=== PATIENT | female | born 1955 | race Caucasian/White ===

== ENCOUNTER → 2016-10-17 | Outpatient (CLI) | payer OTHER ==
--- NOTE | 2016-10-17 18:43 | US ---
EXAMINATION TYPE: US venous doppler duplex LE LT DATE OF EXAM: 10/17/2016 5:35 PM COMPARISON: NONE CLINICAL HISTORY: LLE Knee and Calf Pain M25.561. SIDE PERFORMED: Left TECHNIQUE: The lower extremity deep venous system is examined utilizing real time linear array sonog kaylene with graded compression, doppler sonography and color-flow sonography. VESSELS IMAGED: External Iliac Vein (EIV) Common Femoral Vein Deep Femoral Vein Greater Saphenous Vein * Femoral Vein Popliteal Vein Small Saphenous Vein * Proximal Calf Veins (* superficial vessels) Grayscale, color doppler, spectral doppler imaging performed of the deep veins of the left lower extr emity. There is normal flow, compressibility, vascular waveforms . Left Leg: Negative for DVT IMPRESSION: No Evidence for DVT.
== END | disposition home or self-care (01) ==
LOC: RADUSMAIN 16:46
PROVIDERS: ATTEND Orthopaedic Surgery
DX: M25.562 Pain in left knee (principal); M25.561 Pain in right knee; M17.11 Unilateral primary osteoarthritis, right knee; M25.461 Effusion, right knee; M65.861 Other synovitis and tenosynovitis, right lower leg
CPT/HCPCS: 87070; 87075; 87205; 89050; 89060

== ENCOUNTER → 2016-12-04 | Outpatient (CLI) | payer OTHER ==
--- NOTE | 2016-12-04 09:17 | US ---
EXAMINATION TYPE: US liver DATE OF EXAM: 12/04/2016 COMPARISON: NONE CLINICAL HISTORY: R74.8 Elevated Liver Enzymes. EXAM MEASUREMENTS: Liver Length: 15.0 cm Gallbladder Wall: 0.3 cm CBD: 0.6 cm Right Kidney: 13.0 x 3.8 x 5.1 cm Pancreas: Obscured by bowel gas Liver: There is a coarsened hepatic echotexture with mild hyperechogenicity and poor visualization of the portal triads. This finding limits evaluation for underlying hepatic masses. Gallbladder: no evidence of stones Evidence for sonographic Haro's sign: no CBD: appears wnl Right Kidney: upper limits of normal in size IMPRESSION: Coarsened and slightly hyperechoic hepatic echotexture, most commonly relating to mild he patic steatosis.
== END | disposition home or self-care (01) ==
LOC: RADUSWWP 07:36
PROVIDERS: ATTEND Family Medicine
DX: R93.2 Abnormal findings on diagnostic imaging of liver and biliary tract (principal); R74.8 Abnormal levels of other serum enzymes
CPT/HCPCS: 76705

== ENCOUNTER → 2017-03-08 | Outpatient (CLI) | payer OTHER ==
[2017-03-08 08:02] LABS: ALT 33 U/L (9-52); AST 25 U/L (14-36); Alkaline Phosphatase 150 U/L (38-126); Anion Gap 10 mmol/L; Bilirubin, Delta 0.2 mg/dL (0.0-0.2); Blood Urea Nitrogen 19 mg/dL (7-17); Calcium 9.5 mg/dL (8.4-10.2); Carbon Dioxide 27 mmol/L (22-30); Chloride 106 mmol/L (98-107); Cholesterol 229 mg/dL (<200); Glucose 105 mg/dL (74-99); HDL Cholesterol 39 mg/dL (40-60); Non-African American GFR(MDRD) >60 (>60 ml/min/1.73 sqM); Potassium 4.5 mmol/L (3.5-5.1); Sodium 143 mmol/L (137-145); Total Bilirubin 0.4 mg/dL (0.2-1.3); Total Protein 7.8 g/dL (6.3-8.2)
== END | disposition home or self-care (01) ==
LOC: LABWHC1 06:39
PROVIDERS: ATTEND Internal Medicine Gastroenterology
DX: K76.0 Fatty (change of) liver, not elsewhere classified (principal)
CPT/HCPCS: 36415; 80053; 80061; 82248; 83516; 86803; 87340

== ENCOUNTER → 2017-05-30 | Outpatient (CLI) | payer OTHER ==
--- NOTE | 2017-05-30 13:52 | US ---
EXAMINATION TYPE: US venous doppler duplex LE LT DATE OF EXAM: 05/30/2017 1:40 PM COMPARISON: US CLINICAL HISTORY: I82.402 Venous thrombosis. Extensive lower leg edema. SIDE PERFORMED: Left TECHNIQUE: The lower extremity deep venous system is examined utilizing real time linear array sonog kaylene with graded compression, doppler sonography and color-flow sonography. VESSELS IMAGED: External Iliac Vein (EIV) Common Femoral Vein Deep Femoral Vein Greater Saphenous Vein * Femoral Vein Popliteal Vein Proximal Calf Veins (* superficial vessels) Grayscale, color doppler, spectral doppler imaging performed of the deep veins of the lower extremiti es. There is normal flow, compressibility, vascular waveforms. Large complex fluid collection that starts in pop fossa and extends down to mid calf medially. This measures up to 13.2 x 1.9 x 4.7 cm and is favored to represent an enlarging Penny's cyst, retrospecti vely seen on the prior exam. Left Leg: Negative for DVT IMPRESSION: 1. No sonographic evidence of deep venous arthrosis within the left lower extremity. 2. Enlarging popliteal fluid collection within the left popliteal fossa favored to represent an enlar ging Penny's cyst.
== END | disposition home or self-care (01) ==
LOC: RADUSWWP 13:14
PROVIDERS: ATTEND Family Medicine
DX: R22.42 Localized swelling, mass and lump, left lower limb (principal); Z86.718 Personal history of other venous thrombosis and embolism

== ENCOUNTER 2021-08-25 11:53 | Day surgery (SDC) | payer MEDICARE ==
[2021-08-22 15:29] VITALS: BMI 29.9
[~2021-08-25 11:53] MED LIST: ALPRAZolam 0.25 MG TAB PO PRN; ALPRAZolam 0.5 MG TAB PO PRN; ASPIRIN 325 MG TAB PO STA; ATORVASTATIN 80 MG TAB PO STA; NITROGLYCERIN SL TABS 0.4 MG TAB SUBLINGUAL PRN
[2021-08-25] MEDS ORDERED: SODIUM CHLORIDE 0.9% 1,000 ML IV ONE (13:21)
[2021-08-25] MEDS ORDERED: VERAPAMIL 2.5 MG/ML 2 ML AMP ONE (13:39)
[2021-08-25] MEDS: MIDAZOLAM 2 MG/2 ML VIAL IV ONE ×2 (14:30→14:37)
[2021-08-25] MEDS ORDERED: LIDOCAINE 1% INJ 10MG/ML (5 ML VIAL-PF) SQ ONE ×2 (14:33)
[2021-08-25] MEDS ORDERED: IOPAMIDOL-370 125ML BTL INJ ONE (14:50)
[2021-08-25] MEDS ORDERED: IOPAMIDOL-370 100ML BTL INJ ONE ×2 (14:50)
[2021-08-25] MEDS ORDERED: RX INFO: IV CONTRAST WAS GIVEN 1 EACH MISC MISCELLANE PRN (15:09)
[2021-08-25] MEDS ORDERED: SODIUM CHLORIDE 0.9% 1,000 ML IV SCH (15:15)
[2021-08-25] MEDS: SODIUM CHLORIDE 0.9% 1,000 ML in EMPTY BAG 1 BAG IV SCH ×2 (17:07→18:47)
[2021-08-25 18:00] LABS: Appearance,Urine Clear (Clear); Bilirubin,Urine Negative (Negative); Blood,Urine Negative (Negative); Color,Urine Light Yellow; Glucose,Urine (UA) Negative (Negative); Ketones,Urine Trace (Negative); Leukocyte Esterase,Urine Negative (Negative); Mucus,Urine Rare /hpf; Nitrite,Urine Positive (Negative); PH, Urine 5.5 (5.0-8.0); Protein,Urine Negative (Negative); Specific Gravity,Urine 1.035 (1.001-1.035); Squamous Epithelial Cell,Urine 1 /hpf (0-4); Urobilinogen,Urine <2.0 mg/dL (<2.0); WBC,Urine 3 /hpf (0-5)
[2021-08-25 19:28] LABS: Basophils # (A) 0.1 k/uL (0-0.2); Basophils % (A) 1 %; Eosinophils # (A) 0.3 k/uL (0-0.7); Eosinophils % (A) 3 %; HCT 40.1 % (34.0-46.0); HGB 13.3 gm/dL (11.4-16.0); Lymphocytes # (A) 2.9 k/uL (1.0-4.8); Lymphocytes % (A) 25 %; MCH 30.3 pg (25.0-35.0); MCHC 33.2 g/dL (31.0-37.0); MCV 91.3 fL (80.0-100.0); Monocytes # (A) 0.8 k/uL (0-1.0); Monocytes % (A) 7 %; Neutrophils # (A) 7.2 k/uL (1.3-7.7); Neutrophils % (A) 62 %; Platelet Count 327 k/uL (150-450); WBC 11.7 k/uL (3.8-10.6)
[2021-08-25 19:39] LABS: ALT 43 U/L (4-34); AST 48 U/L (14-36); African American GFR (CKD) >90 (>60 ml/min/1.73 sqM); Albumin 4.1 g/dL (3.5-5.0); Alkaline Phosphatase 95 U/L (38-126); Anion Gap 10 mmol/L; Blood Urea Nitrogen 14 mg/dL (7-17); Calcium 8.8 mg/dL (8.4-10.2); Carbon Dioxide 21 mmol/L (22-30); Chloride 107 mmol/L (98-107); Glucose 112 mg/dL (74-99); Non-African American GFR(CKD) >90 (>60 ml/min/1.73 sqM); Potassium 3.5 mmol/L (3.5-5.1); Sodium 138 mmol/L (137-145); Total Bilirubin 0.5 mg/dL (0.2-1.3); Total Protein 7.6 g/dL (6.3-8.2)
[2021-08-25 19:40] LABS: INR 0.9 (<1.2); Partial Thromboplastin Time 25.4 sec (22.0-30.0); Prothrombin Time 10.1 sec (9.0-12.0)
--- NOTE | 2021-08-25 22:15 | P.PCN ---
Date of Procedure: 08/25/21 Operative Findings: CARDIAC CATHETERIZATION PERFORMING PHYSICIAN: Jalen Salcedo MD, RPVI PROCEDURE PERFORMED: 1. Right heart catheterization 2. Left heart catheterization 3. Selective right and left coronary angiogram 4. Ultrasound guided access of the right common femoral and right common femoral 5. Selective right common femoral artery angiogram INDICATION: Chest discomfo and shortness of breath with exertion in this 65-year-old female patient who underwent myocardial perfusion imaging stress test showed reversibility anteriorly COMPLICATION: None APPROACH: Right:common femoral vein and right common femoral artery LEVEL OF SEDATION: Moderate with a sedation length of 20 minutes PROCEDURE DESCRIPTION: After obtaining an informed consent, the patient was brought to cardiac confectionery laboratory manager. Local anesthesia was performed using lidocaine subcutaneously. Under ultrasound guidance the right common femoral vein and artery were cannulate and I placed an 8 Sammarinese sheath in the vein and 6 Sammarinese sheath in the artery Right heart catheterization was performed using Roosevelt catheter. Left heart catheterization was performed using 6 Sammarinese pigtail catheter Selective right and left coronary angiogram using a 6-Sammarinese JR4 and JL 3.5 catheters. The procedure was completed there was no complication. SELECTIVE CORONARY ANGIOGRAM: The right coronary artery: Is a large caliber vessel and a dominant vessel. The RCA is extremely calcified and chronically occluded in the midportion and fills by bridging collateral from the left coronary system Left main: Calcified with mild disease only. Bifurcates to LCx and LAD The left circumflex: Is a large caliber vessel and nondominant vessel. The proximal LCx appeared to have mild disease only and gives rises into a large OM which appeared to have mild disease only as well. The circumflex continue after that in the AV groove with no high-grade stenosis The left anterior descending artery: Is a large caliber vessel. It is extremely calcified. The ostial LAD is subtotally occluded. The proximal LAD appeared to have mild disease only and gives rises into a medium size diagonal branch which has a tight lesion in the midportion. The mid LAD appeared to have mild disease only and gives rises into a second diagonal branch which has mild disease only with the LAD distally appeared to have mild disease only. HEMODYNAMICS: 1. Pulmonary capillary wedge pressure was 7 mmHg 2. PA pressures were as follow systolic of 30 and diastolic of 11 and mean of 20 mmHg 3. RV pressures were as follow systolic of 28 and end diastolic of 4 mmHg 4. RA pressures was 3 mmHg 5. The LVEDP was 10 mmHg 6. The transpulmonary gradient was 13 mmHg CONCLUSION: 1. Extremely calcified right and left coronary system 2. Chronic total occlusion of the RCA which is a dominant vessel 3. Subtotally occluded ostial LAD 4. Mild disease involving the LCx system 5. Normal left and right-sided filling pressure 6. Normal pulmonary artery pressure POSTPROCEDURE MANAGEMENT: Giving the above anatomy I advised the patient to be seen by cardiothoracic surgeon for the evaluation of coronary artery bypass grafting
[2021-08-25 23:00] LABS: Hepatitis A Antibody IgM Nonreactive (Nonreactive); Hepatitis B Core IgM Nonreactive (Nonreactive); Hepatitis B Surface Antigen Nonreactive (Nonreactive); Hepatitis C IgG Antibody Nonreactive (Nonreactive)
[2021-08-26 02:26] LABS: Chol/HDL Ratio 5.85 Ratio
[2021-08-26 05:01] VITALS: TEMP 97.9
[2021-08-26] MEDS: SODIUM CHLORIDE 0.9% 1,000 ML in EMPTY BAG 1 BAG IV SCH (06:20)
[2021-08-26 07:47] LABS: Basophils # (A) 0.1 k/uL (0-0.2); Basophils % (A) 1 %; Eosinophils # (A) 0.3 k/uL (0-0.7); Eosinophils % (A) 5 %; HCT 39.9 % (34.0-46.0); HGB 12.5 gm/dL (11.4-16.0); Lymphocytes # (A) 2.2 k/uL (1.0-4.8); Lymphocytes % (A) 35 %; MCH 28.8 pg (25.0-35.0); MCHC 31.3 g/dL (31.0-37.0); MCV 92.1 fL (80.0-100.0); Mean Platelet Volume 7.2; Monocytes # (A) 0.4 k/uL (0-1.0); Monocytes % (A) 7 %; Neutrophils # (A) 3.1 k/uL (1.3-7.7); Neutrophils % (A) 50 %; Platelet Count 242 k/uL (150-450); RBC 4.33 m/uL (3.80-5.40); RDW 15.4 % (11.5-15.5); WBC 6.2 k/uL (3.8-10.6)
[2021-08-26 07:52] LABS: African American GFR (CKD) >90 (>60 ml/min/1.73 sqM); Anion Gap 6 mmol/L; Blood Urea Nitrogen 11 mg/dL (7-17); Calcium 8.9 mg/dL (8.4-10.2); Carbon Dioxide 24 mmol/L (22-30); Chloride 111 mmol/L (98-107); Glucose 161 mg/dL (74-99); Non-African American GFR(CKD) 80 (>60 ml/min/1.73 sqM); Potassium 4.5 mmol/L (3.5-5.1); Sodium 141 mmol/L (137-145)
--- NOTE | 2021-08-26 07:54 | P.GSCN ---
History of Present Illness Consult date: 08/26/21 Reason for Consult: Coronary artery disease Requesting physician: Jalen Salcedo History of present illness: This is a 65-year-old female patient who follows on an outpatient basis with Dr. Martinez for primary care, as well as recently established cardiology care with Dr. Salcedo. She has a previous medical history of hypertension, hyperlipidemia, psoriatic arthritis on DMARD outpatient, never smoker, and family history of premature coronary artery disease with brother who had myocardial infarction at 40 years old. The patient reports a 6-8 month history of shortness of breath with exertion, relieved with rest as well as some chest discomfort. She established care with Dr. Salcedo and was recommended to undergo stress testing which was abnormal. Due to her abnormal stress test she was recommended to undergo elective heart catheterization which was completed yesterday and which demonstrated chronic total occlusion of the mid right coronary artery which fills with collaterals from the left side, subtotally occluded ostial LAD, and a tight lesion in the diagonal artery. Transthoracic echocardiogram was completed in the office which demonstrated normal left ventricular systolic function with EF 55%, no regional wall motion abnormalities, mild mitral regurgitation, and mild tricuspid regurgitation. Due to her heart catheterization findings, consultation was placed to Dr. Vela from cardiothoracic surgery for revascularization recommendations. Review of Systems Review of systems was completed and was negative except as noted - Cardiovascular Reports as per HPI, Reports chest pain, Reports dyspnea on exertion Past Medical History Past Medical History: Coronary Artery Disease (CAD), Chest Pain / Angina, Hype rlipidemia, Hypertension Additional Past Medical History / Comment(s): SOB w/exertion for about 6 months or longer, psoriatic arthritis History of Any Multi-Drug Resistant Organisms: None Reported Past Surgical History: Hysterectomy, Orthopedic Surgery Additional Past Surgical History / Comment(s): arthroscopic knee surg., D & C years ago Past Anesthesia/Blood Transfusion Reactions: Previous Problems w/ Anesthesia Additional Past Anesthesia/Blood Transfusion Reaction / Comm: severe GREEN after D & C years ago, no problems since Past Psychological History: No Psychological Hx Reported Smoking Status: Never smoker Past Alcohol Use History: Rare Past Drug Use History: None Reported - Past Family History Mother Family Medical History: Myocardial Infarction ([place]) Additional Family Medical History / Comment(s): Myocardial infarction at 63 years old Father Family Medical History: CVA/TIA Additional Family Medical History / Comment(s): CVA at 72 years old Brother(s) Family Medical History: Myocardial Infarction ([place]) Additional Family Medical History / Comment(s): Myocardial infarction at 40 years old, at 72 years old Medications and Allergies Home Medications Medication Instructions Recorded Confirmed Type Aspirin 81 mg PO DAILY 08/22/21 08/25/21 History Ergocalciferol [Vitamin D2 (1250 1,250 mcg PO WEEKLY 08/22/21 08/25/21 History Mcg = 71597 Iu)] Leflunomide [Arava] 20 mg PO DAILY 08/22/21 08/25/21 History Metoprolol Succinate (ER) [Toprol 25 mg PO DAILY 08/22/21 08/25/21 History Xl] Rosuvastatin [Crestor] 10 mg PO DAILY 08/22/21 08/25/21 History Vitamin E 400 unit PO DAILY 08/22/21 08/25/21 History lisinopriL [Zestril] 40 mg PO DAILY 08/22/21 08/25/21 History Allergies Allergy/AdvReac Type Severity Reaction Status Date / Time No Known Allergies Allergy Verified 08/25/21 12:37 Surgical - Exam Vital Signs Temp Pulse Resp BP Pulse Ox 98.7 F 75 16 133/70 93 L 08/25/21 13:11 08/25/21 13:11 08/25/21 13:11 08/25/21 13:11 08/25/21 13:11 CONSTITUTIONAL: Awake and alert, appears comfortable, cooperative, well- developed, well-nourished, no pain, no acute distress EYES: Pupils equal, round, reactive to light, normal ocular movement ENT: Moist mucous membranes without oral lesions present NECK: No masses, no bruits, trachea midline RESPIRATORY: Lungs sounds clear to auscultation bilaterally. Respirations even, nonlabored. Currently on room air with oxygen saturation 94%. Strong cough. No chest wall deformities. No clubbing or cyanosis present CARDIOVASCULAR: S1, S2 present. Regular rate and rhythm, sinus rhythm on telemetry with heart rate in the 70s. Palpable peripheral pulses bilaterally. No edema present. No calf pain or tenderness noted. No significant lower extremity varicosities noted. GASTROINTESTINAL: Abdomen soft, nontender, nondistended without masses or organomegaly noted. There is no rebound or guarding present. Active bowel sounds present 4 quadrants. GENITOURINARY: Deferred INTEGUMENTARY: Skin is warm and dry with evidence of good perfusion. NEUROLOGIC: Cranial nerves II through XII intact, normal coordination, no obvious motor or sensory deficits, speech is normal MUSKULOSKELETAL: Able to move all extremities, strength equal bilaterally, normal posture PSYCHIATRIC: Alert and oriented to person place and time, appropriate affect, intact judgment and insight Results - Labs 08/25/21 19:07 08/25/21 19:07 Abnormal Lab Results - Last 24 Hours (Table) 08/25/21 08/25/21 08/25/21 Range/Units 17:05 19:07 19:07 WBC 11.7 H (3.8-10.6) k/uL RDW 16.0 H (11.5-15.5) % Carbon Dioxide 21 L (22-30) mmol/L Glucose 112 H (74-99) mg/dL AST 48 H (14-36) U/L ALT 43 H (4-34) U/L Triglycerides 785.00 H (0.00-149.00) mg/dL HDL Cholesterol 29.40 L (40.00-60.00) mg/dL Urine Ketones Trace H (Negative) Urine Nitrite Positive H (Negative) Urine Mucus Rare H (None) /hpf Microbiology - Last 24 Hours (Table) 08/25/21 17:05 Nasal Screen MRSA/MSSA - Preliminary Nasal Swab Diabetes panel 08/25/21 08/25/21 Range/Units 19:07 19:07 Sodium 138 (137-145) mmol/L Potassium 3.5 (3.5-5.1) mmol/L Chloride 107 (98-107) mmol/L Carbon Dioxide 21 L (22-30) mmol/L BUN 14 (7-17) mg/dL Creatinine 0.68 (0.52-1.04) mg/dL Glucose 112 H (74-99) mg/dL Hemoglobin A1c 6.0 (0.0-6.0) % Calcium 8.8 (8.4-10.2) mg/dL AST 48 H (14-36) U/L ALT 43 H (4-34) U/L Alkaline Phosphatase 95 (38-126) U/L Total Protein 7.6 (6.3-8.2) g/dL Albumin 4.1 (3.5-5.0) g/dL Triglycerides 785.00 H (0.00-149.00) mg/dL HDL Cholesterol 29.40 L (40.00-60.00) mg/dL Thyroid panel 08/25/21 Range/Units 19:07 TSH 2.280 (0.465-4.680) mIU/L Calcium panel 08/25/21 Range/Units 19:07 Calcium 8.8 (8.4-10.2) mg/dL Albumin 4.1 (3.5-5.0) g/dL Pituitary panel 08/25/21 Range/Units 19:07 Sodium 138 (137-145) mmol/L Potassium 3.5 (3.5-5.1) mmol/L Chloride 107 (98-107) mmol/L Carbon Dioxide 21 L (22-30) mmol/L BUN 14 (7-17) mg/dL Creatinine 0.68 (0.52-1.04) mg/dL Glucose 112 H (74-99) mg/dL Calcium 8.8 (8.4-10.2) mg/dL TSH 2.280 (0.465-4.680) mIU/L Adrenal panel 08/25/21 Range/Units 19:07 Sodium 138 (137-145) mmol/L Potassium 3.5 (3.5-5.1) mmol/L Chloride 107 (98-107) mmol/L Carbon Dioxide 21 L (22-30) mmol/L BUN 14 (7-17) mg/dL Creatinine 0.68 (0.52-1.04) mg/dL Glucose 112 H (74-99) mg/dL Calcium 8.8 (8.4-10.2) mg/dL Total Bilirubin 0.5 (0.2-1.3) mg/dL AST 48 H (14-36) U/L ALT 43 H (4-34) U/L Alkaline Phosphatase 95 (38-126) U/L Total Protein 7.6 (6.3-8.2) g/dL Albumin 4.1 (3.5-5.0) g/dL - Imaging Chest x-ray: image reviewed EKG: image reviewed Additional studies: Heart catheterization films reviewed, echocardiogram report reviewed Assessment and Plan Assessment: 1. Coronary artery disease 2. Hypertension 3. Hyperlipidemia, treated, cholesterol 172, triglycerides 785 4. Psoriatic arthritis, on DMARD outpatient 5. Never smoker 6. Family history of premature coronary artery disease Plan: The patient was seen and examined this morning sitting up in bed eating breakfast in no acute distress. Currently denies any chest pain or shortness of breath. States she has been able to walk to the bathroom without difficulty. Her case was discussed with Dr. Vela yesterday who will evaluate the patient today after all testing has been completed. Recommend continuing aspirin, statin, beta mil therapy. Will complete all testing and calculate STS risk score and discuss with the patient. Medical management of other comorbidities per primary care service. More recommendations follow. Thank you Dr. Salcedo for this consult, we look forward to working with you in the care of your patient. I have personally seen and examined the patient, performed the documentation and the assessment and plan as written. Number of minutes spent on the visit: 30. BECCA Tena
--- NOTE | 2021-08-26 08:12 | XR ---
EXAMINATION TYPE: XR chest 2V DATE OF EXAM: 08/26/2021 COMPARISON: NONE HISTORY: Preop cardiac surgery TECHNIQUE: Frontal and lateral views of the chest are obtained. FINDINGS: There is no pleural effusion or pneumothorax seen. Question some minimal patchy density at the posterior costophrenic sulcus seen on the lateral exam. The cardiac silhouette size is within no rmal limits. There are overlying leads. The osseous structures are intact. IMPRESSION: Possible basilar atelectasis, correlate.
[2021-08-26 09:00] VITALS: BP 155/82; PULSE 68; RESP 16
[2021-08-26] MEDS ORDERED: lisinopriL 20 MG TAB PO SCH (09:00)
[2021-08-26] MEDS ORDERED: ATORVASTATIN 80 MG TAB PO SCH (09:00)
[2021-08-26] MEDS ORDERED: ATORVASTATIN 20 MG TAB PO SCH (09:00)
[2021-08-26] MEDS ORDERED: VITAMIN E (DL,TOCOPHERYL ACET) 400 UNIT (180 MG) CAP PO SCH (09:00)
[2021-08-26] MEDS ORDERED: LEFLUNOMIDE 20 MG TAB PO SCH (09:00)
[2021-08-26] MEDS ORDERED: METOPROLOL SUCCINATE (ER) 25 MG TAB.ER.24H PO SCH (09:00)
[2021-08-26] MEDS ORDERED: ASPIRIN 81 MG PO SCH (09:00)
--- NOTE | 2021-08-26 09:44 | US ---
EXAMINATION TYPE: US carotid duplex BILAT DATE OF EXAM: 08/26/2021 COMPARISON: NONE CLINICAL HISTORY: Pre-Op Cardiac Surgery. Open heart EXAM MEASUREMENTS: RIGHT: Peak Systolic Velocity (PSV) cm/sec ----- Right CCA: 82.7 ----- Right ICA: 120 ----- Right ECA: 123.9 ICA/CCA ratio: 1.5 RIGHT: End Diastole cm/sec ----- Right CCA: 14.4 ----- Right ICA: 19.5 ----- Right ECA: 0 LEFT: Peak Systolic Velocity (PSV) cm/sec ----- Left CCA: 94.3 ----- Left ICA: 157.3 ----- Left ECA: 80.5 ICA/CCA ratio: 1.7 LEFT: End Diastole cm/sec ----- Left CCA: 13.6 ----- Left ICA: 31.3 ----- Left ECA: 1.7 VERTEBRALS (direction of flow): Right Vertebral: Antegrade Left Vertebral: Antegrade Rhythm: Normal Grayscale, color Doppler, spectral Doppler imaging performed of the carotid arteries. Waveform analys is shows elevated peak systolic velocity within the left internal carotid artery, there is a tortuous appearance however, findings may be technical, there is no elevation of the ICA to CCA ratio or abno rmal elevation of end-diastolic velocity. No significant stenosis seen IMPRESSION: No hemodynamic significant stenosis of the proximal internal carotid arteries by Doppler criteria, an indirect measurement of carotid stenosis as described. Elevated velocity thought to be technical within the proximal internal carotid artery on the left as described, alternate imaging cou ld be performed as indicated for confirmation. Criteria for Assigning % of Stenosis / Diameter reduction (Estimation based on the indirect measurements of the internal carotid artery velocities (ICA PSV). 1. Normal (no stenosis)=ICA PSV < 125 cm/s: ratio < 2.0: ICA EDV<40 cm/s. 2. Less than 50% stenosis=ICA PSV < 125 cm/s: ratio < 2.0: ICA EDV<40 cm/s. 3. 50 to 69% stenosis=ICA PSV of 125 to 230 cm/s: ration 2.0 ? 4.0: ICA EDV 40-100 cm/s. 4. Greater than 70% stenosis to near occlusion= ICA PSV > 230 cm/s: ratio > 4.0: ICA EDV > 100 cm/s. 5. Near occlusion= ICA PSV velocities may be low or undetectable: variable ratio and ICA EDV. 6. Total occlusion=unable to detect flow.
--- NOTE | 2021-08-26 10:55 | P.PN ---
Progress Note - Text Progress Note Date: 08/26/21 5 meter walk test completed without difficulty: #1 3.55 sec #2 4.02 sec #3 3.43 sec
--- NOTE | 2021-08-26 11:57 | P.DS ---
Providers Attending physician: Jalen Salcedo Consults: 08/25/21 15:11 Consult Physician Routine Consulting Provider: Wale Vela Consult Reason/Comments: Surgical Consult Do you want consulting provider notified?: Yes Primary care physician: Jareth Martinez [facility] Course: The patient is a pleasant 65-year-old female patient with hypertension and dyslipidemia and significant family history of CAD was admitted to the hospital yesterday and underwent a heart catheterization in the light of symptoms of chest pain and shortness of breath with exertion concerning for severe CAD. The heart catheterization revealed critical ostial LAD and occluded RCA. I advised the patient to be seen by cardiothoracic surgeon whether evaluation of CABG. The patient was seen by Dr. Vela was going to operate on the patient this coming Sunday. The patient was seen this morning and she is asymptomatic which she is on aspirin and beta mil and statin and going to increase the dose of Lipitor to 80 mg by mouth daily at bedtime. I advised the patient to sit confused and that the patient would like to go home and have the procedure done as an outpatient. She will be discharged home to the scheduled to undergo CABG this coming Sunday Plan - Discharge Summary Discharge Rx Participant: No New Discharge Prescriptions: Continue Ergocalciferol [Vitamin D2 (1250 Mcg = 64247 Iu)] 1,250 mcg PO WEEKLY Vitamin E 400 unit PO DAILY Rosuvastatin [Crestor] 10 mg PO DAILY Aspirin 81 mg PO DAILY Metoprolol Succinate (ER) [Toprol XL] 25 mg PO DAILY lisinopriL [Zestril] 40 mg PO DAILY Discharge Medication List Aspirin 81 mg PO DAILY 08/22/21 [History] Ergocalciferol [Vitamin D2 (1250 Mcg = 10856 Iu)] 1,250 mcg PO WEEKLY 08/22/21 [ History] Metoprolol Succinate (ER) [Toprol XL] 25 mg PO DAILY 08/22/21 [History] Rosuvastatin [Crestor] 10 mg PO DAILY 08/22/21 [History] Vitamin E 400 unit PO DAILY 08/22/21 [History] lisinopriL [Zestril] 40 mg PO DAILY 08/22/21 [History] Follow up Appointment(s)/Referral(s): Wale Vela MD [STAFF PHYSICIAN] - 08/30/21 8:00 am (Surgery is scheduled for 08/30/21 at 8 am. You will be called in the afternoon the day before to tell you what time to be at the hospital. Nothing to eat or drink after midnight 08/30/21. Please call LUCY Ferrara with surgery if you have any questions [phone]) Jalen Salcedo MD [STAFF PHYSICIAN] - 2 Weeks
[2021-08-26] MEDS ORDERED: MUPIROCIN 2% OINT 22 GM TUBE NASAL SCH (21:00)
--- NOTE | 2021-08-29 14:31 | US ---
EXAMINATION TYPE: US vein mapping BIL DATE OF EXAM: 08/26/2021 8:57 AM COMPARISON: NONE CLINICAL HISTORY: PreOp Cardiac Surgery. Open heart SIDE PERFORMED: Bilateral TECHNIQUE: Lower extremity saphenous vein is examined and measured utilizing real time linear array sonography. Patient History: Smoker: No Heart Disease: Yes Previous DVT: No Vascular Surgery: No Discoloration: No Hypertension: Yes Diabetes: No Paralysis: No Varicosities: No Edema: No DUPLEX FINDINGS: Greater Saphenous: Color flow seen Lesser Saphenous: Color flow seen Measurements in mm: Right Greater Saphenous: Groin: 7.2 x 4.9 mm High Thigh: 4.4 x 3.8 mm Mid Thigh: 3.9 x 2.3 mm Above Knee: 3.0 x 2.3 mm Knee: 2.2 x 1.9 mm Below Knee: 3.8 x 2.4 mm Mid Calf: 2.5 x 1.9 mm At Ankle: 2.0 x 1.7 mm Left Greater Saphenous: Groin: 7.8 x 5.7 mm High Thigh: 3.6 x 2.9 mm Mid Thigh: 3.6 x 2.4 mm Above Knee: 2.6 x 2.6 mm Knee: 3.2 x 2.0 mm Below Knee: 3.4 x 2.1 mm Mid Calf: 2.3 x 2.0 mm At Ankle: 2.0 x 1.8 mm IMPRESSION: 1. Bilateral GSV measurements listed above. 2. Performing surgeon to determine viability as conduit.
--- NOTE | 2021-08-29 14:33 | US ---
EXAMINATION TYPE: US arterial LE multi level DATE OF EXAM: 08/26/2021 10:38 AM CLINICAL HISTORY: Ankle Brachial Index (KAUSHIK) . Pre bypass surgery Doppler Waveforms: Right: Multiphasic Left: Multiphasic Ankle-Brachial Indices: Right: 1.1 Left: 1.2 Toe Brachial Indices: Right: 0.7 Left: 0.7 IMPRESSION: Within normal limits
--- NOTE | 2021-08-29 14:35 | US ---
EXAMINATION TYPE: Pre-Operative Non-Invasive Evaluation of the hand for Potential Radial Artery Sara st, Measurements only DATE OF EXAM: 08/26/2021 8:57 AM CLINICAL HISTORY: Pre-Op Cardiac Surgery. Open heart SIDE PERFORMED: Bilateral TECHNIQUE: Radial artery is measured utilizing real time linear array sonography. Duplex Findings: Radial Artery: Color flow seen Measurements in mm, transverse view: Right Radial: Proximal: 2.9 x 2.5 mm Mid: 2.2 x 1.8 mm Distal: 2.6 x 2.1 mm Left Radial: Proximal: 3.9 x 3.3 mm Mid: 1.5 x 1.8 mm Distal: 2.2 x 1.9 mm IMPRESSION: 1. Performing surgeon to determine viability as conduit.
[2021-09-01] MEDS ORDERED: ERGOCALCIFEROL 1,250 MCG (50,000 IU) CAPSULE PO SCH (09:00)
== END 2021-08-26 13:26 | disposition home or self-care (01) ==
LOC: CATHCVL 11:53 → 3SCARD 14:51 → CATHCVL 08-26 13:26
PROVIDERS: ATTEND Internal Medicine Interventional Cardiology
DX: I25.10 Atherosclerotic heart disease of native coronary artery without angina pectoris (principal); I25.82 Chronic total occlusion of coronary artery; E78.5 Hyperlipidemia, unspecified; I10 Essential (primary) hypertension; L40.50 Arthropathic psoriasis, unspecified; Z79.82 Long term (current) use of aspirin; Z79.899 Other long term (current) drug therapy; Z82.49 Family history of ischemic heart disease and other diseases of the circulatory system; Z20.822 Contact with and (suspected) exposure to COVID-19
CPT/HCPCS: 93460; 94150; 76937; 80061; 80053; 80048; 80074; 84443; 83735; 85025 ×2; 85610; 85730; 81001; 83721; 87070; 83036; 87635; 71046; 93930; 93970; 93922; 93880; C1760; C1894 ×2; C1769 ×2; J2250; J2001; Q9967; 86850; 86900; 86901; 86920

== ENCOUNTER 2021-08-30 05:41 | Inpatient (IN) | payer MEDICARE ==
[~2021-08-30 05:41] MED LIST changes: +ALBUMIN HUMAN 25% 50 ML IV ONE; +ALBUMIN HUMAN 5% 500 ML IVPB ONE; -ALPRAZolam 0.25 MG TAB PO PRN; -ALPRAZolam 0.5 MG TAB PO PRN; +ASPIRIN 325 MG TAB PO ONE; -ASPIRIN 325 MG TAB PO STA; +ATORVASTATIN 10 MG TAB PO ONE; -ATORVASTATIN 80 MG TAB PO STA; +CALCIUM CHLORIDE 100 MG/ML 10 ML SYRINGE IV ONE; +CARDIOPLEGIC SOLN (K+ 16 MEQ/L 1,000 ML with SODIUM BICARB (1 MEQ/ML) 20 ML, LIDOCAINE ... PERFUSION ONE; +CHLORHEXIDINE GLUCONATE 15 ML CUP MUCOUS MEM ONE; +CLEVIDIPINE BUTYRATE 25 MG in EMPTY BAG 1 BAG IV ONE; +HEPARIN SODIUM 1,000 UN/ML (10ML VL) IV ONE; +HEPARIN SODIUM,PORCINE 5,000 UNIT in SODIUM CHLORIDE 0.9% 500 ML 500 ML IV ONE; +INSULIN REGULAR 100 UNIT in SODIUM CHLORIDE 0.9% 100 ML IV ONE; +LACTATED RINGERS 1,000 ML IV ONE; +MAGNESIUM SULFATE 16.24 MEQ in EMPTY SYRINGE 1 SYR IV ONE; +MANNITOL 25% 12.5 GM/50 ML VIAL IV ONE; +METOPROLOL TARTRATE 12.5 MG TAB PO ONE; +NITROGLYCERIN SL TABS 0.4 MG TAB SUBLINGUAL ONE; -NITROGLYCERIN SL TABS 0.4 MG TAB SUBLINGUAL PRN; +NITROGLYCERIN-D5W PMX 25 MG/250 ML BTL IV ONE; +NITROGLYCERIN-D5W PMX 50 MG in DEXTROSE/WATER 1 250ML.BAG IV ONE; +NOREPINEPHRINE 4 MG in SODIUM CHLORIDE 0.9% 250 ML IV ONE; +PAPAVERINE 360 MG in SODIUM CHLORIDE 0.9% 90 ML IV ONE; +PHENYLEPHRINE 10 MG/ML VIAL IV ONE; +PHENYLEPHRINE 40 MG in SODIUM CHLORIDE 0.9% 250 ML IV ONE; +PROTAMINE SULFATE 10 MG/ML 25 ML VIAL IV ONE; +PROTAMINE SULFATE 250 MG in EMPTY BAG 1 BAG IV ONE; +SODIUM BICARB 8.4% 50 ML SYR (1 MEQ/ML) IV ONE; +SODIUM CHLORIDE 0.9% 1,000 ML IV ONE; +TRANEXAMIC ACID 2,000 MG in SODIUM CHLORIDE 0.9% 80 ML IV ONE; +ceFAZolin 1,000 MG in SODIUM CHLORIDE 0.9% IRRIGATIO 1,000 ML IRRIGATION ONE; +propofoL 1,000 MG/100 ML VIAL IV ONE
[2021-08-30] MEDS ORDERED: LACTATED RINGERS 1,000 ML IV SCH (05:54)
--- NOTE | 2021-08-30 07:52 | P.ANPRN ---
Procedure Note - Anesthesia - Invasive Line Right Arterial Line Time Out Performed: Yes Date of Procedure: 08/30/21 Time of Procedure: 07:10 Location of Patient: PreOp Preparation: Sterile Prep, Sterile Dressing Arterial Line Location: Radial Needle Guage: 20 Narrative: arterial line placed by EMERGENCY MEDICINE MEDICAL DIRECTOR Right Central Line Time Out Performed: Yes Date of Procedure: 08/30/21 Time of Procedure: 07:10 Location of Patient: PreOp Preparation: Sterile Prep, Sterile Dressing Ultrasound Used: Yes Purpose - Visualization and Identification of Vasculature: Yes Needle Guage: 18 Image Stored and Saved: Yes Narrative: Central line placement per sterile protocol utilized. Seldinger technique Right [place] Time Out Performed: Yes Date of Procedure: 08/30/21 Time of Procedure: 07:20 Location of Patient: PreOp Preparation: Sterile Prep, Sterile Dressing Narrative: SWAN secured @ 40 cm
[2021-08-30] MEDS ORDERED: POTASSIUM CHLORIDE OPEN HEART 20 MEQ/50 ML BAG IVPB ONE (07:55)
[2021-08-30] MEDS ORDERED: HEPARIN SODIUM,PORCINE 10,000 UNIT/ML 1 ML VIAL ONE (07:55)
[2021-08-30] MEDS ORDERED: MAGNESIUM SULFATE 4 MEQ/ML 10ML VIAL ONE (07:55)
[2021-08-30] MEDS ORDERED: SODIUM BICARB 8.4% 50 ML SYR (1 MEQ/ML) ONE (07:55)
[2021-08-30] MEDS ORDERED: fentaNYL (PF) 50 MCG/ML 50 ML VIAL ONE (07:55)
[2021-08-30] MEDS ORDERED: PROPOFOL 10 MG/ML 20 ML VIAL IV ONE (07:55)
[2021-08-30] MEDS ORDERED: ePHEDrine 50 MG/ML 1 ML VIAL ONE (07:55)
[2021-08-30] MEDS ORDERED: LIDOCAINE 2% SYG (PF) 100 MG/5 ML ONE (07:55)
[2021-08-30] MEDS ORDERED: NITROGLYCERIN-D5W PMX 50 MG/250 ML BOTTLE IV ONE (07:55)
[2021-08-30] MEDS ORDERED: VECURONIUM 10 MG VIAL IV ONE (07:55)
[2021-08-30] MEDS ORDERED: MIDAZOLAM 2 MG/2 ML VIAL ONE (07:55)
[2021-08-30] MEDS ORDERED: PROTAMINE SULFATE 10 MG/ML 5 ML VIAL IV ONE (07:55)
[2021-08-30] MEDS ORDERED: ALBUMIN HUMAN 5% (25gm) 500 ML VIAL IVPB ONE (07:55)
[2021-08-30] MEDS ORDERED: PHENYLEPHRINE-0.9% NACL SYG 1,000 MCG/10 ML SYRINGE ONE (07:55)
[2021-08-30] MEDS ORDERED: SODIUM CHLORIDE 0.9% IRRIG 1,000 ML BTL IRRIGATION ONE (07:55)
[2021-08-30 08:37] LABS: ABG Glucose Whole Blood 105 mg/dL (75-99); ABG Hematocrit 35 % (34.0-46.0); ABG Ionized Calcium 4.7 mg/dL (4.5-5.3); ABG Lactic Acid Whole Blood 1.3 mmol/L (0.5-1.6); ABG Oxygen Saturation 98.2 % (94-97); ABG PCO2 37 mmHg (35-45); ABG PO2 230 mmHg (83-108); ABG Potassium Whole Blood 3.9 mmol/L (3.4-4.5); ABG Sodium Whole Blood 141 mmol/L (135-146)
[2021-08-30 10:07] LABS: ABG Glucose Whole Blood 114 mg/dL (75-99); ABG Hematocrit 36 % (34.0-46.0); ABG Ionized Calcium 4.7 mg/dL (4.5-5.3); ABG Lactic Acid Whole Blood 1.3 mmol/L (0.5-1.6); ABG Oxygen Saturation 98.3 % (94-97); ABG PCO2 37 mmHg (35-45); ABG PH 7.39 (7.35-7.45); ABG PO2 240 mmHg (83-108); ABG Potassium Whole Blood 4.3 mmol/L (3.4-4.5); ABG Sodium Whole Blood 142 mmol/L (135-146)
[2021-08-30 10:32] LABS: ABG Glucose Whole Blood 113 mg/dL (75-99); ABG Hematocrit 32 % (34.0-46.0); ABG Ionized Calcium 4.6 mg/dL (4.5-5.3); ABG Oxygen Saturation 98.5 % (94-97); ABG PCO2 34 mmHg (35-45); ABG PO2 236 mmHg (83-108); ABG Potassium Whole Blood 3.9 mmol/L (3.4-4.5); ABG Sodium Whole Blood 142 mmol/L (135-146)
[2021-08-30 11:01] LABS: ABG Glucose Whole Blood 113 mg/dL (75-99); ABG Hematocrit 31 % (34.0-46.0); ABG Ionized Calcium 4.5 mg/dL (4.5-5.3); ABG Lactic Acid Whole Blood 0.9 mmol/L (0.5-1.6); ABG Oxygen Saturation 98.3 % (94-97); ABG PCO2 36 mmHg (35-45); ABG PH 7.38 (7.35-7.45); ABG PO2 248 mmHg (83-108); ABG Potassium Whole Blood 3.9 mmol/L (3.4-4.5); ABG Sodium Whole Blood 143 mmol/L (135-146)
[2021-08-30 11:27] LABS: ABG Glucose Whole Blood 111 mg/dL (75-99); ABG Hematocrit 29 % (34.0-46.0); ABG Ionized Calcium 4.5 mg/dL (4.5-5.3); ABG Lactic Acid Whole Blood 1.1 mmol/L (0.5-1.6); ABG Oxygen Saturation 98.4 % (94-97); ABG PCO2 37 mmHg (35-45); ABG PO2 261 mmHg (83-108); ABG Potassium Whole Blood 3.8 mmol/L (3.4-4.5); ABG Sodium Whole Blood 145 mmol/L (135-146)
[2021-08-30 12:11] LABS: ABG Glucose Whole Blood 106 mg/dL (75-99); ABG Hematocrit 28 % (34.0-46.0); ABG Ionized Calcium 4.4 mg/dL (4.5-5.3); ABG Lactic Acid Whole Blood 1.8 mmol/L (0.5-1.6); ABG Oxygen Saturation 97.9 % (94-97); ABG PCO2 35 mmHg (35-45); ABG PH 7.41 (7.35-7.45); ABG PO2 172 mmHg (83-108); ABG Potassium Whole Blood 4.5 mmol/L (3.4-4.5); ABG Sodium Whole Blood 143 mmol/L (135-146)
--- NOTE | 2021-08-30 12:35 | P.OP ---
Date of Procedure: 08/30/21 Preoperative Diagnosis: Coronary artery disease Postoperative Diagnosis: Same Procedure(s) Performed: Off-pump CABG 3 with PEACE to LAD and saphenous vein grafts to obtuse marginal and posterior descending coronary arteries, endovascular vein harvest, occlusion of left atrial appendage with 35 mm AtriCure clip. Implants: 35mm AtriCure clip Anesthesia: ONEL Surgeon: Wale Vela Mule Driver #1: Eddie Kaufman Estimated Blood Loss (ml): 100 IV fluids (ml): 1,500 Urine output (ml): 500 Pathology: none sent Condition: stable Disposition: ICU Indications for Procedure: 5-year-old female presents with progressive dyspnea. Found to have three-vessel coronary artery disease. Referred for coronary artery bypass grafting. Seen in the office last week and scheduled for surgery this week. Indications for surgery, risks versus benefits, possible complications were all outlined with the patient. Usual perioperative course and been described. Operative Findings: Good distal poor coronary targets were identified although the vessels were small throughout. Saphenous vein was adequate although also somewhat limited in caliber. PEACE was a good vessel although somewhat small distally. Left atrial appendage was relatively small and somewhat adherent to the base of the left ventricle. Excellent coronary grafts were obtained. Description of Procedure: The patient was brought to the operating room placed supine on the operating table. Gen. anesthesia was induced. The anterior torso and bilateral lower extremities were sterilely prepped and draped. Saphenous vein was harvested from the left lower extremity using endoscopic vein harvest technique. Was harvested from mid calf to groin. It was of reasonable quality although somewhat small in diameter. The best segments were used. Simultaneous sternotomy was performed. The left hemisternum retracted upwards and the internal mammary artery was harvested on a vascularized pedicle. It was left intact on its origin from the subclavian and divided distally. The left pleural space was drained with 32-Argent[place] chest tube. Standard sternal retractor was placed. The pericardium was opened in the midline. The heart was exposed with pericardial sutures. Suction stabilization was used during distal anastomosis. Patient was heparinized. A CTs were maintained greater than 250 during grafting. We began by exposing the left atrial appendage. We had to mobilize laved atrial appendage from the left ventricle somewhat due to adherent disease. 35mm AtriCure was placed in the left atrial appendage. Next we performed the PEACE to the LAD. The PEACE was cut to appropriate length and the LAD was grafted in its midportion. It was stabilized and opened and blood flow control with a 1.5 mm flow through. It was a 1.5-1.75 mm vessel. End-to-side anastomosis between the PEACE and the LAD was performed with running 8-0 Prolene suture. On completion anastomosis the flow through was removed effectively probing the proximal distal portion of the anastomosis. Suture was tied and good hemostasis was again noted. PEACE lay well with good length. The fluid-filled well with no kinking or narrowing. The ANAID pedicle was tacked surrounding epicardium with 60 silks. Next we exposed the inferior wall. The pupil posterior descending coronary artery was dissected out proximally. It was 1.5 mm vessel. It was opened and blood flow control with a 1.5 mm flow through. The upper portion of the saphenous vein was anastomosed in end-to-side fashion with running 7-0 Prolene suture. On completion anastomosis, flow through was removed effectively probing the proximal distal portion anastomosis. Suture was tied with good result and hemostasis. Good backbleeding was noted into the vein to the first valve. Heart was lowered into anatomic position and the vein cut to appropriate length. Next the lateral wall the heart was exposed. The major marginal branch was identified. It was fairly diseased proximally and then this appeared intramyocardially. It was dissected out as it entered the myocardium may here was a soft vessel. It was 1.5 mm in diameter. Was opened and blood flow control with a 1.5 mm flow through. There was some moderate wall disease still present. End-to-side anastomosis between the second piece of saphenous vein and the obtuse marginal was performed with running 7-0 Prolene suture. On completion anastomosis the flow through was removed effectively probing the proximal distal portion anastomosis. Suture was tied with good result and hemostasis. Good backbleeding was noted and the vein to the first valve. Heart was lowered in anatomic position. In order to utilize the best portion of the vein was decided to jump the vein off the PEACE rather than reach all the way to the aorta. Blood flow in the PEACE was controlled proximally and distally with bulldogs and it was opened longitudinally just as it entered the pericardial sac. Side to end anastomosis between the PEACE and the vein to the obtuse marginal was performed with running 8-0 Prolene suture. On completion anastomosis suture was tied. We initially opened backbleeding from the PEACE and demonstrated good hemostasis. We then opened the antegrade flow and de-airing the vein graft through a needle hole. Heartstring device was not applied in the ascending aorta in the midline fairly proximally above the sinotubular junction. Proximal anastomosis of the saphenous vein to the posterior descending off the aorta was performed with running 5-0 Prolene suture. On completion of the anastomosis the heartstring device was removed. Suture was tied with good result and hemostasis. The vein graft was de-aired with needle holes and the inflow open. Distal anastomoses were checked. Hemostasis was good at all anastomotic sites. There was no bleeding from the left atrial appendage. Heparin was reversed with protamine. Good hemostasis obtained throughout. Mediastinum was irrigated with warm antibiotic solution and drained with a 36- [place] chest tube. After assuring good hemostasis the sternum was closed with 8 sternal wires. Fascia was closed with 0 Ethibond. Subcutaneous and subcuticular layers were in the leg and chest were closed with layers of Vicryl suture. Initial dressings were applied the patient was transferred to ICU in stable hemodynamic condition. No blood transfusions were required.
[2021-08-30 13:07] LABS: Glucose,Whole Blood 115 mg/dL (75-99)
--- NOTE | 2021-08-30 13:15 | P.ANPRN ---
Procedure Note - Anesthesia - AMERICA Intraop Pre Bypass AMERICA Intraop - Anesthesia Indication: CAD Date of Procedure: 08/30/21 Pre-operative Diagnosis: CAD Post-operative Diagnosis: CAD Surgeon: Wale Vela Left Ventricle: EF 40% Ejection Fraction: Other Regional Wall Motion Abnormalities: None Left Ventricle Hypertrophy: No R. Ventricle Function: Normal Anatomy: Trileaflet Aortic Stenosis: None Aortic Regurgitation: None Mitral Stenosis: None Mitral Regurgitation: Trace Tricuspid Stenosis: None Tricuspid Regurgitation: None Pulmonic Stenosis: None Pulmonic Regurgitation: None R. Atrial Dilation: No R. Atrial PFO: Yes L. Atrial Dilation: No Aortic Dissection: No Aortic Calcification: Mild Plural Effusion: None
[2021-08-30] MEDS ORDERED: AMIODARONE 360 MG in DEXTROSE 5% IN WATER 200 ML IV PRN ×2 (13:19)
[2021-08-30] MEDS ORDERED: DEXMEDETOMIDINE/0.9% NACL(PMX) 400 MCG in EMPTY BAG 1 BAG IV SCH (13:19)
[2021-08-30] MEDS ORDERED: AMIODARONE 450 MG in DEXTROSE 5% IN WATER 250 ML IV PRN ×2 (13:19)
[2021-08-30] MEDS ORDERED: Potassium Replacement Protocol 1 EACH MISC MISCELLANE PRN (13:19)
[2021-08-30] MEDS ORDERED: BENZOCAINE/MENTHOL LOZENG 1 EACH LOZENGE MUCOUS MEM PRN (13:19)
[2021-08-30] MEDS ORDERED: CALCIUM GLUCONATE IN NACL 2 GM in SALINE 1 100ML.BAG IVPB PRN (13:19)
[2021-08-30] MEDS ORDERED: Magnesium Replacement Protocol 1 EACH MISC MISCELLANE PRN (13:19)
[2021-08-30] MEDS ORDERED: NITROGLYCERIN-D5W PMX 50 MG in DEXTROSE/WATER 1 250ML.BAG IV SCH (13:19)
[2021-08-30] MEDS ORDERED: ONDANSETRON 4 MG/2 ML VIAL IVP PRN (13:19)
[2021-08-30] MEDS ORDERED: METOCLOPRAMIDE 5 MG/ML 2 ML VIAL IVP PRN (13:19)
[2021-08-30] MEDS ORDERED: Phosphorus Replacement Protoco 1 EACH MISC MISCELLANE PRN (13:19)
[2021-08-30] MEDS ORDERED: hydrALAZINE HCL 20 MG/ML 1 ML VIAL IVP PRN (13:19)
[2021-08-30] MEDS ORDERED: DEXTROSE 5% IN WATER 100 ML with AMIODARONE 150 MG IV PRN (13:19)
[2021-08-30] MEDS ORDERED: IPRATROPIUM-ALBUTEROL 3 ML NEB INHALATION PRN (13:19)
[2021-08-30 13:25] LABS: Basophils # (A) 0.1 k/uL (0-0.2); Basophils % (A) 0 %; Eosinophils # (A) 0.5 k/uL (0-0.7); Eosinophils % (A) 3 %; HCT 28.2 % (34.0-46.0); Lymphocytes # (A) 3.2 k/uL (1.0-4.8); Lymphocytes % (A) 19 %; MCH 29.8 pg (25.0-35.0); MCHC 32.7 g/dL (31.0-37.0); MCV 91.1 fL (80.0-100.0); Mean Platelet Volume 8.1; Monocytes # (A) 0.6 k/uL (0-1.0); Monocytes % (A) 4 %; Neutrophils # (A) 11.9 k/uL (1.3-7.7); Neutrophils % (A) 72 %; Platelet Count 226 k/uL (150-450); RBC 3.09 m/uL (3.80-5.40); RDW 15.6 % (11.5-15.5); WBC 16.5 k/uL (3.8-10.6)
[2021-08-30 13:29] LABS: HGB 9.2 gm/dL (11.4-16.0)
[2021-08-30 13:30] LABS: Prothrombin Time 11.2 sec (9.0-12.0)
[2021-08-30 13:34] LABS: ABG Base Excess -1.7 mmol/L; ABG HCO3 25 mmol/L (21-25); ABG PCO2 48 mmHg (35-45); ABG PH 7.31 (7.35-7.45); ABG PO2 331 mmHg (83-108); ABG TCO2 26 mmol/L (19-24)
[2021-08-30 13:34] LABS: ALT 26 U/L (4-34); AST 41 U/L (14-36); African American GFR (CKD) >90 (>60 ml/min/1.73 sqM); Albumin 2.9 g/dL (3.5-5.0); Alkaline Phosphatase 50 U/L (38-126); Anion Gap 7 mmol/L; Blood Urea Nitrogen 10 mg/dL (7-17); Calcium 7.5 mg/dL (8.4-10.2); Carbon Dioxide 22 mmol/L (22-30); Chloride 111 mmol/L (98-107); Glucose 108 mg/dL (74-99); Magnesium 2.1 mg/dL (1.6-2.3); Non-African American GFR(CKD) >90 (>60 ml/min/1.73 sqM); Potassium 4.3 mmol/L (3.5-5.1); Sodium 140 mmol/L (137-145); Total Bilirubin 0.4 mg/dL (0.2-1.3); Total Protein 5.1 g/dL (6.3-8.2)
[2021-08-30 13:37] LABS: Allen Test Performed? no
[2021-08-30] MEDS: LACTATED RINGERS 1,000 ML IV SCH (13:44)
[2021-08-30] MEDS: ALBUMIN HUMAN 5% 250 ML in EMPTY BAG 1 BAG IVPB PRN ×2 (14:06→14:25)
--- NOTE | 2021-08-30 14:07 | P.CRDCN ---
History of Present Illness Consult date: 08/30/21 History of present illness: History of Present Illness: The patient is a 65-year-old female who underwent coronary bypass grafting today by Dr. Vela. She is intubated and sedated in the ICU. She has been followed in the past by Dr. Salcedo and underwent cardiac catheterization on August 25 and was found to have severe obstructive disease with calcified coronary arteries, critical stenosis involving the ostial LAD and chronically occluded mid RCA. The patient has a history of hypertension, hyperlipidemia and family history of premature CAD. Her left ventricle systolic function was normal by echocardiography preoperatively. Today she received off pump PEACE to the LAD and saphenous to the OM and to the PDA was closure of the left atrial appendage. She is in sinus mechanism on no vasopressors. Urine output has been stable. Her medication as an outpatient included lisinopril 40 mg daily rosuvastatin 10 mg daily metoprolol succinate 25 mg daily and aspirin once a day Review of Systems: Could not be obtained, the patient is intubated and sedated Physical Examination: 65-year-old female intubated in sinus mechanism. Blood pressure 133/70 the heart rate in the 70s Head: Normocephalic. Eyes: Sclerae nonicteric. Neck: Good carotid upstroke, no bruit, no jugular venous distention. [place]-Alonzo catheter is noted Lungs: Clear to auscultation. Heart: Regular rate and rhythm, S1-S2, no S3, no rub. No murmur. Abdomen: Soft positive bowel sounds no organomegaly. Extremities: No edema, intact distal pulses. Saeid wrap in place Labs: BUN 10, creatinine 0.62, potassium 4.3. PH 7.31 pO2 331 with pCO2 of 48. Hemoglobin of 9.2 Impression: 1. Status post CABG with PEACE to the LAD and saphenous vein grafts to the OM and to the PDA 2. History of hypertension 3. History of hyperlipidemia Plan: 1. Routine postoperative care, hopefully wean and extubate soon 2. Resume statin and beta mil 3. Depending on her progress further recommendations will be made 4. Thank you for this consult we will follow with you Past Medical History Past Medical History: Coronary Artery Disease (CAD), Chest Pain / Angina, H yperlipidemia, Hypertension Additional Past Medical History / Comment(s): SOB w/exertion for about 6 months or longer, psoriatic arthritis. History of Any Multi-Drug Resistant Organisms: None Reported Past Surgical History: Hysterectomy, Orthopedic Surgery Additional Past Surgical History / Comment(s): Arthroscopic knee surgery(unknown laterality), D&C. Past Anesthesia/Blood Transfusion Reactions: Previous Problems w/ Anesthesia Additional Past Anesthesia/Blood Transfusion Reaction / Comment(s): Severe headache after D&C years ago, no problems since. Past Psychological History: No Psychological Hx Reported Smoking Status: Never smoker Past Alcohol Use History: Rare Past Drug Use History: None Reported - Past Family History Mother Family Medical History: Myocardial Infarction (AR) Additional Family Medical History / Comment(s): Myocardial infarction at 63 ye ars old. Father Family Medical History: CVA/TIA Additional Family Medical History / Comment(s): CVA at 72 years old. Brother(s) Family Medical History: Myocardial Infarction (AR) Additional Family Medical History / Comment(s): Myocardial infarction at 40 years old, at 72 years old. Medications and Allergies Home Medications Medication Instructions Recorded Confirmed Type Aspirin 81 mg PO DAILY 08/22/21 08/30/21 History Ergocalciferol [Vitamin D2 (1250 1,250 mcg PO FR 08/22/21 08/30/21 History Mcg = 12942 Iu)] Metoprolol Succinate (ER) [Toprol 25 mg PO DAILY 08/22/21 08/30/21 History XL] Rosuvastatin [Crestor] 10 mg PO HS 08/22/21 08/30/21 History Vitamin E 400 unit PO DAILY 08/22/21 08/30/21 History lisinopriL [Zestril] 40 mg PO DAILY 08/22/21 08/30/21 History Allergies Allergy/AdvReac Type Severity Reaction Status Date / Time No Known Allergies Allergy Verified 08/30/21 06:06 Physical Exam Vitals: Vital Signs Temp Pulse Resp BP BP Pulse Ox 08/30/21 06:15 133/72 117/70 08/30/21 06:09 98.8 F 70 16 136/81 95 Intake and Output 08/29/21 08/30/21 08/30/21 22:59 06:59 14:59 Intake Total 100 53 Output Total 1250 Balance 100 -1197 Intake: IV 100 53 Output: Urine 850 Estimated Blood Loss 400 Other: Weight 80.467 kg Results 08/30/21 13:05 05/10/22 13:05 Cardiac Enzymes 08/30/21 Range/Units 13:05 AST 41 H (14-36) U/L Coagulation 08/30/21 Range/Units 13:05 PT 11.2 (9.0-12.0) sec APTT 25.0 (22.0-30.0) sec CBC 08/30/21 Range/Units 13:05 WBC 16.5 H (3.8-10.6) k/uL RBC 3.09 L (3.80-5.40) m/uL Hgb 9.2 L D (11.4-16.0) gm/dL Hct 28.2 L (34.0-46.0) % Plt Count 226 (150-450) k/uL Comprehensive Metabolic Panel 08/30/21 Range/Units 13:05 Sodium 140 (137-145) mmol/L Potassium 4.3 (3.5-5.1) mmol/L Chloride 111 H (98-107) mmol/L Carbon Dioxide 22 (22-30) mmol/L BUN 10 (7-17) mg/dL Creatinine 0.62 (0.52-1.04) mg/dL Glucose 108 H (74-99) mg/dL Calcium 7.5 L (8.4-10.2) mg/dL AST 41 H (14-36) U/L ALT 26 (4-34) U/L Alkaline Phosphatase 50 (38-126) U/L Total Protein 5.1 L (6.3-8.2) g/dL Albumin 2.9 L (3.5-5.0) g/dL Current Medications Generic Name Dose Route Start Last Admin Trade Name Freq PRN Reason Stop Dose Admin Hydrocodone Bitart/Acetaminophen 2 each 08/30/21 23:43 Hydrocodone/Apap 5-325mg 1 Each Tab PO Q4HR PRN Severe Pain Hydrocodone Bitart/Acetaminophen 1 each 08/30/21 23:43 Hydrocodone/Apap 5-325mg 1 Each Tab PO Q4HR PRN Moderate Pain Albuterol/Ipratropium 3 ml 08/30/21 13:19 Ipratropium-Albuterol 3 Ml Neb INHALATION RT-Q2H PRN Shortness Of Breath Or Wheezing Albuterol/Ipratropium 3 ml 08/30/21 13:19 Ipratropium-Albuterol 3 Ml Neb INHALATION 08/30/21 17:45 RT-Q4H NEHAL Albuterol/Ipratropium 3 ml 08/30/21 20:00 Ipratropium-Albuterol 3 Ml Neb INHALATION RT-QID NEHAL Aspirin 325 mg 08/31/21 09:00 Aspirin 325 Mg Tab PO DAILY [facility] Atorvastatin Calcium 40 mg 08/31/21 09:00 Atorvastatin 40 Mg Tab PO DAILY [facility] Benzocaine/Menthol 1 each 08/30/21 13:19 Benzocaine/Menthol Lozeng 1 Each Lozenge MUCOUS MEM Q2H PRN Sore Throat Bisacodyl 10 mg 08/31/21 09:00 Bisacodyl 10 Mg Supp RECTAL DAILY PRN Constipation Clopidogrel Bisulfate 75 mg 08/31/21 09:00 Clopidogrel 75 Mg Tab PO DAILY [facility] Ergocalciferol 1,250 mcg 09/02/21 09:00 Ergocalciferol 1,250 Mcg (50,000 Iu) Capsule PO FR [facility] Heparin Sodium (Porcine) 5,000 unit 08/30/21 16:00 Heparin Sodium,Porcine/Pf 5,000 Unit/0.5 Ml Syringe SQ Q8HR [facility] Hydralazine HCl 10 mg 08/30/21 13:19 Hydralazine Hcl 20 Mg/Ml 1 Ml Vial IVP Q1H PRN Blood Pressure - High Clevidipine 25 mg/ IV Solution 50 mls @ 2 mls/hr 08/30/21 13:19 IV .Q24H NEHAL Protocol 1 MG/HR Nitroglycerin/Dextrose 50 mg/ 250 mls @ 1.5 mls/hr 08/30/21 13:19 08/30/21 13:44 IV Solution IV 5 mcg/min .Q24H NEHAL 1.5 mls/hr Administration 5 MCG/MIN Amiodarone HCl 150 mg/ 103 mls @ 618 mls/hr 08/30/21 13:19 Dextrose/Water IV .Q10M PRN A.FIB/FLUTTER Protocol Amiodarone HCl 360 mg/ 207.2 mls @ 34.533 mls/hr 08/30/21 13:19 Dextrose/Water IV .Q6H PRN A.FIB/FLUTTER Protocol 1 MG/MIN Amiodarone HCl 450 mg/ 250 mls @ 16.667 mls/hr 08/30/21 13:19 Dextrose/Water IV .Q15H PRN A.FIB/FLUTTER Protocol 0.5 MG/MIN Albumin Human 250 ml/ IV 250 mls @ 250 mls/hr 08/30/21 13:19 Solution IVPB 09/01/21 13:20 Q1HR PRN For Volume Protocol Lactated Ringer's 1,000 mls @ 50 mls/hr 08/30/21 13:19 08/30/21 13:44 Lactated Ringers IV 50 mls/hr .Q20H NEHAL Administration Propofol 1,000 mg/ IV Solution 100 mls @ 0 mls/hr 08/30/21 13:19 08/30/21 13:45 IV 20 mcg/kg/min .Q0M NEHAL 9.656 mls/hr Administration Protocol Titrate Dexmedetomidine HCl 400 mcg/ 100 mls @ 0 mls/hr 08/30/21 13:19 IV Solution IV 08/31/21 13:20 .Q0M NEHAL Protocol Titrate Acetaminophen 1,000 mg/ IV 100 mls @ 400 mls/hr 08/30/21 14:00 Solution IVPB 08/30/21 20:14 Q6H NEHAL Cefazolin Sodium 2 gm/ Sodium 50 mls @ 100 mls/hr 08/30/21 16:00 Chloride IVPB 08/31/21 08:29 Q8HR [facility] Protocol Calcium Gluconate/Sodium 100 mls @ 100 mls/hr 08/30/21 13:19 Chloride 2 gm/ IV Solution IVPB 09/06/21 13:20 ONCE PRN Ionized Calcium less than 4.4 Insulin Human Regular 100 unit 101 mls @ 0 mls/hr 08/30/21 13:19 / Sodium Chloride IV .Q0M NEHAL Protocol Per Protocol Magnesium Hydroxide 2,400 mg 08/31/21 09:00 Magnesium Hydroxide 2,400 Mg/10 Ml Cup PO BID PRN Constipation Metoclopramide HCl 10 mg 08/30/21 13:19 Metoclopramide 5 Mg/Ml 2 Ml Vial IVP Q4H PRN Nausea And Vomiting Metoprolol Tartrate 12.5 mg 08/31/21 09:00 Metoprolol Tartrate 12.5 Mg Tab PO BID [facility] Miscellaneous Information 1 each 08/30/21 13:19 Potassium Replacement Protocol 1 Each Misc MISCELLANE DAILY PRN Per Protocol Protocol Miscellaneous Information 1 each 08/30/21 13:19 Magnesium Replacement Protocol 1 Each [facility] MISCELLANE DAILY PRN Per Protocol Protocol Miscellaneous Information 1 each 08/30/21 13:19 Phosphorus Replacement Protoco 1 Each [facility] MISCELLANE DAILY PRN Per Protocol Protocol Ondansetron HCl 4 mg 08/30/21 13:19 Ondansetron 4 Mg/2 Ml Vial IVP Q6HR PRN Nausea And Vomiting Oxycodone HCl 10 mg 08/30/21 13:19 Oxycodone Hcl 5 Mg Tab PO 08/30/21 23:43 Q4H PRN Severe Pain Oxycodone HCl 5 mg 08/30/21 13:19 Oxycodone Hcl 5 Mg Tab PO 08/30/21 23:43 Q4H PRN Moderate Pain Pantoprazole Sodium 40 mg 08/31/21 09:00 Pantoprazole 40 Mg/10 Ml Vial IVP DAILY NEHAL Senna/Docusate Sodium 2 each 08/31/21 21:00 Sennosides-Docusate Sodium 1 Each Tab PO HS NEHAL Sodium Chloride 10 ml 08/30/21 21:00 Sodium Chloride 0.9% Flush 10 Ml Syringe IV BID NEHAL Vitamin E 400 unit 08/31/21 09:00 Vitamin E (Dl,Tocopheryl Acet) 400 Unit (180 Mg) Cap PO DAILY NEA[facility] Intake and Output 08/29/21 08/30/21 08/30/21 22:59 06:59 14:59 Intake Total 100 53 Output Total 1250 Balance 100 -1197 Intake: IV 100 53 Output: Urine 850 Estimated Blood Loss 400 Other: Weight 80.467 kg 08/30/21 13:05 08/30/21 13:05
--- NOTE | 2021-08-30 14:14 | XR ---
EXAMINATION TYPE: XR chest 1V portable DATE OF EXAM: 08/30/2021 COMPARISON: 08/26/2021 HISTORY: Postop cardiac surgery TECHNIQUE: Single frontal view of the chest is obtained. FINDINGS: ET tube approximately 2.6 cm above sherif. Mediastinal drain and chest tube noted. There i s a [place]-Alonzo catheter with the tip overlying the proximal pulmonary outflow tract. NG tube coursing in the left upper quadrant likely within the gastric fundus. Subsegmental changes involving the left lung base most typical of postoperative atelectasis. No sizable pneumothorax. Heart size stable. Athe rosclerotic change aorta. IMPRESSION: 1. Postsurgical change with suspected postoperative basilar atelectasis.
[2021-08-30] MEDS: CLEVIDIPINE BUTYRATE 25 MG in EMPTY BAG 1 BAG IV SCH ×2 (14:29→15:23)
[2021-08-30] MEDS: ACETAMINOPHEN IV (For NPO) 1,000 MG in EMPTY BAG 1 BAG IVPB SCH ×2 (14:31→19:59)
--- NOTE | 2021-08-30 14:56 | P.CNPUL ---
History of Present Illness Consult date: 08/30/21 Requesting physician: Wale Vela Reason for consult: dyspnea Chief complaint: Progressive dyspnea, coronary artery disease History of present illness: This is a 65-year-old female patient of Dr. Jareth Martinez, and Dr. Salcedo from cardiology has a history of hypertension, hyperlipidemia, psoriatic arthritis on a DMARD outpatient, lifetime nonsmoker, with family history of premature coronary artery disease and her brother had a OR at 40 years of age. Patient had been having shortness of breath with exertion for the past 6-8 months that was relieved with rest. Patient also reported some chest discomfort. Patient had an abnormal outpatient stress test. Elective heart catheterization was completed on 08/24/2021 that showed chronic total occlusion of the mid RCA with collaterals from the left side, subtotally occluded ostial LAD, and a tight lesion in the diagonal artery. Transthoracic echocardiogram showed preserved left ventricular systolic function with EF of 55%, mild mitral regurgitation, mild tricuspid regurgitation. Patient was referred to CT surgery for surgical intervention. Preop FEV1 was 1.98 L or 79% of predicted, with forced vital capacity of 2.48, with FEV1 to FVC ratio of 80%, and it was consistent with mild restriction. Carotid Doppler showed no hemodynamically significant stenosis of the proximal internal carotid arteries. Patient was discharged home on 08/26/2021. Patient was brought in today on 08/30/2021 for elective off-pump coronary artery bypass grafting 3 with PEACE to the LAD, SVG to the OM and PDA, endovascular vein harvest, left atrial appendage exclusion with 35 mm AtriCure clip. Following surgery patient is seen in the intensive care unit, sedated and intubated, on assist-control mode of ventilation with a rate of 12, tidal on his 400, FiO2 of 50% and PEEP of 5, postop blood gases showed a pO2 of 331, pCO2 of 40, and pH of 7.31 and FiO2 had since been called back to 50%. Postop chest x- ray showing postsurgical changes with suspected postoperative basilar atelectasis. Patient is hemodynamically stable, she is on lactated Ringer's at 50 ML per hour, nitroglycerin at 5 mics per minute, propofol is on hold. No vasopressor drips, she is in sinus mechanism, hemodynamically she is stable, PA pressure is 26/20, CVP is 10, cardiac output is 4.0, and CVP is 2.1. Patient has [address], one mediastinal with 50 mL of sanguinous output, no evidence of air leak, left and right pleural chest tubes with 70 mL of sangui nous output in the Pleur-evac, no evidence of air leak. Postoperative blood work showed white blood cell count of 16.5, hemoglobin of 9.2, sodium of 140, potassium is 4.3, chloride is 111, BUN is 10, creatinine 0.62. Urinary catheter is in place, patient is producing adequate amount of urine. Incisions are clean dry and intact. Patient is doing well in the postoperative period, she started to wake up and we anticipate expedited wean and extubation Review of Systems All systems: negative Constitutional: Denies chills, Denies fever Eyes: denies blurred vision, denies pain Ears, nose, mouth and throat: Denies headache, Denies sore throat Cardiovascular: Denies chest pain, Denies shortness of breath Respiratory: Reports dyspnea, Denies cough Gastrointestinal: Denies abdominal pain, Denies diarrhea, Denies nausea, Denies vomiting Genitourinary: Denies dysuria, Denies hematuria Musculoskeletal: Denies myalgias Integumentary: Denies pruritus, Denies rash Neurological: Denies numbness, Denies weakness Psychiatric: Denies anxiety, Denies depression Endocrine: Denies fatigue, Denies weight change Past Medical History Past Medical History: Coronary Artery Disease (CAD), Chest Pain / Angina, Hyperlipidemia, Hypertension Additional Past Medical History / Comment(s): SOB w/exertion for about 6 months or longer, psoriatic arthritis. History of Any Multi-Drug Resistant Organisms: None Reported Past Surgical History: Hysterectomy, Orthopedic Surgery Additional Past Surgical History / Comment(s): Arthroscopic knee surgery(unknown laterality), D&C. Past Anesthesia/Blood Transfusion Reactions: Previous Problems w/ Anesthesia Additional Past Anesthesia/Blood Transfusion Reaction / Comment(s): Severe headache after D&C years ago, no problems since. Past Psychological History: No Psychological Hx Reported Smoking Status: Never smoker Past Alcohol Use History: Rare Past Drug Use History: None Reported - Past Family History Mother Family Medical History: Myocardial Infarction ([place]) Additional Family Medical History / Comment(s): Myocardial infarction at 63 years old. Father Family Medical History: CVA/TIA Additional Family Medical History / Comment(s): CVA at 72 years old. Brother(s) Family Medical History: Myocardial Infarction ([place]) Additional Family Medical History / Comment(s): Myocardial infarction at 40 years old, at 72 years old. Medications and Allergies Home Medications Medication Instructions Recorded Confirmed Type Aspirin 81 mg PO DAILY 08/22/21 08/30/21 History Ergocalciferol [Vitamin D2 (1250 1,250 mcg PO FR 08/22/21 08/30/21 History Mcg = 90407 Iu)] Metoprolol Succinate (ER) [Toprol 25 mg PO DAILY 08/22/21 08/30/21 History XL] Rosuvastatin [Crestor] 10 mg PO HS 08/22/21 08/30/21 History Vitamin E 400 unit PO DAILY 08/22/21 08/30/21 History lisinopriL [Zestril] 40 mg PO DAILY 08/22/21 08/30/21 History Allergies Allergy/AdvReac Type Severity Reaction Status Date / Time No Known Allergies Allergy Verified 08/30/21 06:06 Physical Exam Vitals: Vital Signs Temp Pulse Resp BP BP Pulse Ox 08/30/21 06:15 133/72 117/70 08/30/21 06:09 98.8 F 70 16 136/81 95 Intake and Output 08/29/21 08/30/21 08/30/21 22:59 06:59 14:59 Intake Total 100 59.759 Output Total 1250 Balance 100 -1190.241 Intake: IV 100 53 Intake, IV Titration 6.759 Amount propofoL 1,000 mg In 6.759 Empty Bag 1 bag @ Titrate IV .Q0M [facility] Rx#: [id number] Output: Urine 850 Estimated Blood Loss 400 Other: Weight 80.467 kg GENERAL EXAM: Sedated, intubated, 65-year-old white female, comfortable in no apparent distress. HEAD: Normocephalic/atraumatic. EYES: Normal reaction of pupils, equal size. Conjunctiva pink, sclera white. NOSE: Clear with pink turbinates. THROAT: No erythema or exudates. NECK: No masses, no JVD, no thyroid enlargement, no adenopathy. CHEST: No chest wall deformity. Symmetrical expansion. Midsternal incision is clean dry and intact, right and left pleural, and mediastinal chest tubes in place, small amount of sanguinous output in the Pleur-evac LUNGS: Equal air entry with no crackles, wheeze, rhonchi or dullness. CVS: Regular rate and rhythm, normal S1 and S2, no gallops, no murmurs, no rubs ABDOMEN: Soft, nontender. No hepatosplenomegaly, normal bowel sounds, no guarding or rigidity. EXTREMITIES: No clubbing, no edema, no cyanosis, 2+ pulses and upper and lower extremities. MUSCULOSKELETAL: Muscle strength and tone normal. SPINE: No scoliosis or deformity SKIN: No rashes CENTRAL NERVOUS SYSTEM: Sedated and intubated No focal deficits, tone is normal in all 4 extremities. Results - Laboratory Findings CBC and BMP: 08/30/21 13:05 08/30/21 13:05 ABG ABG pH 7.31 (7.35-7.45) L 08/30/21 13:32 ABG pCO2 48 mmHg (35-45) H 08/30/21 13:32 ABG pO2 331 mmHg (83-108) H 08/30/21 13:32 ABG O2 Saturation 98.0 % (94-97) H 08/30/21 13:32 PT/INR, D-dimer PT 11.2 sec (9.0-12.0) 08/30/21 13:05 INR 1.0 (<1.2) 08/30/21 13:05 Abnormal lab findings: Abnormal Labs 08/26/21 08/30/21 08/30/21 11:00 08:38 10:08 WBC RBC Hgb Hct RDW Neutrophils # ABG pH ABG pCO2 ABG pO2 230 H 240 H ABG Total CO2 ABG O2 Saturation 98.2 H 98.3 H ABG Hematocrit ABG Ionized Calcium ABG Glucose 105 H 114 H ABG Lactic Acid Hemoglobin Chloride Glucose POC Glucose (mg/dL) Calcium AST Total Protein Albumin Arterial Blood Glucose 105 H 114 H Crossmatch See Detail 08/30/21 08/30/21 08/30/21 10:33 11:01 11:27 WBC RBC Hgb Hct RDW Neutrophils # ABG pH ABG pCO2 34 L ABG pO2 236 H 248 H 261 H ABG Total CO2 ABG O2 Saturation 98.5 H 98.3 H 98.4 H ABG Hematocrit 32 L 31 L 29 L ABG Ionized Calcium ABG Glucose 113 H 113 H 111 H ABG Lactic Acid Hemoglobin 10.5 L 10.0 L 9.5 L Chloride Glucose POC Glucose (mg/dL) Calcium AST Total Protein Albumin Arterial Blood Glucose 113 H 113 H 111 H Crossmatch 08/30/21 08/30/21 08/30/21 12:12 13:05 13:05 WBC 16.5 H RBC 3.09 L Hgb 9.2 L D Hct 28.2 L RDW 15.6 H Neutrophils # 11.9 H ABG pH ABG pCO2 ABG pO2 172 H ABG Total CO2 ABG O2 Saturation 97.9 H ABG Hematocrit 28 L ABG Ionized Calcium 4.4 L ABG Glucose 106 H ABG Lactic Acid 1.8 H Hemoglobin 9.3 L Chloride Glucose POC Glucose (mg/dL) 115 H Calcium AST Total Protein Albumin Arterial Blood Glucose 106 H Crossmatch 08/30/21 08/30/21 13:05 13:32 WBC RBC Hgb Hct RDW Neutrophils # ABG pH 7.31 L ABG pCO2 48 H ABG pO2 331 H ABG Total CO2 26 H ABG O2 Saturation 98.0 H ABG Hematocrit ABG Ionized Calcium ABG Glucose ABG Lactic Acid Hemoglobin Chloride 111 H Glucose 108 H POC Glucose (mg/dL) Calcium 7.5 L AST 41 H Total Protein 5.1 L Albumin 2.9 L Arterial Blood Glucose Crossmatch - Diagnostic Findings Chest x-ray: report reviewed, image reviewed Assessment and Plan Plan: Assessment: #1. Coronary artery disease, status post off-pump CABG 3 with PEACE to LAD, and saphenous vein grafts to obtuse marginal and PDA, endovascular vein harvest, left atrial appendage exclusion with 35 mm patchy cure clip, on 08/30/2021 #2. Exertional dyspnea and chest discomfort related to the above #3. Routine postoperative ventilator management #4. Nonsmoker #5. Acute blood loss anemia, and expected outcome of sternotomy and coronary artery bypass grafting surgery #6. Hypertension #7. Hyperlipidemia #8. Psoriatic arthritis Plan: Continue proceeding to spontaneous awakenings breathing trials Continue weaning FiO2 Placed the patient on pressure-support 5 and CPAP of 5 when she wakens Continue with nebulized bronchodilators every 4 hours while on the vent, and 4 times a day after extubation Chest x-ray and labs reviewed Hemodynamic patient is stable No significant bleeding out of the chest tubes We anticipate quick wean and extubation today Incentive spirometry to the bedside Follow-up chest x-ray and labs tomorrow GI and DVT prophylaxis per CT surgery We'll continue to follow closely in the intensive care unit I have personally seen and examined the patient, performed the documentation and the assessment and plan as written. Number of minutes spent on the visit: [15] Time with Patient: Greater than 30
[2021-08-30] MEDS ORDERED: MUPIROCIN 2% OINT 22 GM TUBE NASAL ONE (15:00)
[2021-08-30 15:08] LABS: Glucose,Whole Blood 171 mg/dL (75-99)
[2021-08-30 15:21] LABS: Basophils # (A) 0.1 k/uL (0-0.2); Basophils % (A) 0 %; Eosinophils # (A) 0.2 k/uL (0-0.7); Eosinophils % (A) 1 %; HGB 9.3 gm/dL (11.4-16.0); Lymphocytes # (A) 1.6 k/uL (1.0-4.8); Lymphocytes % (A) 11 %; MCH 29.2 pg (25.0-35.0); MCV 91.1 fL (80.0-100.0); Mean Platelet Volume 7.6; Monocytes # (A) 0.7 k/uL (0-1.0); Monocytes % (A) 5 %; Neutrophils # (A) 11.4 k/uL (1.3-7.7); Neutrophils % (A) 81 %; Platelet Count 219 k/uL (150-450); RBC 3.19 m/uL (3.80-5.40); RDW 15.2 % (11.5-15.5)
[2021-08-30 16:04] LABS: Glucose,Whole Blood 162 mg/dL (75-99)
[2021-08-30] MEDS: INSULIN REGULAR 100 UNIT in SODIUM CHLORIDE 0.9% 100 ML IV SCH (16:06)
[2021-08-30] MEDS: HEPARIN SODIUM,PORCINE/PF 5,000 UNIT/0.5 ML SYRINGE SQ SCH ×2 (16:11→23:07)
[2021-08-30] MEDS: IPRATROPIUM-ALBUTEROL 3 ML NEB INHALATION SCH ×3 (16:29→20:55)
--- NOTE | 2021-08-30 16:46 | P.CONS ---
History of Present Illness - Reason for Consult Consult date: 08/30/21 Medical management Requesting physician: Wale Vela - Chief Complaint CABG - History of Present Illness Patient is a 65 year old female with PMH of CAD, hypertension, dyslipidemia, psoriatic arthritis presents to [facility] for elective surgery. Cardiac catheterization done on 08/24/2021 showed total occlusion of the mid RCA with collaterals from the left side, subtotally occluded ostial LAD, and a tight lesion in the diagonal artery. She underwent off pump CABG 3 with PEACE to LAD and saphenous vein grafts to obtuse marginal and posterior desc ending coronary arteries with Dr. Henry. Patient was seen and examined while intubated in the ICU. Patient is currently on ventilator settings tidal volume 400, rate of 12, FiO2 of 50% with PEEP of 5. She is producing bloody output from mediastinal and pleural tubes. Most recent CBC shows WBC count of 14, hemoglobin 9.3. ABG shows pH 7.31, pCO2 of 48 with bicarb of 22. CMP shows chloride of 111, glucose 108, calcium is 7.5, AST of 41, albumin of 2.9. Unable to obtain review of systems due to intubated nature. General: [non toxic], [no distress], [intubated and sedated] Derm: [warm], [dry] Head: [atraumatic], [normocephalic], [symmetric] Eyes: [EOMI], [no lid lag], [anicteric sclera] Mouth: [no lip lesion], [mucus membranes moist] Cardiovascular: [S1S2 reg], [no murmur], [positive DP pulse bilateral], [midsternal incision dressing clean dry and intact, bilateral pleural and med iastinal chest tubes in place producing bloody output] Lungs: [Decreased breath sounds bilateral], [no rhonchi, no rales] , [no accessory muscle use] Abdominal: [soft], [no guarding], [no appreciable organomegaly] Ext: [no gross muscle atrophy], [no edema], [no contractures] Neuro: [Unable to perform] Psych: [Unable to perform] #Acute blood loss anemia #Leukocytosis #Hypocalcemia #CAD status post CABG POD 0 #Acute hypoxic respiratory failure Chronic conditions: Hypertension, dyslipidemia, psotiaric arthritis Acute blood loss is expected result of surgery. Repeat CBC tomorrow morning. Leukocytosis is likely reactive. No signs of active infection. Continue Cefezolin IV for 3 doses. Calcium 8.4 when corrected for hypoalbuminemia. Albumin and calcium gluconate ordered by cardiothoracic surgery. Continue Aspiring 325 mg PO QD, Lipitor 40 mg PO QD and Metoprolol 12.5 mg PO BID with regard to CAD. Cardiology on board. Continue full ventilator support. Patient responding well to commands while on the ventilator. Plans for extubation hopefully today. Pulmonology on board. DVT prophylaxis: [Heparin] Discussed with: [Nursing] Anticipated discharge: [2-3 days] Anticipated discharge place: [Home] A total of [45] minutes was spent on the care of this complex patient more than 50% of the time was spent in counseling and care coordination. Patient will be full code. Thank you for this consult. Please call [facility] with any questions and concerns. Past Medical History Past Medical History: Coronary Artery Disease (CAD), Chest Pain / Angina, Hyperlipidemia, Hypertension Additional Past Medical History / Comment(s): SOB w/exertion for about 6 months or longer, psoriatic arthritis. History of Any Multi-Drug Resistant Organisms: None Reported Past Surgical History: Hysterectomy, Orthopedic Surgery Additional Past Surgical History / Comment(s): Arthroscopic knee surgery(unknown laterality), D&C. Past Anesthesia/Blood Transfusion Reactions: Previous Problems w/ Anesthesia Additional Past Anesthesia/Blood Transfusion Reaction / Comm: Severe headache after D&C years ago, no problems since. Past Psychological History: No Psychological Hx Reported Smoking Status: Never smoker Past Alcohol Use History: Rare Past Drug Use History: None Reported - Past Family History Mother Family Medical History: Myocardial Infarction ([place]) Additional Family Medical History / Comment(s): Myocardial infarction at 63 years old. Father Family Medical History: CVA/TIA Additional Family Medical History / Comment(s): CVA at 72 years old. Brother(s) Family Medical History: Myocardial Infarction ([place]) Additional Family Medical History / Comment(s): Myocardial infarction at 40 years old, at 72 years old. Medications and Allergies Home Medications Medication Instructions Recorded Confirmed Type Aspirin 81 mg PO DAILY 08/22/21 08/30/21 History Ergocalciferol [Vitamin D2 (1250 1,250 mcg PO FR 08/22/21 08/30/21 History Mcg = 06076 Iu)] Metoprolol Succinate (ER) [Toprol 25 mg PO DAILY 08/22/21 08/30/21 History XL] Rosuvastatin [Crestor] 10 mg PO HS 08/22/21 08/30/21 History Vitamin E 400 unit PO DAILY 08/22/21 08/30/21 History lisinopriL [Zestril] 40 mg PO DAILY 08/22/21 08/30/21 History Allergies Allergy/AdvReac Type Severity Reaction Status Date / Time No Known Allergies Allergy Verified 08/30/21 06:06 Physical Exam Vitals: Vital Signs Temp Pulse Pulse Resp BP BP BP 08/30/21 16:00 96.6 F L 65 16 08/30/21 15:30 68 24 08/30/21 15:10 65 17 08/30/21 15:00 64 19 08/30/21 14:50 66 18 86/52 08/30/21 14:40 64 0 L 86/52 08/30/21 14:30 68 0 L 86/52 08/30/21 14:20 68 0 L 86/52 08/30/21 14:10 66 0 L 08/30/21 14:00 72 4 L 08/30/21 13:50 96.1 F L 68 12 08/30/21 13:40 69 12 08/30/21 13:30 71 12 08/30/21 13:20 71 12 08/30/21 13:10 68 12 08/30/21 13:00 68 10 L 08/30/21 06:15 133/72 117/70 08/30/21 06:09 98.8 F 70 16 136/81 Pulse Ox 08/30/21 16:00 97 08/30/21 15:30 98 08/30/21 15:10 98 08/30/21 15:00 99 08/30/21 14:50 98 08/30/21 14:40 98 08/30/21 14:30 97 08/30/21 14:20 98 08/30/21 14:10 96 08/30/21 14:00 97 08/30/21 13:50 97 08/30/21 13:40 98 08/30/21 13:30 98 08/30/21 13:20 98 08/30/21 13:10 100 08/30/21 13:00 08/30/21 06:15 08/30/21 06:09 95 Intake and Output 08/30/21 08/30/21 08/30/21 06:59 14:59 22:59 Intake Total 100 59.759 13.1 Output Total 1250 Balance 100 -1190.241 13.1 Intake: IV 100 53 Intake, IV Titration 6.759 13.1 Amount Clevidipine Butyrate 25 13.1 mg In Empty Bag 1 bag @ 1 MG/HR 2 mls/hr IV .Q24H [facility] Rx#:[id number] propofoL 1,000 mg In 6.759 Empty Bag 1 bag @ Titrate IV .Q0M [facility] Rx#: [id number] Output: Urine 850 Estimated Blood Loss 400 Other: Voiding Method Indwelling Catheter Weight 80.467 kg ABP, PAP, CO, CI - Last 8 Hours Arterial Blood Pressure 126/53 Arterial Blood Pressure 147/58 Arterial Blood Pressure 147/60 Arterial Blood Pressure 139/61 Arterial Blood Pressure 135/58 Arterial Blood Pressure 116/52 Arterial Blood Pressure 109/51 Arterial Blood Pressure 96/47 Arterial Blood Pressure 79/40 Arterial Blood Pressure 82/52 Arterial Blood Pressure 90/43 Arterial Blood Pressure 97/44 Arterial Blood Pressure 111/49 Arterial Blood Pressure 127/55 Arterial Blood Pressure 115/46 Pulmonary Artery Pressure 27/19 Pulmonary Artery Pressure 40/20 Pulmonary Artery Pressure 28/20 Pulmonary Artery Pressure 29/21 Pulmonary Artery Pressure 30/21 Pulmonary Artery Pressure 28/20 Pulmonary Artery Pressure 27/20 Pulmonary Artery Pressure 25/19 Pulmonary Artery Pressure 26/19 Pulmonary Artery Pressure 25/19 Pulmonary Artery Pressure 20/13 Pulmonary Artery Pressure 24/16 Pulmonary Artery Pressure 20/12 Pulmonary Artery Pressure 21/13 Cardiac Output 3.9 Cardiac Output 3.9 Cardiac Output 3.6 Cardiac Output 3.6 Cardiac Output 3.6 Cardiac Output 3.6 Cardiac Output 3.6 Cardiac Output 4 Cardiac Output 4 Cardiac Output 4 Cardiac Output 4 Cardiac Output 4 Cardiac Output 4 Cardiac Output 4 Cardiac Index 2.1 Cardiac Index 2.1 Cardiac Index 1.9 Cardiac Index 1.9 Cardiac Index 1.9 Cardiac Index 1.9 Cardiac Index 1.9 Cardiac Index 2.1 Cardiac Index 2.1 Cardiac Index 2.1 Cardiac Index 2.1 Cardiac Index 2.1 Cardiac Index 2.1 Cardiac Index 2.1 Results CBC & Chem 7: 08/30/21 15:05 08/30/21 13:05 Labs: Abnormal Lab Results - Last 24 Hours (Table) 08/26/21 08/30/21 08/30/21 Range/Units 11:00 08:38 10:08 WBC (3.8-10.6) k/uL RBC (3.80-5.40) m/uL Hgb (11.4-16.0) gm/dL Hct (34.0-46.0) % RDW (11.5-15.5) % Neutrophils # (1.3-7.7) k/uL ABG pH (7.35-7.45) ABG pCO2 (35-45) mmHg ABG pO2 230 H 240 H (83-108) mmHg ABG Total CO2 (19-24) mmol/L ABG O2 Saturation 98.2 H 98.3 H (94-97) % ABG Hematocrit (34.0-46.0) % ABG Ionized Calcium (4.5-5.3) mg/dL ABG Glucose 105 H 114 H (75-99) mg/dL ABG Lactic Acid (0.5-1.6) mmol/L Hemoglobin (11.4-16.0) gm/dL Chloride (98-107) mmol/L Glucose (74-99) mg/dL POC Glucose (mg/dL) (75-99) mg/dL Calcium (8.4-10.2) mg/dL AST (14-36) U/L Total Protein (6.3-8.2) g/dL Albumin (3.5-5.0) g/dL Arterial Blood Glucose 105 H 114 H (75-99) mg/dL Crossmatch See Detail 08/30/21 08/30/21 08/30/21 Range/Units 10:33 11:01 11:27 WBC (3.8-10.6) k/uL RBC (3.80-5.40) m/uL Hgb (11.4-16.0) gm/dL Hct (34.0-46.0) % RDW (11.5-15.5) % Neutrophils # (1.3-7.7) k/uL ABG pH (7.35-7.45) ABG pCO2 34 L (35-45) mmHg ABG pO2 236 H 248 H 261 H (83-108) mmHg ABG Total CO2 (19-24) mmol/L ABG O2 Saturation 98.5 H 98.3 H 98.4 H (94-97) % ABG Hematocrit 32 L 31 L 29 L (34.0-46.0) % ABG Ionized Calcium (4.5-5.3) mg/dL ABG Glucose 113 H 113 H 111 H (75-99) mg/dL ABG Lactic Acid (0.5-1.6) mmol/L Hemoglobin 10.5 L 10.0 L 9.5 L (11.4-16.0) gm/dL Chloride (98-107) mmol/L Glucose (74-99) mg/dL POC Glucose (mg/dL) (75-99) mg/dL Calcium (8.4-10.2) mg/dL AST (14-36) U/L Total Protein (6.3-8.2) g/dL Albumin (3.5-5.0) g/dL Arterial Blood Glucose 113 H 113 H 111 H (75-99) mg/dL Crossmatch 08/30/21 08/30/21 08/30/21 Range/Units 12:12 13:05 13:05 WBC 16.5 H (3.8-10.6) k/uL RBC 3.09 L (3.80-5.40) m/uL Hgb 9.2 L D (11.4-16.0) gm/dL Hct 28.2 L (34.0-46.0) % RDW 15.6 H (11.5-15.5) % Neutrophils # 11.9 H (1.3-7.7) k/uL ABG pH (7.35-7.45) ABG pCO2 (35-45) mmHg ABG pO2 172 H (83-108) mmHg ABG Total CO2 (19-24) mmol/L ABG O2 Saturation 97.9 H (94-97) % ABG Hematocrit 28 L (34.0-46.0) % ABG Ionized Calcium 4.4 L (4.5-5.3) mg/dL ABG Glucose 106 H (75-99) mg/dL ABG Lactic Acid 1.8 H (0.5-1.6) mmol/L Hemoglobin 9.3 L (11.4-16.0) gm/dL Chloride (98-107) mmol/L Glucose (74-99) mg/dL POC Glucose (mg/dL) 115 H (75-99) mg/dL Calcium (8.4-10.2) mg/dL AST (14-36) U/L Total Protein (6.3-8.2) g/dL Albumin (3.5-5.0) g/dL Arterial Blood Glucose 106 H (75-99) mg/dL Crossmatch 08/30/21 08/30/21 08/30/21 Range/Units 13:05 13:32 15:05 WBC 14.0 H (3.8-10.6) k/uL RBC 3.19 L (3.80-5.40) m/uL Hgb 9.3 L (11.4-16.0) gm/dL Hct 29.0 L (34.0-46.0) % RDW (11.5-15.5) % Neutrophils # 11.4 H (1.3-7.7) k/uL ABG pH 7.31 L (7.35-7.45) ABG pCO2 48 H (35-45) mmHg ABG pO2 331 H (83-108) mmHg ABG Total CO2 26 H (19-24) mmol/L ABG O2 Saturation 98.0 H (94-97) % ABG Hematocrit (34.0-46.0) % ABG Ionized Calcium (4.5-5.3) mg/dL ABG Glucose (75-99) mg/dL ABG Lactic Acid (0.5-1.6) mmol/L Hemoglobin (11.4-16.0) gm/dL Chloride 111 H (98-107) mmol/L Glucose 108 H (74-99) mg/dL POC Glucose (mg/dL) (75-99) mg/dL Calcium 7.5 L (8.4-10.2) mg/dL AST 41 H (14-36) U/L Total Protein 5.1 L (6.3-8.2) g/dL Albumin 2.9 L (3.5-5.0) g/dL Arterial Blood Glucose (75-99) mg/dL Crossmatch 08/30/21 08/30/21 Range/Units 15:07 16:03 WBC (3.8-10.6) k/uL RBC (3.80-5.40) m/uL Hgb (11.4-16.0) gm/dL Hct (34.0-46.0) % RDW (11.5-15.5) % Neutrophils # (1.3-7.7) k/uL ABG pH (7.35-7.45) ABG pCO2 (35-45) mmHg ABG pO2 (83-108) mmHg ABG Total CO2 (19-24) mmol/L ABG O2 Saturation (94-97) % ABG Hematocrit (34.0-46.0) % ABG Ionized Calcium (4.5-5.3) mg/dL ABG Glucose (75-99) mg/dL ABG Lactic Acid (0.5-1.6) mmol/L Hemoglobin (11.4-16.0) gm/dL Chloride (98-107) mmol/L Glucose (74-99) mg/dL POC Glucose (mg/dL) 171 H 162 H (75-99) mg/dL Calcium (8.4-10.2) mg/dL AST (14-36) U/L Total Protein (6.3-8.2) g/dL Albumin (3.5-5.0) g/dL Arterial Blood Glucose (75-99) mg/dL Crossmatch
[2021-08-30 16:57] LABS: ABG Base Excess -2.3 mmol/L; ABG HCO3 23 mmol/L (21-25); ABG Oxygen Saturation 97.2 % (94-97); ABG PCO2 41 mmHg (35-45); ABG PH 7.36 (7.35-7.45); ABG PO2 123 mmHg (83-108); ABG TCO2 25 mmol/L (19-24)
[2021-08-30 16:59] LABS: Glucose,Whole Blood 158 mg/dL (75-99)
[2021-08-30 17:00] LABS: Allen Test Performed? no
[2021-08-30 18:09] LABS: Glucose,Whole Blood 157 mg/dL (75-99)
[2021-08-30] MEDS: KETOROLAC 15 MG/ML 1 ML VIAL IVP SCH ×2 (18:13→23:40)
[2021-08-30 18:17] LABS: Basophils % (A) 0 %; Eosinophils % (A) 0 %; Lymphocytes % (A) 7 %; MCH 29.6 pg (25.0-35.0); MCHC 32.3 g/dL (31.0-37.0); MCV 91.7 fL (80.0-100.0); Mean Platelet Volume 7.8; Monocytes # (A) 0.6 k/uL (0-1.0); Monocytes % (A) 4 %; Neutrophils % (A) 88 %; Platelet Count 232 k/uL (150-450); RBC 3.38 m/uL (3.80-5.40); RDW 15.7 % (11.5-15.5); WBC 14.8 k/uL (3.8-10.6)
[2021-08-30 19:09] LABS: Glucose,Whole Blood 144 mg/dL (75-99)
[2021-08-30 20:08] LABS: Glucose,Whole Blood 133 mg/dL (75-99)
[2021-08-30 21:12] LABS: Glucose,Whole Blood 134 mg/dL (75-99)
[2021-08-30 22:09] LABS: Glucose,Whole Blood 144 mg/dL (75-99)
[2021-08-30 23:03] LABS: Glucose,Whole Blood 139 mg/dL (75-99)
[2021-08-30] MEDS ORDERED: HYDROcodone/APAP 5-325MG 1 EACH TAB PO PRN ×2 (23:43)
[2021-08-31] LABS: Glucose,Whole Blood 135 mg/dL (75-99)
[2021-08-31 01:02] LABS: Glucose,Whole Blood 135 mg/dL (75-99)
[2021-08-31 02:19] LABS: Glucose,Whole Blood 133 mg/dL (75-99)
[2021-08-31 03:15] LABS: Glucose,Whole Blood 128 mg/dL (75-99)
[2021-08-31 04:06] LABS: Glucose,Whole Blood 122 mg/dL (75-99)
[2021-08-31] MEDS: ALBUMIN HUMAN 5% 250 ML in EMPTY BAG 1 BAG IVPB PRN (04:14)
[2021-08-31 04:25] LABS: Basophils # (A) 0.1 k/uL (0-0.2); Basophils % (A) 0 %; Eosinophils % (A) 0 %; HCT 30.5 % (34.0-46.0); HGB 9.6 gm/dL (11.4-16.0); Lymphocytes # (A) 2.3 k/uL (1.0-4.8); Lymphocytes % (A) 15 %; MCH 28.8 pg (25.0-35.0); MCHC 31.5 g/dL (31.0-37.0); MCV 91.4 fL (80.0-100.0); Mean Platelet Volume 7.6; Monocytes # (A) 0.8 k/uL (0-1.0); Monocytes % (A) 5 %; Neutrophils # (A) 12.2 k/uL (1.3-7.7); Neutrophils % (A) 78 %; Platelet Count 257 k/uL (150-450); RBC 3.34 m/uL (3.80-5.40); RDW 15.3 % (11.5-15.5); WBC 15.6 k/uL (3.8-10.6)
[2021-08-31 04:46] LABS: ALT 28 U/L (4-34); AST 44 U/L (14-36); African American GFR (CKD) >90 (>60 ml/min/1.73 sqM); Albumin 3.6 g/dL (3.5-5.0); Alkaline Phosphatase 51 U/L (38-126); Anion Gap 8 mmol/L; Blood Urea Nitrogen 13 mg/dL (7-17); Carbon Dioxide 21 mmol/L (22-30); Chloride 106 mmol/L (98-107); Glucose 117 mg/dL (74-99); Magnesium 2.2 mg/dL (1.6-2.3); Non-African American GFR(CKD) >90 (>60 ml/min/1.73 sqM); Potassium 4.3 mmol/L (3.5-5.1); Sodium 135 mmol/L (137-145); Total Bilirubin 0.4 mg/dL (0.2-1.3)
[2021-08-31 06:04] LABS: Glucose,Whole Blood 132 mg/dL (75-99)
[2021-08-31] MEDS: KETOROLAC 15 MG/ML 1 ML VIAL IVP SCH ×4 (06:36→23:16)
[2021-08-31 06:53] LABS: Glucose,Whole Blood 128 mg/dL (75-99)
[2021-08-31] MEDS: HEPARIN SODIUM,PORCINE/PF 5,000 UNIT/0.5 ML SYRINGE SQ SCH ×3 (08:34→23:16)
[2021-08-31] MEDS: METOPROLOL TARTRATE 12.5 MG TAB PO SCH ×2 (08:35→20:17)
[2021-08-31] MEDS: ASPIRIN 325 MG TAB PO SCH (08:35)
[2021-08-31] MEDS: ATORVASTATIN 40 MG TAB PO SCH (08:35)
[2021-08-31] MEDS: VITAMIN E (DL,TOCOPHERYL ACET) 400 UNIT (180 MG) CAP PO SCH (08:35)
[2021-08-31] MEDS: CLOPIDOGREL 75 MG TAB PO SCH (08:35)
[2021-08-31 08:39] LABS: Glucose,Whole Blood 185 mg/dL (75-99)
[2021-08-31] MEDS: IPRATROPIUM-ALBUTEROL 3 ML NEB INHALATION SCH ×4 (08:51→20:36)
[2021-08-31] MEDS ORDERED: PANTOPRAZOLE 40 MG/10 ML VIAL IVP SCH (09:00)
[2021-08-31] MEDS ORDERED: MAGNESIUM HYDROXIDE 2,400 MG/10 ML CUP PO PRN (09:00)
[2021-08-31] MEDS ORDERED: bisacodyL 10 MG SUPP RECTAL PRN (09:00)
--- NOTE | 2021-08-31 09:05 | XR ---
EXAMINATION TYPE: XR chest 1V portable DATE OF EXAM: 08/31/2021 COMPARISON: 08/30/2021 HISTORY: Postop TECHNIQUE: Single frontal view of the chest is obtained. FINDINGS: ET and NG tube have been removed. Extensive postsurgical change with bilateral consolidati on and small effusion. Mediastinal drain and chest tubes are seen. There is a less than 5% left apica l pneumothorax. Pulmonary [place] catheter seen with the tip overlying the pulmonary outflow tract. Hypertrophic and degenerative change of the spine. IMPRESSION: 1. Less than 5% left apical pneumothorax. 2. Postsurgical change with bilateral atelectasis or infiltrate and small effusion.
--- NOTE | 2021-08-31 09:26 | P.PN ---
Subjective Progress Note Date: 08/31/21 Principal diagnosis: Coronary artery disease, shortness of breath This is a 65-year-old female patient of Dr. Jareth Martinez, and Dr. Salcedo from cardiology has a history of hypertension, hyperlipidemia, psoriatic arthritis on a DMARD outpatient, lifetime nonsmoker, with family history of premature coronary artery disease and her brother had a NV at 40 years of age. Patient had been having shortness of breath with exertion for the past 6-8 months that was relieved with rest. Patient also reported some chest discomfort. Patient had an abnormal outpatient stress test. Elective heart catheterization was completed on 08/24/2021 that showed chronic total occlusion of the mid RCA with collaterals from the left side, subtotally occluded ostial LAD, and a tight lesion in the diagonal artery. Transthoracic echocardiogram showed preserved left ventricular systolic function with EF of 55%, mild mitral regurgitation, mild tricuspid regurgitation. Patient was referred to CT surgery for surgical intervention. Preop FEV1 was 1.98 L or 79% of predicted, with forced vital capacity of 2.48, with FEV1 to FVC ratio of 80%, and it was consistent with mild restriction. Carotid Doppler showed no hemodynamically significant stenosis of the proximal internal carotid arteries. Patient was discharged home on 08/26/2021. Patient was brought in today on 08/30/2021 for elective off-pump coronary artery bypass grafting 3 with PEACE to the LAD, SVG to the OM and PDA, endovascular vein harvest, left atrial appendage exclusion with 35 mm AtriCure clip. Following surgery patient is seen in the intensive care unit, sedated and intubated, on assist-control mode of ventilation with a rate of 12, tidal on his 400, FiO2 of 50% and PEEP of 5, postop blood gases showed a pO2 of 331, pCO2 of 40, and pH of 7.31 and FiO2 had since been called back to 50%. Postop chest x- ray showing postsurgical changes with suspected postoperative basilar atelectasis. Patient is hemodynamically stable, she is on lactated Ringer's at 50 ML per hour, nitroglycerin at 5 mics per minute, propofol is on hold. No vasopressor drips, she is in sinus mechanism, hemodynamically she is stable, PA pressure is 26/20, CVP is 10, cardiac output is 4.0, and CVP is 2.1. Patient has [address], one mediastinal with 50 mL of sanguinous output, no evidence of air leak, left and right pleural chest tubes with 70 mL of sanguinous output in the Pleur-evac, no evidence of air leak. Postoperative b lood work showed white blood cell count of 16.5, hemoglobin of 9.2, sodium of 140, potassium is 4.3, chloride is 111, BUN is 10, creatinine 0.62. Urinary catheter is in place, patient is producing adequate amount of urine. Incisions are clean dry and intact. Patient is doing well in the postoperative period, she started to wake up and we anticipate expedited wean and extubation. On 08/31/2021 patient seen in follow-up in the intensive care unit. She is awake, in no acute distress, she was extubated 1705 on postoperative day #0 on 08/30/2021. She is doing well, she is sitting up in the recliner today, awake and alert, oriented 3, breathing comfortably, she is currently on 3 L of oxygen pulse ox is 99%. Hemodynamically she is stable, tolerating vasoactive drips, she is on lactated Ringer's at 50 ML per hour, insulin infusion at 3.5 units per hour. She is in sinus mechanism with a rate of 67, blood pressure is 120/43, PA pressures 20/15, with a CVP of 9, cardiac output is 3.8, and cardiac index is 2.0. Today's chest x-ray has been reviewed showing less than 5% left apical pne umothorax, and postsurgical changes with bilateral atelectasis and small pleural effusion. Today's labs have been reviewed, white blood cell count is 15.6, hemoglobin is 9.6, platelet count 257, sodium is 135, potassium is 4.3, chloride is 106, CO2 is 21, BUN is 13, creatinine 0.63. Menstrual surgical incision is clean dry and intact, mediastinal and right and left pleural chest tubes are in place, with moderate amount of thin serosanguineous output. Patient has put out 350 mL of the mediastinal chest tube at 550 mL of thin serosanguineous output from the right and left pleural chest tubes in the last 24 hours. Urinary catheter is in place and patient is making 20-25 ML per hour of urine output. Patient has received 250 mL of 5% albumin for low urine output this morning. Patient is working on incentive spirometer, achieving about 1000 ML on it today. Lung sounds are positive for bibasilar crackles. She states her postoperative pain is fairly well controlled. Does not appear to be in any acute distress. Objective - Vital Signs Vital signs: Vital Signs Temp 99.5 F 08/31/21 08:00 Pulse 67 08/31/21 09:03 Resp 19 08/31/21 09:00 BP 118/57 08/31/21 09:00 Pulse Ox 99 08/31/21 09:00 Intake & Output 08/30/21 08/31/21 08/31/21 18:59 06:59 18:59 Intake Total 5829.238 4704.428 224.745 Output Total 1980 897 100 Balance -927.480 798.428 124.745 Weight 84.4 kg Intake: IV 169 1068 217 Albumin 250 LR @50mls/hr 550 150 cardiac output 80 160 40 pressure bag 36 108 27 Intake, IV Titration 883.520 157.428 7.745 Amount ACETAMINOPHEN IV (For NPO 100 100 ) 1,000 mg In Empty Bag 1 bag @ 400 mls/hr IVPB Q6H NEHAL Rx#:[id number] Albumin Human 5% 250 ml 500 In Empty Bag 1 bag @ 250 mls/hr IVPB Q1HR PRN Rx#: [id number] Clevidipine Butyrate 25 21.5 mg In Empty Bag 1 bag @ 1 MG/HR 2 mls/hr IV .Q24H NEHAL Rx#:[id number] Insulin Regular 100 unit 5.261 42.428 6.245 In Sodium Chloride 0.9% 100 ml @ Per Protocol IV .Q0M NEHAL Rx#:[id number] Lactated Ringers 1,000 ml 200 @ 20 mls/hr IV .Q24H NEHAL Rx#:[id number] Nitroglycerin-D5w Pmx 50 15.0 1.5 mg In Dextrose/Water 1 250ml.bag @ 5 MCG/MIN 1.5 mls/hr IV .Q24H NEHAL Rx#: [id number] ceFAZolin 2 gm In Sodium 50 Chloride 0.9% 50 ml @ 100 mls/hr IVPB Q8HR NEHAL Rx# :[id number] propofoL 1,000 mg In 6.759 Empty Bag 1 bag @ Titrate IV .Q0M NEHAL Rx#: [id number] Oral 470 Output: Chest Tube Drainage 280 512 40 mediastinal 110 199 20 right and left pleural 170 313 20 Urine 1300 385 60 Estimated Blood Loss 400 Other: Voiding Method Indwelling Catheter Indwelling Catheter Indwelling Catheter ABP, PAP, CO, CI - Last Documented Arterial Blood Pressure 91/80 Pulmonary Artery Pressure 20/13 Cardiac Output 3.8 Cardiac Index 2 - Exam GENERAL EXAM: Alert, very pleasant, 65-year-old white female on 3 L of oxygen with a pulse ox of 99% comfortable in no apparent distress. HEAD: Normocephalic/atraumatic. EYES: Normal reaction of pupils, equal size. Conjunctiva pink, sclera white. NOSE: Clear with pink turbinates. THROAT: No erythema or exudates. NECK: No masses, no JVD, no thyroid enlargement, no adenopathy. CHEST: No chest wall deformity. Symmetrical expansion. Midsternal incision is clean dry and intact, mediastinal and the right left pleural chest tubes are in place, insertion sites are clean dry and intact LUNGS: Equal air entry with basilar crackles CVS: Regular rate and rhythm, normal S1 and S2, no gallops, no murmurs, no rubs ABDOMEN: Soft, nontender. No hepatosplenomegaly, normal bowel sounds, no guarding or rigidity. EXTREMITIES: No clubbing, no edema, no cyanosis, 2+ pulses and upper and lower extremities. MUSCULOSKELETAL: Muscle strength and tone normal. SPINE: No scoliosis or deformity SKIN: No rashes CENTRAL NERVOUS SYSTEM: Alert and oriented -3. No focal deficits, tone is normal in all 4 extremities. PSYCHIATRIC: Alert and oriented -3. Appropriate affect. Intact judgment and insight. - Labs CBC & Chem 7: 08/31/21 04:05 08/31/21 04:05 Labs: Abnormal Lab Results - Last 24 Hours (Table) 08/26/21 08/30/21 08/30/21 Range/Units 11:00 08:38 10:08 WBC (3.8-10.6) k/uL RBC (3.80-5.40) m/uL Hgb (11.4-16.0) gm/dL Hct (34.0-46.0) % RDW (11.5-15.5) % Neutrophils # (1.3-7.7) k/uL ABG pH (7.35-7.45) ABG pCO2 (35-45) mmHg ABG pO2 230 H 240 H (83-108) mmHg ABG Total CO2 (19-24) mmol/L ABG O2 Saturation 98.2 H 98.3 H (94-97) % ABG Hematocrit (34.0-46.0) % ABG Ionized Calcium (4.5-5.3) mg/dL ABG Glucose 105 H 114 H (75-99) mg/dL ABG Lactic Acid (0.5-1.6) mmol/L Hemoglobin (11.4-16.0) gm/dL Sodium (137-145) mmol/L Chloride (98-107) mmol/L Carbon Dioxide (22-30) mmol/L Glucose (74-99) mg/dL POC Glucose (mg/dL) (75-99) mg/dL Calcium (8.4-10.2) mg/dL AST (14-36) U/L Total Protein (6.3-8.2) g/dL Albumin (3.5-5.0) g/dL Arterial Blood Glucose 105 H 114 H (75-99) mg/dL Crossmatch See Detail 08/30/21 08/30/21 08/30/21 Range/Units 10:33 11:01 11:27 WBC (3.8-10.6) k/uL RBC (3.80-5.40) m/uL Hgb (11.4-16.0) gm/dL Hct (34.0-46.0) % RDW (11.5-15.5) % Neutrophils # (1.3-7.7) k/uL ABG pH (7.35-7.45) ABG pCO2 34 L (35-45) mmHg ABG pO2 236 H 248 H 261 H (83-108) mmHg ABG Total CO2 (19-24) mmol/L ABG O2 Saturation 98.5 H 98.3 H 98.4 H (94-97) % ABG Hematocrit 32 L 31 L 29 L (34.0-46.0) % ABG Ionized Calcium (4.5-5.3) mg/dL ABG Glucose 113 H 113 H 111 H (75-99) mg/dL ABG Lactic Acid (0.5-1.6) mmol/L Hemoglobin 10.5 L 10.0 L 9.5 L (11.4-16.0) gm/dL Sodium (137-145) mmol/L Chloride (98-107) mmol/L Carbon Dioxide (22-30) mmol/L Glucose (74-99) mg/dL POC Glucose (mg/dL) (75-99) mg/dL Calcium (8.4-10.2) mg/dL AST (14-36) U/L Total Protein (6.3-8.2) g/dL Albumin (3.5-5.0) g/dL Arterial Blood Glucose 113 H 113 H 111 H (75-99) mg/dL Crossmatch 08/30/21 08/30/21 08/30/21 Range/Units 12:12 13:05 13:05 WBC 16.5 H (3.8-10.6) k/uL RBC 3.09 L (3.80-5.40) m/uL Hgb 9.2 L D (11.4-16.0) gm/dL Hct 28.2 L (34.0-46.0) % RDW 15.6 H (11.5-15.5) % Neutrophils # 11.9 H (1.3-7.7) k/uL ABG pH (7.35-7.45) ABG pCO2 (35-45) mmHg ABG pO2 172 H (83-108) mmHg ABG Total CO2 (19-24) mmol/L ABG O2 Saturation 97.9 H (94-97) % ABG Hematocrit 28 L (34.0-46.0) % ABG Ionized Calcium 4.4 L (4.5-5.3) mg/dL ABG Glucose 106 H (75-99) mg/dL ABG Lactic Acid 1.8 H (0.5-1.6) mmol/L Hemoglobin 9.3 L (11.4-16.0) gm/dL Sodium (137-145) mmol/L Chloride (98-107) mmol/L Carbon Dioxide (22-30) mmol/L Glucose (74-99) mg/dL POC Glucose (mg/dL) 115 H (75-99) mg/dL Calcium (8.4-10.2) mg/dL AST (14-36) U/L Total Protein (6.3-8.2) g/dL Albumin (3.5-5.0) g/dL Arterial Blood Glucose 106 H (75-99) mg/dL Crossmatch 08/30/21 08/30/21 08/30/21 Range/Units 13:05 13:32 15:05 WBC 14.0 H (3.8-10.6) k/uL RBC 3.19 L (3.80-5.40) m/uL Hgb 9.3 L (11.4-16.0) gm/dL Hct 29.0 L (34.0-46.0) % RDW (11.5-15.5) % Neutrophils # 11.4 H (1.3-7.7) k/uL ABG pH 7.31 L (7.35-7.45) ABG pCO2 48 H (35-45) mmHg ABG pO2 331 H (83-108) mmHg ABG Total CO2 26 H (19-24) mmol/L ABG O2 Saturation 98.0 H (94-97) % ABG Hematocrit (34.0-46.0) % ABG Ionized Calcium (4.5-5.3) mg/dL ABG Glucose (75-99) mg/dL ABG Lactic Acid (0.5-1.6) mmol/L Hemoglobin (11.4-16.0) gm/dL Sodium (137-145) mmol/L Chloride 111 H (98-107) mmol/L Carbon Dioxide (22-30) mmol/L Glucose 108 H (74-99) mg/dL POC Glucose (mg/dL) (75-99) mg/dL Calcium 7.5 L (8.4-10.2) mg/dL AST 41 H (14-36) U/L Total Protein 5.1 L (6.3-8.2) g/dL Albumin 2.9 L (3.5-5.0) g/dL Arterial Blood Glucose (75-99) mg/dL Crossmatch 08/30/21 08/30/21 08/30/21 Range/Units 15:07 16:03 16:53 WBC (3.8-10.6) k/uL RBC (3.80-5.40) m/uL Hgb (11.4-16.0) gm/dL Hct (34.0-46.0) % RDW (11.5-15.5) % Neutrophils # (1.3-7.7) k/uL ABG pH (7.35-7.45) ABG pCO2 (35-45) mmHg ABG pO2 123 H (83-108) mmHg ABG Total CO2 25 H (19-24) mmol/L ABG O2 Saturation 97.2 H (94-97) % ABG Hematocrit (34.0-46.0) % ABG Ionized Calcium (4.5-5.3) mg/dL ABG Glucose (75-99) mg/dL ABG Lactic Acid (0.5-1.6) mmol/L Hemoglobin (11.4-16.0) gm/dL Sodium (137-145) mmol/L Chloride (98-107) mmol/L Carbon Dioxide (22-30) mmol/L Glucose (74-99) mg/dL POC Glucose (mg/dL) 171 H 162 H (75-99) mg/dL Calcium (8.4-10.2) mg/dL AST (14-36) U/L Total Protein (6.3-8.2) g/dL Albumin (3.5-5.0) g/dL Arterial Blood Glucose (75-99) mg/dL Crossmatch 08/30/21 08/30/21 08/30/21 Range/Units 16:57 18:06 18:08 WBC 14.8 H (3.8-10.6) k/uL RBC 3.38 L (3.80-5.40) m/uL Hgb 10.0 L (11.4-16.0) gm/dL Hct 31.0 L (34.0-46.0) % RDW 15.7 H (11.5-15.5) % Neutrophils # 13.0 H (1.3-7.7) k/uL ABG pH (7.35-7.45) ABG pCO2 (35-45) mmHg ABG pO2 (83-108) mmHg ABG Total CO2 (19-24) mmol/L ABG O2 Saturation (94-97) % ABG Hematocrit (34.0-46.0) % ABG Ionized Calcium (4.5-5.3) mg/dL ABG Glucose (75-99) mg/dL ABG Lactic Acid (0.5-1.6) mmol/L Hemoglobin (11.4-16.0) gm/dL Sodium (137-145) mmol/L Chloride (98-107) mmol/L Carbon Dioxide (22-30) mmol/L Glucose (74-99) mg/dL POC Glucose (mg/dL) 158 H 157 H (75-99) mg/dL Calcium (8.4-10.2) mg/dL AST (14-36) U/L Total Protein (6.3-8.2) g/dL Albumin (3.5-5.0) g/dL Arterial Blood Glucose (75-99) mg/dL Crossmatch 08/30/21 08/30/21 08/30/21 Range/Units 19:08 20:07 21:10 WBC (3.8-10.6) k/uL RBC (3.80-5.40) m/uL Hgb (11.4-16.0) gm/dL Hct (34.0-46.0) % RDW (11.5-15.5) % Neutrophils # (1.3-7.7) k/uL ABG pH (7.35-7.45) ABG pCO2 (35-45) mmHg ABG pO2 (83-108) mmHg ABG Total CO2 (19-24) mmol/L ABG O2 Saturation (94-97) % ABG Hematocrit (34.0-46.0) % ABG Ionized Calcium (4.5-5.3) mg/dL ABG Glucose (75-99) mg/dL ABG Lactic Acid (0.5-1.6) mmol/L Hemoglobin (11.4-16.0) gm/dL Sodium (137-145) mmol/L Chloride (98-107) mmol/L Carbon Dioxide (22-30) mmol/L Glucose (74-99) mg/dL POC Glucose (mg/dL) 144 H 133 H 134 H (75-99) mg/dL Calcium (8.4-10.2) mg/dL AST (14-36) U/L Total Protein (6.3-8.2) g/dL Albumin (3.5-5.0) g/dL Arterial Blood Glucose (75-99) mg/dL Crossmatch 08/30/21 08/30/2122 Range/Units 22:07 23:02 23:58 WBC (3.8-10.6) k/uL RBC (3.80-5.40) m/uL Hgb (11.4-16.0) gm/dL Hct (34.0-46.0) % RDW (11.5-15.5) % Neutrophils # (1.3-7.7) k/uL ABG pH (7.35-7.45) ABG pCO2 (35-45) mmHg ABG pO2 (83-108) mmHg ABG Total CO2 (19-24) mmol/L ABG O2 Saturation (94-97) % ABG Hematocrit (34.0-46.0) % ABG Ionized Calcium (4.5-5.3) mg/dL ABG Glucose (75-99) mg/dL ABG Lactic Acid (0.5-1.6) mmol/L Hemoglobin (11.4-16.0) gm/dL Sodium (137-145) mmol/L Chloride (98-107) mmol/L Carbon Dioxide (22-30) mmol/L Glucose (74-99) mg/dL POC Glucose (mg/dL) 144 H 139 H 135 H (75-99) mg/dL Calcium (8.4-10.2) mg/dL AST (14-36) U/L Total Protein (6.3-8.2) g/dL Albumin (3.5-5.0) g/dL Arterial Blood Glucose (75-99) mg/dL Crossmatch 08/31/21 08/31/21 08/31/21 Range/Units 01:00 02:07 03:09 WBC (3.8-10.6) k/uL RBC (3.80-5.40) m/uL Hgb (11.4-16.0) gm/dL Hct (34.0-46.0) % RDW (11.5-15.5) % Neutrophils # (1.3-7.7) k/uL ABG pH (7.35-7.45) ABG pCO2 (35-45) mmHg ABG pO2 (83-108) mmHg ABG Total CO2 (19-24) mmol/L ABG O2 Saturation (94-97) % ABG Hematocrit (34.0-46.0) % ABG Ionized Calcium (4.5-5.3) mg/dL ABG Glucose (75-99) mg/dL ABG Lactic Acid (0.5-1.6) mmol/L Hemoglobin (11.4-16.0) gm/dL Sodium (137-145) mmol/L Chloride (98-107) mmol/L Carbon Dioxide (22-30) mmol/L Glucose (74-99) mg/dL POC Glucose (mg/dL) 135 H 133 H 128 H (75-99) mg/dL Calcium (8.4-10.2) mg/dL AST (14-36) U/L Total Protein (6.3-8.2) g/dL Albumin (3.5-5.0) g/dL Arterial Blood Glucose (75-99) mg/dL Crossmatch 08/31/21 08/31/21 08/31/21 Range/Units 04:05 04:05 04:05 WBC 15.6 H (3.8-10.6) k/uL RBC 3.34 L (3.80-5.40) m/uL Hgb 9.6 L (11.4-16.0) gm/dL Hct 30.5 L (34.0-46.0) % RDW (11.5-15.5) % Neutrophils # 12.2 H (1.3-7.7) k/uL ABG pH (7.35-7.45) ABG pCO2 (35-45) mmHg ABG pO2 (83-108) mmHg ABG Total CO2 (19-24) mmol/L ABG O2 Saturation (94-97) % ABG Hematocrit (34.0-46.0) % ABG Ionized Calcium (4.5-5.3) mg/dL ABG Glucose (75-99) mg/dL ABG Lactic Acid (0.5-1.6) mmol/L Hemoglobin (11.4-16.0) gm/dL Sodium 135 L (137-145) mmol/L Chloride (98-107) mmol/L Carbon Dioxide 21 L (22-30) mmol/L Glucose 117 H (74-99) mg/dL POC Glucose (mg/dL) 122 H (75-99) mg/dL Calcium 8.0 L (8.4-10.2) mg/dL AST 44 H (14-36) U/L Total Protein 6.0 L (6.3-8.2) g/dL Albumin (3.5-5.0) g/dL Arterial Blood Glucose (75-99) mg/dL Crossmatch 08/31/21 08/31/21 08/31/21 Range/Units 06:01 06:51 08:37 WBC (3.8-10.6) k/uL RBC (3.80-5.40) m/uL Hgb (11.4-16.0) gm/dL Hct (34.0-46.0) % RDW (11.5-15.5) % Neutrophils # (1.3-7.7) k/uL ABG pH (7.35-7.45) ABG pCO2 (35-45) mmHg ABG pO2 (83-108) mmHg ABG Total CO2 (19-24) mmol/L ABG O2 Saturation (94-97) % ABG Hematocrit (34.0-46.0) % ABG Ionized Calcium (4.5-5.3) mg/dL ABG Glucose (75-99) mg/dL ABG Lactic Acid (0.5-1.6) mmol/L Hemoglobin (11.4-16.0) gm/dL Sodium (137-145) mmol/L Chloride (98-107) mmol/L Carbon Dioxide (22-30) mmol/L Glucose (74-99) mg/dL POC Glucose (mg/dL) 132 H 128 H 185 H (75-99) mg/dL Calcium (8.4-10.2) mg/dL AST (14-36) U/L Total Protein (6.3-8.2) g/dL Albumin (3.5-5.0) g/dL Arterial Blood Glucose (75-99) mg/dL Crossmatch Assessment and Plan Plan: Assessment: #1. Coronary artery disease, status post off-pump CABG 3 with PEACE to LAD, and saphenous vein grafts to obtuse marginal and PDA, endovascular vein harvest, left atrial appendage exclusion with 35 mm patchy cure clip, on 08/30/2021 #2. Exertional dyspnea and chest discomfort related to the above #3. Routine postoperative ventilator management, patient was extubated on postoperative day #0, on 08/30/2021 in less than 6 hours after OR exit time #4. Nonsmoker #5. Acute blood loss anemia, and expected outcome of sternotomy and coronary artery bypass grafting surgery #6. Hypertension #7. Hyperlipidemia #8. Psoriatic arthritis Plan: Continue encouraging deep breathing and coughing Patient tolerated extubation quite well Continue weaning FiO2, incentive spirometry use Breathing treatments as needed Hemodynamically patient is stable Today's chest x-ray and labs have been reviewed Continue monitoring hemodynamics and chest tube output, We'll continue to follow along with cardiac surgery Increase activity as tolerated, encourage ambulation I have personally seen and examined the patient, performed the documentation and the assessment and plan as written. Number of minutes spent on the visit: [15] Time with Patient: Less than 30
[2021-08-31 09:41] LABS: Glucose,Whole Blood 148 mg/dL (75-99)
--- NOTE | 2021-08-31 10:10 | P.PN ---
Subjective Progress Note Date: 08/31/21 Principal diagnosis: Coronary artery disease. Previous medical history of hypertension, hyperlipidemia, psoriatic arthritis on DMARD as outpatient, never smoker, family history of premature coronary artery disease POD #1 off pump coronary artery bypass graft x 3 with left internal mammary artery to the left anterior descending artery, reverse saphenous vein grafts to the obtuse marginal and posterior descending coronary arteries, endovascular vein harvest of the left greater saphenous vein from the mid calf to groin occlusion of the left atrial appendage with 35 mm AtriCure clip, intraoperative transesophageal echocardiogram performed by anesthesia Postoperative acute blood loss anemia, expected given hemodilution The patient was seen and examined this morning at the bedside with Dr. Vela and Dr. Kaufman. She was sitting up in a recliner in no acute distress, birch ccessfully extubated last night at 17:05. Remains in sinus rhythm, hemodynamically stable on no inotropes or pressors. States pain is controlled on current medication regimen, denies shortness of breath. Right internal jugular Bishop/Cordis, right radial arterial line, mediastinal/right/left pleural chest tubes all remain. No other new concerns. Objective - Vital Signs Vital signs: Vital Signs Temp 98.4 F 08/31/21 00:00 Pulse 66 08/31/21 07:00 Resp 25 H 08/31/21 07:00 BP 121/64 08/31/21 07:00 Pulse Ox 95 08/31/21 07:00 Intake & Output 08/30/21 08/31/21 08/31/21 18:59 06:59 18:59 Intake Total 4895.951 7980.428 60.5 Output Total 1980 897 50 Balance -927.480 798.428 10.5 Weight 84.4 kg Intake: IV 169 1068 59 Albumin 250 LR @50mls/hr 550 50 cardiac output 80 160 pressure bag 36 108 9 Intake, IV Titration 883.520 157.428 1.5 Amount ACETAMINOPHEN IV (For NPO 100 100 ) 1,000 mg In Empty Bag 1 bag @ 400 mls/hr IVPB Q6H NEHAL Rx#:[id number] Albumin Human 5% 250 ml 500 In Empty Bag 1 bag @ 250 mls/hr IVPB Q1HR PRN Rx#: [id number] Clevidipine Butyrate 25 21.5 mg In Empty Bag 1 bag @ 1 MG/HR 2 mls/hr IV .Q24H NEHAL Rx#:[id number] Insulin Regular 100 unit 5.261 42.428 In Sodium Chloride 0.9% 100 ml @ Per Protocol IV .Q0M NEHAL Rx#:[id number] Lactated Ringers 1,000 ml 200 @ 20 mls/hr IV .Q24H NEHAL Rx#:[id number] Nitroglycerin-D5w Pmx 50 15.0 1.5 mg In Dextrose/Water 1 250ml.bag @ 5 MCG/MIN 1.5 mls/hr IV .Q24H NEHAL Rx#: [id number] ceFAZolin 2 gm In Sodium 50 Chloride 0.9% 50 ml @ 100 mls/hr IVPB Q8HR NEHAL Rx# :[id number] propofoL 1,000 mg In 6.759 Empty Bag 1 bag @ Titrate IV .Q0M NEHAL Rx#: [id number] Oral 470 Output: Chest Tube Drainage 280 512 40 mediastinal 110 199 20 right and left pleural 170 313 20 Urine 1300 385 10 Estimated Blood Loss 400 Other: Voiding Method Indwelling Catheter Indwelling Catheter ABP, PAP, CO, CI - Last Documented Arterial Blood Pressure 100/43 Pulmonary Artery Pressure 24/15 Cardiac Output 3.8 Cardiac Index 2 - Exam CONSTITUTIONAL: Appears comfortable, cooperative, no acute distress RESPIRATORY: Lungs sounds diminished bilaterally. Respirations even, nonlabored. Currently on 3 L nasal cannula with oxygen saturation 94%. Able to achieve 750 mL on incentive spirometry. Strong cough. CARDIOVASCULAR: S1, S2 present. Regular rate and rhythm, sinus rhythm on telemetry. Sternum stable. Palpable peripheral pulses bilaterally. Trace generalized edema present. No calf pain or tenderness noted. Heart hugger in place with patient demonstrating appropriate use. Antiembolism stockings, SCDs present. GASTROINTESTINAL: Abdomen soft, nontender, nondistended. Hypoactive bowel sounds present 4 quadrants. Tolerating clear liquid. Negative flatus. GENITOURINARY: Swan present draining clear, yellow urine. Output overnight 2 0-35 mL per hour INTEGUMENTARY: Skin is warm and dry with evidence of good perfusion. Anterior chest incision well approximated and covered with dry intact dressing. Left lower extremity EVH site well approximated without redness or drainage. NEUROLOGIC: Cranial nerves II through XII intact MUSKULOSKELETAL: Able to move all extremities, strength equal bilaterally, gait normal PSYCHIATRIC: Alert and oriented to person place and time, appropriate affect, intact judgment and insight INVASIVE LINES AND TUBES: Mediastinal/left/right pleural chest tubes present and connected to wall suction, no air leaks present. Mediastinal tube with 150 mL serosanguineous drainage overnight, 350 mL since surgery. Left/right pleural chest tubes with 220 mL serosanguineous drainage overnight, 520 mL since surgery. Right internal jugular Bishop/Cordis, right radial arterial line present. Last CO/CI 3.8/2.0, PA 20/13, CVP 10. - Allied health notes Allied health notes reviewed: nursing - Labs CBC & Chem 7: 08/31/21 04:05 08/31/21 04:05 Labs: Abnormal Lab Results - Last 24 Hours (Table) 08/26/21 08/30/21 08/30/21 Range/Units 11:00 08:38 10:08 WBC (3.8-10.6) k/uL RBC (3.80-5.40) m/uL Hgb (11.4-16.0) gm/dL Hct (34.0-46.0) % RDW (11.5-15.5) % Neutrophils # (1.3-7.7) k/uL ABG pH (7.35-7.45) ABG pCO2 (35-45) mmHg ABG pO2 230 H 240 H (83-108) mmHg ABG Total CO2 (19-24) mmol/L ABG O2 Saturation 98.2 H 98.3 H (94-97) % ABG Hematocrit (34.0-46.0) % ABG Ionized Calcium (4.5-5.3) mg/dL ABG Glucose 105 H 114 H (75-99) mg/dL ABG Lactic Acid (0.5-1.6) mmol/L Hemoglobin (11.4-16.0) gm/dL Sodium (137-145) mmol/L Chloride (98-107) mmol/L Carbon Dioxide (22-30) mmol/L Glucose (74-99) mg/dL POC Glucose (mg/dL) (75-99) mg/dL Calcium (8.4-10.2) mg/dL AST (14-36) U/L Total Protein (6.3-8.2) g/dL Albumin (3.5-5.0) g/dL Arterial Blood Glucose 105 H 114 H (75-99) mg/dL Crossmatch See Detail 08/30/21 08/30/21 08/30/21 Range/Units 10:33 11:01 11:27 WBC (3.8-10.6) k/uL RBC (3.80-5.40) m/uL Hgb (11.4-16.0) gm/dL Hct (34.0-46.0) % RDW (11.5-15.5) % Neutrophils # (1.3-7.7) k/uL ABG pH (7.35-7.45) ABG pCO2 34 L (35-45) mmHg ABG pO2 236 H 248 H 261 H (83-108) mmHg ABG Total CO2 (19-24) mmol/L ABG O2 Saturation 98.5 H 98.3 H 98.4 H (94-97) % ABG Hematocrit 32 L 31 L 29 L (34.0-46.0) % ABG Ionized Calcium (4.5-5.3) mg/dL ABG Glucose 113 H 113 H 111 H (75-99) mg/dL ABG Lactic Acid (0.5-1.6) mmol/L Hemoglobin 10.5 L 10.0 L 9.5 L (11.4-16.0) gm/dL Sodium (137-145) mmol/L Chloride (98-107) mmol/L Carbon Dioxide (22-30) mmol/L Glucose (74-99) mg/dL POC Glucose (mg/dL) (75-99) mg/dL Calcium (8.4-10.2) mg/dL AST (14-36) U/L Total Protein (6.3-8.2) g/dL Albumin (3.5-5.0) g/dL Arterial Blood Glucose 113 H 113 H 111 H (75-99) mg/dL Crossmatch 08/30/21 08/30/21 08/30/21 Range/Units 12:12 13:05 13:05 WBC 16.5 H (3.8-10.6) k/uL RBC 3.09 L (3.80-5.40) m/uL Hgb 9.2 L D (11.4-16.0) gm/dL Hct 28.2 L (34.0-46.0) % RDW 15.6 H (11.5-15.5) % Neutrophils # 11.9 H (1.3-7.7) k/uL ABG pH (7.35-7.45) ABG pCO2 (35-45) mmHg ABG pO2 172 H (83-108) mmHg ABG Total CO2 (19-24) mmol/L ABG O2 Saturation 97.9 H (94-97) % ABG Hematocrit 28 L (34.0-46.0) % ABG Ionized Calcium 4.4 L (4.5-5.3) mg/dL ABG Glucose 106 H (75-99) mg/dL ABG Lactic Acid 1.8 H (0.5-1.6) mmol/L Hemoglobin 9.3 L (11.4-16.0) gm/dL Sodium (137-145) mmol/L Chloride (98-107) mmol/L Carbon Dioxide (22-30) mmol/L Glucose (74-99) mg/dL POC Glucose (mg/dL) 115 H (75-99) mg/dL Calcium (8.4-10.2) mg/dL AST (14-36) U/L Total Protein (6.3-8.2) g/dL Albumin (3.5-5.0) g/dL Arterial Blood Glucose 106 H (75-99) mg/dL Crossmatch 08/30/21 08/30/21 08/30/21 Range/Units 13:05 13:32 15:05 WBC 14.0 H (3.8-10.6) k/uL RBC 3.19 L (3.80-5.40) m/uL Hgb 9.3 L (11.4-16.0) gm/dL Hct 29.0 L (34.0-46.0) % RDW (11.5-15.5) % Neutrophils # 11.4 H (1.3-7.7) k/uL ABG pH 7.31 L (7.35-7.45) ABG pCO2 48 H (35-45) mmHg ABG pO2 331 H (83-108) mmHg ABG Total CO2 26 H (19-24) mmol/L ABG O2 Saturation 98.0 H (94-97) % ABG Hematocrit (34.0-46.0) % ABG Ionized Calcium (4.5-5.3) mg/dL ABG Glucose (75-99) mg/dL ABG Lactic Acid (0.5-1.6) mmol/L Hemoglobin (11.4-16.0) gm/dL Sodium (137-145) mmol/L Chloride 111 H (98-107) mmol/L Carbon Dioxide (22-30) mmol/L Glucose 108 H (74-99) mg/dL POC Glucose (mg/dL) (75-99) mg/dL Calcium 7.5 L (8.4-10.2) mg/dL AST 41 H (14-36) U/L Total Protein 5.1 L (6.3-8.2) g/dL Albumin 2.9 L (3.5-5.0) g/dL Arterial Blood Glucose (75-99) mg/dL Crossmatch 08/30/21 08/30/21 08/30/21 Range/Units 15:07 16:03 16:53 WBC (3.8-10.6) k/uL RBC (3.80-5.40) m/uL Hgb (11.4-16.0) gm/dL Hct (34.0-46.0) % RDW (11.5-15.5) % Neutrophils # (1.3-7.7) k/uL ABG pH (7.35-7.45) ABG pCO2 (35-45) mmHg ABG pO2 123 H (83-108) mmHg ABG Total CO2 25 H (19-24) mmol/L ABG O2 Saturation 97.2 H (94-97) % ABG Hematocrit (34.0-46.0) % ABG Ionized Calcium (4.5-5.3) mg/dL ABG Glucose (75-99) mg/dL ABG Lactic Acid (0.5-1.6) mmol/L Hemoglobin (11.4-16.0) gm/dL Sodium (137-145) mmol/L Chloride (98-107) mmol/L Carbon Dioxide (22-30) mmol/L Glucose (74-99) mg/dL POC Glucose (mg/dL) 171 H 162 H (75-99) mg/dL Calcium (8.4-10.2) mg/dL AST (14-36) U/L Total Protein (6.3-8.2) g/dL Albumin (3.5-5.0) g/dL Arterial Blood Glucose (75-99) mg/dL Crossmatch 08/30/21 08/30/21 08/30/21 Range/Units 16:57 18:06 18:08 WBC 14.8 H (3.8-10.6) k/uL RBC 3.38 L (3.80-5.40) m/uL Hgb 10.0 L (11.4-16.0) gm/dL Hct 31.0 L (34.0-46.0) % RDW 15.7 H (11.5-15.5) % Neutrophils # 13.0 H (1.3-7.7) k/uL ABG pH (7.35-7.45) ABG pCO2 (35-45) mmHg ABG pO2 (83-108) mmHg ABG Total CO2 (19-24) mmol/L ABG O2 Saturation (94-97) % ABG Hematocrit (34.0-46.0) % ABG Ionized Calcium (4.5-5.3) mg/dL ABG Glucose (75-99) mg/dL ABG Lactic Acid (0.5-1.6) mmol/L Hemoglobin (11.4-16.0) gm/dL Sodium (137-145) mmol/L Chloride (98-107) mmol/L Carbon Dioxide (22-30) mmol/L Glucose (74-99) mg/dL POC Glucose (mg/dL) 158 H 157 H (75-99) mg/dL Calcium (8.4-10.2) mg/dL AST (14-36) U/L Total Protein (6.3-8.2) g/dL Albumin (3.5-5.0) g/dL Arterial Blood Glucose (75-99) mg/dL Crossmatch 08/30/21 08/30/21 08/30/21 Range/Units 19:08 20:07 21:10 WBC (3.8-10.6) k/uL RBC (3.80-5.40) m/uL Hgb (11.4-16.0) gm/dL Hct (34.0-46.0) % RDW (11.5-15.5) % Neutrophils # (1.3-7.7) k/uL ABG pH (7.35-7.45) ABG pCO2 (35-45) mmHg ABG pO2 (83-108) mmHg ABG Total CO2 (19-24) mmol/L ABG O2 Saturation (94-97) % ABG Hematocrit (34.0-46.0) % ABG Ionized Calcium (4.5-5.3) mg/dL ABG Glucose (75-99) mg/dL ABG Lactic Acid (0.5-1.6) mmol/L Hemoglobin (11.4-16.0) gm/dL Sodium (137-145) mmol/L Chloride (98-107) mmol/L Carbon Dioxide (22-30) mmol/L Glucose (74-99) mg/dL POC Glucose (mg/dL) 144 H 133 H 134 H (75-99) mg/dL Calcium (8.4-10.2) mg/dL AST (14-36) U/L Total Protein (6.3-8.2) g/dL Albumin (3.5-5.0) g/dL Arterial Blood Glucose (75-99) mg/dL Crossmatch 08/30/21 08/30/21 08/30/21 Range/Units 22:07 23:02 23:58 WBC (3.8-10.6) k/uL RBC (3.80-5.40) m/uL Hgb (11.4-16.0) gm/dL Hct (34.0-46.0) % RDW (11.5-15.5) % Neutrophils # (1.3-7.7) k/uL ABG pH (7.35-7.45) ABG pCO2 (35-45) mmHg ABG pO2 (83-108) mmHg ABG Total CO2 (19-24) mmol/L ABG O2 Saturation (94-97) % ABG Hematocrit (34.0-46.0) % ABG Ionized Calcium (4.5-5.3) mg/dL ABG Glucose (75-99) mg/dL ABG Lactic Acid (0.5-1.6) mmol/L Hemoglobin (11.4-16.0) gm/dL Sodium (137-145) mmol/L Chloride (98-107) mmol/L Carbon Dioxide (22-30) mmol/L Glucose (74-99) mg/dL POC Glucose (mg/dL) 144 H 139 H 135 H (75-99) mg/dL Calcium (8.4-10.2) mg/dL AST (14-36) U/L Total Protein (6.3-8.2) g/dL Albumin (3.5-5.0) g/dL Arterial Blood Glucose (75-99) mg/dL Crossmatch 08/31/21 08/31/21 08/31/21 Range/Units 01:00 02:07 03:09 WBC (3.8-10.6) k/uL RBC (3.80-5.40) m/uL Hgb (11.4-16.0) gm/dL Hct (34.0-46.0) % RDW (11.5-15.5) % Neutrophils # (1.3-7.7) k/uL ABG pH (7.35-7.45) ABG pCO2 (35-45) mmHg ABG pO2 (83-108) mmHg ABG Total CO2 (19-24) mmol/L ABG O2 Saturation (94-97) % ABG Hematocrit (34.0-46.0) % ABG Ionized Calcium (4.5-5.3) mg/dL ABG Glucose (75-99) mg/dL ABG Lactic Acid (0.5-1.6) mmol/L Hemoglobin (11.4-16.0) gm/dL Sodium (137-145) mmol/L Chloride (98-107) mmol/L Carbon Dioxide (22-30) mmol/L Glucose (74-99) mg/dL POC Glucose (mg/dL) 135 H 133 H 128 H (75-99) mg/dL Calcium (8.4-10.2) mg/dL AST (14-36) U/L Total Protein (6.3-8.2) g/dL Albumin (3.5-5.0) g/dL Arterial Blood Glucose (75-99) mg/dL Crossmatch 08/31/21 08/31/21 08/31/21 Range/Units 04:05 04:05 04:05 WBC 15.6 H (3.8-10.6) k/uL RBC 3.34 L (3.80-5.40) m/uL Hgb 9.6 L (11.4-16.0) gm/dL Hct 30.5 L (34.0-46.0) % RDW (11.5-15.5) % Neutrophils # 12.2 H (1.3-7.7) k/uL ABG pH (7.35-7.45) ABG pCO2 (35-45) mmHg ABG pO2 (83-108) mmHg ABG Total CO2 (19-24) mmol/L ABG O2 Saturation (94-97) % ABG Hematocrit (34.0-46.0) % ABG Ionized Calcium (4.5-5.3) mg/dL ABG Glucose (75-99) mg/dL ABG Lactic Acid (0.5-1.6) mmol/L Hemoglobin (11.4-16.0) gm/dL Sodium 135 L (137-145) mmol/L Chloride (98-107) mmol/L Carbon Dioxide 21 L (22-30) mmol/L Glucose 117 H (74-99) mg/dL POC Glucose (mg/dL) 122 H (75-99) mg/dL Calcium 8.0 L (8.4-10.2) mg/dL AST 44 H (14-36) U/L Total Protein 6.0 L (6.3-8.2) g/dL Albumin (3.5-5.0) g/dL Arterial Blood Glucose (75-99) mg/dL Crossmatch 08/31/21 08/31/21 Range/Units 06:01 06:51 WBC (3.8-10.6) k/uL RBC (3.80-5.40) m/uL Hgb (11.4-16.0) gm/dL Hct (34.0-46.0) % RDW (11.5-15.5) % Neutrophils # (1.3-7.7) k/uL ABG pH (7.35-7.45) ABG pCO2 (35-45) mmHg ABG pO2 (83-108) mmHg ABG Total CO2 (19-24) mmol/L ABG O2 Saturation (94-97) % ABG Hematocrit (34.0-46.0) % ABG Ionized Calcium (4.5-5.3) mg/dL ABG Glucose (75-99) mg/dL ABG Lactic Acid (0.5-1.6) mmol/L Hemoglobin (11.4-16.0) gm/dL Sodium (137-145) mmol/L Chloride (98-107) mmol/L Carbon Dioxide (22-30) mmol/L Glucose (74-99) mg/dL POC Glucose (mg/dL) 132 H 128 H (75-99) mg/dL Calcium (8.4-10.2) mg/dL AST (14-36) U/L Total Protein (6.3-8.2) g/dL Albumin (3.5-5.0) g/dL Arterial Blood Glucose (75-99) mg/dL Crossmatch - Imaging and Cardiology Chest x-ray: report reviewed, image reviewed Assessment and Plan Assessment: 1. Coronary artery disease, status post three-vessel off-pump CABG 2. History of hypertension 3. Hyperlipidemia, treated, cholesterol 172, triglycerides 785 4. Psoriatic arthritis on DMARD as outpatient 5. Never smoker, preoperative FEV1 79% of protected 6. Family history of premature coronary artery disease 7. Postoperative acute blood loss anemia Plan: 1. Continue aspirin, statin, Plavix, beta mil therapy. Will increase beta mil therapy as tolerated. Discontinue IV nitro 2. Wean O2 as tolerated. Encourage incentive spirometry 10 times every hour while awake. Bronchodilators per pulmonology 3. Increase activity, ambulate as tolerated. PT/OT/cardiac rehab consulted 4. Will monitor daily labs and x-rays. Electrolyte replacement per protocol 5. GI/DVT prophylaxis 6. Pain control with current medication regimen 7. Insulin management per primary care service. Patient is not diabetic, preoperative hemoglobin A1c 6.0% 8. Discontinue Bishop, Cordis, arterial line 9. Will discontinue mediastinal chest tube. Continue right/left pleural chest tubes for another 24 hours 10. Continue Swan catheter for another 24 hours for strict accurate intake and output. Daily weights 11. More recommendations to follow
[2021-08-31 10:34] LABS: Glucose,Whole Blood 113 mg/dL (75-99)
[2021-08-31] MEDS ORDERED: ACETAMINOPHEN TAB 325 MG TAB PO PRN (10:45)
--- NOTE | 2021-08-31 11:15 | P.PN ---
Subjective Patient is resting comfortably in bed She has mild incisional chest discomfort chest No shortness of breath Lungs reduced) entry bilaterally Heart sounds soft and distant She maintains normal rhythm Blood pressure 118/57 mmHg respirations normal pulse rate in the 60s and 70s sinus mechanism Impression Coronary artery disease Hypertension Dyslipidemia Psoriatic arthritis Family history of premature CAD Status post off-pump coronary artery bypass grafting, left atrial appendage clip Plan Continue current medications She is on low-dose beta blockers Today the mediastinal tube will be removed Continue aspirin statins Plavix and beta blockers Maximize beta blockers Objective - Vital Signs Vital signs: Vital Signs Temp 99.5 F 08/31/21 08:00 Pulse 66 08/31/21 10:00 Resp 22 08/31/21 10:00 BP 120/55 08/31/21 10:00 Pulse Ox 95 08/31/21 10:00 Intake & Output 08/30/21 08/31/21 08/31/21 18:59 06:59 18:59 Intake Total 5305.472 2679.428 310.095 Output Total 1980 897 120 Balance -927.480 798.428 190.095 Weight 84.4 kg Intake: IV 169 1068 293 Albumin 250 LR @50mls/hr 550 200 cardiac output 80 160 60 pressure bag 36 108 33 Intake, IV Titration 883.520 157.428 17.095 Amount ACETAMINOPHEN IV (For NPO 100 100 ) 1,000 mg In Empty Bag 1 bag @ 400 mls/hr IVPB Q6H [facility] Rx#:[id number] Albumin Human 5% 250 ml 500 In Empty Bag 1 bag @ 250 mls/hr IVPB Q1HR PRN Rx#: [id number] Clevidipine Butyrate 25 21.5 mg In Empty Bag 1 bag @ 1 MG/HR 2 mls/hr IV .Q24H [facility] Rx#:[id number] Insulin Regular 100 unit 5.261 42.428 15.595 In Sodium Chloride 0.9% 100 ml @ Per Protocol IV .Q0M [facility] Rx#:[id number] Lactated Ringers 1,000 ml 200 @ 20 mls/hr IV .Q24H [facility] Rx#:[id number] Nitroglycerin-D5w Pmx 50 15.0 1.5 mg In Dextrose/Water 1 250ml.bag @ 5 MCG/MIN 1.5 mls/hr IV .Q24H [facility] Rx#: [id number] ceFAZolin 2 gm In Sodium 50 Chloride 0.9% 50 ml @ 100 mls/hr IVPB Q8HR [facility] Rx# :[id number] propofoL 1,000 mg In 6.759 Empty Bag 1 bag @ Titrate IV .Q0M [facility] Rx#: [id number] Oral 470 Output: Chest Tube Drainage 280 512 40 mediastinal 110 199 20 right and left pleural 170 313 20 Urine 1300 385 80 Estimated Blood Loss 400 Other: Voiding Method Indwelling Catheter Indwelling Catheter Indwelling Catheter ABP, PAP, CO, CI - Last Documented Arterial Blood Pressure 125/44 Pulmonary Artery Pressure 20/13 Cardiac Output 3.8 Cardiac Index 2 - Labs CBC & Chem 7: 08/31/21 04:05 08/31/21 04:05 Labs: Abnormal Lab Results - Last 24 Hours (Table) 08/26/21 08/30/21 08/30/21 Range/Units 11:00 08:38 10:08 WBC (3.8-10.6) k/uL RBC (3.80-5.40) m/uL Hgb (11.4-16.0) gm/dL Hct (34.0-46.0) % RDW (11.5-15.5) % Neutrophils # (1.3-7.7) k/uL ABG pH (7.35-7.45) ABG pCO2 (35-45) mmHg ABG pO2 230 H 240 H (83-108) mmHg ABG Total CO2 (19-24) mmol/L ABG O2 Saturation 98.2 H 98.3 H (94-97) % ABG Hematocrit (34.0-46.0) % ABG Ionized Calcium (4.5-5.3) mg/dL ABG Glucose 105 H 114 H (75-99) mg/dL ABG Lactic Acid (0.5-1.6) mmol/L Hemoglobin (11.4-16.0) gm/dL Sodium (137-145) mmol/L Chloride (98-107) mmol/L Carbon Dioxide (22-30) mmol/L Glucose (74-99) mg/dL POC Glucose (mg/dL) (75-99) mg/dL Calcium (8.4-10.2) mg/dL AST (14-36) U/L Total Protein (6.3-8.2) g/dL Albumin (3.5-5.0) g/dL Arterial Blood Glucose 105 H 114 H (75-99) mg/dL Crossmatch See Detail 08/30/21 08/30/21 08/30/21 Range/Units 10:33 11:01 11:27 WBC (3.8-10.6) k/uL RBC (3.80-5.40) m/uL Hgb (11.4-16.0) gm/dL Hct (34.0-46.0) % RDW (11.5-15.5) % Neutrophils # (1.3-7.7) k/uL ABG pH (7.35-7.45) ABG pCO2 34 L (35-45) mmHg ABG pO2 236 H 248 H 261 H (83-108) mmHg ABG Total CO2 (19-24) mmol/L ABG O2 Saturation 98.5 H 98.3 H 98.4 H (94-97) % ABG Hematocrit 32 L 31 L 29 L (34.0-46.0) % ABG Ionized Calcium (4.5-5.3) mg/dL ABG Glucose 113 H 113 H 111 H (75-99) mg/dL ABG Lactic Acid (0.5-1.6) mmol/L Hemoglobin 10.5 L 10.0 L 9.5 L (11.4-16.0) gm/dL Sodium (137-145) mmol/L Chloride (98-107) mmol/L Carbon Dioxide (22-30) mmol/L Glucose (74-99) mg/dL POC Glucose (mg/dL) (75-99) mg/dL Calcium (8.4-10.2) mg/dL AST (14-36) U/L Total Protein (6.3-8.2) g/dL Albumin (3.5-5.0) g/dL Arterial Blood Glucose 113 H 113 H 111 H (75-99) mg/dL Crossmatch 08/30/21 08/30/21 08/30/21 Range/Units 12:12 13:05 13:05 WBC 16.5 H (3.8-10.6) k/uL RBC 3.09 L (3.80-5.40) m/uL Hgb 9.2 L D (11.4-16.0) gm/dL Hct 28.2 L (34.0-46.0) % RDW 15.6 H (11.5-15.5) % Neutrophils # 11.9 H (1.3-7.7) k/uL ABG pH (7.35-7.45) ABG pCO2 (35-45) mmHg ABG pO2 172 H (83-108) mmHg ABG Total CO2 (19-24) mmol/L ABG O2 Saturation 97.9 H (94-97) % ABG Hematocrit 28 L (34.0-46.0) % ABG Ionized Calcium 4.4 L (4.5-5.3) mg/dL ABG Glucose 106 H (75-99) mg/dL ABG Lactic Acid 1.8 H (0.5-1.6) mmol/L Hemoglobin 9.3 L (11.4-16.0) gm/dL Sodium (137-145) mmol/L Chloride (98-107) mmol/L Carbon Dioxide (22-30) mmol/L Glucose (74-99) mg/dL POC Glucose (mg/dL) 115 H (75-99) mg/dL Calcium (8.4-10.2) mg/dL AST (14-36) U/L Total Protein (6.3-8.2) g/dL Albumin (3.5-5.0) g/dL Arterial Blood Glucose 106 H (75-99) mg/dL Crossmatch 08/30/21 08/30/21 08/30/21 Range/Units 13:05 13:32 15:05 WBC 14.0 H (3.8-10.6) k/uL RBC 3.19 L (3.80-5.40) m/uL Hgb 9.3 L (11.4-16.0) gm/dL Hct 29.0 L (34.0-46.0) % RDW (11.5-15.5) % Neutrophils # 11.4 H (1.3-7.7) k/uL ABG pH 7.31 L (7.35-7.45) ABG pCO2 48 H (35-45) mmHg ABG pO2 331 H (83-108) mmHg ABG Total CO2 26 H (19-24) mmol/L ABG O2 Saturation 98.0 H (94-97) % ABG Hematocrit (34.0-46.0) % ABG Ionized Calcium (4.5-5.3) mg/dL ABG Glucose (75-99) mg/dL ABG Lactic Acid (0.5-1.6) mmol/L Hemoglobin (11.4-16.0) gm/dL Sodium (137-145) mmol/L Chloride 111 H (98-107) mmol/L Carbon Dioxide (22-30) mmol/L Glucose 108 H (74-99) mg/dL POC Glucose (mg/dL) (75-99) mg/dL Calcium 7.5 L (8.4-10.2) mg/dL AST 41 H (14-36) U/L Total Protein 5.1 L (6.3-8.2) g/dL Albumin 2.9 L (3.5-5.0) g/dL Arterial Blood Glucose (75-99) mg/dL Crossmatch 08/30/21 08/30/21 08/30/21 Range/Units 15:07 16:03 16:53 WBC (3.8-10.6) k/uL RBC (3.80-5.40) m/uL Hgb (11.4-16.0) gm/dL Hct (34.0-46.0) % RDW (11.5-15.5) % Neutrophils # (1.3-7.7) k/uL ABG pH (7.35-7.45) ABG pCO2 (35-45) mmHg ABG pO2 123 H (83-108) mmHg ABG Total CO2 25 H (19-24) mmol/L ABG O2 Saturation 97.2 H (94-97) % ABG Hematocrit (34.0-46.0) % ABG Ionized Calcium (4.5-5.3) mg/dL ABG Glucose (75-99) mg/dL ABG Lactic Acid (0.5-1.6) mmol/L Hemoglobin (11.4-16.0) gm/dL Sodium (137-145) mmol/L Chloride (98-107) mmol/L Carbon Dioxide (22-30) mmol/L Glucose (74-99) mg/dL POC Glucose (mg/dL) 171 H 162 H (75-99) mg/dL Calcium (8.4-10.2) mg/dL AST (14-36) U/L Total Protein (6.3-8.2) g/dL Albumin (3.5-5.0) g/dL Arterial Blood Glucose (75-99) mg/dL Crossmatch 08/30/21 08/30/21 08/30/21 Range/Units 16:57 18:06 18:08 WBC 14.8 H (3.8-10.6) k/uL RBC 3.38 L (3.80-5.40) m/uL Hgb 10.0 L (11.4-16.0) gm/dL Hct 31.0 L (34.0-46.0) % RDW 15.7 H (11.5-15.5) % Neutrophils # 13.0 H (1.3-7.7) k/uL ABG pH (7.35-7.45) ABG pCO2 (35-45) mmHg ABG pO2 (83-108) mmHg ABG Total CO2 (19-24) mmol/L ABG O2 Saturation (94-97) % ABG Hematocrit (34.0-46.0) % ABG Ionized Calcium (4.5-5.3) mg/dL ABG Glucose (75-99) mg/dL ABG Lactic Acid (0.5-1.6) mmol/L Hemoglobin (11.4-16.0) gm/dL Sodium (137-145) mmol/L Chloride (98-107) mmol/L Carbon Dioxide (22-30) mmol/L Glucose (74-99) mg/dL POC Glucose (mg/dL) 158 H 157 H (75-99) mg/dL Calcium (8.4-10.2) mg/dL AST (14-36) U/L Total Protein (6.3-8.2) g/dL Albumin (3.5-5.0) g/dL Arterial Blood Glucose (75-99) mg/dL Crossmatch 08/30/21 08/30/21 08/30/21 Range/Units 19:08 20:07 21:10 WBC (3.8-10.6) k/uL RBC (3.80-5.40) m/uL Hgb (11.4-16.0) gm/dL Hct (34.0-46.0) % RDW (11.5-15.5) % Neutrophils # (1.3-7.7) k/uL ABG pH (7.35-7.45) ABG pCO2 (35-45) mmHg ABG pO2 (83-108) mmHg ABG Total CO2 (19-24) mmol/L ABG O2 Saturation (94-97) % ABG Hematocrit (34.0-46.0) % ABG Ionized Calcium (4.5-5.3) mg/dL ABG Glucose (75-99) mg/dL ABG Lactic Acid (0.5-1.6) mmol/L Hemoglobin (11.4-16.0) gm/dL Sodium (137-145) mmol/L Chloride (98-107) mmol/L Carbon Dioxide (22-30) mmol/L Glucose (74-99) mg/dL POC Glucose (mg/dL) 144 H 133 H 134 H (75-99) mg/dL Calcium (8.4-10.2) mg/dL AST (14-36) U/L Total Protein (6.3-8.2) g/dL Albumin (3.5-5.0) g/dL Arterial Blood Glucose (75-99) mg/dL Crossmatch 08/30/21 08/30/21 08/30/21 Range/Units 22:07 23:02 23:58 WBC (3.8-10.6) k/uL RBC (3.80-5.40) m/uL Hgb (11.4-16.0) gm/dL Hct (34.0-46.0) % RDW (11.5-15.5) % Neutrophils # (1.3-7.7) k/uL ABG pH (7.35-7.45) ABG pCO2 (35-45) mmHg ABG pO2 (83-108) mmHg ABG Total CO2 (19-24) mmol/L ABG O2 Saturation (94-97) % ABG Hematocrit (34.0-46.0) % ABG Ionized Calcium (4.5-5.3) mg/dL ABG Glucose (75-99) mg/dL ABG Lactic Acid (0.5-1.6) mmol/L Hemoglobin (11.4-16.0) gm/dL Sodium (137-145) mmol/L Chloride (98-107) mmol/L Carbon Dioxide (22-30) mmol/L Glucose (74-99) mg/dL POC Glucose (mg/dL) 144 H 139 H 135 H (75-99) mg/dL Calcium (8.4-10.2) mg/dL AST (14-36) U/L Total Protein (6.3-8.2) g/dL Albumin (3.5-5.0) g/dL Arterial Blood Glucose (75-99) mg/dL Crossmatch 08/31/21 08/31/21 08/31/21 Range/Units 01:00 02:07 03:09 WBC (3.8-10.6) k/uL RBC (3.80-5.40) m/uL Hgb (11.4-16.0) gm/dL Hct (34.0-46.0) % RDW (11.5-15.5) % Neutrophils # (1.3-7.7) k/uL ABG pH (7.35-7.45) ABG pCO2 (35-45) mmHg ABG pO2 (83-108) mmHg ABG Total CO2 (19-24) mmol/L ABG O2 Saturation (94-97) % ABG Hematocrit (34.0-46.0) % ABG Ionized Calcium (4.5-5.3) mg/dL ABG Glucose (75-99) mg/dL ABG Lactic Acid (0.5-1.6) mmol/L Hemoglobin (11.4-16.0) gm/dL Sodium (137-145) mmol/L Chloride (98-107) mmol/L Carbon Dioxide (22-30) mmol/L Glucose (74-99) mg/dL POC Glucose (mg/dL) 135 H 133 H 128 H (75-99) mg/dL Calcium (8.4-10.2) mg/dL AST (14-36) U/L Total Protein (6.3-8.2) g/dL Albumin (3.5-5.0) g/dL Arterial Blood Glucose (75-99) mg/dL Crossmatch 08/31/21 08/31/21 08/31/21 Range/Units 04:05 04:05 04:05 WBC 15.6 H (3.8-10.6) k/uL RBC 3.34 L (3.80-5.40) m/uL Hgb 9.6 L (11.4-16.0) gm/dL Hct 30.5 L (34.0-46.0) % RDW (11.5-15.5) % Neutrophils # 12.2 H (1.3-7.7) k/uL ABG pH (7.35-7.45) ABG pCO2 (35-45) mmHg ABG pO2 (83-108) mmHg ABG Total CO2 (19-24) mmol/L ABG O2 Saturation (94-97) % ABG Hematocrit (34.0-46.0) % ABG Ionized Calcium (4.5-5.3) mg/dL ABG Glucose (75-99) mg/dL ABG Lactic Acid (0.5-1.6) mmol/L Hemoglobin (11.4-16.0) gm/dL Sodium 135 L (137-145) mmol/L Chloride (98-107) mmol/L Carbon Dioxide 21 L (22-30) mmol/L Glucose 117 H (74-99) mg/dL POC Glucose (mg/dL) 122 H (75-99) mg/dL Calcium 8.0 L (8.4-10.2) mg/dL AST 44 H (14-36) U/L Total Protein 6.0 L (6.3-8.2) g/dL Albumin (3.5-5.0) g/dL Arterial Blood Glucose (75-99) mg/dL Crossmatch 08/31/21 08/31/21 08/31/21 Range/Units 06:01 06:51 08:37 WBC (3.8-10.6) k/uL RBC (3.80-5.40) m/uL Hgb (11.4-16.0) gm/dL Hct (34.0-46.0) % RDW (11.5-15.5) % Neutrophils # (1.3-7.7) k/uL ABG pH (7.35-7.45) ABG pCO2 (35-45) mmHg ABG pO2 (83-108) mmHg ABG Total CO2 (19-24) mmol/L ABG O2 Saturation (94-97) % ABG Hematocrit (34.0-46.0) % ABG Ionized Calcium (4.5-5.3) mg/dL ABG Glucose (75-99) mg/dL ABG Lactic Acid (0.5-1.6) mmol/L Hemoglobin (11.4-16.0) gm/dL Sodium (137-145) mmol/L Chloride (98-107) mmol/L Carbon Dioxide (22-30) mmol/L Glucose (74-99) mg/dL POC Glucose (mg/dL) 132 H 128 H 185 H (75-99) mg/dL Calcium (8.4-10.2) mg/dL AST (14-36) U/L Total Protein (6.3-8.2) g/dL Albumin (3.5-5.0) g/dL Arterial Blood Glucose (75-99) mg/dL Crossmatch 08/31/21 08/31/21 Range/Units 09:39 10:32 WBC (3.8-10.6) k/uL RBC (3.80-5.40) m/uL Hgb (11.4-16.0) gm/dL Hct (34.0-46.0) % RDW (11.5-15.5) % Neutrophils # (1.3-7.7) k/uL ABG pH (7.35-7.45) ABG pCO2 (35-45) mmHg ABG pO2 (83-108) mmHg ABG Total CO2 (19-24) mmol/L ABG O2 Saturation (94-97) % ABG Hematocrit (34.0-46.0) % ABG Ionized Calcium (4.5-5.3) mg/dL ABG Glucose (75-99) mg/dL ABG Lactic Acid (0.5-1.6) mmol/L Hemoglobin (11.4-16.0) gm/dL Sodium (137-145) mmol/L Chloride (98-107) mmol/L Carbon Dioxide (22-30) mmol/L Glucose (74-99) mg/dL POC Glucose (mg/dL) 148 H 113 H (75-99) mg/dL Calcium (8.4-10.2) mg/dL AST (14-36) U/L Total Protein (6.3-8.2) g/dL Albumin (3.5-5.0) g/dL Arterial Blood Glucose (75-99) mg/dL Crossmatch
[2021-08-31 11:29] VITALS: BMI 30.9
[2021-08-31 11:36] LABS: Glucose,Whole Blood 145 mg/dL (75-99)
[2021-08-31 12:28] LABS: Glucose,Whole Blood 175 mg/dL (75-99)
--- NOTE | 2021-08-31 13:23 | P.PN ---
Subjective Progress Note Date: 08/31/21 Principal diagnosis: Medical management Patient was seen and examined. Extubated yesterday. POD 1 off pump CABG 3 with PEACE to LAD and saphenous vein grafts to obtuse marginal and posterior descending coronary arteries. She reports well controlled pain at the site on incision. She denies any shortness of breath or palpitations. No nausea or vomiting. No fever or chills. Objective - Vital Signs Vital signs: Vital Signs Temp 99.5 F 08/31/21 08:00 Pulse 73 08/31/21 11:24 Resp 25 H 08/31/21 11:00 BP 125/64 08/31/21 11:00 Pulse Ox 95 08/31/21 11:00 Intake & Output 08/30/21 08/31/21 08/31/21 18:59 06:59 18:59 Intake Total 3943.344 7025.428 389.012 Output Total 1980 897 145 Balance -927.480 798.428 244.012 Weight 84.4 kg 84.4 kg Intake: IV 169 1068 369 Albumin 250 LR @50mls/hr 550 250 cardiac output 80 160 80 pressure bag 36 108 39 Intake, IV Titration 883.520 157.428 20.012 Amount ACETAMINOPHEN IV (For NPO 100 100 ) 1,000 mg In Empty Bag 1 bag @ 400 mls/hr IVPB Q6H [facility] Rx#:[id number] Albumin Human 5% 250 ml 500 In Empty Bag 1 bag @ 250 mls/hr IVPB Q1HR PRN Rx#: [id number] Clevidipine Butyrate 25 21.5 mg In Empty Bag 1 bag @ 1 MG/HR 2 mls/hr IV .Q24H [facility] Rx#:[id number] Insulin Regular 100 unit 5.261 42.428 18.512 In Sodium Chloride 0.9% 100 ml @ Per Protocol IV .Q0M [facility] Rx#:[id number] Lactated Ringers 1,000 ml 200 @ 20 mls/hr IV .Q24H [facility] Rx#:[id number] Nitroglycerin-D5w Pmx 50 15.0 1.5 mg In Dextrose/Water 1 250ml.bag @ 5 MCG/MIN 1.5 mls/hr IV .Q24H [facility] Rx#: [id number] ceFAZolin 2 gm In Sodium 50 Chloride 0.9% 50 ml @ 100 mls/hr IVPB Q8HR [facility] Rx# :[id number] propofoL 1,000 mg In 6.759 Empty Bag 1 bag @ Titrate IV .Q0M [facility] Rx#: [id number] Oral 470 Output: Chest Tube Drainage 280 512 40 mediastinal 110 199 20 right and left pleural 170 313 20 Urine 1300 385 105 Estimated Blood Loss 400 Other: Voiding Method Indwelling Catheter Indwelling Catheter Indwelling Catheter ABP, PAP, CO, CI - Last Documented Arterial Blood Pressure 135/44 Pulmonary Artery Pressure 20/13 Cardiac Output 3.8 Cardiac Index 2 - Exam General: [non toxic], [no distress] Derm: [warm], [dry] Head: [atraumatic], [normocephalic], [symmetric] Eyes: [EOMI], [no lid lag], [anicteric sclera] Mouth: [no lip lesion], [mucus membranes moist] Cardiovascular: [S1S2 reg], [no murmur], [positive DP pulse bilateral], [midsternal incision dressing clean dry and intact, bilateral pleural chest tubes in place producing sanguineous output] Lungs: [Decreased breath sounds bilateral], [no rhonchi, no rales] , [no accessory muscle use] Abdominal: [soft], [no guarding], [no appreciable organomegaly] Ext: [no gross muscle atrophy], [no edema], [no contractures] Neuro: [No FND] Psych: [Alert and Oriented x 3] - Labs CBC & Chem 7: 08/31/21 04:05 08/31/21 04:05 Labs: Abnormal Lab Results - Last 24 Hours (Table) 08/26/21 08/30/21 08/30/21 Range/Units 11:00 13:05 13:05 WBC 16.5 H (3.8-10.6) k/uL RBC 3.09 L (3.80-5.40) m/uL Hgb 9.2 L D (11.4-16.0) gm/dL Hct 28.2 L (34.0-46.0) % RDW 15.6 H (11.5-15.5) % Neutrophils # 11.9 H (1.3-7.7) k/uL ABG pH (7.35-7.45) ABG pCO2 (35-45) mmHg ABG pO2 (83-108) mmHg ABG Total CO2 (19-24) mmol/L ABG O2 Saturation (94-97) % Sodium (137-145) mmol/L Chloride 111 H (98-107) mmol/L Carbon Dioxide (22-30) mmol/L Glucose 108 H (74-99) mg/dL POC Glucose (mg/dL) (75-99) mg/dL Calcium 7.5 L (8.4-10.2) mg/dL AST 41 H (14-36) U/L Total Protein 5.1 L (6.3-8.2) g/dL Albumin 2.9 L (3.5-5.0) g/dL Crossmatch See Detail 08/30/21 08/30/21 08/30/21 Range/Units 13:32 15:05 15:07 WBC 14.0 H (3.8-10.6) k/uL RBC 3.19 L (3.80-5.40) m/uL Hgb 9.3 L (11.4-16.0) gm/dL Hct 29.0 L (34.0-46.0) % RDW (11.5-15.5) % Neutrophils # 11.4 H (1.3-7.7) k/uL ABG pH 7.31 L (7.35-7.45) ABG pCO2 48 H (35-45) mmHg ABG pO2 331 H (83-108) mmHg ABG Total CO2 26 H (19-24) mmol/L ABG O2 Saturation 98.0 H (94-97) % Sodium (137-145) mmol/L Chloride (98-107) mmol/L Carbon Dioxide (22-30) mmol/L Glucose (74-99) mg/dL POC Glucose (mg/dL) 171 H (75-99) mg/dL Calcium (8.4-10.2) mg/dL AST (14-36) U/L Total Protein (6.3-8.2) g/dL Albumin (3.5-5.0) g/dL Crossmatch 08/30/21 08/30/21 08/30/21 Range/Units 16:03 16:53 16:57 WBC (3.8-10.6) k/uL RBC (3.80-5.40) m/uL Hgb (11.4-16.0) gm/dL Hct (34.0-46.0) % RDW (11.5-15.5) % Neutrophils # (1.3-7.7) k/uL ABG pH (7.35-7.45) ABG pCO2 (35-45) mmHg ABG pO2 123 H (83-108) mmHg ABG Total CO2 25 H (19-24) mmol/L ABG O2 Saturation 97.2 H (94-97) % Sodium (137-145) mmol/L Chloride (98-107) mmol/L Carbon Dioxide (22-30) mmol/L Glucose (74-99) mg/dL POC Glucose (mg/dL) 162 H 158 H (75-99) mg/dL Calcium (8.4-10.2) mg/dL AST (14-36) U/L Total Protein (6.3-8.2) g/dL Albumin (3.5-5.0) g/dL Crossmatch 08/30/21 08/30/21 08/30/21 Range/Units 18:06 18:08 19:08 WBC 14.8 H (3.8-10.6) k/uL RBC 3.38 L (3.80-5.40) m/uL Hgb 10.0 L (11.4-16.0) gm/dL Hct 31.0 L (34.0-46.0) % RDW 15.7 H (11.5-15.5) % Neutrophils # 13.0 H (1.3-7.7) k/uL ABG pH (7.35-7.45) ABG pCO2 (35-45) mmHg ABG pO2 (83-108) mmHg ABG Total CO2 (19-24) mmol/L ABG O2 Saturation (94-97) % Sodium (137-145) mmol/L Chloride (98-107) mmol/L Carbon Dioxide (22-30) mmol/L Glucose (74-99) mg/dL POC Glucose (mg/dL) 157 H 144 H (75-99) mg/dL Calcium (8.4-10.2) mg/dL AST (14-36) U/L Total Protein (6.3-8.2) g/dL Albumin (3.5-5.0) g/dL Crossmatch 08/30/21 08/30/21 08/30/21 Range/Units 20:07 21:10 22:07 WBC (3.8-10.6) k/uL RBC (3.80-5.40) m/uL Hgb (11.4-16.0) gm/dL Hct (34.0-46.0) % RDW (11.5-15.5) % Neutrophils # (1.3-7.7) k/uL ABG pH (7.35-7.45) ABG pCO2 (35-45) mmHg ABG pO2 (83-108) mmHg ABG Total CO2 (19-24) mmol/L ABG O2 Saturation (94-97) % Sodium (137-145) mmol/L Chloride (98-107) mmol/L Carbon Dioxide (22-30) mmol/L Glucose (74-99) mg/dL POC Glucose (mg/dL) 133 H 134 H 144 H (75-99) mg/dL Calcium (8.4-10.2) mg/dL AST (14-36) U/L Total Protein (6.3-8.2) g/dL Albumin (3.5-5.0) g/dL Crossmatch 08/30/21 08/30/21 08/31/21 Range/Units 23:02 23:58 01:00 WBC (3.8-10.6) k/uL RBC (3.80-5.40) m/uL Hgb (11.4-16.0) gm/dL Hct (34.0-46.0) % RDW (11.5-15.5) % Neutrophils # (1.3-7.7) k/uL ABG pH (7.35-7.45) ABG pCO2 (35-45) mmHg ABG pO2 (83-108) mmHg ABG Total CO2 (19-24) mmol/L ABG O2 Saturation (94-97) % Sodium (137-145) mmol/L Chloride (98-107) mmol/L Carbon Dioxide (22-30) mmol/L Glucose (74-99) mg/dL POC Glucose (mg/dL) 139 H 135 H 135 H (75-99) mg/dL Calcium (8.4-10.2) mg/dL AST (14-36) U/L Total Protein (6.3-8.2) g/dL Albumin (3.5-5.0) g/dL Crossmatch 08/31/21 08/31/21 08/31/21 Range/Units 02:07 03:09 04:05 WBC 15.6 H (3.8-10.6) k/uL RBC 3.34 L (3.80-5.40) m/uL Hgb 9.6 L (11.4-16.0) gm/dL Hct 30.5 L (34.0-46.0) % RDW (11.5-15.5) % Neutrophils # 12.2 H (1.3-7.7) k/uL ABG pH (7.35-7.45) ABG pCO2 (35-45) mmHg ABG pO2 (83-108) mmHg ABG Total CO2 (19-24) mmol/L ABG O2 Saturation (94-97) % Sodium (137-145) mmol/L Chloride (98-107) mmol/L Carbon Dioxide (22-30) mmol/L Glucose (74-99) mg/dL POC Glucose (mg/dL) 133 H 128 H (75-99) mg/dL Calcium (8.4-10.2) mg/dL AST (14-36) U/L Total Protein (6.3-8.2) g/dL Albumin (3.5-5.0) g/dL Crossmatch 08/31/21 08/31/21 08/31/21 Range/Units 04:05 04:05 06:01 WBC (3.8-10.6) k/uL RBC (3.80-5.40) m/uL Hgb (11.4-16.0) gm/dL Hct (34.0-46.0) % RDW (11.5-15.5) % Neutrophils # (1.3-7.7) k/uL ABG pH (7.35-7.45) ABG pCO2 (35-45) mmHg ABG pO2 (83-108) mmHg ABG Total CO2 (19-24) mmol/L ABG O2 Saturation (94-97) % Sodium 135 L (137-145) mmol/L Chloride (98-107) mmol/L Carbon Dioxide 21 L (22-30) mmol/L Glucose 117 H (74-99) mg/dL POC Glucose (mg/dL) 122 H 132 H (75-99) mg/dL Calcium 8.0 L (8.4-10.2) mg/dL AST 44 H (14-36) U/L Total Protein 6.0 L (6.3-8.2) g/dL Albumin (3.5-5.0) g/dL Crossmatch 08/31/21 08/31/21 08/31/21 Range/Units 06:51 08:37 09:39 WBC (3.8-10.6) k/uL RBC (3.80-5.40) m/uL Hgb (11.4-16.0) gm/dL Hct (34.0-46.0) % RDW (11.5-15.5) % Neutrophils # (1.3-7.7) k/uL ABG pH (7.35-7.45) ABG pCO2 (35-45) mmHg ABG pO2 (83-108) mmHg ABG Total CO2 (19-24) mmol/L ABG O2 Saturation (94-97) % Sodium (137-145) mmol/L Chloride (98-107) mmol/L Carbon Dioxide (22-30) mmol/L Glucose (74-99) mg/dL POC Glucose (mg/dL) 128 H 185 H 148 H (75-99) mg/dL Calcium (8.4-10.2) mg/dL AST (14-36) U/L Total Protein (6.3-8.2) g/dL Albumin (3.5-5.0) g/dL Crossmatch 08/31/21 08/31/21 08/31/21 Range/Units 10:32 11:33 12:25 WBC (3.8-10.6) k/uL RBC (3.80-5.40) m/uL Hgb (11.4-16.0) gm/dL Hct (34.0-46.0) % RDW (11.5-15.5) % Neutrophils # (1.3-7.7) k/uL ABG pH (7.35-7.45) ABG pCO2 (35-45) mmHg ABG pO2 (83-108) mmHg ABG Total CO2 (19-24) mmol/L ABG O2 Saturation (94-97) % Sodium (137-145) mmol/L Chloride (98-107) mmol/L Carbon Dioxide (22-30) mmol/L Glucose (74-99) mg/dL POC Glucose (mg/dL) 113 H 145 H 175 H (75-99) mg/dL Calcium (8.4-10.2) mg/dL AST (14-36) U/L Total Protein (6.3-8.2) g/dL Albumin (3.5-5.0) g/dL Crossmatch Assessment and Plan Assessment: #Acute blood loss anemia #Leukocytosis #Hypocalcemia #CAD status post CABG POD 1 #Acute hypoxic respiratory failure Chronic conditions: Hypertension, dyslipidemia, psotiaric arthritis Acute blood loss is expected result of surgery. Repeat CBC tomorrow morning. Leukocytosis is likely reactive. No signs of active infection. s/p Cefezolin IV for 3 doses. Continue Aspiring 325 mg PO QD, Lipitor 40 mg PO QD and Metoprolol 12.5 mg PO BID with regard to CAD. Plavix started today by cardiothoraric surgery. Cardiology on board. Attempt to wean oxygen. Pulmonology on board. DVT prophylaxis: [Heparin] Discussed with: [Nursing] Anticipated discharge: [2-3 days] Anticipated discharge place: [Home] A total of [15] minutes was spent on the care of this complex patient more than 50% of the time was spent in counseling and care coordination. Thank you for this consult. Please call [facility] with any questions and concerns.
[2021-08-31 13:36] LABS: Glucose,Whole Blood 210 mg/dL (75-99)
[2021-08-31 14:53] LABS: Glucose,Whole Blood 192 mg/dL (75-99)
[2021-08-31] MEDS: INSULIN REGULAR 100 UNIT in SODIUM CHLORIDE 0.9% 100 ML IV SCH (14:56)
[2021-08-31 15:57] LABS: Glucose,Whole Blood 186 mg/dL (75-99)
[2021-08-31 16:38] LABS: Glucose,Whole Blood 186 mg/dL (75-99)
[2021-08-31 17:17] LABS: Glucose,Whole Blood 161 mg/dL (75-99)
[2021-08-31 18:14] LABS: Glucose,Whole Blood 138 mg/dL (75-99)
[2021-08-31] MEDS: LACTATED RINGERS 1,000 ML IV SCH (18:36)
[2021-08-31 19:17] LABS: Glucose,Whole Blood 136 mg/dL (75-99)
[2021-08-31 20:03] LABS: Glucose,Whole Blood 110 mg/dL (75-99)
[2021-08-31] MEDS: SENNOSIDES-DOCUSATE SODIUM 1 EACH TAB PO SCH (20:17)
[2021-08-31 21:53] LABS: Glucose,Whole Blood 179 mg/dL (75-99)
[2021-08-31 23:23] LABS: Glucose,Whole Blood 121 mg/dL (75-99)
[2021-09-01 01:09] LABS: Glucose,Whole Blood 106 mg/dL (75-99)
[2021-09-01 03:00] LABS: Glucose,Whole Blood 118 mg/dL (75-99)
[2021-09-01 04:20] LABS: Glucose,Whole Blood 108 mg/dL (75-99)
[2021-09-01 04:55] LABS: Basophils % (A) 0 %; Eosinophils # (A) 0.3 k/uL (0-0.7); Eosinophils % (A) 2 %; HCT 25.5 % (34.0-46.0); Lymphocytes # (A) 2.8 k/uL (1.0-4.8); Lymphocytes % (A) 23 %; MCH 29.2 pg (25.0-35.0); MCHC 31.8 g/dL (31.0-37.0); MCV 91.7 fL (80.0-100.0); Monocytes # (A) 0.7 k/uL (0-1.0); Monocytes % (A) 6 %; Neutrophils # (A) 8.2 k/uL (1.3-7.7); Neutrophils % (A) 68 %; Platelet Count 188 k/uL (150-450); RBC 2.78 m/uL (3.80-5.40); RDW 15.2 % (11.5-15.5); WBC 12.1 k/uL (3.8-10.6)
[2021-09-01 05:03] LABS: HGB 8.1 gm/dL (11.4-16.0)
[2021-09-01 05:29] LABS: ALT 18 U/L (4-34); AST 32 U/L (14-36); African American GFR (CKD) >90 (>60 ml/min/1.73 sqM); Albumin 3.4 g/dL (3.5-5.0); Alkaline Phosphatase 53 U/L (38-126); Anion Gap 4 mmol/L; Blood Urea Nitrogen 12 mg/dL (7-17); Calcium 8.2 mg/dL (8.4-10.2); Carbon Dioxide 24 mmol/L (22-30); Chloride 106 mmol/L (98-107); Glucose 99 mg/dL (74-99); Non-African American GFR(CKD) >90 (>60 ml/min/1.73 sqM); Potassium 4.1 mmol/L (3.5-5.1); Sodium 134 mmol/L (137-145); Total Bilirubin 0.6 mg/dL (0.2-1.3); Total Protein 5.5 g/dL (6.3-8.2)
[2021-09-01 06:01] LABS: Glucose,Whole Blood 112 mg/dL (75-99)
[2021-09-01] MEDS: KETOROLAC 15 MG/ML 1 ML VIAL IVP SCH ×4 (06:11→21:02)
[2021-09-01] MEDS: PANTOPRAZOLE 40 MG TABLET PO SCH (06:12)
[2021-09-01 07:11] LABS: Glucose,Whole Blood 119 mg/dL (75-99)
--- NOTE | 2021-09-01 07:52 | P.PN ---
Subjective Progress Note Date: 09/01/21 Principal diagnosis: Coronary artery disease. Previous medical history of hypertension, hyperlipidemia, psoriatic arthritis on DMARD as outpatient, never smoker, family history of premature coronary artery disease POD #2 off pump coronary artery bypass graft x 3 with left internal mammary artery to the left anterior descending artery, reverse saphenous vein grafts to the obtuse marginal and posterior descending coronary arteries, endovascular vein harvest of the left greater saphenous vein from the mid calf to groin occlusion of the left atrial appendage with 35 mm AtriCure clip, intraoperative transesophageal echocardiogram performed by anesthesia Postoperative acute blood loss anemia, expected given hemodilution The patient was seen and examined this morning sitting up in a recliner in no acute distress eating breakfast. Remains in sinus rhythm, hemodynamically stable on no inotropes or pressors. States pain is controlled on current medication regimen, denies shortness of breath. Right internal jugular Cordis, right radial arterial line, right/left pleural chest tubes all remain. Patient ambulated in the hallway 3 times yesterday and once this morning already. No other new concerns. Objective - Vital Signs Vital signs: Vital Signs Temp 98.2 F 09/01/21 04:00 Pulse 89 09/01/21 07:00 Resp 25 H 09/01/21 07:00 BP 128/59 09/01/21 07:00 Pulse Ox 92 L 09/01/21 07:00 Intake & Output 08/31/21 09/01/21 09/01/21 18:59 06:59 18:59 Intake Total 657.020 359.221 26 Output Total 915 1145 30 Balance -257.980 -785.779 -4 Weight 84.4 kg 84.9 kg Intake: IV 601 332 26 LR @50mls/hr 520 260 20 pressure bag 81 72 6 Intake, IV Titration 56.020 27.221 0 Amount Insulin Regular 100 unit 54.520 27.221 0 In Sodium Chloride 0.9% 100 ml @ Per Protocol IV .Q0M NEHAL Rx#:[id number] Nitroglycerin-D5w Pmx 50 1.5 mg In Dextrose/Water 1 250ml.bag @ 5 MCG/MIN 1.5 mls/hr IV .Q24H NEHAL Rx#: [id number] Output: Chest Tube Drainage 210 230 mediastinal 20 right and left pleural 190 230 Urine 705 915 30 Other: Voiding Method Indwelling Catheter Indwelling Catheter ABP, PAP, CO, CI - Last Documented Arterial Blood Pressure 101/35 Pulmonary Artery Pressure 20/13 Cardiac Output 3.8 Cardiac Index 2 - Exam CONSTITUTIONAL: Appears comfortable, cooperative, no acute distress RESPIRATORY: Lungs sounds diminished in the bases bilaterally. Respirations even, nonlabored. Currently on 2 L nasal cannula with oxygen saturation 94%. Able to achieve 750-1000 mL on incentive spirometry. Strong cough. CARDIOVASCULAR: S1, S2 present. Regular rate and rhythm, sinus rhythm on telemetry. Sternum stable. Palpable peripheral pulses bilaterally. Trace upper extremity edema present. No calf pain or tenderness noted. Heart hugger in place with patient demonstrating appropriate use. Antiembolism stockings, SCDs present. GASTROINTESTINAL: Abdomen soft, nontender, nondistended. Hypoactive bowel sounds present 4 quadrants. Tolerating diet. Negative flatus. GENITOURINARY: Swan present draining clear, yellow urine. Output overnight 30-190 mL per hour, 1620 mL in the last 24 hours INTEGUMENTARY: Skin is warm and dry with evidence of good perfusion. Anterior chest incision well approximated and covered with dry intact dressing. Left lower extremity EVH site well approximated without redness or drainage. NEUROLOGIC: Cranial nerves II through XII intact MUSKULOSKELETAL: Able to move all extremities, strength equal bilaterally, gait normal PSYCHIATRIC: Alert and oriented to person place and time, appropriate affect, intact judgment and insight INVASIVE LINES AND TUBES: Left/right pleural chest tubes present and connected to wall suction, no air leaks present. Left/right pleural chest tubes with 150 mL serosanguineous drainage overnight, 400 mL in the last 24 hours. Right internal jugular Cordis, right radial arterial line present. - Allied health notes Allied health notes reviewed: nursing - Labs CBC & Chem 7: 09/01/21 04:20 09/01/21 04:20 Labs: Abnormal Lab Results - Last 24 Hours (Table) 08/31/21 08/31/21 08/31/21 Range/Units 08:37 09:39 10:32 WBC (3.8-10.6) k/uL RBC (3.80-5.40) m/uL Hgb (11.4-16.0) gm/dL Hct (34.0-46.0) % Neutrophils # (1.3-7.7) k/uL Sodium (137-145) mmol/L POC Glucose (mg/dL) 185 H 148 H 113 H (75-99) mg/dL Calcium (8.4-10.2) mg/dL Total Protein (6.3-8.2) g/dL Albumin (3.5-5.0) g/dL 08/31/21 08/31/21 08/31/21 Range/Units 11:33 12:25 13:35 WBC (3.8-10.6) k/uL RBC (3.80-5.40) m/uL Hgb (11.4-16.0) gm/dL Hct (34.0-46.0) % Neutrophils # (1.3-7.7) k/uL Sodium (137-145) mmol/L POC Glucose (mg/dL) 145 H 175 H 210 H (75-99) mg/dL Calcium (8.4-10.2) mg/dL Total Protein (6.3-8.2) g/dL Albumin (3.5-5.0) g/dL 08/31/21 08/31/21 08/31/21 Range/Units 14:51 15:54 16:37 WBC (3.8-10.6) k/uL RBC (3.80-5.40) m/uL Hgb (11.4-16.0) gm/dL Hct (34.0-46.0) % Neutrophils # (1.3-7.7) k/uL Sodium (137-145) mmol/L POC Glucose (mg/dL) 192 H 186 H 186 H (75-99) mg/dL Calcium (8.4-10.2) mg/dL Total Protein (6.3-8.2) g/dL Albumin (3.5-5.0) g/dL 08/31/21 08/31/21 08/31/21 Range/Units 17:15 18:13 19:16 WBC (3.8-10.6) k/uL RBC (3.80-5.40) m/uL Hgb (11.4-16.0) gm/dL Hct (34.0-46.0) % Neutrophils # (1.3-7.7) k/uL Sodium (137-145) mmol/L POC Glucose (mg/dL) 161 H 138 H 136 H (75-99) mg/dL Calcium (8.4-10.2) mg/dL Total Protein (6.3-8.2) g/dL Albumin (3.5-5.0) g/dL 08/31/21 08/31/21 08/31/21 Range/Units 20:01 21:52 23:21 WBC (3.8-10.6) k/uL RBC (3.80-5.40) m/uL Hgb (11.4-16.0) gm/dL Hct (34.0-46.0) % Neutrophils # (1.3-7.7) k/uL Sodium (137-145) mmol/L POC Glucose (mg/dL) 110 H 179 H 121 H (75-99) mg/dL Calcium (8.4-10.2) mg/dL Total Protein (6.3-8.2) g/dL Albumin (3.5-5.0) g/dL 09/01/21 09/01/21 09/01/21 Range/Units 01:07 02:58 04:18 WBC (3.8-10.6) k/uL RBC (3.80-5.40) m/uL Hgb (11.4-16.0) gm/dL Hct (34.0-46.0) % Neutrophils # (1.3-7.7) k/uL Sodium (137-145) mmol/L POC Glucose (mg/dL) 106 H 118 H 108 H (75-99) mg/dL Calcium (8.4-10.2) mg/dL Total Protein (6.3-8.2) g/dL Albumin (3.5-5.0) g/dL 09/01/21 09/01/21 09/01/21 Range/Units 04:20 04:20 05:59 WBC 12.1 H (3.8-10.6) k/uL RBC 2.78 L (3.80-5.40) m/uL Hgb 8.1 L D (11.4-16.0) gm/dL Hct 25.5 L (34.0-46.0) % Neutrophils # 8.2 H (1.3-7.7) k/uL Sodium 134 L (137-145) mmol/L POC Glucose (mg/dL) 112 H (75-99) mg/dL Calcium 8.2 L (8.4-10.2) mg/dL Total Protein 5.5 L (6.3-8.2) g/dL Albumin 3.4 L (3.5-5.0) g/dL 09/01/21 Range/Units 07:10 WBC (3.8-10.6) k/uL RBC (3.80-5.40) m/uL Hgb (11.4-16.0) gm/dL Hct (34.0-46.0) % Neutrophils # (1.3-7.7) k/uL Sodium (137-145) mmol/L POC Glucose (mg/dL) 119 H (75-99) mg/dL Calcium (8.4-10.2) mg/dL Total Protein (6.3-8.2) g/dL Albumin (3.5-5.0) g/dL - Imaging and Cardiology Chest x-ray: image reviewed Assessment and Plan Assessment: 1. Coronary artery disease, status post three-vessel off-pump CABG 2. History of hypertension 3. Hyperlipidemia, treated, cholesterol 172, triglycerides 785 4. Psoriatic arthritis on DMARD as outpatient 5. Never smoker, preoperative FEV1 79% of protected 6. Family history of premature coronary artery disease 7. Postoperative acute blood loss anemia Plan: 1. Continue aspirin, statin, Plavix, beta mil therapy. Will increase beta mil therapy as tolerated. 2. Wean O2 as tolerated. Encourage incentive spirometry 10 times every hour while awake. Bronchodilators per pulmonology 3. Increase activity, ambulate as tolerated. PT/OT/cardiac rehab consulted 4. Will monitor daily labs and x-rays. Electrolyte replacement per protocol 5. GI/DVT prophylaxis 6. Pain control with current medication regimen 7. Insulin management per primary care service. Patient is not diabetic, preoperative hemoglobin A1c 6.0% 8. Discontinue Cordis, arterial line 9. Will discontinue right/left pleural chest tubes 10. Discontinue Swan catheter, may bladder scan and straight cath for greater than 300 mL residual 11. Strict accurate intake and output. Daily weights 12. Will place transfer orders for 3 S. cardiac stepdown unit. May transfer when bed available 13. More recommendations to follow
[2021-09-01 08:06] LABS: Glucose,Whole Blood 219 mg/dL (75-99)
[2021-09-01 08:07] LABS: Glucose,Whole Blood 224 mg/dL (75-99)
--- NOTE | 2021-09-01 08:21 | XR ---
EXAMINATION TYPE: XR chest 1V portable DATE OF EXAM: 09/01/2021 Comparison: 08/31/2021 Clinical History: 65-year-old female Post Operative Cardiac Surgery Findings: Median sternotomy wires are present post CABG clips in the mediastinum. Bilateral chest tubes are pre sent. A trace left apical pneumothorax measuring a couple millimeters may remain. Heart mildly enlarg ed. Interstitial prominence persists. Some patchy retrocardiac atelectasis. Impression: 1. Bilateral chest tubes. A trace left apical pneumothorax measuring 1 or 2 mm remains unchanged. 2. Mild cardiomegaly and similar interstitial density, possible pulmonary vascular congestion.
[2021-09-01] MEDS: IPRATROPIUM-ALBUTEROL 3 ML NEB INHALATION SCH ×4 (08:22→22:00)
[2021-09-01] MEDS: ATORVASTATIN 40 MG TAB PO SCH (08:48)
[2021-09-01] MEDS: METOPROLOL TARTRATE 12.5 MG TAB PO SCH (08:48)
[2021-09-01] MEDS: HEPARIN SODIUM,PORCINE/PF 5,000 UNIT/0.5 ML SYRINGE SQ SCH ×3 (08:48→21:01)
[2021-09-01] MEDS: CLOPIDOGREL 75 MG TAB PO SCH (08:48)
[2021-09-01] MEDS: VITAMIN E (DL,TOCOPHERYL ACET) 400 UNIT (180 MG) CAP PO SCH (08:48)
[2021-09-01] MEDS: ASPIRIN 325 MG TAB PO SCH (08:48)
[2021-09-01 09:04] LABS: Glucose,Whole Blood 160 mg/dL (75-99)
--- NOTE | 2021-09-01 09:57 | P.PN ---
Subjective Progress Note Date: 09/01/21 Principal diagnosis: Coronary artery disease, shortness of breath This is a 65-year-old female patient of Dr. Jareth Martinez, and Dr. Salcedo from cardiology has a history of hypertension, hyperlipidemia, psoriatic arthritis on a DMARD outpatient, lifetime nonsmoker, with family history of premature coronary artery disease and her brother had a KS at 40 years of age. Patient had been having shortness of breath with exertion for the past 6-8 months that was relieved with rest. Patient also reported some chest discomfort. Patient had an abnormal outpatient stress test. Elective heart catheterization was completed on 08/24/2021 that showed chronic total occlusion of the mid RCA with collaterals from the left side, subtotally occluded ostial LAD, and a tight lesion in the diagonal artery. Transthoracic echocardiogram showed preserved left ventricular systolic function with EF of 55%, mild mitral regurgitation, mild tricuspid regurgitation. Patient was referred to CT surgery for surgical intervention. Preop FEV1 was 1.98 L or 79% of predicted, with forced vital capacity of 2.48, with FEV1 to FVC ratio of 80%, and it was consistent with mild restriction. Carotid Doppler showed no hemodynamically significant stenosis of the proximal internal carotid arteries. Patient was discharged home on 08/26/2021. Patient was brought in today on 08/30/2021 for elective off-pump coronary artery bypass grafting 3 with PEACE to the LAD, SVG to the OM and PDA, endovascular vein harvest, left atrial appendage exclusion with 35 mm AtriCure clip. Following surgery patient is seen in the intensive care unit, sedated and intubated, on assist-control mode of ventilation with a rate of 12, tidal on his 400, FiO2 of 50% and PEEP of 5, postop blood gases showed a pO2 of 331, pCO2 of 40, and pH of 7.31 and FiO2 had since been called back to 50%. Postop chest x- ray showing postsurgical changes with suspected postoperative basilar atelectasis. Patient is hemodynamically stable, she is on lactated Ringer's at 50 ML per hour, nitroglycerin at 5 mics per minute, propofol is on hold. No vasopressor drips, she is in sinus mechanism, hemodynamically she is stable, PA pressure is 26/20, CVP is 10, cardiac output is 4.0, and CVP is 2.1. Patient has [address], one mediastinal with 50 mL of sanguinous output, no evidence of air leak, left and right pleural chest tubes with 70 mL of sanguinous output in the Pleur-evac, no evidence of air leak. Postoperative b lood work showed white blood cell count of 16.5, hemoglobin of 9.2, sodium of 140, potassium is 4.3, chloride is 111, BUN is 10, creatinine 0.62. Urinary catheter is in place, patient is producing adequate amount of urine. Incisions are clean dry and intact. Patient is doing well in the postoperative period, she started to wake up and we anticipate expedited wean and extubation. On 08/31/2021 patient seen in follow-up in the intensive care unit. She is awake, in no acute distress, she was extubated 1705 on postoperative day #0 on 08/30/2021. She is doing well, she is sitting up in the recliner today, awake and alert, oriented 3, breathing comfortably, she is currently on 3 L of oxygen pulse ox is 99%. Hemodynamically she is stable, tolerating vasoactive drips, she is on lactated Ringer's at 50 ML per hour, insulin infusion at 3.5 units per hour. She is in sinus mechanism with a rate of 67, blood pressure is 120/43, PA pressures 20/15, with a CVP of 9, cardiac output is 3.8, and cardiac index is 2.0. Today's chest x-ray has been reviewed showing less than 5% left apical pne umothorax, and postsurgical changes with bilateral atelectasis and small pleural effusion. Today's labs have been reviewed, white blood cell count is 15.6, hemoglobin is 9.6, platelet count 257, sodium is 135, potassium is 4.3, chloride is 106, CO2 is 21, BUN is 13, creatinine 0.63. Menstrual surgical incision is clean dry and intact, mediastinal and right and left pleural chest tubes are in place, with moderate amount of thin serosanguineous output. Patient has put out 350 mL of the mediastinal chest tube at 550 mL of thin serosanguineous output from the right and left pleural chest tubes in the last 24 hours. Urinary catheter is in place and patient is making 20-25 ML per hour of urine output. Patient has received 250 mL of 5% albumin for low urine output this morning. Patient is working on incentive spirometer, achieving about 1000 ML on it today. Lung sounds are positive for bibasilar crackles. She states her postoperative pain is fairly well controlled. Does not appear to be in any acute distress. On 09/01/2021 patient seen in follow-up in the intensive care unit, today is postoperative day #2 status post off-pump CABG 3 with PEACE to the LAD, SVG to the OM and PDA, left atrial appendage exclusion. Patient is awake and alert, in no acute distress, she was extubated on postoperative day #0 within a few hours of or exit time, she is tolerating extubation quite well, she is breathing comfortably, she is on 2 L of oxygen pulse ox is 91-93%. Chest x-ray today show ing trace left apical pneumothorax measuring 1 or 2 mm which is unchanged, mild cardiomegaly and similar interstitial density, with possible pulmonary vascular congestion. Patient does have exertional dyspnea but she was able to ambulate in the hallway, tolerated activity fairly well. Her incisional pain is fairly well controlled. No cough, no worsening dyspnea. Her mediastinal chest tube has been removed by CT surgery, left and right pleural chest tubes remain in place and there has been additional 4 50 mL of thin serosanguineous output in the last 24 hours. Patient is working on incentive spirometer, she is achieving about 750 on it today. Lung sounds are diminished at the bases with some crackles. She is in sinus mechanism with a controlled rate. She remains on lactated Ringer's at 20 ML per hour, and insulin drip at 5 units per hour, she is tolerating oral intake. Nausea vomiting or diarrhea, no abdominal pain. Today's labs have been reviewed, white blood cell count is 12.1, hemoglobin is 8.1, sodium is 134, the rest of the electrolytes and renal profile are unremarkable. Objective - Vital Signs Vital signs: Vital Signs Temp 98.8 F 09/01/21 08:00 Pulse 96 09/01/21 09:00 Resp 14 09/01/21 09:00 BP 122/59 09/01/21 09:00 Pulse Ox 93 L 09/01/21 09:00 Intake & Output 08/31/21 09/01/21 09/01/21 18:59 06:59 18:59 Intake Total 657.020 359.221 334.102 Output Total 915 1145 130 Balance -257.980 -785.779 204.102 Weight 84.4 kg 84.9 kg Intake: IV 601 332 78 LR @50mls/hr 520 260 60 pressure bag 81 72 18 Intake, IV Titration 56.020 27.221 6.102 Amount Insulin Regular 100 unit 54.520 27.221 6.102 In Sodium Chloride 0.9% 100 ml @ Per Protocol IV .Q0M NEHLA Rx#:[id number] Nitroglycerin-D5w Pmx 50 1.5 mg In Dextrose/Water 1 250ml.bag @ 5 MCG/MIN 1.5 mls/hr IV .Q24H NEHAL Rx#: [id number] Oral 250 Output: Chest Tube Drainage 210 230 mediastinal 20 right and left pleural 190 230 Urine 705 915 130 Other: Voiding Method Indwelling Catheter Indwelling Catheter Indwelling Catheter ABP, PAP, CO, CI - Last Documented Arterial Blood Pressure 101/35 Pulmonary Artery Pressure 20/13 Cardiac Output 3.8 Cardiac Index 2 - Exam GENERAL EXAM: Alert, very pleasant, 65-year-old white female on 2 L of oxygen with a pulse ox of 93% comfortable in no apparent distress. HEAD: Normocephalic/atraumatic. EYES: Normal reaction of pupils, equal size. Conjunctiva pink, sclera white. NOSE: Clear with pink turbinates. THROAT: No erythema or exudates. NECK: No masses, no JVD, no thyroid enlargement, no adenopathy. CHEST: No chest wall deformity. Symmetrical expansion. Midsternal incision is clean dry and intact, the right left pleural chest tubes are in place, insertion sites are clean dry and intact LUNGS: Equal air entry with basilar crackles CVS: Regular rate and rhythm, normal S1 and S2, no gallops, no murmurs, no rubs ABDOMEN: Soft, nontender. No hepatosplenomegaly, normal bowel sounds, no guarding or rigidity. EXTREMITIES: No clubbing, no edema, no cyanosis, 2+ pulses and upper and lower extremities. MUSCULOSKELETAL: Muscle strength and tone normal. SPINE: No scoliosis or deformity SKIN: No rashes CENTRAL NERVOUS SYSTEM: Alert and oriented -3. No focal deficits, tone is normal in all 4 extremities. PSYCHIATRIC: Alert and oriented -3. Appropriate affect. Intact judgment and insight. - Labs CBC & Chem 7: 09/01/21 04:20 09/01/21 04:20 Labs: Abnormal Lab Results - Last 24 Hours (Table) 08/31/21 08/31/21 08/31/21 Range/Units 10:32 11:33 12:25 WBC (3.8-10.6) k/uL RBC (3.80-5.40) m/uL Hgb (11.4-16.0) gm/dL Hct (34.0-46.0) % Neutrophils # (1.3-7.7) k/uL Sodium (137-145) mmol/L POC Glucose (mg/dL) 113 H 145 H 175 H (75-99) mg/dL Calcium (8.4-10.2) mg/dL Total Protein (6.3-8.2) g/dL Albumin (3.5-5.0) g/dL 08/31/21 08/31/21 08/31/21 Range/Units 13:35 14:51 15:54 WBC (3.8-10.6) k/uL RBC (3.80-5.40) m/uL Hgb (11.4-16.0) gm/dL Hct (34.0-46.0) % Neutrophils # (1.3-7.7) k/uL Sodium (137-145) mmol/L POC Glucose (mg/dL) 210 H 192 H 186 H (75-99) mg/dL Calcium (8.4-10.2) mg/dL Total Protein (6.3-8.2) g/dL Albumin (3.5-5.0) g/dL 08/31/21 08/31/21 08/31/21 Range/Units 16:37 17:15 18:13 WBC (3.8-10.6) k/uL RBC (3.80-5.40) m/uL Hgb (11.4-16.0) gm/dL Hct (34.0-46.0) % Neutrophils # (1.3-7.7) k/uL Sodium (137-145) mmol/L POC Glucose (mg/dL) 186 H 161 H 138 H (75-99) mg/dL Calcium (8.4-10.2) mg/dL Total Protein (6.3-8.2) g/dL Albumin (3.5-5.0) g/dL 08/31/21 08/31/21 08/31/21 Range/Units 19:16 20:01 21:52 WBC (3.8-10.6) k/uL RBC (3.80-5.40) m/uL Hgb (11.4-16.0) gm/dL Hct (34.0-46.0) % Neutrophils # (1.3-7.7) k/uL Sodium (137-145) mmol/L POC Glucose (mg/dL) 136 H 110 H 179 H (75-99) mg/dL Calcium (8.4-10.2) mg/dL Total Protein (6.3-8.2) g/dL Albumin (3.5-5.0) g/dL 08/31/21 09/01/21 09/01/21 Range/Units 23:21 01:07 02:58 WBC (3.8-10.6) k/uL RBC (3.80-5.40) m/uL Hgb (11.4-16.0) gm/dL Hct (34.0-46.0) % Neutrophils # (1.3-7.7) k/uL Sodium (137-145) mmol/L POC Glucose (mg/dL) 121 H 106 H 118 H (75-99) mg/dL Calcium (8.4-10.2) mg/dL Total Protein (6.3-8.2) g/dL Albumin (3.5-5.0) g/dL 09/01/21 09/01/21 09/01/21 Range/Units 04:18 04:20 04:20 WBC 12.1 H (3.8-10.6) k/uL RBC 2.78 L (3.80-5.40) m/uL Hgb 8.1 L D (11.4-16.0) gm/dL Hct 25.5 L (34.0-46.0) % Neutrophils # 8.2 H (1.3-7.7) k/uL Sodium 134 L (137-145) mmol/L POC Glucose (mg/dL) 108 H (75-99) mg/dL Calcium 8.2 L (8.4-10.2) mg/dL Total Protein 5.5 L (6.3-8.2) g/dL Albumin 3.4 L (3.5-5.0) g/dL 09/01/21 09/01/21 09/01/21 Range/Units 05:59 07:10 08:05 WBC (3.8-10.6) k/uL RBC (3.80-5.40) m/uL Hgb (11.4-16.0) gm/dL Hct (34.0-46.0) % Neutrophils # (1.3-7.7) k/uL Sodium (137-145) mmol/L POC Glucose (mg/dL) 112 H 119 H 219 H (75-99) mg/dL Calcium (8.4-10.2) mg/dL Total Protein (6.3-8.2) g/dL Albumin (3.5-5.0) g/dL 09/01/21 09/01/21 Range/Units 08:06 09:03 WBC (3.8-10.6) k/uL RBC (3.80-5.40) m/uL Hgb (11.4-16.0) gm/dL Hct (34.0-46.0) % Neutrophils # (1.3-7.7) k/uL Sodium (137-145) mmol/L POC Glucose (mg/dL) 224 H 160 H (75-99) mg/dL Calcium (8.4-10.2) mg/dL Total Protein (6.3-8.2) g/dL Albumin (3.5-5.0) g/dL Assessment and Plan Plan: Assessment: #1. Coronary artery disease, status post off-pump CABG 3 with PEACE to LAD, and saphenous vein grafts to obtuse marginal and PDA, endovascular vein harvest, left atrial appendage exclusion with 35 mm patchy cure clip, on 08/30/2021 #2. Exertional dyspnea and chest discomfort related to the above #3. Routine postoperative ventilator management, patient was extubated on postoperative day #0, on 08/30/2021 in less than 6 hours after OR exit time #4. Nonsmoker #5. Acute blood loss anemia, and expected outcome of sternotomy and coronary artery bypass grafting surgery #6. Hypertension #7. Hyperlipidemia #8. Psoriatic arthritis Plan: Continue encouraging deep breathing and coughing Today's chest x-ray has been reviewed still showing tiny left apical pneumothorax Patient is breathing comfortably, her pain is fairly well-controlled Tolerating ambulation No arrhythmias, hemodynamically she is stable, in sinus mechanism Continue encouraging incentive spirometry use GI and DVT prophylaxis per CT surgery Encourage ambulation We'll continue to follow along with CT surgery Follow-up chest x-ray and labs tomorrow I have personally seen and examined the patient, performed the documentation and the assessment and plan as written. Number of minutes spent on the visit: [10] Time with Patient: Less than 30
[2021-09-01 11:47] LABS: Glucose,Whole Blood 131 mg/dL (75-99)
[2021-09-01] MEDS: INSULIN ASPART (NovoLOG) 100 UNIT/ML VIAL SQ SCH ×3 (11:51→21:01)
[2021-09-01] MEDS ORDERED: FUROSEMIDE 10 MG/ML 2 ML VIAL IV ONE (12:37)
--- NOTE | 2021-09-01 14:06 | P.PN ---
Subjective Progress Note Date: 09/01/21 Principal diagnosis: Medical management Patient was seen and examined. Extubated yesterday. POD 2 off pump CABG 3 with PEACE to LAD and saphenous vein grafts to obtuse marginal and posterior descending coronary arteries. She reports well controlled pain at the site on incision. She denies any shortness of breath or palpitations. No nausea or vomiting. No fever or chills. CBC shows WBC count of 12.1 and Hg of 8.1. CMP shows Na 134, calcium 8.2, albumin of 3.4, total protein of 5.5. Objective - Vital Signs Vital signs: Vital Signs Temp 98.3 F 09/01/21 12:00 Pulse 80 09/01/21 13:00 Resp 25 H 09/01/21 13:00 BP 129/60 09/01/21 13:00 Pulse Ox 95 09/01/21 12:00 Intake & Output 08/31/21 09/01/21 09/01/21 18:59 06:59 18:59 Intake Total 657.020 359.221 584.102 Output Total 915 1145 610 Balance -257.980 -785.779 -25.898 Weight 84.4 kg 84.9 kg Intake: IV 601 332 78 LR @50mls/hr 520 260 60 pressure bag 81 72 18 Intake, IV Titration 56.020 27.221 6.102 Amount Insulin Regular 100 unit 54.520 27.221 6.102 In Sodium Chloride 0.9% 100 ml @ Per Protocol IV .Q0M [facility] Rx#:[id number] Nitroglycerin-D5w Pmx 50 1.5 mg In Dextrose/Water 1 250ml.bag @ 5 MCG/MIN 1.5 mls/hr IV .Q24H [facility] Rx#: [id number] Oral 500 Output: Chest Tube Drainage 210 230 80 mediastinal 20 right and left pleural 190 230 80 Urine 705 915 530 Other: Voiding Method Indwelling Catheter Indwelling Catheter Indwelling Catheter ABP, PAP, CO, CI - Last Documented Arterial Blood Pressure 101/35 Pulmonary Artery Pressure 20/13 Cardiac Output 3.8 Cardiac Index 2 - Exam General: [non toxic], [no distress] Derm: [warm], [dry] Head: [atraumatic], [normocephalic], [symmetric] Eyes: [EOMI], [no lid lag], [anicteric sclera] Mouth: [no lip lesion], [mucus membranes moist] Cardiovascular: [S1S2 reg], [no murmur], [positive DP pulse bilateral], [midsternal incision dressing clean dry and intact] Lungs: [Decreased breath sounds bilateral], [no rhonchi, no rales] , [no accessory muscle use] Abdominal: [soft], [no guarding], [no appreciable organomegaly] Ext: [no gross muscle atrophy], [no edema], [no contractures] Neuro: [No FND] Psych: [Alert and Oriented x 3] - Labs CBC & Chem 7: 09/01/21 04:20 09/01/21 04:20 Labs: Abnormal Lab Results - Last 24 Hours (Table) 08/31/21 08/31/21 08/31/21 Range/Units 14:51 15:54 16:37 WBC (3.8-10.6) k/uL RBC (3.80-5.40) m/uL Hgb (11.4-16.0) gm/dL Hct (34.0-46.0) % Neutrophils # (1.3-7.7) k/uL Sodium (137-145) mmol/L POC Glucose (mg/dL) 192 H 186 H 186 H (75-99) mg/dL Calcium (8.4-10.2) mg/dL Total Protein (6.3-8.2) g/dL Albumin (3.5-5.0) g/dL 08/31/21 08/31/21 08/31/21 Range/Units 17:15 18:13 19:16 WBC (3.8-10.6) k/uL RBC (3.80-5.40) m/uL Hgb (11.4-16.0) gm/dL Hct (34.0-46.0) % Neutrophils # (1.3-7.7) k/uL Sodium (137-145) mmol/L POC Glucose (mg/dL) 161 H 138 H 136 H (75-99) mg/dL Calcium (8.4-10.2) mg/dL Total Protein (6.3-8.2) g/dL Albumin (3.5-5.0) g/dL 08/31/21 08/31/21 08/31/21 Range/Units 20:01 21:52 23:21 WBC (3.8-10.6) k/uL RBC (3.80-5.40) m/uL Hgb (11.4-16.0) gm/dL Hct (34.0-46.0) % Neutrophils # (1.3-7.7) k/uL Sodium (137-145) mmol/L POC Glucose (mg/dL) 110 H 179 H 121 H (75-99) mg/dL Calcium (8.4-10.2) mg/dL Total Protein (6.3-8.2) g/dL Albumin (3.5-5.0) g/dL 09/01/21 09/01/21 09/01/21 Range/Units 01:07 02:58 04:18 WBC (3.8-10.6) k/uL RBC (3.80-5.40) m/uL Hgb (11.4-16.0) gm/dL Hct (34.0-46.0) % Neutrophils # (1.3-7.7) k/uL Sodium (137-145) mmol/L POC Glucose (mg/dL) 106 H 118 H 108 H (75-99) mg/dL Calcium (8.4-10.2) mg/dL Total Protein (6.3-8.2) g/dL Albumin (3.5-5.0) g/dL 09/01/21 09/01/21 09/01/21 Range/Units 04:20 04:20 05:59 WBC 12.1 H (3.8-10.6) k/uL RBC 2.78 L (3.80-5.40) m/uL Hgb 8.1 L D (11.4-16.0) gm/dL Hct 25.5 L (34.0-46.0) % Neutrophils # 8.2 H (1.3-7.7) k/uL Sodium 134 L (137-145) mmol/L POC Glucose (mg/dL) 112 H (75-99) mg/dL Calcium 8.2 L (8.4-10.2) mg/dL Total Protein 5.5 L (6.3-8.2) g/dL Albumin 3.4 L (3.5-5.0) g/dL 09/01/21 09/01/21 09/01/21 Range/Units 07:10 08:05 08:06 WBC (3.8-10.6) k/uL RBC (3.80-5.40) m/uL Hgb (11.4-16.0) gm/dL Hct (34.0-46.0) % Neutrophils # (1.3-7.7) k/uL Sodium (137-145) mmol/L POC Glucose (mg/dL) 119 H 219 H 224 H (75-99) mg/dL Calcium (8.4-10.2) mg/dL Total Protein (6.3-8.2) g/dL Albumin (3.5-5.0) g/dL 09/01/21 09/01/21 Range/Units 09:03 11:45 WBC (3.8-10.6) k/uL RBC (3.80-5.40) m/uL Hgb (11.4-16.0) gm/dL Hct (34.0-46.0) % Neutrophils # (1.3-7.7) k/uL Sodium (137-145) mmol/L POC Glucose (mg/dL) 160 H 131 H (75-99) mg/dL Calcium (8.4-10.2) mg/dL Total Protein (6.3-8.2) g/dL Albumin (3.5-5.0) g/dL Assessment and Plan Assessment: #Acute blood loss anemia #Leukocytosis #Hypocalcemia #CAD status post CABG POD 2 #Acute hypoxic respiratory failure Chronic conditions: Hypertension, dyslipidemia, psotiaric arthritis Acute blood loss is expected result of surgery. Repeat CBC tomorrow morning. Leukocytosis is likely reactive. No signs of active infection. s/p Cefezolin IV for 3 doses. Continue to monitor. Ionized calcium within normal limits. Continue Aspirin 325 mg PO QD, Lipitor 40 mg PO QD and Metoprolol 12.5 mg PO BID, Plavix 75 mg PO QD with regard to CAD. Cardiology on board. Attempt to wean oxygen. Pulmonology on board. DVT prophylaxis: [Heparin] Discussed with: [Nursing] Anticipated discharge: [2-3 days] Anticipated discharge place: [Home] A total of [15] minutes was spent on the care of this complex patient more than 50% of the time was spent in counseling and care coordination. Thank you for this consult. Please call [facility] with any questions and concerns.
[2021-09-01] MEDS ORDERED: METOPROLOL TARTRATE 12.5 MG TAB PO STA (16:03)
[2021-09-01 16:07] LABS: Glucose,Whole Blood 116 mg/dL (75-99)
[2021-09-01 20:12] LABS: Glucose,Whole Blood 139 mg/dL (75-99)
[2021-09-01] MEDS: SENNOSIDES-DOCUSATE SODIUM 1 EACH TAB PO SCH (21:00)
[2021-09-01] MEDS: METOPROLOL TARTRATE 25 MG TAB PO SCH (21:00)
[2021-09-02] MEDS: INSULIN ASPART (NovoLOG) 100 UNIT/ML VIAL SQ SCH ×4 (06:10→20:37)
[2021-09-02 06:16] LABS: Glucose,Whole Blood 122 mg/dL (75-99)
[2021-09-02] MEDS: KETOROLAC 15 MG/ML 1 ML VIAL IVP SCH ×2 (06:18→12:36)
[2021-09-02] MEDS: PANTOPRAZOLE 40 MG TABLET PO SCH (06:19)
[2021-09-02] MEDS: IPRATROPIUM-ALBUTEROL 3 ML NEB INHALATION SCH ×4 (07:16→19:54)
[2021-09-02] MEDS ORDERED: SENNOSIDES-DOCUSATE SODIUM 1 EACH TAB PO PRN (07:25)
--- NOTE | 2021-09-02 07:31 | P.PN ---
Subjective Progress Note Date: 09/02/21 Principal diagnosis: Coronary artery disease. Previous medical history of hypertension, hyperlipidemia, psoriatic arthritis on DMARD as outpatient, never smoker, family history of premature coronary artery disease POD #3 off pump coronary artery bypass graft x 3 with left internal mammary artery to the left anterior descending artery, reverse saphenous vein grafts to the obtuse marginal and posterior descending coronary arteries, endovascular vein harvest of the left greater saphenous vein from the mid calf to groin occlusion of the left atrial appendage with 35 mm AtriCure clip, intraoperative transesophageal echocardiogram performed by anesthesia Postoperative acute blood loss anemia, expected given hemodilution The patient was seen and examined this morning sitting up in a recliner in no acute distress on the cardiac stepdown unit. Remains in sinus rhythm, he modynamically stable. States pain is controlled on current medication regimen, denies shortness of breath. Patient ambulated in the hallway yesterday without difficulty. No new concerns. Objective - Vital Signs Vital signs: Vital Signs Temp 98.1 F 09/01/21 20:00 Pulse 78 09/02/21 07:17 Resp 16 09/02/21 04:00 BP 108/72 09/02/21 04:00 Pulse Ox 94 L 09/02/21 07:17 Intake & Output 09/01/21 09/02/21 09/02/21 18:59 06:59 18:59 Intake Total 824.102 970 Output Total 610 Balance 214.102 970 Intake: IV 78 LR @50mls/hr 60 pressure bag 18 Intake, IV Titration 6.102 Amount Insulin Regular 100 unit 6.102 In Sodium Chloride 0.9% 100 ml @ Per Protocol IV .Q0M [facility] Rx#:[id number] Oral 740 970 Output: Chest Tube Drainage 80 right and left pleural 80 Urine 530 Other: Voiding Method Toilet Toilet # Voids 1 1 # Bowel Movements 1 ABP, PAP, CO, CI - Last Documented Arterial Blood Pressure 101/35 Pulmonary Artery Pressure 20/13 Cardiac Output 3.8 Cardiac Index 2 - Exam CONSTITUTIONAL: Appears comfortable, cooperative, no acute distress RESPIRATORY: Lungs sounds diminished in the bases bilaterally. Respirations even, nonlabored. Currently on 2 L nasal cannula with oxygen saturation 90-95%. Able to achieve 800 mL on incentive spirometry. Strong cough. CARDIOVASCULAR: S1, S2 present. Regular rate and rhythm, sinus rhythm on telemetry. Sternum stable. Palpable peripheral pulses bilaterally. Trace upper extremity edema present. No calf pain or tenderness noted. Heart hugger in place with patient demonstrating appropriate use. Antiembolism stockings, SCDs present. GASTROINTESTINAL: Abdomen soft, nontender, nondistended. Active bowel sounds present 4 quadrants. Tolerating diet. Positive bowel movement GENITOURINARY: Swan discontinued yesterday. Patient continues to void although not always in measuring device INTEGUMENTARY: Skin is warm and dry with evidence of good perfusion. Anterior chest incision well approximated and covered with dry intact dressing. Left lower extremity EVH site well approximated without redness or drainage. NEUROLOGIC: Cranial nerves II through XII intact MUSKULOSKELETAL: Able to move all extremities, strength equal bilaterally, gait normal PSYCHIATRIC: Alert and oriented to person place and time, appropriate affect, intact judgment and insight - Allied health notes Allied health notes reviewed: nursing - Labs CBC & Chem 7: 09/01/21 04:20 09/01/21 04:20 Labs: Abnormal Lab Results - Last 24 Hours (Table) 09/01/21 09/01/21 09/01/21 Range/Units 08:05 08:06 09:03 POC Glucose (mg/dL) 219 H 224 H 160 H (75-99) mg/dL 09/01/21 09/01/21 09/01/21 Range/Units 11:45 16:05 20:11 POC Glucose (mg/dL) 131 H 116 H 139 H (75-99) mg/dL 09/02/21 Range/Units 06:08 POC Glucose (mg/dL) 122 H (75-99) mg/dL - Imaging and Cardiology Chest x-ray: image reviewed Assessment and Plan Assessment: 1. Coronary artery disease, status post three-vessel off-pump CABG 2. History of hypertension 3. Hyperlipidemia, treated, cholesterol 172, triglycerides 785 4. Psoriatic arthritis on DMARD as outpatient 5. Never smoker, preoperative FEV1 79% of protected 6. Family history of premature coronary artery disease 7. Postoperative acute blood loss anemia Plan: 1. Continue aspirin, statin, Plavix, beta mil therapy. Will increase beta mil therapy as tolerated, increased to 25 mg BID yesterday. Will add in low-dose ACEI for afterload reduction 2. Wean O2 as tolerated. Encourage incentive spirometry 10 times every hour while awake. Bronchodilators per pulmonology 3. Increase activity, ambulate as tolerated. PT/OT/cardiac rehab following 4. Will monitor daily labs and x-rays. Electrolyte replacement per protocol 5. GI/DVT prophylaxis 6. Pain control with current medication regimen 7. Insulin management per primary care service. Patient is not diabetic, preoperative hemoglobin A1c 6.0% 8. Shower daily 9. Strict accurate intake and output. Daily weights 10. Discharge planning in place. Anticipate discharge to home with home care in the next 24 hours 11. More recommendations to follow
--- NOTE | 2021-09-02 07:51 | XR ---
EXAMINATION TYPE: XR chest 2V DATE OF EXAM: 09/02/2021 COMPARISON: 09/01/2021 TECHNIQUE: PA and lateral views submitted. HISTORY: Postop FINDINGS: Chest tube has been removed. No sizable pneumothorax. Bilateral consolidation and pleural effusion. P ostsurgical changes with cardiomegaly and interstitial pattern. IMPRESSION: 1. Bilateral infiltrate and pleural effusion. Suspect mild central venous congestion.
[2021-09-02] MEDS: ATORVASTATIN 40 MG TAB PO SCH (08:26)
[2021-09-02] MEDS: HEPARIN SODIUM,PORCINE/PF 5,000 UNIT/0.5 ML SYRINGE SQ SCH ×2 (08:26→16:56)
[2021-09-02] MEDS: METOPROLOL TARTRATE 25 MG TAB PO SCH ×2 (08:26→19:54)
[2021-09-02] MEDS: ASPIRIN 325 MG TAB PO SCH (08:27)
[2021-09-02] MEDS: CLOPIDOGREL 75 MG TAB PO SCH (08:27)
[2021-09-02 08:34] LABS: HCT 25.2 % (34.0-46.0); HGB 7.9 gm/dL (11.4-16.0); MCH 29.1 pg (25.0-35.0); MCHC 31.4 g/dL (31.0-37.0); MCV 92.6 fL (80.0-100.0); Mean Platelet Volume 7.9; Platelet Count 236 k/uL (150-450); RBC 2.72 m/uL (3.80-5.40); RDW 15.2 % (11.5-15.5); WBC 12.2 k/uL (3.8-10.6)
[2021-09-02 08:57] LABS: Potassium 3.7 mmol/L (3.5-5.1)
[2021-09-02] MEDS ORDERED: ERGOCALCIFEROL 1,250 MCG (50,000 IU) CAPSULE PO SCH (09:00)
[2021-09-02] MEDS ORDERED: POTASSIUM CHLORIDE ER 20 MEQ TAB.ER PO STA (09:34)
[2021-09-02] MEDS ORDERED: FUROSEMIDE 10 MG/ML 2 ML VIAL IV ONE (09:34)
[2021-09-02] MEDS: VITAMIN E (DL,TOCOPHERYL ACET) 400 UNIT (180 MG) CAP PO SCH (09:58)
[2021-09-02] MEDS: ASCORBIC ACID 500 MG TAB PO SCH ×2 (10:00→19:13)
[2021-09-02] MEDS: FERROUS SULFATE 325 MG TAB PO SCH ×2 (10:00→19:12)
[2021-09-02 11:54] LABS: Glucose,Whole Blood 113 mg/dL (75-99)
--- NOTE | 2021-09-02 12:13 | P.PN ---
Subjective Progress Note Date: 09/02/21 Principal diagnosis: Status post bypass grafting. This is a 65-year-old female patient of Dr. Jareth Martinez, and Dr. Salcedo from cardiology has a history of hypertension, hyperlipidemia, psoriatic arthritis on a DMARD outpatient, lifetime nonsmoker, with family history of premature c oronary artery disease and her brother had a MD at 40 years of age. Patient had been having shortness of breath with exertion for the past 6-8 months that was relieved with rest. Patient also reported some chest discomfort. Patient had an abnormal outpatient stress test. Elective heart catheterization was completed on 08/24/2021 that showed chronic total occlusion of the mid RCA with collaterals from the left side, subtotally occluded ostial LAD, and a tight lesion in the diagonal artery. Transthoracic echocardiogram showed preserved left ventricular systolic function with EF of 55%, mild mitral regurgitation, mild tricuspid regurgitation. Patient was referred to CT surgery for surgical intervention. Preop FEV1 was 1.98 L or 79% of predicted, with forced vital capacity of 2.48, with FEV1 to FVC ratio of 80%, and it was consistent with mild restriction. Carotid Doppler showed no hemodynamically significant stenosis of the proximal internal carotid arteries. Patient was discharged home on 08/26/2021. Patient was brought in today on 08/30/2021 for elective off-pump coronary artery bypass grafting 3 with PEACE to the LAD, SVG to the OM and PDA, endovascular vein harvest, left atrial appendage exclusion with 35 mm AtriCure clip. Following surgery patient is seen in the intensive care unit, sedated and intubated, on assist-control mode of ventilation with a rate of 12, tidal on his 400, FiO2 of 50% and PEEP of 5, postop blood gases showed a pO2 of 331, pCO2 of 40, and pH of 7.31 and FiO2 had since been called back to 50%. Postop chest x- ray showing postsurgical changes with suspected postoperative basilar atelectasis. Patient is hemodynamically stable, she is on lactated Ringer's at 50 ML per hour, nitroglycerin at 5 mics per minute, propofol is on hold. No vasopressor drips, she is in sinus mechanism, hemodynamically she is stable, PA pressure is 26/20, CVP is 10, cardiac output is 4.0, and CVP is 2.1. Patient has [address], one mediastinal with 50 mL of sanguinous output, no evidence of air leak, left and right pleural chest tubes with 70 mL of sanguinous output in the Pleur-evac, no evidence of air leak. Postoperative blood work showed white blood cell count of 16.5, hemoglobin of 9.2, sodium of 140, potassium is 4.3, chloride is 111, BUN is 10, creatinine 0.62. Urinary catheter is in place, patient is producing adequate amount of urine. Incisions are clean dry and intact. Patient is doing well in the postoperative period, she started to wake up and we anticipate expedited wean and extubation. On 08/31/2021 patient seen in follow-up in the intensive care unit. She is awake, in no acute distress, she was extubated 1705 on postoperative day #0 on 08/30/2021. She is doing well, she is sitting up in the recliner today, awake and alert, oriented 3, breathing comfortably, she is currently on 3 L of oxygen pulse ox is 99%. Hemodynamically she is stable, tolerating vasoactive drips, she is on lactated Ringer's at 50 ML per hour, insulin infusion at 3.5 units per hour. She is in sinus mechanism with a rate of 67, blood pressure is 120/43, PA pressures 20/15, with a CVP of 9, cardiac output is 3.8, and cardiac index is 2.0. Today's chest x-ray has been reviewed showing less than 5% left apical pneumothorax, and postsurgical changes with bilateral atelectasis and small pleural effusion. Today's labs have been reviewed, white blood cell count is 15.6, hemoglobin is 9.6, platelet count 257, sodium is 135, potassium is 4.3, chloride is 106, CO2 is 21, BUN is 13, creatinine 0.63. Menstrual surgical incision is clean dry and intact, mediastinal and right and left pleural chest tubes are in place, with moderate amount of thin serosanguineous output. Patient has put out 350 mL of the mediastinal chest tube at 550 mL of thin serosanguineous output from the right and left pleural chest tubes in the last 24 hours. Urinary catheter is in place and patient is making 20-25 ML per hour of urine output. Patient has received 250 mL of 5% albumin for low urine output this morning. Patient is working on incentive spirometer, achieving about 1000 ML on it today. Lung sounds are positive for bibasilar crackles. She states her postoperative pain is fairly well controlled. Does not appear to be in any acute distress. On 09/01/2021 patient seen in follow-up in the intensive care unit, today is postoperative day #2 status post off-pump CABG 3 with PEACE to the LAD, SVG to the OM and PDA, left atrial appendage exclusion. Patient is awake and alert, in no acute distress, she was extubated on postoperative day #0 within a few hours of or exit time, she is tolerating extubation quite well, she is breathing comfortably, she is on 2 L of oxygen pulse ox is 91-93%. Chest x-ray today showing trace left apical pneumothorax measuring 1 or 2 mm which is unchanged, mild cardiomegaly and similar interstitial density, with possible pulmonary vascular congestion. Patient does have exertional dyspnea but she was able to ambulate in the hallway, tolerated activity fairly well. Her incisional pain is fairly well controlled. No cough, no worsening dyspnea. Her mediastinal chest tube has been removed by CT surgery, left and right pleural chest tubes remain in place and there has been additional 4 50 mL of thin serosanguineous output in the last 24 hours. Patient is working on incentive spirometer, she is achieving about 750 on it today. Lung sounds are diminished at the bases with some crackles. She is in sinus mechanism with a controlled rate. She remains on lactated Ringer's at 20 ML per hour, and insulin drip at 5 units per hour, she is tolerating oral intake. Nausea vomiting or diarrhea, no abdominal pain. Today's labs have been reviewed, white blood cell count is 12.1, hemoglobin is 8.1, sodium is 134, the rest of the electrolytes and renal profile are unremarkable. Progress note dated 09/02/2021. This is a 65-year-old female postop day #3, status post off pump 3 vessel bypass . The patient's doing well. She's currently on 2 L. She tells me that she is going to be discharged home tomorrow. White count is 12.2, with hemoglobin 7.9, hematocrit 25.2, and a platelet count of 236,000. Sodium 138, potassium 3.7, chlorides 104, CO2 24, BUN 17, and creatinine 0.82. Chest x-ray is stable. Clinically, she looks well. She continues to do well on her incentive spirometer. Objective - Vital Signs Vital signs: Vital Signs Temp 98.2 F 09/02/21 08:26 Pulse 74 09/02/21 11:51 Resp 16 09/02/21 08:26 BP 115/57 09/02/21 08:26 Pulse Ox 88 L 09/02/21 08:33 Intake & Output 09/01/21 09/02/21 09/02/21 18:59 06:59 18:59 Intake Total 824.102 970 Output Total 610 Balance 214.102 970 Intake: IV 78 LR @50mls/hr 60 pressure bag 18 Intake, IV Titration 6.102 Amount Insulin Regular 100 unit 6.102 In Sodium Chloride 0.9% 100 ml @ Per Protocol IV .Q0M [facility] Rx#:[id number] Oral 740 970 Output: Chest Tube Drainage 80 right and left pleural 80 Urine 530 Other: Voiding Method Toilet Toilet # Voids 1 1 # Bowel Movements 1 ABP, PAP, CO, CI - Last Documented Arterial Blood Pressure 101/35 Pulmonary Artery Pressure 20/13 Cardiac Output 3.8 Cardiac Index 2 - Exam No acute distress, oriented 3. Currently on 2 L nasal cannula. HEENT examination is grossly unremarkable. Neck supple. Full range of motion. No adenopathy thyromegaly or neck vein distention. Cardiovascular examination reveals regular rhythm rate. S1-S2 normal. No S3 or S4. No discernible murmur noted. Heart rate 74 bpm. Lungs reveal mild scattered rhonchi. No wheezes. No crackles. Breath sounds equal bilaterally. 2 L saturation 94% and room air saturation 88%. Abdomen soft bowel sounds are heard. No masses or tenderness. Extremities are intact. No cyanosis clubbing or edema. Skin is without rash or lesion. Neurologic examination is brief but nonfocal. - Labs CBC & Chem 7: 09/02/21 06:51 09/02/21 06:51 Labs: Abnormal Lab Results - Last 24 Hours (Table) 09/01/21 09/01/21 09/02/21 Range/Units 16:05 20:11 06:08 WBC (3.8-10.6) k/uL RBC (3.80-5.40) m/uL Hgb (11.4-16.0) gm/dL Hct (34.0-46.0) % Glucose (74-99) mg/dL POC Glucose (mg/dL) 116 H 139 H 122 H (75-99) mg/dL Calcium (8.4-10.2) mg/dL 09/02/21 09/02/21 09/02/21 Range/Units 06:51 06:51 11:52 WBC 12.2 H (3.8-10.6) k/uL RBC 2.72 L (3.80-5.40) m/uL Hgb 7.9 L (11.4-16.0) gm/dL Hct 25.2 L (34.0-46.0) % Glucose 100 H (74-99) mg/dL POC Glucose (mg/dL) 113 H (75-99) mg/dL Calcium 8.0 L (8.4-10.2) mg/dL Assessment and Plan Assessment: Postop day #3, status post off pump coronary artery bypass grafting. Routine postoperative ventilator management, status post extubation on August 30. Lifelong nonsmoker. Acute blood loss anemia. Hypertension. Hyperlipidemia. Psoriatic arthritis. Plan: Plan dated 09/02/2021. Currently, the patient's doing well. The patient is likely to be discharged in the next day to 2 days. Labs are reviewed. Medications are reviewed. X-rays are reviewed. She is on 2 L nasal cannula. Prognosis is thought to be very good. We will continue to follow the patient and make recommendations where appropriate. Time with Patient: Less than 30
--- NOTE | 2021-09-02 12:52 | P.PN ---
Subjective Progress Note Date: 09/02/21 Principal diagnosis: Medical management Patient was seen and examined. Extubated yesterday. POD 3 off pump CABG 3 with PEACE to LAD and saphenous vein grafts to obtuse marginal and posterior descending coronary arteries. She reports well controlled pain at the site on incision. She denies any shortness of breath or palpitations. No nausea or vomiting. No fever or chills. CBC shows WBC count of 12.2 and Hg of 7.9. CMP shows calcium 8, glucose of 100. Chest Xray shows mild venous congestion. Objective - Vital Signs Vital signs: Vital Signs Temp 98.2 F 09/02/21 08:26 Pulse 82 09/02/21 12:00 Resp 16 09/02/21 08:26 BP 107/66 09/02/21 12:00 Pulse Ox 96 09/02/21 12:00 Intake & Output 09/01/21 09/02/21 09/02/21 18:59 06:59 18:59 Intake Total 824.102 970 Output Total 610 Balance 214.102 970 Intake: IV 78 LR @50mls/hr 60 pressure bag 18 Intake, IV Titration 6.102 Amount Insulin Regular 100 unit 6.102 In Sodium Chloride 0.9% 100 ml @ Per Protocol IV .Q0M [facility] Rx#:[id number] Oral 740 970 Output: Chest Tube Drainage 80 right and left pleural 80 Urine 530 Other: Voiding Method Toilet Toilet # Voids 1 1 # Bowel Movements 1 ABP, PAP, CO, CI - Last Documented Arterial Blood Pressure 101/35 Pulmonary Artery Pressure 20/13 Cardiac Output 3.8 Cardiac Index 2 - Exam General: [non toxic], [no distress] Derm: [warm], [dry] Head: [atraumatic], [normocephalic], [symmetric] Eyes: [EOMI], [no lid lag], [anicteric sclera] Mouth: [no lip lesion], [mucus membranes moist] Cardiovascular: [S1S2 reg], [no murmur], [positive DP pulse bilateral], [midsternal incision dressing clean dry and intact] Lungs: [Decreased breath sounds bilateral], [no rhonchi, no rales] , [no accessory muscle use] Abdominal: [soft], [no guarding], [no appreciable organomegaly] Ext: [no gross muscle atrophy], [no edema], [no contractures] Neuro: [No FND] Psych: [Alert and Oriented x 3] - Labs CBC & Chem 7: 09/02/21 06:51 09/02/21 06:51 Labs: Abnormal Lab Results - Last 24 Hours (Table) 09/01/21 09/01/21 09/02/21 Range/Units 16:05 20:11 06:08 WBC (3.8-10.6) k/uL RBC (3.80-5.40) m/uL Hgb (11.4-16.0) gm/dL Hct (34.0-46.0) % Glucose (74-99) mg/dL POC Glucose (mg/dL) 116 H 139 H 122 H (75-99) mg/dL Calcium (8.4-10.2) mg/dL 09/02/21 09/02/21 09/02/21 Range/Units 06:51 06:51 11:52 WBC 12.2 H (3.8-10.6) k/uL RBC 2.72 L (3.80-5.40) m/uL Hgb 7.9 L (11.4-16.0) gm/dL Hct 25.2 L (34.0-46.0) % Glucose 100 H (74-99) mg/dL POC Glucose (mg/dL) 113 H (75-99) mg/dL Calcium 8.0 L (8.4-10.2) mg/dL Assessment and Plan Assessment: #Acute blood loss anemia #Leukocytosis #Hypocalcemia #CAD status post CABG POD 3 #Acute hypoxic respiratory failure Chronic conditions: Hypertension, dyslipidemia, psotiaric arthritis Acute blood loss is expected result of surgery. Repeat CBC tomorrow morning. Leukocytosis is likely reactive. No signs of active infection. s/p Cefezolin IV for 3 doses. Continue to monitor. Ionized calcium within normal limits. Continue Aspirin 325 mg PO QD, Lipitor 40 mg PO QD and Metoprolol 12.5 mg PO BID, Plavix 75 mg PO QD with regard to CAD. Cardiology on board. Attempt to wean oxygen. CXR shows mild vascular congestion. Given one dose of Lasix 20 mg IV yesterday and today. Pulmonology on board. DVT prophylaxis: [Heparin] Discussed with: [Nursing] Anticipated discharge: [1-2 days] Anticipated discharge place: [Home] A total of [15] minutes was spent on the care of this complex patient more than 50% of the time was spent in counseling and care coordination. Thank you for this consult. Please call [facility] with any questions and concerns. Anticipate DC home tomorrow.
--- NOTE | 2021-09-02 14:25 | P.PN ---
Subjective This is a 65-year-old female with a past medical history of hypertension, dyslipidemia, psoriatic arthritis on DMARD. She follows with Dr. Matias carlisle. She underwent 3 vessel CABG with PEACE to LAD, reverse saphenous vein grafts to the obtuse marginal and posterior descending coronary arteries on 08/30/21. The patient was seen and examined this morning on 3S. She is sitting up in a recliner in no acute distress. Her incision pain is controlled. She denies any shortness of breath. Remains in sinus rhythm. She is hemodynamically stable. She states she ambulated in the hallway yesterday without difficulty. She is currently maintained on aspirin 325 mg daily, atorvastatin 40 mg daily, Plavix and 5 mg daily, IV Lasix 20 mg given once, lisinopril 2.5 mg daily, metoprolol titrate 25 mg twice a day VITALS: Blood pressure 115/57, heart rate 85, afebrile, oxygen saturation is 94% on 2 L nasal cannula GENERAL: Well-appearing, well-nourished and in no acute distress. NECK: Supple without JVD or thyromegaly. LUNGS: Breath sounds clear to auscultation bilaterally. Respiration equal and unlabored. No wheezes, rales or rhonchi. HEART: Regular rate and rhythm without murmurs, rubs or gallops. S1 and S2 heard. Heart Hugger in place. Chest incision well approximated, dressing intact EXTREMITIES: Normal range of motion, no edema. No clubbing or cyanosis. Peripheral pulses intact. ASSESSMENT Coronary artery disease status post three-vessel CABG on 08/30/2021 History of hypertension Hyperlipidemia History of Psoriatic arthritis PLAN Continue aspirin, statin, Plavix, beta mil, lisinopril Increase activity as tolerated Encourage incentive spirometry Post operative management per CT surgery Plan for possible discharge with home care in the next 24 hours. Follow up outpatient with Dr. Salcedo when discharged. Nurse Practitioner note has been reviewed, I agree with a documented findings and plan of care. Patient was seen and examined. Objective - Vital Signs Vital signs: Vital Signs Temp 98.2 F 09/02/21 08:26 Pulse 82 09/02/21 12:00 Resp 16 09/02/21 08:26 BP 107/66 09/02/21 12:00 Pulse Ox 96 09/02/21 12:00 Intake & Output 09/01/21 09/02/21 09/02/21 18:59 06:59 18:59 Intake Total 824.102 970 Output Total 610 Balance 214.102 970 Intake: IV 78 LR @50mls/hr 60 pressure bag 18 Intake, IV Titration 6.102 Amount Insulin Regular 100 unit 6.102 In Sodium Chloride 0.9% 100 ml @ Per Protocol IV .Q0M [facility] Rx#:[id number] Oral 740 970 Output: Chest Tube Drainage 80 right and left pleural 80 Urine 530 Other: Voiding Method Toilet Toilet # Voids 1 1 # Bowel Movements 1 ABP, PAP, CO, CI - Last Documented Arterial Blood Pressure 101/35 Pulmonary Artery Pressure / Cardiac Output 3.8 Cardiac Index 2 - Labs CBC & Chem 7: 09/02/21 06:51 09/02/21 06:51 Labs: Abnormal Lab Results - Last 24 Hours (Table) 09/01/21 09/01/21 09/02/21 Range/Units 16:05 20:11 06:08 WBC (3.8-10.6) k/uL RBC (3.80-5.40) m/uL Hgb (11.4-16.0) gm/dL Hct (34.0-46.0) % Glucose (74-99) mg/dL POC Glucose (mg/dL) 116 H 139 H 122 H (75-99) mg/dL Calcium (8.4-10.2) mg/dL 09/02/21 09/02/21 09/02/21 Range/Units 06:51 06:51 11:52 WBC 12.2 H (3.8-10.6) k/uL RBC 2.72 L (3.80-5.40) m/uL Hgb 7.9 L (11.4-16.0) gm/dL Hct 25.2 L (34.0-46.0) % Glucose 100 H (74-99) mg/dL POC Glucose (mg/dL) 113 H (75-99) mg/dL Calcium 8.0 L (8.4-10.2) mg/dL
[2021-09-02 17:00] LABS: Glucose,Whole Blood 111 mg/dL (75-99)
[2021-09-02 21:08] LABS: Glucose,Whole Blood 118 mg/dL (75-99)
[2021-09-03] MEDS: HEPARIN SODIUM,PORCINE/PF 5,000 UNIT/0.5 ML SYRINGE SQ SCH ×2 (01:31→09:06)
[2021-09-03] MEDS: INSULIN ASPART (NovoLOG) 100 UNIT/ML VIAL SQ SCH (06:47)
[2021-09-03] MEDS: ASCORBIC ACID 500 MG TAB PO SCH (06:49)
[2021-09-03] MEDS: FERROUS SULFATE 325 MG TAB PO SCH (06:49)
[2021-09-03] MEDS: PANTOPRAZOLE 40 MG TABLET PO SCH (06:49)
[2021-09-03 06:55] LABS: Glucose,Whole Blood 122 mg/dL (75-99)
[2021-09-03] MEDS: IPRATROPIUM-ALBUTEROL 3 ML NEB INHALATION SCH ×2 (07:41→11:31)
--- NOTE | 2021-09-03 08:12 | XR ---
EXAMINATION TYPE: XR chest 2V DATE OF EXAM: 09/03/2021 COMPARISON: 09/02/2021 HISTORY: 65 year-old female post cardiac surgery TECHNIQUE: PA and lateral views FINDINGS: Median sternotomy wires are present. Post-CABG clips in the mediastinum. Heart mildly enlarged. Inter stitial/vascular prominence is unchanged. Small bilateral pleural effusions with patchy bibasilar opa cities are similar. No prevertebral pneumothorax. IMPRESSION: Post-CABG changes with similar mild cardiomegaly and mild pulmonary vascular congestion. Continued sm all bilateral pleural effusions with adjacent atelectasis and/or consolidation.
[2021-09-03 08:29] LABS: HCT 26.5 % (34.0-46.0); HGB 8.3 gm/dL (11.4-16.0); Hypochromasia Slight; MCH 29.2 pg (25.0-35.0); MCHC 31.2 g/dL (31.0-37.0); MCV 93.7 fL (80.0-100.0); Mean Platelet Volume 8.1; Platelet Count 292 k/uL (150-450); RBC 2.83 m/uL (3.80-5.40); RDW 15.3 % (11.5-15.5); WBC 9.3 k/uL (3.8-10.6)
[2021-09-03 08:38] LABS: African American GFR (CKD) >90 (>60 ml/min/1.73 sqM); Anion Gap 8 mmol/L; Blood Urea Nitrogen 14 mg/dL (7-17); Calcium 8.1 mg/dL (8.4-10.2); Carbon Dioxide 24 mmol/L (22-30); Chloride 107 mmol/L (98-107); Glucose 134 mg/dL (74-99); Non-African American GFR(CKD) >90 (>60 ml/min/1.73 sqM); Potassium 4.1 mmol/L (3.5-5.1); Sodium 139 mmol/L (137-145)
[2021-09-03] MEDS: ATORVASTATIN 40 MG TAB PO SCH (09:06)
[2021-09-03] MEDS: VITAMIN E (DL,TOCOPHERYL ACET) 400 UNIT (180 MG) CAP PO SCH (09:06)
[2021-09-03] MEDS: ASPIRIN 325 MG TAB PO SCH (09:07)
[2021-09-03] MEDS: METOPROLOL TARTRATE 25 MG TAB PO SCH (09:07)
[2021-09-03] MEDS: CLOPIDOGREL 75 MG TAB PO SCH (09:07)
[2021-09-03] MEDS ORDERED: FUROSEMIDE 10 MG/ML 2 ML VIAL IV ONE (09:26)
[2021-09-03 11:03] VITALS: BP 143/64; RESP 18; TEMP 97.8
--- NOTE | 2021-09-03 11:04 | P.PN ---
Subjective Progress Note Date: 09/03/21 Principal diagnosis: Status post bypass grafting. This is a 65-year-old female patient of Dr. Jareth Martinez, and Dr. Salcedo from cardiology has a history of hypertension, hyperlipidemia, psoriatic arthritis on a DMARD outpatient, lifetime nonsmoker, with family history of premature c oronary artery disease and her brother had a MT at 40 years of age. Patient had been having shortness of breath with exertion for the past 6-8 months that was relieved with rest. Patient also reported some chest discomfort. Patient had an abnormal outpatient stress test. Elective heart catheterization was completed on 08/24/2021 that showed chronic total occlusion of the mid RCA with collaterals from the left side, subtotally occluded ostial LAD, and a tight lesion in the diagonal artery. Transthoracic echocardiogram showed preserved left ventricular systolic function with EF of 55%, mild mitral regurgitation, mild tricuspid regurgitation. Patient was referred to CT surgery for surgical intervention. Preop FEV1 was 1.98 L or 79% of predicted, with forced vital capacity of 2.48, with FEV1 to FVC ratio of 80%, and it was consistent with mild restriction. Carotid Doppler showed no hemodynamically significant stenosis of the proximal internal carotid arteries. Patient was discharged home on 08/26/2021. Patient was brought in today on 08/30/2021 for elective off-pump coronary artery bypass grafting 3 with PEACE to the LAD, SVG to the OM and PDA, endovascular vein harvest, left atrial appendage exclusion with 35 mm AtriCure clip. Following surgery patient is seen in the intensive care unit, sedated and intubated, on assist-control mode of ventilation with a rate of 12, tidal on his 400, FiO2 of 50% and PEEP of 5, postop blood gases showed a pO2 of 331, pCO2 of 40, and pH of 7.31 and FiO2 had since been called back to 50%. Postop chest x- ray showing postsurgical changes with suspected postoperative basilar atelectasis. Patient is hemodynamically stable, she is on lactated Ringer's at 50 ML per hour, nitroglycerin at 5 mics per minute, propofol is on hold. No vasopressor drips, she is in sinus mechanism, hemodynamically she is stable, PA pressure is 26/20, CVP is 10, cardiac output is 4.0, and CVP is 2.1. Patient has [address], one mediastinal with 50 mL of sanguinous output, no evidence of air leak, left and right pleural chest tubes with 70 mL of sanguinous output in the Pleur-evac, no evidence of air leak. Postoperative blood work showed white blood cell count of 16.5, hemoglobin of 9.2, sodium of 140, potassium is 4.3, chloride is 111, BUN is 10, creatinine 0.62. Urinary catheter is in place, patient is producing adequate amount of urine. Incisions are clean dry and intact. Patient is doing well in the postoperative period, she started to wake up and we anticipate expedited wean and extubation. On 08/31/2021 patient seen in follow-up in the intensive care unit. She is awake, in no acute distress, she was extubated 1705 on postoperative day #0 on 08/30/2021. She is doing well, she is sitting up in the recliner today, awake and alert, oriented 3, breathing comfortably, she is currently on 3 L of oxygen pulse ox is 99%. Hemodynamically she is stable, tolerating vasoactive drips, she is on lactated Ringer's at 50 ML per hour, insulin infusion at 3.5 units per hour. She is in sinus mechanism with a rate of 67, blood pressure is 120/43, PA pressures 20/15, with a CVP of 9, cardiac output is 3.8, and cardiac index is 2.0. Today's chest x-ray has been reviewed showing less than 5% left apical pneumothorax, and postsurgical changes with bilateral atelectasis and small pleural effusion. Today's labs have been reviewed, white blood cell count is 15.6, hemoglobin is 9.6, platelet count 257, sodium is 135, potassium is 4.3, chloride is 106, CO2 is 21, BUN is 13, creatinine 0.63. Menstrual surgical incision is clean dry and intact, mediastinal and right and left pleural chest tubes are in place, with moderate amount of thin serosanguineous output. Patient has put out 350 mL of the mediastinal chest tube at 550 mL of thin serosanguineous output from the right and left pleural chest tubes in the last 24 hours. Urinary catheter is in place and patient is making 20-25 ML per hour of urine output. Patient has received 250 mL of 5% albumin for low urine output this morning. Patient is working on incentive spirometer, achieving about 1000 ML on it today. Lung sounds are positive for bibasilar crackles. She states her postoperative pain is fairly well controlled. Does not appear to be in any acute distress. On 09/01/2021 patient seen in follow-up in the intensive care unit, today is postoperative day #2 status post off-pump CABG 3 with PEACE to the LAD, SVG to the OM and PDA, left atrial appendage exclusion. Patient is awake and alert, in no acute distress, she was extubated on postoperative day #0 within a few hours of or exit time, she is tolerating extubation quite well, she is breathing comfortably, she is on 2 L of oxygen pulse ox is 91-93%. Chest x-ray today showing trace left apical pneumothorax measuring 1 or 2 mm which is unchanged, mild cardiomegaly and similar interstitial density, with possible pulmonary vascular congestion. Patient does have exertional dyspnea but she was able to ambulate in the hallway, tolerated activity fairly well. Her incisional pain is fairly well controlled. No cough, no worsening dyspnea. Her mediastinal chest tube has been removed by CT surgery, left and right pleural chest tubes remain in place and there has been additional 4 50 mL of thin serosanguineous output in the last 24 hours. Patient is working on incentive spirometer, she is achieving about 750 on it today. Lung sounds are diminished at the bases with some crackles. She is in sinus mechanism with a controlled rate. She remains on lactated Ringer's at 20 ML per hour, and insulin drip at 5 units per hour, she is tolerating oral intake. Nausea vomiting or diarrhea, no abdominal pain. Today's labs have been reviewed, white blood cell count is 12.1, hemoglobin is 8.1, sodium is 134, the rest of the electrolytes and renal profile are unremarkable. Progress note dated 09/02/2021. This is a 65-year-old female postop day #3, status post off pump 3 vessel bypass . The patient's doing well. She's currently on 2 L. She tells me that she is going to be discharged home tomorrow. White count is 12.2, with hemoglobin 7.9, hematocrit 25.2, and a platelet count of 236,000. Sodium 138, potassium 3.7, chlorides 104, CO2 24, BUN 17, and creatinine 0.82. Chest x-ray is stable. Clinically, she looks well. She continues to do well on her incentive spirometer. Progress note dated 09/03/2021. 65-year-old female seen in room 367. She is postop day #4, status post off pump 3 vessel bypass grafting, done by Dr. Vela. Currently, she is on 2 L nasal cannula. The plan is for possible discharge today. We will need to determine whether or not she needs home oxygen. She does have an appointment to see me in the future. White count 9.3, hemoglobin 8.3, hematocrit 26.5, with normal platelet count. Basic metabolic profile is completely normal. Glucose 134. Calcium is 8.1. Chest x-ray continues to show postoperative changes, and some basilar atelectasis. Objective - Vital Signs Vital signs: Vital Signs Temp 97.9 F 09/02/21 20:00 Pulse 76 09/03/21 07:52 Resp 16 09/03/21 04:00 BP 145/67 09/03/21 04:00 Pulse Ox 91 L 09/03/21 04:00 Intake & Output 09/02/21 09/03/21 09/03/21 18:59 06:59 18:59 Intake Total 837 970 Balance 837 970 Weight 81.9 kg Intake: Oral 837 970 Other: Voiding Method Toilet # Voids 3 1 # Bowel Movements 1 ABP, PAP, CO, CI - Last Documented Arterial Blood Pressure 101/35 Pulmonary Artery Pressure 20/13 Cardiac Output 3.8 Cardiac Index 2 - Exam No acute distress, oriented 3. Currently on 2 L nasal cannula. HEENT examination is grossly unremarkable. Neck supple. Full range of motion. No adenopathy thyromegaly or neck vein distention. Cardiovascular examination reveals regular rhythm rate. S1-S2 normal. No S3 or S4. No discernible murmur noted. Heart rate 76 bpm. Lungs reveal mild scattered rhonchi. No wheezes. No crackles. Breath sounds equal bilaterally. Abdomen soft bowel sounds are heard. No masses or tenderness. Extremities are intact. No cyanosis clubbing or edema. Skin is without rash or lesion. Neurologic examination is brief but nonfocal. - Labs CBC & Chem 7: 09/03/21 08:06 09/03/21 08:06 Labs: Abnormal Lab Results - Last 24 Hours (Table) 09/02/21 09/02/21 09/02/21 Range/Units 11:52 16:56 20:34 RBC (3.80-5.40) m/uL Hgb (11.4-16.0) gm/dL Hct (34.0-46.0) % Glucose (74-99) mg/dL POC Glucose (mg/dL) 113 H 111 H 118 H (75-99) mg/dL Calcium (8.4-10.2) mg/dL 09/03/21 09/03/21 09/03/21 Range/Units 06:46 08:06 08:06 RBC 2.83 L (3.80-5.40) m/uL Hgb 8.3 L (11.4-16.0) gm/dL Hct 26.5 L (34.0-46.0) % Glucose 134 H (74-99) mg/dL POC Glucose (mg/dL) 122 H (75-99) mg/dL Calcium 8.1 L (8.4-10.2) mg/dL Assessment and Plan Assessment: Postop day #4, status post off pump 3 vessel coronary artery bypass grafting. Routine postoperative ventilator management, status post extubation on August 30. Lifelong nonsmoker. Acute blood loss anemia. Hypertension. Hyperlipidemia. Psoriatic arthritis. Plan: Plan dated 09/02/2021. Currently, the patient's doing well. The patient is likely to be discharged in the next day to 2 days. Labs are reviewed. Medications are reviewed. X-rays are reviewed. She is on 2 L nasal cannula. Prognosis is thought to be very good. We will continue to follow the patient and make recommendations where appropriate. Plan dated 09/03/2021. The patient may be discharged home today. Currently, she is on 2 L. We'll need to determine whether or not she needs home oxygen. She does have an appointment to see me in the office. Labs, x-rays, and medications are all reviewed. No a dditional recommendations are made. I asked the patient to take home her incentive spirometer, and continue to use it on a regular basis. Time with Patient: Less than 30
[2021-09-03 11:23] LABS: Glucose,Whole Blood 143 mg/dL (75-99)
[2021-09-03 11:33] VITALS: PULSE 76
--- NOTE | 2021-09-03 12:00 | P.DS ---
Providers Date of admission: 08/30/21 05:41 Expected date of discharge: 09/03/21 Attending physician: Wale Vela Consults: 08/30/21 13:19 Consult Physician Routine Consulting Provider: Romeo Hutson Consult Reason/Comments: Thermodynamics Engineer Consult: post cardiac surgery Do you want consulting provider notified?: Yes Consult Physician Routine Consulting Provider: Patsy Mendez Consult Reason/Comments: [facility]; [facility] patient Do you want consulting provider notified?: Yes Consult Physician Routine Consulting Provider: Kenneth Gil Consult Reason/Comments: Direct Mail Coordinator Consult: post cardiac surgery Do you want consulting provider notified?: Yes Primary care physician: Jareth Martinez Hospital Course: FINAL DIAGNOSIS: 1. Coronary artery disease 2. History of hypertension 3. Hyperlipidemia, treated, cholesterol 172, triglycerides 785 4. Psoriatic arthritis on DMARD as outpatient 5. Never smoker, preoperative FEV1 79% of predicted 6. Family history of premature coronary artery disease 7. Postoperative acute blood loss anemia PRINCIPAL PROCEDURE: 1. Off-pump coronary artery bypass graft 3 with left internal mammary artery to the left anterior descending artery, reverse saphenous vein grafts to the obtuse marginal and posterior descending coronary arteries 2. Endovascular vein harvest of the left greater saphenous vein from the mid calf to the groin 3. Occlusion of the left atrial appendage with 35 mm AtriCure clip 4. Intraoperative transesophageal echocardiogram performed by anesthesia HISTORY OF PRESENT ILLNESS: This is a 65-year-old female patient who follows on an outpatient basis with Dr. Martinez for primary care, as well as recently established cardiology care with Dr. Salcedo. She reported a 6-8 month history of shortness of breath with exertion, relieved with rest as well as some chest discomfort. She established care with Dr. Salcedo and was recommended to undergo stress testing which was abnormal. Due to her abnormal stress test she was recommended to undergo elective heart catheterization which demonstrated chronic total occlusion of the mid right coronary artery which filled with collaterals from the left side, subtotally occluded ostial LAD, and a tight lesion in the diagonal artery. She also had a transthoracic echocardiogram which demonstrated normal left ventricular systolic function with EF 55%, no regional wall motion abnormalities, mild mitral regurgitation, and mild tricuspid regurgitation. Due to the heart catheterization findings consultation was placed to Dr. Vela from cardiothoracic surgery for revascularization recommendations. She was recommended to undergo coronary artery bypass surgery. The usual perioperative course was discussed in detail with the patient and her family, all risks and benefits were explained, all questions were answered, and consent was obtained to proceed with surgery. The patient was discharged to home on maximal medical therapy to return as an outpatient for elective surgery. HOSPITAL COURSE: The patient was brought to the hospital on 08/30/2021, taken to the preoperative area, prepared in the usual fashion, and subsequently taken to the operating room where Dr. Vela performed off-pump three-vessel CABG. Upon completion of surgery the patient was transferred to the cardiovascular intensive care unit where she was recovered and monitored hemodynamically. She was extubated, all lines, tubes, and drips were discontinued when appropriate, and she was transferred to 3 S cardiac stepdown unit for further monitoring and rehabilitation. Her oxygen was titrated down, she continued to work with physical and occupational therapy, she was tolerating oral diet, her pain was controlled, and she was ready to be discharged to home with [facility] care on postoperative day #4. She received written and verbal instruction regarding her medications, activity restrictions, signs and symptoms requiring physician notification, and follow-up appointments. Patient Condition at Discharge: Stable Plan - Discharge Summary Discharge Rx Participant: Yes New Discharge Prescriptions: New Metoprolol Tartrate [Lopressor] 25 mg PO BID #60 tab Pantoprazole [Protonix] 40 mg PO AC-BRKFST #30 tab Sennosides-Docusate Sodium [Senokot-S] 2 each PO HS PRN tab PRN Reason: Constipation Acetaminophen Tab [Tylenol] 650 mg PO Q4HR PRN tab PRN Reason: Fever And/ Or Pain Furosemide [Lasix] 20 mg PO DAILY #5 tab Clopidogrel [Plavix] 75 mg PO DAILY #30 tab lisinopriL [Zestril] 2.5 mg PO DAILY@1200 #30 tab Continue Ergocalciferol [Vitamin D2 (1250 Mcg = 65838 Iu)] 1,250 mcg PO FR Vitamin E 400 unit PO DAILY Rosuvastatin [Crestor] 10 mg PO HS Aspirin 81 mg PO DAILY Discontinued Metoprolol Succinate (ER) [Toprol XL] 25 mg PO DAILY lisinopriL [Zestril] 40 mg PO DAILY Discharge Medication List Aspirin 81 mg PO DAILY 08/22/21 [History] Ergocalciferol [Vitamin D2 (1250 Mcg = 85992 Iu)] 1,250 mcg PO FR 08/22/21 [History] Rosuvastatin [Crestor] 10 mg PO HS 08/22/21 [History] Vitamin E 400 unit PO DAILY 08/22/21 [History] Acetaminophen Tab [Tylenol] 650 mg PO Q4HR PRN tab 09/03/21 [Rx] Clopidogrel [Plavix] 75 mg PO DAILY #30 tab 09/03/21 [Rx] Furosemide [Lasix] 20 mg PO DAILY #5 tab 09/03/21 [Rx] Metoprolol Tartrate [Lopressor] 25 mg PO BID #60 tab 09/03/21 [Rx] Pantoprazole [Protonix] 40 mg PO AC-BRKFST #30 tab 09/03/21 [Rx] Sennosides-Docusate Sodium [Senokot-S] 2 each PO HS PRN tab 09/03/21 [Rx] lisinopriL [Zestril] 2.5 mg PO DAILY@1200 #30 tab 09/03/21 [Rx] Follow up Appointment(s)/Referral(s): Alem Keene NPC [Nurse Practitioner] - 09/07/21 1:00 pm (You will be seen in the surgeon's office behind the hospital in [facility], [address] Office phone number is ) Rehab Tomas DIAZ,Cardiac [NON-STAFF] - 4 Weeks (You will receive a phone call in approximately 4-6 weeks for evaluation for cardiac rehab) [facility] [[facility] - [facility]. Call them if you need something prior to their contact.) Jalen Salcedo MD [STAFF PHYSICIAN] - 09/10/21 10:30 am Jareth Martinez MD [Primary Care Provider] - 09/16/21 10:00 am Wale Vela MD [STAFF PHYSICIAN] - 09/29/21 1:00 pm Romeo Hutson DO [Doctor of Osteopathic Medicine] - 09/28/21 8:45 am Ambulatory/Diagnostic Orders: Complete Blood Count w/diff [LAB.AMB] Time Frame: 3 Days, Location: None Selected Comprehensive Metabolic Panel [LAB.AMB] Time Frame: 3 Days, Location: None Selected Activity/Diet/Wound Care/Special Instructions: DISCHARGE INSTRUCTIONS: 1. No driving for 4 weeks, or until physician gives their ok. 2. The patient should sleep in their own bed, no medical bed needed. 3. Stairs are not an issue. If the bedroom is upstairs, it is advised that the patient go up at night and down in the morning for the first week. Go slowly, using handrail and take 1 step at a time. 4. GHULAM hose are to be worn for 30 days or until physician discontinues. 5. Heart hugger is to be worn 100% of the time until physician discontinues.(except when showering) 6. No lifting, pushing, or pulling more than 10 pounds for 12 weeks. The physician will advise of any restriction changes. 7. The patient is expected to continue the prescribed walking program. 8. Continue pain control per as needed orders. 9. Continue with incentive spirometry and splinting/heart hugger until otherwise directed by the physician. 10. Must shower daily using liquid antibacterial soap and a separate white washcloth for each individual incision. 11. Routine sternal incision care. No powders, lotions, ointments on incisions. No dressings are necessary on incisions unless they are draining. Dermabond tape is to remain on sternal incision until surgeon follow-up. 12. Please call surgeon/MOLD PULLER for temp greater than 101 F or purulent drainage from incisions. 13. You should weigh yourself daily, record and bring log with you to follow up appointments. 14. All prescriptions given by surgeon for 30 days. Refills need to be filled through basket maker/primary care physician. 15. A Red armband has been placed on the patient. It should be worn for 30 days post surgery and will be removed by the cardiac surgeons. If an ER visit is necessary, please make sure the number on the Red armband is called. 16. You have been referred to and are expected to begin Cardiac Rehab in approximately 4-6 weeks. HOME HEALTH SERVICES TO PROVIDE: RN SKILLED HOME CARE SERVICES FOR POST-OP SURGICAL PATIENTS WITH THE FOLLOWING: Coronary Artery Bypass Surgery (CABG), Mitral Valve Replacement/Repair ( MVR), Aortic Valve Replacement/Repair (AVR) RN TO CONTINUE EDUCATION FROM ``ROAD TO A HEALTH HEART PATIENT EDUCATION MANUAL (GIVEN TO PATIENT IN THE HOSPITAL) MEDICATION RECONCILIATION WITH EDUCATION NEEDED ON FIRST HOME VISIT EMPHASIZE IMPORTANCE OF WEARING BREAST SUPPORT/HEART HUGGER ENCOURAGE USE OF INCENTIVE SPIROMETER 10 X EVERY HOUR WHILE AWAKE ENCOURAGE UTILIZATION OF LOWER EXTREMITY COMPRESSION STOCKINGS/GHULAM HOSE and ELEVATE LEGS ABOVE LEVEL OF HEART WHILE AT REST. ENCOURAGE AMBULATION 3-5x/day INCREASING TOLERATES, WHILE AVOIDING EXTREMES IN TEMPERATURE FREQUENCY: RN TO OPEN THE PATIENT WITHIN 24 HOURS OF DISCHARGE FROM THE HOSPITAL WITH TELEHEALTH INSTALLED AT [facility], RN TO VISIT 2-3 X A WEEK FOR 4 WEEKS ESTABLISHED BY PATIENT NEEDS. LABORATORY: CBC, CMP TO BE DRAWN ON THE THIRD DAY HOME, (RAN STAT) FAX RESULTS TO [phone]. TELEHEALTH PARAMETERS: WEIGHT: NOTIFY MD OF WEIGHT GAIN OF 2 LBS IN 24 HOURS OR 5 LBS IN ONE WEEK HR: NOTIFY MD OF HR <55 BPM OR HR>100 BPM BP: NOTIFY MD IF BP <90/55 OR BP>140/100 O2 SAT: NOTIFY MD IF PO2<93% ON ROOM AIR SEND TELEHEALTH REPORT TO RUBBER TIRE AND TUBES SUPERVISOR AND CARDIOVASCULAR SURGEON THE FIRST WEEK OF CARE AND THEN BI-WEEKLY. PLEASE ADDITIONALLY COMMUNICATE ANY ABNORMALS AND NEW FINDINGS TO THE SURGEONS OFFICE. Discharge Disposition: HOME WITH HOME HEALTH SERVICES
== END 2021-09-03 12:40 | disposition home health service (06) | DRG 235 ==
LOC: 2ORMAIN 05:41 → 2SICU 13:16 → 3SCARD 09-01 16:17
PROVIDERS: ADMIT Thoracic Surgery (Cardiothoracic Vascular Surgery); ATTEND Thoracic Surgery (Cardiothoracic Vascular Surgery)
PROC: 02100Z9 Bypass Coronary Artery, One Artery from Left Internal Mammary, Open Approach (ICD-10-PCS; principal; 2021-08-30 08:00)
PROC: 06BQ4ZZ Excision of Left Saphenous Vein, Percutaneous Endoscopic Approach (ICD-10-PCS; principal; 2021-08-30 08:00)
PROC: 02L70CK Occlusion of Left Atrial Appendage with Extraluminal Device, Open Approach (ICD-10-PCS; principal; 2021-08-30 08:00)
PROC: 021109W Bypass Coronary Artery, Two Arteries from Aorta with Autologous Venous Tissue, Open Approach (ICD-10-PCS; principal; 2021-08-30 08:00)
PROC: B24BZZZ Ultrasonography of Heart with Aorta (ICD-10-PCS; 2021-08-30 08:00)
DX: I25.10 Atherosclerotic heart disease of native coronary artery without angina pectoris (principal); J96.01 Acute respiratory failure with hypoxia; D62 Acute posthemorrhagic anemia; J93.83 Other pneumothorax; J98.11 Atelectasis; E83.51 Hypocalcemia; L40.50 Arthropathic psoriasis, unspecified; I25.82 Chronic total occlusion of coronary artery; I08.1 Rheumatic disorders of both mitral and tricuspid valves; I10 Essential (primary) hypertension; E78.5 Hyperlipidemia, unspecified; D72.829 Elevated white blood cell count, unspecified; Z79.82 Long term (current) use of aspirin; Z79.899 Other long term (current) drug therapy; Z90.710 Acquired absence of both cervix and uterus; Z87.42 Personal history of other diseases of the female genital tract; Z87.39 Personal history of other diseases of the musculoskeletal system and connective tissue; Z98.890 Other specified postprocedural states; Z82.49 Family history of ischemic heart disease and other diseases of the circulatory system; Z82.3 Family history of stroke; I25.84 Coronary atherosclerosis due to calcified coronary lesion
CPT/HCPCS: 71045; 71046; 80048; 80053; 82330; 82805; 83735; 85025; 85027; 85520; 85610; 85730; 86850; 86891; 86900; 86901; 86920; 94002; 94640

== ENCOUNTER 2021-09-20 13:13 | Inpatient (IN) | payer MEDICARE ==
[2021-09-20] MEDS ORDERED: HEPARIN SODIUM 1,000 UN/ML (10ML VL) IV PRN (14:05)
[2021-09-20] MEDS ORDERED: HEPARIN SODIUM 1,000 UN/ML (10ML VL) IV ONE (14:05)
--- NOTE | 2021-09-20 14:37 | ED ---
General Adult HPI - General Chief complaint: Shortness of Breath Stated complaint: Bilat PE Time Seen by Provider: 09/20/21 14:04 Source: patient Mode of arrival: ambulatory Limitations: no limitations - History of Present Illness Initial comments: Dictation was produced using [employer] dictation software. please excuse any grammatical, word or spelling errors. Chief Complaint: 65-year-old female sent in from [facility] office for bilateral PEs History of Present Illness: 65-year-old female she saw Alem the mid-level provider for the cardiothoracic surgery for abnormal computed tomography scan. The computed tomography scan performed today showed bilateral PEs. Patient is 3 weeks postop from coronary artery bypass grafting. Patient states she has some bruising from her left leg and some pain. Over the last 3-4 days she's been having worsening shortness of breath. Patient denies any chest pain. She went to see Alem from the cardiothoracic office and was evaluated with a computed tomography scan was ordered. Patient denies any constitutional symptoms. Patient states that her shortness of breath is much more noticeable whenever she exerts herself. The ROS documented in this emergency department record has been reviewed and confirmed by me. Those systems with pertinent positive or negative responses have been documented in the HPI. All other systems are other negative and/or noncontributory. PHYSICAL EXAM: General Impression: Alert and oriented x3, not in acute distress HEENT: Normocephalic atraumatic, extra-ocular movements intact, pupils equal and reactive to light bilaterally, mucous membranes moist. Cardiovascular: Heart regular rate and rhythm Chest: Able to complete full sentences, no retractions, no tachypnea, surgical site clean dry and intact Abdomen: abdomen soft, non-tender, non-distended, no organomegaly Musculoskeletal: Pulses present and equal in all extremities, no peripheral ed kyle Motor: no focal deficits noted Neurological: CN II-XII grossly intact, no focal motor or sensory deficits noted Skin: Intact with no visualized rashes Psych: Normal affect and mood ED course: 65-year-old female status post coronary artery bypass grafting 3 weeks ago presents to the ER for abnormal CT angios the chest showing bilateral pulmonary emboli. The CT was reviewed and her electronic medical record showing acute bilateral pulmonary emboli without any evidence for RV strain. Vital signs upon arrival shows 80% on room air, rest of vital signs within acceptable limits. Patient's well-appearing at the bedside. Denies any signs of acute distress. Patient started on high-dose heparin. Laboratory evaluation obtained. Hemoglobin 8.0 slightly above lab from 6 days ago. Coag panel is unremarkable. Metabolic panel is within acceptable limits. Troponin is 1.20 with a hematocrit that is 6680. CT angioma from today was reviewed. Repeat vitals shows stable findings. Her blood pressure is normal and she is 98% on room air. Case discussed in detail with intensivits Dr. Hutson feels that patient is stable for the floor. EKG interpretation: Ventricular rate 80, sinus rhythm, DE interval 176, QS Lasix, QTc 448. No DE prolongation, no QTC prolongation, no ST or T-wave changes noted. EKG compared to 08/30/2021 showing no changes. Overall, this EKG is unremarkable - Related Data Home Medications Medication Instructions Recorded Confirmed Aspirin 81 mg PO DAILY 08/22/21 08/30/21 Ergocalciferol [Vitamin D2 (1250 1,250 mcg PO FR 08/22/21 08/30/21 Mcg = 50039 Iu)] Rosuvastatin [Crestor] 10 mg PO HS 08/22/21 08/30/21 Vitamin E 400 unit PO DAILY 08/22/21 08/30/21 Previous Rx's Medication Instructions Recorded Acetaminophen Tab [Tylenol] 650 mg PO Q4HR PRN tab 09/03/21 Clopidogrel [Plavix] 75 mg PO DAILY #30 tab 09/03/21 Furosemide [Lasix] 20 mg PO DAILY #5 tab 09/03/21 Metoprolol Tartrate [Lopressor] 25 mg PO BID #60 tab 09/03/21 Pantoprazole [Protonix] 40 mg PO AC-BRKFST #30 tab 09/03/21 Sennosides-Docusate Sodium 2 each PO HS PRN tab 09/03/21 [Senokot-S] lisinopriL [Zestril] 2.5 mg PO DAILY@1200 #30 tab 09/03/21 Furosemide [Lasix] 40 mg PO DAILY #7 tablet 09/18/21 Allergies Allergy/AdvReac Type Severity Reaction Status Date / Time No Known Allergies Allergy Verified 09/20/21 14:00 Review of Systems ROS Statement: Those systems with pertinent positive or pertinent negative responses have been documented in the HPI. ROS Other: All systems not noted in ROS Statement are negative. Past Medical History Past Medical History: Coronary Artery Disease (CAD), Chest Pain / Angina, Hyperlipidemia, Hypertension Additional Past Medical History / Comment(s): SOB w/exertion for about 6 months or longer, psoriatic arthritis. History of Any Multi-Drug Resistant Organisms: None Reported Past Surgical History: Hysterectomy, Orthopedic Surgery Additional Past Surgical History / Comment(s): Arthroscopic knee surgery(unknown laterality), D&C.Bypass Past Anesthesia/Blood Transfusion Reactions: Previous Problems w/ Anesthesia Additional Past Anesthesia/Blood Transfusion Reaction / Comment(s): Severe headache after D&C years ago, no problems since. Past Psychological History: No Psychological Hx Reported Smoking Status: Never smoker Past Alcohol Use History: Rare Past Drug Use History: None Reported - Past Family History Mother Family Medical History: Myocardial Infarction (PA) Additional Family Medical History / Comment(s): Myocardial infarction at 63 years old. Father Family Medical History: CVA/TIA Additional Family Medical History / Comment(s): CVA at 72 years old. Brother(s) Family Medical History: Myocardial Infarction (PA) Additional Family Medical History / Comment(s): Myocardial infarction at 40 years old, at 72 years old. General Exam Limitations: no limitations Course Vital Signs 09/20/21 09/20/21 09/20/21 13:58 15:10 15:38 Temperature 97.7 F Pulse Rate 81 77 79 Respiratory 20 16 18 Rate Blood Pressure 104/65 107/70 107/70 O2 Sat by Pulse 88 L 98 98 Oximetry Medical Decision Making - Lab Data Result diagrams: 09/20/21 14:42 09/20/21 14:42 Lab Results 09/20/21 09/20/21 09/20/21 Range/Units 14:42 14:42 14:42 WBC 12.9 H (3.8-10.6) k/uL RBC 3.05 L (3.80-5.40) m/uL Hgb 8.0 L D (11.4-16.0) gm/dL Hct 26.5 L (34.0-46.0) % MCV 87.0 (80.0-100.0) fL MCH 26.3 (25.0-35.0) pg MCHC 30.3 L (31.0-37.0) g/dL RDW 16.1 H (11.5-15.5) % Plt Count 122 L D (150-450) k/uL MPV 8.7 Neutrophils % 79 % Lymphocytes % 10 % Monocytes % 6 % Eosinophils % 2 % Basophils % 1 % Neutrophils # 10.3 H (1.3-7.7) k/uL Lymphocytes # 1.3 (1.0-4.8) k/uL Monocytes # 0.8 (0-1.0) k/uL Eosinophils # 0.2 (0-0.7) k/uL Basophils # 0.1 (0-0.2) k/uL Hypochromasia Marked Poikilocytosis Slight Anisocytosis Slight PT 11.5 (9.0-12.0) sec INR 1.1 (<1.2) APTT 22.9 (22.0-30.0) sec Sodium 136 L (137-145) mmol/L Potassium 4.0 (3.5-5.1) mmol/L Chloride 106 (98-107) mmol/L Carbon Dioxide 19 L (22-30) mmol/L Anion Gap 11 mmol/L BUN 20 H (7-17) mg/dL Creatinine 0.73 (0.52-1.04) mg/dL Est GFR (CKD-EPI)AfAm >90 (>60 ml/min/1.73 sqM) Est GFR (CKD-EPI)NonAf 87 (>60 ml/min/1.73 sqM) Glucose 100 H (74-99) mg/dL Plasma Lactic Acid Natalio (0.7-2.0) mmol/L Calcium 8.0 L (8.4-10.2) mg/dL Magnesium 2.2 (1.6-2.3) mg/dL Total Bilirubin 0.6 (0.2-1.3) mg/dL AST 48 H (14-36) U/L ALT 33 (4-34) U/L Alkaline Phosphatase 124 (38-126) U/L Troponin I (0.000-0.034) ng/mL NT-Pro-B Natriuret Pep pg/mL Total Protein 7.0 (6.3-8.2) g/dL Albumin 3.4 L (3.5-5.0) g/dL 09/20/21 09/20/21 09/20/21 Range/Units 14:42 14:42 14:42 WBC (3.8-10.6) k/uL RBC (3.80-5.40) m/uL Hgb (11.4-16.0) gm/dL Hct (34.0-46.0) % MCV (80.0-100.0) fL MCH (25.0-35.0) pg MCHC (31.0-37.0) g/dL RDW (11.5-15.5) % Plt Count (150-450) k/uL MPV Neutrophils % % Lymphocytes % % Monocytes % % Eosinophils % % Basophils % % Neutrophils # (1.3-7.7) k/uL Lymphocytes # (1.0-4.8) k/uL Monocytes # (0-1.0) k/uL Eosinophils # (0-0.7) k/uL Basophils # (0-0.2) k/uL Hypochromasia Poikilocytosis Anisocytosis PT (9.0-12.0) sec INR (<1.2) APTT (22.0-30.0) sec Sodium (137-145) mmol/L Potassium (3.5-5.1) mmol/L Chloride (98-107) mmol/L Carbon Dioxide (22-30) mmol/L Anion Gap mmol/L BUN (7-17) mg/dL Creatinine (0.52-1.04) mg/dL Est GFR (CKD-EPI)AfAm (>60 ml/min/1.73 sqM) Est GFR (CKD-EPI)NonAf (>60 ml/min/1.73 sqM) Glucose (74-99) mg/dL Plasma Lactic Acid Natalio 1.4 (0.7-2.0) mmol/L Calcium (8.4-10.2) mg/dL Magnesium (1.6-2.3) mg/dL Total Bilirubin (0.2-1.3) mg/dL AST (14-36) U/L ALT (4-34) U/L Alkaline Phosphatase (38-126) U/L Troponin I 1.210 H* (0.000-0.034) ng/mL NT-Pro-B Natriuret Pep 6680 pg/mL Total Protein (6.3-8.2) g/dL Albumin (3.5-5.0) g/dL Critical Care Time Critical Care Time: Yes Total Critical Care Time: 33 Disposition Clinical Impression: Pulmonary emboli Disposition: ADMITTED IP TO THIS HOSP Condition: Critical Referrals: Seven Macias DO [Primary Care Provider] - 1-2 days Decision Time: 15:57
[2021-09-20 14:56] LABS: Anisocytosis Slight; Basophils # (A) 0.1 k/uL (0-0.2); Basophils % (A) 1 %; Eosinophils # (A) 0.2 k/uL (0-0.7); Eosinophils % (A) 2 %; HCT 26.5 % (34.0-46.0); Hypochromasia Marked; Lymphocytes # (A) 1.3 k/uL (1.0-4.8); Lymphocytes % (A) 10 %; MCH 26.3 pg (25.0-35.0); MCHC 30.3 g/dL (31.0-37.0); Mean Platelet Volume 8.7; Monocytes # (A) 0.8 k/uL (0-1.0); Monocytes % (A) 6 %; Neutrophils # (A) 10.3 k/uL (1.3-7.7); Neutrophils % (A) 79 %; Poikilocytosis Slight; RBC 3.05 m/uL (3.80-5.40); RDW 16.1 % (11.5-15.5); WBC 12.9 k/uL (3.8-10.6)
[2021-09-20 15:08] LABS: ALT 33 U/L (4-34); AST 48 U/L (14-36); African American GFR (CKD) >90 (>60 ml/min/1.73 sqM); Albumin 3.4 g/dL (3.5-5.0); Alkaline Phosphatase 124 U/L (38-126); Anion Gap 11 mmol/L; Blood Urea Nitrogen 20 mg/dL (7-17); Carbon Dioxide 19 mmol/L (22-30); Chloride 106 mmol/L (98-107); Glucose 100 mg/dL (74-99); Magnesium 2.2 mg/dL (1.6-2.3); Non-African American GFR(CKD) 87 (>60 ml/min/1.73 sqM); Sodium 136 mmol/L (137-145); Total Bilirubin 0.6 mg/dL (0.2-1.3)
[2021-09-20 15:09] LABS: INR 1.1 (<1.2); Partial Thromboplastin Time 22.9 sec (22.0-30.0); Platelet Count 122 k/uL (150-450); Prothrombin Time 11.5 sec (9.0-12.0)
[2021-09-20] MEDS: HEPARIN SOD,PORK IN 0.45% NACL 25,000 UNIT in 0.45% NACL 1 250ML.BAG IV SCH (15:34)
[2021-09-20] MEDS ORDERED: ACETAMINOPHEN TAB 325 MG TAB PO PRN (15:54)
[2021-09-20] MEDS ORDERED: NALOXONE 0.4 MG/ML 1 ML VIAL IV PRN (15:54)
--- NOTE | 2021-09-20 18:24 | P.HPIM ---
History of Present Illness H&P Date: 09/20/21 Chief Complaint: shortness of breath Patient is a 65-year-old female with coronary artery disease who underwent off- pump three-vessel coronary artery bypass grafting on 08/30/21, hypertension, dyslipidemia, psoriatic arthritis who was sent for a urgent CT PE protocol by the cardiothoracic nurse practitioner after being evaluated in office today. This outpatient CT demonstrated bilateral pulmonary embolism without signs of right heart strain. She therefore was directed to the ER. On arrival to the ER her vital signs were within normal limits. Laboratory analysis was consistent with her known acute blood loss anemia, thrombocytopenia, and troponin of 1.21. BNP was elevated at 6680. Patient seen and examined at bedside ER. She reports that she had been recovering well from her surgery. Then over the weekend she noticed some swelling in her left lower extremity. At that time she called CT surgery who placed her on Lasix and asked her to reapply her GHULAM hose. The lower sternum the edema resolved. However for the last 2 days she has had shortness of breath worse with exertion and better with rest. She denies any associated chest pain, nausea, lightheadedness, dizziness, or diaphoresis. She does note some double vision or blurry vision. She has been having diarrhea since surgery which is unchanged. She denies any history of blood clot in the past. Pertinent positives and negatives as discussed in HPI, a complete review of systems was performed and all other systems are negative. General: non toxic, no distress, appears at stated age Derm: warm, dry Head: atraumatic, normocephalic, symmetric Eyes: EOMI, no lid lag, anicteric sclera, pupils equal round reactive to light ENT: Nose and ears atraumatic, no thrush, no pharyngeal erythema Neck: No thyromegaly, no cervical lymphadenopathy, trachea midline, supple Mouth: no lip lesion, mucus membranes moist Cardiovascular: S1S2 reg, with grade 2 systolic murmur, positive posterior tibial pulse bilateral, 1+ edema left lower extremity, capillary refill less than 2 seconds Lungs: Decreased breath sounds bilateral bilateral, no ronchi, no rales, no wheeze, no accessory muscle use Abdominal: soft, nontender to palpation, no guarding, no appreciable organomegaly, normal bowel sounds Ext: no gross muscle atrophy, muscle strength muscle strength 5 out of 5 in all 4 extremities, no contractures Neuro: CN II-XI grossly intact, light touch intact all 4 extremities, finger to nose within normal limits, Psych: Alert, oriented, appropriate affect Assessment/plan: Bilateral pulmonary embolism, provoked Elevated troponin Acute hypoxic respiratory failure -Heparin drip -Vascular surgery consultation -Check echo -Telemetry Acute blood loss anemia and thrombocytopenia -No indication for transfusion -Iron supplementation -Follow CBC Coronary artery disease with recent three-vessel bypass Hypertension Dyslipidemia -Consult CT surgery -Statin, Lasix, Plavix - hold Lopressor, lisinopril as BP low normal 105/63 The patient is admitted with an anticipated greater than 2 midnight stay for evaluation of Pulmonary embolsim. Surrogate decision-maker: CODE STATUS:full DVT prophylaxis: on heparin gtt Discussed with: patient, ed provider, nursing Anticipated discharge date: in 3-[address]: home A total of 65 minutes was spent on the care of this complex patient more than 50% of the time was spent in counseling and care coordination. Past Medical History Past Medical History: Coronary Artery Disease (CAD), Chest Pain / Angina, Hyperlipidemia, Hypertension Additional Past Medical History / Comment(s): SOB w/exertion for about 6 months or longer, psoriatic arthritis. History of Any Multi-Drug Resistant Organisms: None Reported Past Surgical History: Hysterectomy, Orthopedic Surgery Additional Past Surgical History / Comment(s): Arthroscopic knee surgery(unknown laterality), D&C.Bypass, CABG X 3 Past Anesthesia/Blood Transfusion Reactions: Previous Problems w/ Anesthesia Additional Past Anesthesia/Blood Transfusion Reaction / Comment(s): Severe headache after D&C years ago, no problems since. Past Psychological History: No Psychological Hx Reported Smoking Status: Never smoker Past Alcohol Use History: Rare Past Drug Use History: None Reported - Past Family History Mother Family Medical History: Myocardial Infarction ([place]) Additional Family Medical History / Comment(s): Myocardial infarction at 63 years old. Father Family Medical History: CVA/TIA Additional Family Medical History / Comment(s): CVA at 72 years old. Brother(s) Family Medical History: Myocardial Infarction ([place]) Additional Family Medical History / Comment(s): Myocardial infarction at 40 years old, at 72 years old. Medications and Allergies Home Medications Medication Instructions Recorded Confirmed Type Aspirin 81 mg PO DAILY 08/22/21 09/20/21 History Ergocalciferol [Vitamin D2 (1250 1,250 mcg PO FR 05/02/22 05/31/22 History Mcg = 17434 Iu)] Rosuvastatin [Crestor] 10 mg PO HS 08/22/21 09/20/21 History Vitamin E 400 unit PO DAILY 08/22/21 09/20/21 History Acetaminophen Tab [Tylenol] 650 mg PO Q4HR PRN tab 09/03/21 09/20/21 Rx Clopidogrel [Plavix] 75 mg PO DAILY #30 tab 09/03/21 09/20/21 Rx Metoprolol Tartrate [Lopressor] 25 mg PO BID #60 tab 09/03/21 09/20/21 Rx Pantoprazole [Protonix] 40 mg PO AC-BRKFST #30 tab 09/03/21 09/20/21 Rx Furosemide [Lasix] 40 mg PO DAILY #7 tablet 09/18/21 09/20/21 Rx Nitroglycerin Sl Tabs [Nitrostat] 0.4 mg SUBLINGUAL Q5M PRN 09/20/21 09/20/21 History lisinopriL [Zestril] 2.5 mg PO DAILY 09/20/21 09/20/21 History Allergies Allergy/AdvReac Type Severity Reaction Status Date / Time No Known Allergies Allergy Verified 09/20/21 14:00 Physical Exam Osteopathic Statement: *. No significant issues noted on an osteopathic structural exam other than those noted in the History and Physical/Consult. Vitals: Vital Signs Temp Pulse Resp BP Pulse Ox 09/20/21 16:21 80 16 105/70 99 09/20/21 15:38 79 18 107/70 98 09/20/21 15:10 77 16 107/70 98 09/20/21 13:58 97.7 F 81 20 104/65 88 L Intake and Output 09/20/21 09/20/21 09/20/21 06:59 14:59 22:59 Other: Weight 79.832 kg Results CBC & Chem 7: 09/20/21 14:42 09/20/21 14:42 Labs: Abnormal Lab Results - Last 24 Hours (Table) 09/20/21 09/20/21 09/20/21 Range/Units 14:42 14:42 14:42 WBC 12.9 H (3.8-10.6) k/uL RBC 3.05 L (3.80-5.40) m/uL Hgb 8.0 L D (11.4-16.0) gm/dL Hct 26.5 L (34.0-46.0) % MCHC 30.3 L (31.0-37.0) g/dL RDW 16.1 H (11.5-15.5) % Plt Count 122 L D (150-450) k/uL Neutrophils # 10.3 H (1.3-7.7) k/uL Sodium 136 L (137-145) mmol/L Carbon Dioxide 19 L (22-30) mmol/L BUN 20 H (7-17) mg/dL Glucose 100 H (74-99) mg/dL Calcium 8.0 L (8.4-10.2) mg/dL AST 48 H (14-36) U/L Troponin I 1.210 H* (0.000-0.034) ng/mL Albumin 3.4 L (3.5-5.0) g/dL
[2021-09-20] MEDS: SODIUM CHLORIDE 0.9% 1,000 ML IV SCH (19:16)
[2021-09-20] MEDS: ATORVASTATIN 20 MG TAB PO SCH (21:19)
[2021-09-21 04:22] LABS: Anisocytosis Slight; HCT 24.1 % (34.0-46.0); HGB 7.4 gm/dL (11.4-16.0); Hypochromasia Marked; MCHC 30.6 g/dL (31.0-37.0); MCV 88.3 fL (80.0-100.0); Mean Platelet Volume 9.1; Poikilocytosis Slight; RBC 2.72 m/uL (3.80-5.40); RDW 16.1 % (11.5-15.5); WBC 11.3 k/uL (3.8-10.6)
[2021-09-21 04:37] LABS: African American GFR (CKD) >90 (>60 ml/min/1.73 sqM); Anion Gap 8 mmol/L; Blood Urea Nitrogen 16 mg/dL (7-17); Calcium 7.7 mg/dL (8.4-10.2); Carbon Dioxide 19 mmol/L (22-30); Chloride 107 mmol/L (98-107); Glucose 114 mg/dL (74-99); Magnesium 2.2 mg/dL (1.6-2.3); Non-African American GFR(CKD) >90 (>60 ml/min/1.73 sqM); Sodium 134 mmol/L (137-145)
[2021-09-21 04:42] LABS: INR 1.1 (<1.2); Partial Thromboplastin Time 45.7 sec (22.0-30.0); Prothrombin Time 12.1 sec (9.0-12.0)
[2021-09-21 05:23] LABS: Platelet Count 52 k/uL (150-450)
[2021-09-21] MEDS: PANTOPRAZOLE 40 MG TABLET PO SCH (06:01)
[2021-09-21] MEDS: ASPIRIN 81 MG PO SCH (08:08)
[2021-09-21] MEDS: HEPARIN SOD,PORK IN 0.45% NACL 25,000 UNIT in 0.45% NACL 1 250ML.BAG IV SCH (08:40)
--- NOTE | 2021-09-21 08:40 | P.CONS ---
History of Present Illness - Reason for Consult Consult date: 09/21/21 PE, Rapid THrombocytopenia Heparin Requesting physician: Patsy Mendez - Chief Complaint LE Swelling and SOB Post operat - History of Present Illness mary kay is a pleasant female who recently underwent CABG on 08/30/21. She noted unilateral LEswelling with increased SOB over weekend and presented at direction of her physician for evaluation of thrombus. CTA revealed bilateral PE. Heparin drip initiated and within 48 hours platelet count has dropped to 56K. Heparin discontinued and argantroban started for the suspicion of Heparin induced antibodies. She has a known history of psioriac arthritis. BLE dopplet pending. She is up in bathroom, no new complaints. Review of Systems All systems: negative Constitutional: Reports as per HPI Past Medical History Past Medical History: Coronary Artery Disease (CAD), Chest Pain / Angina, Hyperlipidemia, Hypertension Additional Past Medical History / Comment(s): SOB w/exertion for about 6 months or longer, psoriatic arthritis. History of Any Multi-Drug Resistant Organisms: None Reported Past Surgical History: Hysterectomy, Orthopedic Surgery Additional Past Surgical History / Comment(s): Arthroscopic knee surgery(unknown laterality), D&C.Bypass, CABG X 3 Past Anesthesia/Blood Transfusion Reactions: Previous Problems w/ Anesthesia Additional Past Anesthesia/Blood Transfusion Reaction / Comm: Severe headache after D&C years ago, no problems since. Past Psychological History: No Psychological Hx Reported Smoking Status: Never smoker Past Alcohol Use History: Rare Past Drug Use History: None Reported - Past Family History Mother Family Medical History: Myocardial Infarction ([place]) Additional Family Medical History / Comment(s): Myocardial infarction at 63 years old. Father Family Medical History: CVA/TIA Additional Family Medical History / Comment(s): CVA at 72 years old. Brother(s) Family Medical History: Myocardial Infarction ([place]) Additional Family Medical History / Comment(s): Myocardial infarction at 40 years old, at 72 years old. Medications and Allergies Home Medications Medication Instructions Recorded Confirmed Type Aspirin 81 mg PO DAILY 08/22/21 09/20/21 History Ergocalciferol [Vitamin D2 (1250 1,250 mcg PO FR 08/22/21 09/20/21 History Mcg = 54614 Iu)] Rosuvastatin [Crestor] 10 mg PO HS 08/22/21 09/20/21 History Vitamin E 400 unit PO DAILY 08/22/21 09/20/21 History Acetaminophen Tab [Tylenol] 650 mg PO Q4HR PRN tab 09/03/21 09/20/21 Rx Clopidogrel [Plavix] 75 mg PO DAILY #30 tab 09/03/21 09/20/21 Rx Metoprolol Tartrate [Lopressor] 25 mg PO BID #60 tab 09/03/21 09/20/21 Rx Pantoprazole [Protonix] 40 mg PO AC-BRKFST #30 tab 09/03/21 09/20/21 Rx Furosemide [Lasix] 40 mg PO DAILY #7 tablet 09/18/21 09/20/21 Rx Nitroglycerin Sl Tabs [Nitrostat] 0.4 mg SUBLINGUAL Q5M PRN 09/20/21 09/20/21 History lisinopriL [Zestril] 2.5 mg PO DAILY 09/20/21 09/20/21 History Allergies Allergy/AdvReac Type Severity Reaction Status Date / Time No Known Allergies Allergy Verified 09/20/21 14:00 Physical Exam Vitals: Vital Signs Temp Pulse Pulse Resp BP BP Pulse Ox 09/21/21 06:02 98.3 F 09/21/21 04:40 100.4 F H 92 19 121/74 92 L 09/20/21 23:10 99.6 F 94 18 113/70 94 L 09/20/21 21:10 96 20 117/66 94 L 09/20/21 21:03 99.0 F 93 20 126/76 93 L 09/20/21 19:18 84 16 110/66 98 09/20/21 16:21 80 16 105/70 99 09/20/21 15:38 79 18 107/70 98 09/20/21 15:10 77 16 107/70 98 09/20/21 13:58 97.7 F 81 20 104/65 88 L Intake and Output 09/20/21 09/21/21 09/21/21 22:59 06:59 14:59 Intake Total 88.854 111.762 118 Balance 88.854 111.762 118 Intake: Intake, IV Titration 88.854 111.762 Amount Heparin Sod,Pork in 0.45% 88.854 111.762 NaCl 25,000 unit In 0.45 % NaCl 1 250ml.bag @ 18 UNITS/KG/HR 14.37 mls/hr IV .[id number] NEHAL Rx#: [id number] Oral 118 Other: # Voids 1 Weight 79.832 kg - Constitutional General appearance: cooperative, no acute distress - EENT Eyes: EOMI ENT: NA/AT - Neck Neck: normal ROM - Respiratory Respiratory: bilateral: CTA - Cardiovascular Rhythm: regularly irregular - Gastrointestinal General gastrointestinal: soft - Integumentary Integumentary: pale - Neurologic Neurologic: CNII-XII intact - Musculoskeletal Musculoskeletal: strength equal bilaterally - Psychiatric Psychiatric: A&O x's 3 Results CBC & Chem 7: 09/21/21 03:41 09/21/21 03:41 Labs: Abnormal Lab Results - Last 24 Hours (Table) 09/20/21 09/20/21 09/20/21 Range/Units 14:42 14:42 14:42 WBC 12.9 H (3.8-10.6) k/uL RBC 3.05 L (3.80-5.40) m/uL Hgb 8.0 L D (11.4-16.0) gm/dL Hct 26.5 L (34.0-46.0) % MCHC 30.3 L (31.0-37.0) g/dL RDW 16.1 H (11.5-15.5) % Plt Count 122 L D (150-450) k/uL Neutrophils # 10.3 H (1.3-7.7) k/uL PT (9.0-12.0) sec APTT (22.0-30.0) sec Sodium 136 L (137-145) mmol/L Carbon Dioxide 19 L (22-30) mmol/L BUN 20 H (7-17) mg/dL Glucose 100 H (74-99) mg/dL Calcium 8.0 L (8.4-10.2) mg/dL AST 48 H (14-36) U/L Troponin I 1.210 H* (0.000-0.034) ng/mL Albumin 3.4 L (3.5-5.0) g/dL 09/20/21 09/21/21 09/21/21 Range/Units 21:05 03:41 03:41 WBC 11.3 H (3.8-10.6) k/uL RBC 2.72 L (3.80-5.40) m/uL Hgb 7.4 L (11.4-16.0) gm/dL Hct 24.1 L (34.0-46.0) % MCHC 30.6 L (31.0-37.0) g/dL RDW 16.1 H (11.5-15.5) % Plt Count 52 L D (150-450) k/uL Neutrophils # (1.3-7.7) k/uL PT 12.1 H (9.0-12.0) sec APTT 39.7 H 45.7 H (22.0-30.0) sec Sodium (137-145) mmol/L Carbon Dioxide (22-30) mmol/L BUN (7-17) mg/dL Glucose (74-99) mg/dL Calcium (8.4-10.2) mg/dL AST (14-36) U/L Troponin I (0.000-0.034) ng/mL Albumin (3.5-5.0) g/dL 09/21/21 Range/Units 03:41 WBC (3.8-10.6) k/uL RBC (3.80-5.40) m/uL Hgb (11.4-16.0) gm/dL Hct (34.0-46.0) % MCHC (31.0-37.0) g/dL RDW (11.5-15.5) % Plt Count (150-450) k/uL Neutrophils # (1.3-7.7) k/uL PT (9.0-12.0) sec APTT (22.0-30.0) sec Sodium 134 L (137-145) mmol/L Carbon Dioxide 19 L (22-30) mmol/L BUN (7-17) mg/dL Glucose 114 H (74-99) mg/dL Calcium 7.7 L (8.4-10.2) mg/dL AST (14-36) U/L Troponin I (0.000-0.034) ng/mL Albumin (3.5-5.0) g/dL Assessment and Plan (1) Status post coronary artery bypass graft Narrative/Plan: 08/30/2021 Current Visit: Yes Status: Acute Code(s): Z95.1 - PRESENCE OF AORTOCORONARY BYPASS GRAFT SNOMED Code(s): 764389514 (2) Psoriatic arthritis Narrative/Plan: Current Visit: Yes Status: Acute Code(s): L40.50 - ARTHROPATHIC PSORIASIS, UNSPECIFIED SNOMED Code(s): 784741702 (3) Pulmonary emboli Narrative/Plan: Concern for HIT Possibility of Antiphospholipid syndrome with know inflammation and autoimmune history Continue argantroban Current Visit: Yes Status: Acute Code(s): I26.99 - OTHER PULMONARY EMBOLISM WITHOUT ACUTE COR PULMONALE SNOMED Code(s): 97186942 (4) Normocytic anemia Narrative/Plan: Further anemia work-up given full pic Current Visit: Yes Status: Acute Code(s): D64.9 - ANEMIA, UNSPECIFIED SNOMED Code(s): 422921917 (5) Thrombocytopenia Current Visit: Yes Status: Acute Code(s): D69.6 - THROMBOCYTOPENIA, UNSPECIFIED SNOMED Code(s): 591406571 Plan: Dr. Zuniga: I have completed the full history and physical and developed the above impression and plan, agree with dictation, dictated as a scribe.
[2021-09-21] MEDS: ARGATROBAN 50 MG in SODIUM CHLORIDE 0.9% 50 ML IV SCH ×4 (09:01→23:19)
[2021-09-21] MEDS: CLOPIDOGREL 75 MG TAB PO SCH (09:10)
[2021-09-21] MEDS: METOPROLOL TARTRATE 25 MG TAB PO SCH ×2 (09:10→20:18)
[2021-09-21] MEDS: FUROSEMIDE 40 MG TAB PO SCH (09:10)
[2021-09-21] MEDS: VITAMIN E (DL,TOCOPHERYL ACET) 400 UNIT (180 MG) CAP PO SCH (09:11)
--- NOTE | 2021-09-21 09:31 | P.GSCN ---
History of Present Illness Consult date: 09/21/21 Reason for Consult: Bilateral pulmonary embolism Requesting physician: Bernard Mart History of present illness: This very pleasant 65-year-old female who was directed by cardiothoracic surgery to come to the emergency department for treatment of bilateral pulmonary embolism. The patient underwent a three-vessel coronary artery bypass graft on 08/30/2021. She has a past medical history of coronary artery disease, hypertension, dyslipidemia, and psoriatic arthritis. Patient states for the last 2-3 days duration she was feeling shortness of breath especially with exertion. She denied any fevers, chills, or body aches. She was seen for her follow-up with [facility] with cardiothoracic surgery for complaints of shortness of breath, she underwent a CT angiogram of the chest that showed bilateral pulmonary emboli present. Denied any bilateral lower extremities pain or swelling other than where the bypass was. She denies any family history of clotting disorders or known history of clotting disorders for herself. She is a lifetime nonsmoker. Patient had elevated troponin on admission. She was started on a heparin drip and within 24 hours Her platelet count dropped from 122,000 52,000. Heparin has been discontinued Argatroban was started. Vascular surgery was consulted for bilateral pulmonary embolism, evaluate for EKOS. Currently patient states she is feeling somewhat better, shortness of breath seems somewhat improved. She denies any chest pain, abdominal pain, nausea or vomiting. She did have a low-grade temp this morning of 100.4. Oxygen is 95% on [address] angiogram chest: Bilateral acute pulmonary emboli are present. No CT evidence for RV strain. Small to tiny right greater than left pleural effusions with associated compressive atelectasis. Developing infiltrates cannot be excluded. Correlate clinically. Review of Systems A 14 point review systems was completed all pertinent positives and negatives as stated in the HPI. Past Medical History Past Medical History: Coronary Artery Disease (CAD), Chest Pain / Angina, Hyperlipidemia, Hypertension Additional Past Medical History / Comment(s): SOB w/exertion for about 6 months or longer, psoriatic arthritis. History of Any Multi-Drug Resistant Organisms: None Reported Past Surgical History: Hysterectomy, Orthopedic Surgery Additional Past Surgical History / Comment(s): Arthroscopic knee surgery(unknown laterality), D&C.Bypass, CABG X 3 Past Anesthesia/Blood Transfusion Reactions: Previous Problems w/ Anesthesia Additional Past Anesthesia/Blood Transfusion Reaction / Comm: Severe headache after D&C years ago, no problems since. Past Psychological History: No Psychological Hx Reported Smoking Status: Never smoker Past Alcohol Use History: Rare Past Drug Use History: None Reported - Past Family History Mother Family Medical History: Myocardial Infarction ([place]) Additional Family Medical History / Comment(s): Myocardial infarction at 63 years old. Father Family Medical History: CVA/TIA Additional Family Medical History / Comment(s): CVA at 72 years old. Brother(s) Family Medical History: Myocardial Infarction ([place]) Additional Family Medical History / Comment(s): Myocardial infarction at 40 years old, at 72 years old. Medications and Allergies Home Medications Medication Instructions Recorded Confirmed Type Aspirin 81 mg PO DAILY 08/22/21 09/20/21 History Ergocalciferol [Vitamin D2 (1250 1,250 mcg PO FR 08/22/21 09/20/21 History Mcg = 01843 Iu)] Rosuvastatin [Crestor] 10 mg PO HS 08/22/21 09/20/21 History Vitamin E 400 unit PO DAILY 08/22/21 09/20/21 History Acetaminophen Tab [Tylenol] 650 mg PO Q4HR PRN tab 09/03/21 09/20/21 Rx Clopidogrel [Plavix] 75 mg PO DAILY #30 tab 09/03/21 09/20/21 Rx Metoprolol Tartrate [Lopressor] 25 mg PO BID #60 tab 09/03/21 09/20/21 Rx Pantoprazole [Protonix] 40 mg PO AC-BRKFST #30 tab 09/03/21 09/20/21 Rx Furosemide [Lasix] 40 mg PO DAILY #7 tablet 09/18/21 09/20/21 Rx Nitroglycerin Sl Tabs [Nitrostat] 0.4 mg SUBLINGUAL Q5M PRN 09/20/21 09/20/21 History lisinopriL [Zestril] 2.5 mg PO DAILY 09/20/21 09/20/21 History Allergies Allergy/AdvReac Type Severity Reaction Status Date / Time No Known Allergies Allergy Verified 09/20/21 14:00 Surgical - Exam Vital Signs Temp Pulse Resp BP Pulse Ox 97.7 F 81 20 104/65 88 L 09/20/21 13:58 09/20/21 13:58 09/20/21 13:58 09/20/21 13:58 09/20/21 13:58 General appearance: The patient is alert, oriented, appears in no acute distress. HET: Head is normocephalic and atraumatic. Pupils are equal and reactive. Neck: Supple without lymphadenopathy. Trachea midline. Heart: S1 S2. Regular rate and rhythm. Grade 2 systolic murmur. Lungs: Diminished breath sounds bilaterally. Abdomen: Soft, nontender, nondistended. Extremities: Normal skin color and turgor. Bilateral lower extremities with compression stockings, palpable pedal pulses bilaterally. Neurological: No focal deficits. Alert and oriented 3. Results - Labs 09/21/21 03:41 09/21/21 03:41 Abnormal Lab Results - Last 24 Hours (Table) 09/20/21 09/20/21 09/20/21 Range/Units 14:42 14:42 14:42 WBC 12.9 H (3.8-10.6) k/uL RBC 3.05 L (3.80-5.40) m/uL Hgb 8.0 L D (11.4-16.0) gm/dL Hct 26.5 L (34.0-46.0) % MCHC 30.3 L (31.0-37.0) g/dL RDW 16.1 H (11.5-15.5) % Plt Count 122 L D (150-450) k/uL Neutrophils # 10.3 H (1.3-7.7) k/uL PT (9.0-12.0) sec APTT (22.0-30.0) sec Sodium 136 L (137-145) mmol/L Carbon Dioxide 19 L (22-30) mmol/L BUN 20 H (7-17) mg/dL Glucose 100 H (74-99) mg/dL Calcium 8.0 L (8.4-10.2) mg/dL AST 48 H (14-36) U/L Troponin I 1.210 H* (0.000-0.034) ng/mL Albumin 3.4 L (3.5-5.0) g/dL 09/20/21 09/21/21 09/21/21 Range/Units 21:05 03:41 03:41 WBC 11.3 H (3.8-10.6) k/uL RBC 2.72 L (3.80-5.40) m/uL Hgb 7.4 L (11.4-16.0) gm/dL Hct 24.1 L (34.0-46.0) % MCHC 30.6 L (31.0-37.0) g/dL RDW 16.1 H (11.5-15.5) % Plt Count 52 L D (150-450) k/uL Neutrophils # (1.3-7.7) k/uL PT 12.1 H (9.0-12.0) sec APTT 39.7 H 45.7 H (22.0-30.0) sec Sodium (137-145) mmol/L Carbon Dioxide (22-30) mmol/L BUN (7-17) mg/dL Glucose (74-99) mg/dL Calcium (8.4-10.2) mg/dL AST (14-36) U/L Troponin I (0.000-0.034) ng/mL Albumin (3.5-5.0) g/dL 09/21/21 Range/Units 03:41 WBC (3.8-10.6) k/uL RBC (3.80-5.40) m/uL Hgb (11.4-16.0) gm/dL Hct (34.0-46.0) % MCHC (31.0-37.0) g/dL RDW (11.5-15.5) % Plt Count (150-450) k/uL Neutrophils # (1.3-7.7) k/uL PT (9.0-12.0) sec APTT (22.0-30.0) sec Sodium 134 L (137-145) mmol/L Carbon Dioxide 19 L (22-30) mmol/L BUN (7-17) mg/dL Glucose 114 H (74-99) mg/dL Calcium 7.7 L (8.4-10.2) mg/dL AST (14-36) U/L Troponin I (0.000-0.034) ng/mL Albumin (3.5-5.0) g/dL Diabetes panel 09/20/21 09/21/21 Range/Units 14:42 03:41 Sodium 136 L 134 L (137-145) mmol/L Potassium 4.0 4.0 (3.5-5.1) mmol/L Chloride 106 107 (98-107) mmol/L Carbon Dioxide 19 L 19 L (22-30) mmol/L BUN 20 H 16 (7-17) mg/dL Creatinine 0.73 0.66 (0.52-1.04) mg/dL Glucose 100 H 114 H (74-99) mg/dL Calcium 8.0 L 7.7 L (8.4-10.2) mg/dL AST 48 H (14-36) U/L ALT 33 (4-34) U/L Alkaline Phosphatase 124 (38-126) U/L Total Protein 7.0 (6.3-8.2) g/dL Albumin 3.4 L (3.5-5.0) g/dL Calcium panel 09/20/21 09/21/21 Range/Units 14:42 03:41 Calcium 8.0 L 7.7 L (8.4-10.2) mg/dL Albumin 3.4 L (3.5-5.0) g/dL Pituitary panel 09/20/21 09/21/21 Range/Units 14:42 03:41 Sodium 136 L 134 L (137-145) mmol/L Potassium 4.0 4.0 (3.5-5.1) mmol/L Chloride 106 107 (98-107) mmol/L Carbon Dioxide 19 L 19 L (22-30) mmol/L BUN 20 H 16 (7-17) mg/dL Creatinine 0.73 0.66 (0.52-1.04) mg/dL Glucose 100 H 114 H (74-99) mg/dL Calcium 8.0 L 7.7 L (8.4-10.2) mg/dL Adrenal panel 09/20/21 09/21/21 Range/Units 14:42 03:41 Sodium 136 L 134 L (137-145) mmol/L Potassium 4.0 4.0 (3.5-5.1) mmol/L Chloride 106 107 (98-107) mmol/L Carbon Dioxide 19 L 19 L (22-30) mmol/L BUN 20 H 16 (7-17) mg/dL Creatinine 0.73 0.66 (0.52-1.04) mg/dL Glucose 100 H 114 H (74-99) mg/dL Calcium 8.0 L 7.7 L (8.4-10.2) mg/dL Total Bilirubin 0.6 (0.2-1.3) mg/dL AST 48 H (14-36) U/L ALT 33 (4-34) U/L Alkaline Phosphatase 124 (38-126) U/L Total Protein 7.0 (6.3-8.2) g/dL Albumin 3.4 L (3.5-5.0) g/dL - Imaging Comments: CT angiogram chest: Bilateral acute pulmonary emboli are present. No CT evidence for RV strain. Small to tiny right greater than left pleural effusions with associated compressive atelectasis. Developing infiltrates cannot be excluded. Correlate clinically. Assessment and Plan Assessment: 1. Bilateral pulmonary emboli 2. Elevated troponin 3. Thrombocytopenia, possible heparin-induced thrombocytopenia 4. Recent three-vessel coronary artery bypass graft, 08/30/2021 5. History hypertension 6. History hyperlipidemia 7. Psoriatic arthritis Plan: 1. Echocardiogram ordered, report pending 2. Venous duplex bilateral lower extremities ordered 3. Continue Argatroban per recommendations from primary medicine team and hematology 4. Further recommendations forthcoming per vascular surgeon. At this time patient is not a good candidate for thrombolytics. Thank you for this consultation, we will continue to follow. The impression and plan of care has been dictated as directed. Dr. Swan I performed a history and examination of this patient, discussed the same with the dictator. I agree with the dictator's note ,documented as a scribe. Any additional findings or plans will be noted.
[2021-09-21 09:34] LABS: % Iron Saturation 4.51 (12.00-45.00); Iron 10 ug/dL (50-170); Total Iron Binding Capacity 216 ug/dL (228-460)
--- NOTE | 2021-09-21 09:36 | P.GSCN ---
History of Present Illness Consult date: 09/21/21 Reason for Consult: Known to our service from recent open heart surgery Requesting physician: Patsy Mendez History of present illness: This is a 65-year-old female patient who follows on an outpatient basis with [facility] for primary care, as well as Dr. Salcedo for cardiology. She has a previous medical history of coronary artery disease status post three-vessel off-pump CABG on 08/30/2021, hypertension, hyperlipidemia, psoriatic arthritis, never smoker, and family history of premature coronary artery disease. She was discharged on September 03 after elective open heart surgery with uneventful recovery period. She was seen in the office September 06 and was recovering well at home. She was also seen recently by her health director who confirmed she was doing well. Unfortunately Sunday she called our service with complaints of shortness of breath and left lower extremity swelling. She denied any fever, chills, purulent drainage from any of her incisions, or any pain. She was started on Lasix. We called to check on her on Sunday and she stated the swelling in her leg had gone down and she felt a bit better but was still short of breath with activity, she requested to be seen in the cardiothoracic surgery office. Yesterday she was seen in the cardiothoracic surgery office and her exam was essentially normal except diminished breath sounds in the right base, trace left lower extremity edema, and oxygen saturation 86-88% on room air. Previously she had been in the high 90s on room air. She was sent to the hospital for a CTA of the chest to rule out pulmonary embolism, unfortunately her CTA demonstrated bilateral pulmonary emboli and she was taken to the emergency room for admission. She was started on IV heparin and placed on supplemental oxygen. She was admitted to [address] [place] [address] cardiac stepdown unit and consultation was placed to cardiothoracic surgery as the patient is well-known to our service. Review of Systems Review of systems was completed and was negative except as noted - Respiratory Reports as per HPI, Reports dyspnea - Musculoskeletal Musculoskeleta Comment(s): Left leg swelling Past Medical History Past Medical History: Coronary Artery Disease (CAD), Chest Pain / Angina, Hyperlipidemia, Hypertension Additional Past Medical History / Comment(s): SOB w/exertion for about 6 months or longer, psoriatic arthritis. History of Any Multi-Drug Resistant Organisms: None Reported Past Surgical History: Hysterectomy, Orthopedic Surgery Additional Past Surgical History / Comment(s): Arthroscopic knee surgery(unknown laterality), D&C.Bypass, off-pump CABG X 3 08/30/21 Past Anesthesia/Blood Transfusion Reactions: Previous Problems w/ Anesthesia Additional Past Anesthesia/Blood Transfusion Reaction / Comm: Severe headache after D&C years ago, no problems since. Past Psychological History: No Psychological Hx Reported Smoking Status: Never smoker Past Alcohol Use History: Rare Past Drug Use History: None Reported - Past Family History Mother Family Medical History: Myocardial Infarction ([place]) Additional Family Medical History / Comment(s): Myocardial infarction at 63 years old. Father Family Medical History: CVA/TIA Additional Family Medical History / Comment(s): CVA at 72 years old. Brother(s) Family Medical History: Myocardial Infarction ([place]) Additional Family Medical History / Comment(s): Myocardial infarction at 40 years old, at 72 years old. Medications and Allergies Home Medications Medication Instructions Recorded Confirmed Type Aspirin 81 mg PO DAILY 08/22/21 09/20/21 History Ergocalciferol [Vitamin D2 (1250 1,250 mcg PO FR 08/22/21 09/20/21 History Mcg = 75223 Iu)] Rosuvastatin [Crestor] 10 mg PO HS 08/22/21 09/20/21 History Vitamin E 400 unit PO DAILY 08/22/21 09/20/21 History Acetaminophen Tab [Tylenol] 650 mg PO Q4HR PRN tab 09/03/21 09/20/21 Rx Clopidogrel [Plavix] 75 mg PO DAILY #30 tab 09/03/21 09/20/21 Rx Metoprolol Tartrate [Lopressor] 25 mg PO BID #60 tab 09/03/21 09/20/21 Rx Pantoprazole [Protonix] 40 mg PO AC-BRKFST #30 tab 09/03/21 09/20/21 Rx Furosemide [Lasix] 40 mg PO DAILY #7 tablet 09/18/21 09/20/21 Rx Nitroglycerin Sl Tabs [Nitrostat] 0.4 mg SUBLINGUAL Q5M PRN 09/20/21 09/20/21 History lisinopriL [Zestril] 2.5 mg PO DAILY 09/20/21 09/20/21 History Allergies Allergy/AdvReac Type Severity Reaction Status Date / Time No Known Allergies Allergy Verified 09/20/21 14:00 Surgical - Exam Vital Signs Temp Pulse Resp BP Pulse Ox 97.7 F 81 20 104/65 88 L 09/20/21 13:58 09/20/21 13:58 09/20/21 13:58 09/20/21 13:58 09/20/21 13:58 CONSTITUTIONAL: Awake and alert, appears comfortable, cooperative, well- developed, well-nourished, no pain, no acute distress EYES: Pupils equal, round, reactive to light, normal ocular movement ENT: Moist mucous membranes without oral lesions present NECK: No masses, no bruits, trachea midline RESPIRATORY: Lungs sounds diminished in the right base. Respirations even, nonlabored. Currently on 2 L nasal cannula with oxygen saturation 92%. Strong cough. CARDIOVASCULAR: S1, S2 present. Regular rate and rhythm, sinus rhythm on telemetry. Palpable peripheral pulses bilaterally. Trace left lower extremity edema present. No calf pain or tenderness noted. GASTROINTESTINAL: Abdomen soft, nontender, nondistended without masses or organomegaly noted. There is no rebound or guarding present. Active bowel sounds present 4 quadrants. GENITOURINARY: Deferred INTEGUMENTARY: Skin is warm and dry with evidence of good perfusion. NEUROLOGIC: Cranial nerves II through XII intact, normal coordination, no obvious motor or sensory deficits, speech is normal MUSKULOSKELETAL: Able to move all extremities, strength equal bilaterally, normal posture PSYCHIATRIC: Alert and oriented to person place and time, appropriate affect, intact judgment and insight Results - Labs 09/22/21 07:28 09/22/21 07:28 Abnormal Lab Results - Last 24 Hours (Table) 09/20/21 09/20/21 09/20/21 Range/Units 14:42 14:42 14:42 WBC 12.9 H (3.8-10.6) k/uL RBC 3.05 L (3.80-5.40) m/uL Hgb 8.0 L D (11.4-16.0) gm/dL Hct 26.5 L (34.0-46.0) % MCHC 30.3 L (31.0-37.0) g/dL RDW 16.1 H (11.5-15.5) % Plt Count 122 L D (150-450) k/uL Neutrophils # 10.3 H (1.3-7.7) k/uL PT (9.0-12.0) sec APTT (22.0-30.0) sec Sodium 136 L (137-145) mmol/L Carbon Dioxide 19 L (22-30) mmol/L BUN 20 H (7-17) mg/dL Glucose 100 H (74-99) mg/dL Calcium 8.0 L (8.4-10.2) mg/dL AST 48 H (14-36) U/L Troponin I 1.210 H* (0.000-0.034) ng/mL Albumin 3.4 L (3.5-5.0) g/dL 09/20/21 09/21/21 09/21/21 Range/Units 21:05 03:41 03:41 WBC 11.3 H (3.8-10.6) k/uL RBC 2.72 L (3.80-5.40) m/uL Hgb 7.4 L (11.4-16.0) gm/dL Hct 24.1 L (34.0-46.0) % MCHC 30.6 L (31.0-37.0) g/dL RDW 16.1 H (11.5-15.5) % Plt Count 52 L D (150-450) k/uL Neutrophils # (1.3-7.7) k/uL PT 12.1 H (9.0-12.0) sec APTT 39.7 H 45.7 H (22.0-30.0) sec Sodium (137-145) mmol/L Carbon Dioxide (22-30) mmol/L BUN (7-17) mg/dL Glucose (74-99) mg/dL Calcium (8.4-10.2) mg/dL AST (14-36) U/L Troponin I (0.000-0.034) ng/mL Albumin (3.5-5.0) g/dL 09/21/21 Range/Units 03:41 WBC (3.8-10.6) k/uL RBC (3.80-5.40) m/uL Hgb (11.4-16.0) gm/dL Hct (34.0-46.0) % MCHC (31.0-37.0) g/dL RDW (11.5-15.5) % Plt Count (150-450) k/uL Neutrophils # (1.3-7.7) k/uL PT (9.0-12.0) sec APTT (22.0-30.0) sec Sodium 134 L (137-145) mmol/L Carbon Dioxide 19 L (22-30) mmol/L BUN (7-17) mg/dL Glucose 114 H (74-99) mg/dL Calcium 7.7 L (8.4-10.2) mg/dL AST (14-36) U/L Troponin I (0.000-0.034) ng/mL Albumin (3.5-5.0) g/dL Diabetes panel 09/20/21 09/21/21 Range/Units 14:42 03:41 Sodium 136 L 134 L (137-145) mmol/L Potassium 4.0 4.0 (3.5-5.1) mmol/L Chloride 106 107 (98-107) mmol/L Carbon Dioxide 19 L 19 L (22-30) mmol/L BUN 20 H 16 (7-17) mg/dL Creatinine 0.73 0.66 (0.52-1.04) mg/dL Glucose 100 H 114 H (74-99) mg/dL Calcium 8.0 L 7.7 L (8.4-10.2) mg/dL AST 48 H (14-36) U/L ALT 33 (4-34) U/L Alkaline Phosphatase 124 (38-126) U/L Total Protein 7.0 (6.3-8.2) g/dL Albumin 3.4 L (3.5-5.0) g/dL Calcium panel 09/20/21 09/21/21 Range/Units 14:42 03:41 Calcium 8.0 L 7.7 L (8.4-10.2) mg/dL Albumin 3.4 L (3.5-5.0) g/dL Pituitary panel 09/20/21 09/21/21 Range/Units 14:42 03:41 Sodium 136 L 134 L (137-145) mmol/L Potassium 4.0 4.0 (3.5-5.1) mmol/L Chloride 106 107 (98-107) mmol/L Carbon Dioxide 19 L 19 L (22-30) mmol/L BUN 20 H 16 (7-17) mg/dL Creatinine 0.73 0.66 (0.52-1.04) mg/dL Glucose 100 H 114 H (74-99) mg/dL Calcium 8.0 L 7.7 L (8.4-10.2) mg/dL Adrenal panel 09/20/21 09/21/21 Range/Units 14:42 03:41 Sodium 136 L 134 L (137-145) mmol/L Potassium 4.0 4.0 (3.5-5.1) mmol/L Chloride 106 107 (98-107) mmol/L Carbon Dioxide 19 L 19 L (22-30) mmol/L BUN 20 H 16 (7-17) mg/dL Creatinine 0.73 0.66 (0.52-1.04) mg/dL Glucose 100 H 114 H (74-99) mg/dL Calcium 8.0 L 7.7 L (8.4-10.2) mg/dL Total Bilirubin 0.6 (0.2-1.3) mg/dL AST 48 H (14-36) U/L ALT 33 (4-34) U/L Alkaline Phosphatase 124 (38-126) U/L Total Protein 7.0 (6.3-8.2) g/dL Albumin 3.4 L (3.5-5.0) g/dL - Imaging CT scan - chest: report reviewed, image reviewed EKG: image reviewed Assessment and Plan Assessment: 1. Bilateral pulmonary emboli 2. Shortness of breath, hypoxia secondary to above 3. Thrombocytopenia, possible HIT 4. Iron deficiency anemia 5. History of coronary artery disease status post three-vessel off-pump CABG on 08/30/2021 6. History of hypertension 7. History of hyperlipidemia 8. Psoriatic arthritis, was on DMARD outpatient which was stopped prior to surgery 9. Never smoker 10. Family history of premature coronary artery disease Plan: The patient was seen and examined in the emergency room yesterday as well as this morning on the cardiac stepdown unit. Dr. Salcedo and Dr. Vela were made aware of patient's diagnosis and admission yesterday. She denies any pain, states shortness of breath is a bit better. Unfortunately her platelet count dropped to 52,000. Morning, she possibly has HIT, IV heparin was stopped and she was switched to IV Argatroban. Hematology was consulted. In addition vascular surgery was consulted for the possibility of Ekos. We recommend continuing statin and beta mil, aspirin/Plavix per recommendations from hematology. Wean O2 as tolerated. Incentive spirometry ordered and should be encouraged. Increase activity as able. Medical management of other comorbidities per primary service. Thank you for this consult. We will continue to follow along with you. I have personally seen and examined the patient, performed the documentation and the assessment and plan as written. Number of minutes spent on the visit: 30. BECCA Tena I have personally seen and examined the patient, reviewed the documentation and agree with the assessment and plan as written. Number of minutes spent on the visit: 40. Gilmar Fernandes MD
[2021-09-21 09:50] LABS: Reticulocyte % 4.2 % (0.5-2.0)
[2021-09-21 10:20] LABS: Partial Thromboplastin Time 28.6 sec (22.0-30.0)
--- NOTE | 2021-09-21 10:49 | US ---
EXAMINATION TYPE: US venous doppler duplex LE BI DATE OF EXAM: 09/21/2021 10:06 AM COMPARISON: Ultrasound left lower extremity 05/30/2017 CLINICAL HISTORY: b/l PE assess for DVT. SIDE PERFORMED: TECHNIQUE: The lower extremity deep venous system is examined utilizing real time linear array sonog kaylene with graded compression, doppler sonography and color-flow sonography. VESSELS IMAGED: Common Femoral Vein Deep Femoral Vein Greater Saphenous Vein * Femoral Vein Popliteal Vein Small Saphenous Vein * Proximal Calf Veins (* superficial vessels) Low-level internal echoes seen at the level of the common femoral vein at its junction with the great er saphenous vein, is lack of compressibility, greater saphenous vein is distended and shows abnormal luminal echoes on the left Right Leg: Negative for DVT Left Leg: Positive for DVT At GSV/CFV junction CFV is not compressible, GSV shows acute thrombus. IMPRESSION: Deep venous thrombosis left common femoral vein, superficial venous thrombosis left greater saphenous vein
--- NOTE | 2021-09-21 11:27 | CA ---
Transthoracic Echo Report Name: Leela Riojas Age: 65 Gender: F : 1955 Exam Date: 09/21/2021 07:51 Exam Location: [facility] Ht (in): 65 Wt (lb): 176 Ordering Physician: Ana Peters Attending/Referring Phys: Manager Surgical Lisa Mcelroy RDCS Procedure CPT: Indications: B/l PE evaluate for right heart strain Cardiac Hx: Technical Quality: Fair Contrast 1: Total Dose (mL): Contrast 2: Total Dose (mL): MEASUREMENTS (Male / Female) Normal Values 2D ECHO LV Diastolic Diameter PLAX 3.8 cm 4.2 - 5.9 / 3.9 - 5.3 cm LV Systolic Diameter PLAX 2.7 cm IVS Diastolic Thickness 1.3 cm 0.6 - 1.0 / 0.6 - 0.9 cm LVPW Diastolic Thickness 1.6 cm 0.6 - 1.0 / 0.6 - 0.9 cm LV Relative Wall Thickness 0.8 RV Internal Dim ED PLAX 3.9 cm LA Volume 56.7 cm??? 18 - 58 / 22 - 52 cm??? M-MODE Aortic Root Diameter MM 3.1 cm LA Systolic Diameter MM 4.2 cm LA Ao Ratio MM 1.3 AV Cusp Separation MM 2.1 cm DOPPLER AV Peak Velocity 120.0 cm/s AV Peak Gradient 5.8 mmHg LVOT Peak Velocity 85.4 cm/s LVOT Peak Gradient 2.9 mmHg MV Area PHT 4.4 cm??? Mitral E Point Velocity 124.2 cm/s Mitral A Point Velocity 43.8 cm/s Mitral E to A Ratio 2.8 MV Deceleration Time 171.1 ms MV E' Velocity 7.3 cm/s Mitral E to MV E' Ratio 16.9 TR Peak Velocity 355.0 cm/s TR Peak Gradient 50.4 mmHg Right Ventricular Systolic Press 54.3 mmHg FINDINGS Left Ventricle Mildly increased left ventricular wall thickness. Paradoxical Septal wall motion S/P CABG. Left ventricular ejection fraction is estimated at 45-50 %. Anterior lateral hypokinesis Right Ventricle Moderate right ventricular dilatation. Moderate to severe pulmonary hypertension. Right ventricular systolic pressure estimated at 54 mm hg. RV strain was noted TAPSE is 13mm. Right Atrium Mild right atrial dilatation. Left Atrium Mildly increased left atrial volume. No evidence for an atrial septal defect. Mitral Valve [id number] mitral regurgitation. Aortic Valve Trileaflet aortic valve. No aortic valve stenosis or regurgitation. Tricuspid Valve Onhemkfd-it-qemogi tricuspid regurgitation. Pulmonic Valve Mild pulmonic regurgitation. Pericardium No pericardial effusion. Aorta Normal size aortic root and proximal ascending aorta. CONCLUSIONS Mild LVH Paradoxical septal motion consistent with prior cardiac surgery Left ventricular ejection fraction 45-50% with anterolateral hypokinesis Moderate right ventricular dilation Pulmonary hypertension with RVSP 54 Mild to moderate mitral regurgitation Moderate to severe tricuspid regurgitation Previewed by: Dr. Robert Marroquin DO (Electronically Signed) Final Date: 21 September 2021 11:26
--- NOTE | 2021-09-21 11:41 | P.CNPUL ---
History of Present Illness Consult date: 09/21/21 Requesting physician: Patsy Mendez Reason for consult: dyspnea, hypoxemia, pulmonary embolism, abnormal CXR/CT Chief complaint: Shortness of breath. History of present illness: Pulmonary consultation dated 09/21/2021. 65-year-old female who was being seen by cardiothoracic surgery, and noticed, that the patient was short of breath. She apparently been short of breath for about 2 or 3 days prior to being seen by the cardiothoracic team. She was sent to the emergency room, for further evaluation, and a CT angiogram revealed evidence of bilateral pulmonary emboli. The patient had a recent 3 vessel bypass surgery, done about 3 weeks ago. She denied any chest pain or chest discomfort. There is no fever or chills. The patient denied any abdominal pain, nausea, vomiting, or diarrhea. The patient has a history of CAD, recent bypass grafting, angina, hyperlipidemia, hypertension, and psoriatic arthritis. He was also noted, that the patient's platelet levels were rather low, and the patient was thought to possibly have heparin-induced thrombocytopenia, and for that reason, was started argatroban at 2 mcg/kg/m. Appropriate labs were drawn to determine if the patient was having HIT. White count 11.3, hemoglobin 7.4, hematocrit 24.1, and platelet count 52,000. Fibrinogen was 595. PTT was 28.6. Sodium 134, potassium 4, chlorides 107, CO2 19, anion gap 8, BUN 16, and cre atinine 0.66. The patient's troponins were 1.210 and 1.150. N-terminal proBNP was 6680. Venous Doppler of the bilateral lower extremities revealed DVT, and the left leg. CT angiogram done on September 20, revealed bilateral acute pulmonary emboli without evidence of RV strain. Review of Systems REVIEW OF SYSTEMS: CONSTITUTIONAL: [Negative.] NEUROLOGIC: [ Negative.] HEENT: [ Negative.] CARDIAC: [Negative.] PULMONARY: Shortness of breath. GI: [Negative.] : [Negative.] RHEUMATOLOGIC: [ Negative.] IMMUNOLOGIC: [ Negative.] ENDOCRINE: [Negative. ] DERMATOLOGIC: [Negative.] Past Medical History Past Medical History: Coronary Artery Disease (CAD), Chest Pain / Angina, Hyperlipidemia, Hypertension Additional Past Medical History / Comment(s): SOB w/exertion for about 6 months or longer, psoriatic arthritis. History of Any Multi-Drug Resistant Organisms: None Reported Past Surgical History: Hysterectomy, Orthopedic Surgery Additional Past Surgical History / Comment(s): Arthroscopic knee surgery(unknown laterality), D&C.Bypass, off-pump CABG X 3 08/30/21 Past Anesthesia/Blood Transfusion Reactions: Previous Problems w/ Anesthesia Additional Past Anesthesia/Blood Transfusion Reaction / Comment(s): Severe headache after D&C years ago, no problems since. Past Psychological History: No Psychological Hx Reported Smoking Status: Never smoker Past Alcohol Use History: Rare Past Drug Use History: None Reported - Past Family History Mother Family Medical History: Myocardial Infarction ([place]) Additional Family Medical History / Comment(s): Myocardial infarction at 63 years old. Father Family Medical History: CVA/TIA Additional Family Medical History / Comment(s): CVA at 72 years old. Brother(s) Family Medical History: [place]ocardial Infarction ([place]) Additional Family Medical History / Comment(s): Myocardial infarction at 40 years old, at 72 years old. Medications and Allergies Home Medications Medication Instructions Recorded Confirmed Type Aspirin 81 mg PO DAILY 08/22/21 09/20/21 History Ergocalciferol [Vitamin D2 (1250 1,250 mcg PO FR 08/22/21 09/20/21 History Mcg = 64193 Iu)] Rosuvastatin [Crestor] 10 mg PO HS 08/22/21 09/20/21 History Vitamin E 400 unit PO DAILY 08/22/21 09/20/21 History Acetaminophen Tab [Tylenol] 650 mg PO Q4HR PRN tab 09/03/21 09/20/21 Rx Clopidogrel [Plavix] 75 mg PO DAILY #30 tab 09/03/21 09/20/21 Rx Metoprolol Tartrate [Lopressor] 25 mg PO BID #60 tab 09/03/21 09/20/21 Rx Pantoprazole [Protonix] 40 mg PO AC-BRKFST #30 tab 09/03/21 09/20/21 Rx Furosemide [Lasix] 40 mg PO DAILY #7 tablet 09/18/21 09/20/21 Rx Nitroglycerin Sl Tabs [Nitrostat] 0.4 mg SUBLINGUAL Q5M PRN 09/20/21 09/20/21 History lisinopriL [Zestril] 2.5 mg PO DAILY 09/20/21 09/20/21 History Allergies Allergy/AdvReac Type Severity Reaction Status Date / Time No Known Allergies Allergy Verified 09/20/21 14:00 Physical Exam Osteopathic Statement: *. No significant issues noted on an osteopathic structural exam other than those noted in the History and Physical/Consult. Vitals: Vital Signs Temp Pulse Pulse Resp BP BP Pulse Ox 09/21/21 11:24 97.9 F 71 21 101/58 98 09/21/21 08:00 98.1 F 80 16 130/65 95 09/21/21 06:02 98.3 F 09/21/21 04:40 100.4 F H 92 19 121/74 92 L 09/20/21 23:10 99.6 F 94 18 113/70 94 L 09/20/21 21:10 96 20 117/66 94 L 09/20/21 21:03 99.0 F 93 20 126/76 93 L 09/20/21 19:18 84 16 110/66 98 09/20/21 16:21 80 16 105/70 99 09/20/21 15:38 79 18 107/70 98 09/20/21 15:10 77 16 107/70 98 09/20/21 13:58 97.7 F 81 20 104/65 88 L Intake and Output 09/20/21 09/21/21 09/21/21 22:59 06:59 14:59 Intake Total 88.854 111.762 118 Balance 88.854 111.762 118 Intake: Intake, IV Titration 88.854 111.762 Amount Heparin Sod,Pork in 0.45% 88.854 111.762 NaCl 25,000 unit In 0.45 % NaCl 1 250ml.bag @ 18 UNITS/KG/HR 14.37 mls/hr IV .[id number] [facility] Rx#: [id number] Oral 118 Other: # Voids 1 Weight 79.832 kg No acute distress, oriented 3. No audible wheezing or use of accessory muscles. 2 L saturation was 98%. HEENT examination is grossly unremarkable. Neck supple. Full range of motion. No adenopathy thyromegaly or neck vein distention. Cardiovascular examination reveals regular rhythm rate. S1-S2 normal. No S3 or S4. No discernible murmur noted. Heart rate 71 bpm. Lungs reveal clear breath sounds. Breath sounds are equal bilaterally. No adventitious lung sounds including wheezes rhonchi or crackles. Abdomen soft bowel sounds are heard. No masses or tenderness. Extremities are intact. No cyanosis clubbing or edema. Skin is without rash or lesion. Neurologic examination is brief but nonfocal. Results - Laboratory Findings CBC and BMP: 09/21/21 03:41 09/21/21 03:41 PT/INR, D-dimer PT 12.1 sec (9.0-12.0) H 09/21/21 03:41 INR 1.1 (<1.2) 09/21/21 03:41 Abnormal lab findings: Abnormal Labs 09/20/21 09/20/21 09/20/21 14:42 14:42 14:42 WBC 12.9 H RBC 3.05 L Hgb 8.0 L D Hct 26.5 L MCHC 30.3 L RDW 16.1 H Plt Count 122 L D Neutrophils # 10.3 H PT APTT Fibrinogen Sodium 136 L Carbon Dioxide 19 L BUN 20 H Glucose 100 H Calcium 8.0 L Iron TIBC % Saturation Transferrin Ferritin AST 48 H Lactate Dehydrogenase Troponin I 1.210 H* Albumin 3.4 L 09/20/21 09/21/21 09/21/21 21:05 03:41 03:41 WBC 11.3 H RBC 2.72 L Hgb 7.4 L Hct 24.1 L MCHC 30.6 L RDW 16.1 H Plt Count 52 L D Neutrophils # PT 12.1 H APTT 39.7 H 45.7 H Fibrinogen Sodium Carbon Dioxide BUN Glucose Calcium Iron TIBC % Saturation Transferrin Ferritin AST Lactate Dehydrogenase Troponin I Albumin 09/21/21 09/21/21 09/21/21 03:41 08:56 08:56 WBC RBC Hgb Hct MCHC RDW Plt Count Neutrophils # PT APTT Fibrinogen Sodium 134 L Carbon Dioxide 19 L BUN Glucose 114 H Calcium 7.7 L Iron 10 L TIBC 216 L % Saturation 4.51 L Transferrin 154.0 L Ferritin 576.0 H AST Lactate Dehydrogenase 908 H Troponin I 1.150 H* Albumin 09/21/21 09:09 WBC RBC Hgb Hct MCHC RDW Plt Count Neutrophils # PT APTT Fibrinogen 595 H Sodium Carbon Dioxide BUN Glucose Calcium Iron TIBC % Saturation Transferrin Ferritin AST Lactate Dehydrogenase Troponin I Albumin - Diagnostic Findings Chest x-ray: image reviewed CT scan - chest: image reviewed U/S of Legs: image reviewed Assessment and Plan Assessment: Acute shortness of breath, secondary to bilateral pulmonary emboli, and left lower extremity DVT. Recent three-vessel bypass grafting. Thrombocytopenia, rule out heparin-induced thrombocytopenia (HIT). History of coronary artery disease. History of hyperlipidemia. History of hypertension. History of psoriatic arthritis. Plan: Plan dated 09/21/2021. Clinically, the patient's very stable. The patient is getting a couple liters o f oxygen. Saturations are excellent. The patient is not manifesting any signs or symptoms of respiratory distress or difficulty. The patient's on appropriate medications. Heparin was discontinued in favor of Argatroban, because there was some concern that the patient is developing heparin-induced thrombocytopenia. Hematology was consulted. Cardiothoracic was consulted. We'll continue to follow along. Respiratory status currently appears to be very stable. Time with Patient: Greater than 30
--- NOTE | 2021-09-21 14:45 | P.CRDCN ---
History of Present Illness History of present illness: this is a 65-year-old female with a past medical history of coronary artery diseaes s/p recent 3 vessel CABG with PEACE to LAD, reverse saphenous vein grafts to the obtuse marginal and posterior descending coronary arteries on 08/30/21, hypertension, dyslipidemia, psoriatic arthritis on DMARD. She follows with Dr. Salcedo outpatient. We have been asked to see in consultation for arrhythmia. Patient presents emergency department with worsening shortness of breath and left lower extremity swelling. She's been having worsening shortness of breath at rest and with exertion for the past 3 days. She was seen for her follow-up with cardiothoracic surgery for complaints of shortness of breath, she underwent a CT angiogram of the chest that showed bilateral pulmonary emboli present. Patient was sent to the emergency department. Venous Doppler ultrasound was also completed which revealed left lower extremity DVT.She is seen and examined at bedside, denies any chest pain, palpitations, l ightheadedness, dizziness, syncope or near syncope. She states that her breathing has improved. IV heparin was initiated and within 48 hours, dropped to 52K. heparin was discontinued and argantroban was started. DIAGNOSTICS EKG reveals sinus rhythm, heart rate 80, T wave inversions in anterior, inferior and anterior leads. No acute ischemia noted. Telemetry tracings indicate sinus rhythm with heart rates in the 70s80s. PVCs noted, episode of 14beat NSVT noted. Episode of Bigeminy CT chest revealed bilateral acute pulmonary emboli. No CT evidence for RV strain. Small to tiny right greater than left pleural effusions. Echocardiogram revealed an EF of 4550 percent, anterolateral hypokinesis, moderate to severe pulmonary hypertension with an RVSP of 54 mmHg, mild to moderate mitral regurgitation, moderate to severe tricuspid regurgitation. Laboratory reviewed, WBC 11.3, hemoglobin 7.4, platelets 52, sodium 134, potassium 4.0, BUN 16, serum creatinine 0.6, magnesium 2.2, troponin 1.2, 1.1, proBNP 6680 Current cardiac medications include rosuvastatin 10 mg nightly, aspirin 80 mg d aily, lisinopril 2.5 mg daily, metoprolol titrate 25 mg twice a day, Lasix 40 mg daily, Plavix 75 mg daily REVIEW OF SYSTEMS At the time of my exam: CONSTITUTIONAL: Denies fever or chills. CARDIOVASCULAR: Denies chest pain, shortness of breath, orthopnea, PND or palpitations. RESPIRATORY: Denies cough. GASTROINTESTINAL: Denies abdominal pain, diarrhea, constipation, nausea or vomiting. MUSCULOSKELETAL: Denies myalgias. NEUROLOGIC: Denies numbness, tingling, headacbe or weakness. ENDOCRINE: Denies fatigue, weight change, polydipsia or polyurina. GENITOURINARY: Denies burning, hematuria or urgency with micturation. HEMATOLOGIC: Denies history of anemia or bleeding. PHYSICAL EXAMINATION Blood pressure [] CONSTITUTIONAL: No apparent distress. HEENT: Head is normocephalic. Pupils are equal, round. Sclerae anicteric. Mucous membranes of the mouth are moist. No JVD. No carotid bruit. CHEST EXAMINATION: Lungs are clear to auscultation. No chest wall tenderness is noted on palpation or with deep breathing. Heart Hugger in place. Chest incision well approximated, dressing intact HEART EXAMINATION: Regular rate and rhythm. S1, S2 heard. No murmurs, gallops or rub. ABDOMEN: Soft, nontender. Positive bowel sounds. EXTREMITIES: 2+ peripheral pulses, no lower extremity edema and no calf tenderness. NEUROLOGIC EXAMINATION: Patient is awake, alert and oriented x3. ASSESSMENT Bilateral pulmonary emboli Left lower extremity DVT Elevated troponin Thrombocytopenia Bigeminy Premature ventricular complexes Nonsustained ventricular tachycardia Coronary artery disease status post three-vessel CABG on 08/30/2021 History of hypertension Hyperlipidemia History of Psoriatic arthritis PLAN Continue metoprolol tartrate 25mg BID Monitor on telemetry Continue aspirin, statin, Plavix, lisinopril Vascular following, not a good candidate for thrombolytics at this time CT surgery following Hematology following Further recommendations based on clinical course Nurse Practitioner note has been reviewed, I agree with a documented findings and plan of care. Patient was seen and examined. Past Medical History Past Medical History: Coronary Artery Disease (CAD), Chest Pain / Angina, Hyperlipidemia, Hypertension Additional Past Medical History / Comment(s): SOB w/exertion for about 6 months or longer, psoriatic arthritis. History of Any Multi-Drug Resistant Organisms: None Reported Past Surgical History: Hysterectomy, Orthopedic Surgery Additional Past Surgical History / Comment(s): Arthroscopic knee surgery(unknown laterality), D&C.Bypass, CABG X 3 Past Anesthesia/Blood Transfusion Reactions: Previous Problems w/ Anesthesia Additional Past Anesthesia/Blood Transfusion Reaction / Comment(s): Severe headache after D&C years ago, no problems since. Past Psychological History: No Psychological Hx Reported Smoking Status: Never smoker Past Alcohol Use History: Rare Past Drug Use History: None Reported - Past Family History Mother Family Medical History: Myocardial Infarction ([place]) Additional Family Medical History / Comment(s): Myocardial infarction at 63 years old. Father Family Medical History: CVA/TIA Additional Family Medical History / Comment(s): CVA at 72 years old. Brother(s) Family Medical History: Myocardial Infarction ([place]) Additional Family Medical History / Comment(s): Myocardial infarction at 40 years old, at 72 years old. Medications and Allergies Home Medications Medication Instructions Recorded Confirmed Type Aspirin 81 mg PO DAILY 08/22/21 09/20/21 History Ergocalciferol [Vitamin D2 (1250 1,250 mcg PO FR 08/22/21 09/20/21 History Mcg = 52699 Iu)] Rosuvastatin [Crestor] 10 mg PO HS 08/22/21 09/20/21 History Vitamin E 400 unit PO DAILY 08/22/21 09/20/21 History Acetaminophen Tab [Tylenol] 650 mg PO Q4HR PRN tab 09/03/21 09/20/21 Rx Clopidogrel [Plavix] 75 mg PO DAILY #30 tab 09/03/21 09/20/21 Rx Metoprolol Tartrate [Lopressor] 25 mg PO BID #60 tab 09/03/21 09/20/21 Rx Pantoprazole [Protonix] 40 mg PO AC-BRKFST #30 tab 09/03/21 09/20/21 Rx Furosemide [Lasix] 40 mg PO DAILY #7 tablet 09/18/21 09/20/21 Rx Nitroglycerin Sl Tabs [Nitrostat] 0.4 mg SUBLINGUAL Q5M PRN 09/20/21 09/20/21 History lisinopriL [Zestril] 2.5 mg PO DAILY 09/20/21 09/20/21 History Allergies Allergy/AdvReac Type Severity Reaction Status Date / Time No Known Allergies Allergy Verified 09/20/21 14:00 Physical Exam Vitals: Vital Signs Temp Pulse Pulse Resp BP BP Pulse Ox 09/21/21 11:24 97.9 F 71 21 101/58 98 09/21/21 08:00 98.1 F 80 16 130/65 95 09/21/21 06:02 98.3 F 09/21/21 04:40 100.4 F H 92 19 121/74 92 L 09/20/21 23:10 99.6 F 94 18 113/70 94 L 09/20/21 21:10 96 20 117/66 94 L 09/20/21 21:03 99.0 F 93 20 126/76 93 L 09/20/21 19:18 84 16 110/66 98 09/20/21 16:21 80 16 105/70 99 09/20/21 15:38 79 18 107/70 98 09/20/21 15:10 77 16 107/70 98 Intake and Output 09/20/21 09/21/21 09/21/21 22:59 06:59 14:59 Intake Total 88.854 111.762 269.211 Balance 88.854 111.762 269.211 Intake: Intake, IV Titration 88.854 111.762 33.211 Amount Argatroban 50 mg In 33.211 Sodium Chloride 0.9% 50 ml @ 2 MCG/KG/MIN 9.58 mls/hr IV .Q5H14M [facility] Rx# :[id number] Heparin Sod,Pork in 0.45% 88.854 111.762 NaCl 25,000 unit In 0.45 % NaCl 1 250ml.bag @ 18 UNITS/KG/HR 14.37 mls/hr IV .[id number] [facility] Rx#: [id number] Oral 236 Other: # Voids 1 2 Weight 79.832 kg Results 09/21/21 03:41 09/21/21 03:41 Cardiac Enzymes 09/20/21 09/20/21 09/21/21 Range/Units 14:42 14:42 08:56 AST 48 H (14-36) U/L Lactate Dehydrogenase (313-618) U/L Troponin I 1.210 H* 1.150 H* (0.000-0.034) ng/mL 09/21/21 Range/Units 08:56 AST (14-36) U/L Lactate Dehydrogenase 908 H (313-618) U/L Troponin I (0.000-0.034) ng/mL Coagulation 09/20/21 09/20/21 09/21/21 Range/Units 14:42 21:05 03:41 PT 11.5 12.1 H (9.0-12.0) sec APTT 22.9 39.7 H 45.7 H (22.0-30.0) sec 09/21/21 09/21/21 Range/Units 09:09 11:12 PT (9.0-12.0) sec APTT 28.6 46.6 H (22.0-30.0) sec CBC 09/20/21 09/21/21 Range/Units 14:42 03:41 WBC 12.9 H 11.3 H (3.8-10.6) k/uL RBC 3.05 L 2.72 L (3.80-5.40) m/uL Hgb 8.0 L D 7.4 L (11.4-16.0) gm/dL Hct 26.5 L 24.1 L (34.0-46.0) % Plt Count 122 L D 52 L D (150-450) k/uL Comprehensive Metabolic Panel 09/20/21 09/21/21 Range/Units 14:42 03:41 Sodium 136 L 134 L (137-145) mmol/L Potassium 4.0 4.0 (3.5-5.1) mmol/L Chloride 106 107 (98-107) mmol/L Carbon Dioxide 19 L 19 L (22-30) mmol/L BUN 20 H 16 (7-17) mg/dL Creatinine 0.73 0.66 (0.52-1.04) mg/dL Glucose 100 H 114 H (74-99) mg/dL Calcium 8.0 L 7.7 L (8.4-10.2) mg/dL AST 48 H (14-36) U/L ALT 33 (4-34) U/L Alkaline Phosphatase 124 (38-126) U/L Total Protein 7.0 (6.3-8.2) g/dL Albumin 3.4 L (3.5-5.0) g/dL Current Medications Generic Name Dose Route Start Last Admin Trade Name Freq PRN Reason Stop Dose Admin Acetaminophen 650 mg 09/20/21 15:54 09/21/21 04:42 Acetaminophen Tab 325 Mg Tab PO 650 mg Q6HR PRN Administration Mild Pain or Fever > 100.5 Aspirin 81 mg 09/21/21 09:00 09/21/21 08:08 Aspirin 81 Mg PO Not Given DAILY [facility] Atorvastatin Calcium 20 mg 09/20/21 21:00 09/20/21 21:19 Atorvastatin 20 Mg Tab PO 20 mg HS [facility] Administration Clopidogrel Bisulfate 75 mg 09/21/21 09:00 09/21/21 09:10 Clopidogrel 75 Mg Tab PO 75 mg DAILY [facility] Administration Ergocalciferol 1,250 mcg 09/23/21 09:00 Ergocalciferol 1,250 Mcg (50,000 Iu) Capsule PO FR [facility] Furosemide 40 mg 09/21/21 09:00 09/21/21 09:10 Furosemide 40 Mg Tab PO 40 mg DAILY [facility] Administration Sodium Chloride 1,000 mls @ 75 mls/hr 09/20/21 16:00 09/20/21 19:16 Saline 0.9% IV 75 mls/hr .[id number] [facility] Administration Argatroban 50 mg/ Sodium 50 mls @ 9.58 mls/hr 09/21/21 08:00 09/21/21 12:29 Chloride IV 2 mcg/kg/min .Q5H14M [facility] 9.58 mls/hr Administration Protocol 2 MCG/KG/MIN Metoprolol Tartrate 25 mg 09/21/21 09:00 09/21/21 09:10 Metoprolol Tartrate 25 Mg Tab PO 25 mg BID [facility] Administration Naloxone HCl 0.2 mg 09/20/21 15:54 Naloxone 0.4 Mg/Ml 1 Ml Vial IV Q2M PRN Opioid Reversal Pantoprazole Sodium 40 mg 09/21/21 07:30 09/21/21 06:01 Pantoprazole 40 Mg Tablet PO 40 mg AC-BRKFST [facility] Administration Vitamin E 400 unit 09/21/21 09:00 09/21/21 09:11 Vitamin E (Dl,Tocopheryl Acet) 400 Unit (180 Mg) Cap PO 400 unit DAILY [facility] Administration Intake and Output 09/20/21 09/21/21 09/21/21 22:59 06:59 14:59 Intake Total 88.854 111.762 269.211 Balance 88.854 111.762 269.211 Intake: Intake, IV Titration 88.854 111.762 33.211 Amount Argatroban 50 mg In 33.211 Sodium Chloride 0.9% 50 ml @ 2 MCG/KG/MIN 9.58 mls/hr IV .Q5H14M [facility] Rx# :[id number] Heparin Sod,Pork in 0.45% 88.854 111.762 NaCl 25,000 unit In 0.45 % NaCl 1 250ml.bag @ 18 UNITS/KG/HR 14.37 mls/hr IV .[id number] [facility] Rx#: [id number] Oral 236 Other: # Voids 1 2 Weight 79.832 kg 09/21/21 03:41 09/21/21 03:41
[2021-09-21] MEDS: SODIUM CHLORIDE 0.9% 1,000 ML IV SCH (16:58)
--- NOTE | 2021-09-21 17:29 | P.PN ---
Subjective Progress Note Date: 09/21/21 (seen at 1045) Principal diagnosis: shortness of breath Patient is a 65-year-old female with coronary artery disease who underwent off- pump three-vessel coronary artery bypass grafting on 08/30/21, hypertension, dyslipidemia, psoriatic arthritis who was sent for a urgent CT PE protocol by the cardiothoracic nurse practitioner after being evaluated in office today. This outpatient CT demonstrated bilateral pulmonary embolism without signs of right heart strain. She therefore was directed to the ER. On arrival to the ER her vital signs were within normal limits. Laboratory analysis was consistent with her known acute blood loss anemia, thrombocytopenia, and troponin of 1.21. BNP was elevated at 6680. She was started on heparin drip. Arrangements are made for admission. On the morning following admission her platelet count had fallen by over half. Her heparin drip was discontinued. She was started on TROVAN and hematology was consulted. She underwent bilateral lower extremity venous Dopplers which showed an acute left lower extremity DVT. She was seen by vascular surgery. Echocardiogram was ordered which showed paradoxical septal motion consistent with prior cardiac surgery, moderate right ventricular dilation with RVSP 54, moderate to severe tricuspid regurgitation. cardio and pulm were also consulted. Patient seen and examined at bedside. She feels better than yesterday. She denies any unusual bruising or bleeding. No chest pain. Lower extremity edema is improved. General: non toxic, no distress, appears at stated age Derm: warm, dry Head: atraumatic, normocephalic, symmetric Eyes: EOMI, no lid lag, anicteric sclera Mouth: no lip lesion, mucus membranes moist Cardiovascular: S1S2 reg, with mild grade 2 murmur, positive posterior tibial pulse bilateral, Lungs: CTA bilateral, no rhonchi, no rales , no accessory muscle use Abdominal: soft, nontender to palpation, no guarding, no appreciable organomegaly Ext: no gross muscle atrophy, trace edema left calf, no contractures Neuro: CN II-XI grossly intact, no focal neuro deficits Psych: Alert, oriented, appropriate affect Assessment/plan: Bilateral pulmonary embolism, provoked with Left LE DVT Elevated troponin Acute hypoxic respiratory failure Thrombocytopenia Pulm HTN - concern for HTI, HIT ab ordered, Heme/onc consulted (spoke with Dr. Richard), transitioned to argatroban -Vascular surgery rec- poor candidated for thrombocysis -Telemetry - Pulm recs Acute blood loss anemia, with Fe deficiency and thrombocytopenia -No indication for transfusion -consider iv Fe if heme/onc in agreement, suspect ferritin elevated as acute phase reactant and sat 4.51. -Follow CBC Coronary artery disease with recent three-vessel bypass Hypertension Dyslipidemia cardioyopathy EF 45-50% NSVT 8-12 beats X 2 overnight - cardio recs -Consult CT surgery recs - ASA on hold due to thrombocytopenia -Statin, Lasix, Plavix - hold lisinopril as BP low normal - Metoptolol restarted - tele Discussed with: patient, nursing, Dr. Richard, Alem rutledge Anticipated discharge date: in 3-[address]: home A total of 40 minutes was spent on the care of this complex patient more than 50% of the time was spent in counseling and care coordination. Objective - Vital Signs Vital signs: Vital Signs Temp 98.1 F 09/21/21 16:18 Pulse 82 09/21/21 16:18 Resp 18 09/21/21 16:18 BP 109/60 09/21/21 16:18 Pulse Ox 98 09/21/21 16:18 FiO2 Intake & Output 09/20/21 09/21/21 09/21/21 18:59 06:59 18:59 Intake Total 200.616 269.211 Balance 200.616 269.211 Weight 79.832 kg 79.832 kg Intake: Intake, IV Titration 200.616 33.211 Amount Argatroban 50 mg In 33.211 Sodium Chloride 0.9% 50 ml @ 2 MCG/KG/MIN 9.58 mls/hr IV .Q5H14M [facility] Rx# :[id number] Heparin Sod,Pork in 0.45% 200.616 NaCl 25,000 unit In 0.45 % NaCl 1 250ml.bag @ 18 UNITS/KG/HR 14.37 mls/hr IV .[id number] [facility] Rx#: [id number] Oral 236 Other: # Voids 1 2 - Labs CBC & Chem 7: 09/21/21 03:41 09/21/21 03:41 Labs: Abnormal Lab Results - Last 24 Hours (Table) 09/20/21 09/21/21 09/21/21 Range/Units 21:05 03:41 03:41 WBC 11.3 H (3.8-10.6) k/uL RBC 2.72 L (3.80-5.40) m/uL Hgb 7.4 L (11.4-16.0) gm/dL Hct 24.1 L (34.0-46.0) % MCHC 30.6 L (31.0-37.0) g/dL RDW 16.1 H (11.5-15.5) % Plt Count 52 L D (150-450) k/uL ESR (0-20) mm/hr Retic Count (0.5-2.0) % PT 12.1 H (9.0-12.0) sec APTT 39.7 H 45.7 H (22.0-30.0) sec Fibrinogen (200-500) mg/dL Sodium (137-145) mmol/L Carbon Dioxide (22-30) mmol/L Glucose (74-99) mg/dL Calcium (8.4-10.2) mg/dL Iron (50-170) ug/dL TIBC (228-460) ug/dL % Saturation (12.00-45.00) Transferrin (204.0-354.0) mg/dL Ferritin (10.0-291.0) ng/mL Lactate Dehydrogenase (313-618) U/L Troponin I (0.000-0.034) ng/mL 09/21/21 09/21/21 09/21/21 Range/Units 03:41 08:56 08:56 WBC (3.8-10.6) k/uL RBC (3.80-5.40) m/uL Hgb (11.4-16.0) gm/dL Hct (34.0-46.0) % MCHC (31.0-37.0) g/dL RDW (11.5-15.5) % Plt Count (150-450) k/uL ESR 113 H (0-20) mm/hr Retic Count 4.2 H (0.5-2.0) % PT (9.0-12.0) sec APTT (22.0-30.0) sec Fibrinogen (200-500) mg/dL Sodium 134 L (137-145) mmol/L Carbon Dioxide 19 L (22-30) mmol/L Glucose 114 H (74-99) mg/dL Calcium 7.7 L (8.4-10.2) mg/dL Iron 10 L (50-170) ug/dL TIBC 216 L (228-460) ug/dL % Saturation 4.51 L (12.00-45.00) Transferrin 154.0 L (204.0-354.0) mg/dL Ferritin 576.0 H (10.0-291.0) ng/mL Lactate Dehydrogenase (313-618) U/L Troponin I 1.150 H* (0.000-0.034) ng/mL 09/21/21 09/21/21 09/21/21 Range/Units 08:56 09:09 11:12 WBC (3.8-10.6) k/uL RBC (3.80-5.40) m/uL Hgb (11.4-16.0) gm/dL Hct (34.0-46.0) % MCHC (31.0-37.0) g/dL RDW (11.5-15.5) % Plt Count (150-450) k/uL ESR (0-20) mm/hr Retic Count (0.5-2.0) % PT (9.0-12.0) sec APTT 46.6 H (22.0-30.0) sec Fibrinogen 595 H (200-500) mg/dL Sodium (137-145) mmol/L Carbon Dioxide (22-30) mmol/L Glucose (74-99) mg/dL Calcium (8.4-10.2) mg/dL Iron (50-170) ug/dL TIBC (228-460) ug/dL % Saturation (12.00-45.00) Transferrin (204.0-354.0) mg/dL Ferritin (10.0-291.0) ng/mL Lactate Dehydrogenase 908 H (313-618) U/L Troponin I (0.000-0.034) ng/mL
[2021-09-21] MEDS: ATORVASTATIN 20 MG TAB PO SCH (20:18)
[2021-09-21 23:47] LABS: Cardiolipin Ab IgG Interp NEGATIVE (NEGATIVE); Cardiolipin Ab IgM Interp NEGATIVE (NEGATIVE); Cardiolipin IgA Antibody 4.9 U/mL; Cardiolipin IgM Antibody 3.2 U/mL
[2021-09-22] MEDS: ARGATROBAN 50 MG in SODIUM CHLORIDE 0.9% 50 ML IV SCH ×4 (04:36→21:02)
[2021-09-22] MEDS: PANTOPRAZOLE 40 MG TABLET PO SCH (06:32)
--- NOTE | 2021-09-22 09:09 | P.PN ---
Subjective Progress Note Date: 09/22/21 Principal diagnosis: Bilateral pulmonary emboli, thrombocytopenia, iron deficiency anemia, left lower extremity acute DVT. History of coronary artery disease status post three-ves stalin off-pump CABG on 08/30/2021, hypertension, hyperlipidemia, psoriatic arthritis, was on DMARD outpatient which was stopped prior to surgery, never smoker, family history of premature coronary artery disease The patient was seen and examined sitting up in a recliner in the cardiac stepdown unit this morning in no acute distress. States she feels a little bit more short of breath today than she did yesterday, denies any chest pain. Remains on 2 L nasal cannula with oxygen saturation in the mid 90s. Platelet count dropped significantly yesterday and patient was felt to have HIT, labs pending. IV heparin was stopped, argatroban was started, and hematology was consulted. Vascular surgery was consulted for possible EKos, patient is not felt to be candidate at this time. Covid test was ordered and was negative. Objective - Vital Signs Vital signs: Vital Signs Temp 100 F H 09/22/21 04:30 Pulse 91 09/22/21 04:30 Resp 18 09/22/21 04:30 BP 116/69 09/22/21 04:30 Pulse Ox 96 09/22/21 08:18 FiO2 Intake & Output 09/21/21 09/22/21 09/22/21 18:59 06:59 18:59 Intake Total 319.211 96.942 Balance 319.211 96.942 Intake: Intake, IV Titration 83.211 96.942 Amount Argatroban 50 mg In 83.211 96.942 Sodium Chloride 0.9% 50 ml @ 2 MCG/KG/MIN 9.58 mls/hr IV .Q5H14M [facility] Rx# :[id number] Oral 236 Other: # Voids 2 2 - Exam CONSTITUTIONAL: Appears comfortable, cooperative, no acute distress RESPIRATORY: Lungs sounds diminished bilaterally. Respirations even, nonlabored. Currently on 2 L nasal cannula with oxygen saturation 93%. Able to achieve 1500 mL on incentive spirometry. Strong nonproductive cough. CARDIOVASCULAR: S1, S2 present. Regular rate and rhythm, sinus rhythm on telemetry. Sternum stable. Palpable peripheral pulses bilaterally. No edema present. No calf pain or tenderness noted. Heart hugger in place with patient demonstrating appropriate use. Antiembolism stockings present. GASTROINTESTINAL: Abdomen soft, nontender, nondistended. Active bowel sounds present 4 quadrants. Tolerating diet. GENITOURINARY: Continues to void INTEGUMENTARY: Skin is warm and dry with evidence of good perfusion. Anterior chest incision well approximated and covered with dry intact dressing. NEUROLOGIC: Cranial nerves II through XII intact MUSKULOSKELETAL: Able to move all extremities, strength equal bilaterally, gait normal PSYCHIATRIC: Alert and oriented to person place and time, appropriate affect, intact judgment and insight - Allied health notes Allied health notes reviewed: nursing - Labs CBC & Chem 7: 09/21/21 03:41 09/21/21 03:41 Labs: Abnormal Lab Results - Last 24 Hours (Table) 09/21/21 09/21/21 09/21/21 Range/Units 03:41 08:56 08:56 ESR 113 H (0-20) mm/hr Retic Count 4.2 H (0.5-2.0) % APTT (22.0-30.0) sec Fibrinogen (200-500) mg/dL Iron 10 L (50-170) ug/dL TIBC 216 L (228-460) ug/dL % Saturation 4.51 L (12.00-45.00) Transferrin 154.0 L (204.0-354.0) mg/dL Ferritin 576.0 H (10.0-291.0) ng/mL Lactate Dehydrogenase (313-618) U/L Troponin I 1.150 H* (0.000-0.034) ng/mL 09/21/21 09/21/21 09/21/21 Range/Units 08:56 09:09 11:12 ESR (0-20) mm/hr Retic Count (0.5-2.0) % APTT 46.6 H (22.0-30.0) sec Fibrinogen 595 H (200-500) mg/dL Iron (50-170) ug/dL TIBC (228-460) ug/dL % Saturation (12.00-45.00) Transferrin (204.0-354.0) mg/dL Ferritin (10.0-291.0) ng/mL Lactate Dehydrogenase 908 H (313-618) U/L Troponin I (0.000-0.034) ng/mL - Imaging and Cardiology Chest x-ray: image reviewed Assessment and Plan Assessment: 1. Bilateral pulmonary emboli with evidence of right heart strain on echo 2. Shortness of breath, hypoxia secondary to above 3. Thrombocytopenia, possible HIT 4. Left lower extremity acute DVT 5. Iron deficiency anemia 6. History of coronary artery disease status post three-vessel off-pump CABG on 08/30/2021 7. History of hypertension 8. History of hyperlipidemia 9. Psoriatic arthritis, was on DMARD outpatient which was stopped prior to surgery 10. Never smoker 11. Family history of premature coronary artery disease Plan: 1. Continue aspirin, statin, Plavix, beta mil therapy 2. Continue argatroban. Will need to transition to oral anticoagulation 3. Wean O2 as tolerated. Encourage incentive spirometry 10 times every hour while awake 4. Increase activity as able 5. Medical management other comorbidities per primary care service
--- NOTE | 2021-09-22 09:22 | XR ---
EXAMINATION TYPE: XR chest 1V portable DATE OF EXAM: 09/22/2021 COMPARISON: 09/03/2021 HISTORY: Shortness of breath TECHNIQUE: Single frontal view of the chest is obtained. FINDINGS: Heart is enlarged with postoperative change. Arthropathy of the shoulders with bilateral l ower lobe infiltrate and small effusion. Diffuse interstitial pattern with degenerative changes of th e spine. Arthropathy of the shoulders. IMPRESSION: 1. Diffuse interstitial pattern with bilateral infiltrate and small effusion.
[2021-09-22 09:23] LABS: Anisocytosis Slight; Basophils # (A) 0.1 k/uL (0-0.2); Basophils % (A) 1 %; Eosinophils # (A) 0.6 k/uL (0-0.7); Eosinophils % (A) 5 %; HCT 27.7 % (34.0-46.0); Hypochromasia Marked; Lymphocytes # (A) 1.2 k/uL (1.0-4.8); Lymphocytes % (A) 11 %; MCH 26.2 pg (25.0-35.0); MCHC 29.1 g/dL (31.0-37.0); MCV 90.2 fL (80.0-100.0); Mean Platelet Volume 9.7; Monocytes # (A) 0.6 k/uL (0-1.0); Monocytes % (A) 5 %; Neutrophils # (A) 8.8 k/uL (1.3-7.7); Neutrophils % (A) 77 %; Poikilocytosis Slight; RBC 3.07 m/uL (3.80-5.40); RDW 16.1 % (11.5-15.5); WBC 11.5 k/uL (3.8-10.6)
[2021-09-22 09:24] LABS: ALT 35 U/L (4-34); AST 46 U/L (14-36); African American GFR (CKD) >90 (>60 ml/min/1.73 sqM); Albumin 3.4 g/dL (3.5-5.0); Alkaline Phosphatase 140 U/L (38-126); Anion Gap 12 mmol/L; Blood Urea Nitrogen 16 mg/dL (7-17); Calcium 7.9 mg/dL (8.4-10.2); Carbon Dioxide 21 mmol/L (22-30); Chloride 105 mmol/L (98-107); Glucose 137 mg/dL (74-99); Magnesium 2.2 mg/dL (1.6-2.3); Non-African American GFR(CKD) 84 (>60 ml/min/1.73 sqM); Platelet Count 68 k/uL (150-450); Potassium 4.3 mmol/L (3.5-5.1); Sodium 138 mmol/L (137-145); Total Bilirubin 0.5 mg/dL (0.2-1.3)
[2021-09-22] MEDS: VITAMIN E (DL,TOCOPHERYL ACET) 400 UNIT (180 MG) CAP PO SCH (09:58)
[2021-09-22] MEDS: CLOPIDOGREL 75 MG TAB PO SCH (09:58)
[2021-09-22] MEDS: FUROSEMIDE 40 MG TAB PO SCH (09:58)
[2021-09-22] MEDS: ASPIRIN 81 MG PO SCH (09:58)
[2021-09-22] MEDS: METOPROLOL TARTRATE 25 MG TAB PO SCH ×2 (09:58→21:10)
--- NOTE | 2021-09-22 11:09 | P.PN ---
Subjective Progress Note Date: 09/22/21 Principal diagnosis: Bilateral pulmonary embolism. Pulmonary consultation dated 09/21/2021. 65-year-old female who was being seen by cardiothoracic surgery, and noticed, that the patient was short of breath. She apparently been short of breath for about 2 or 3 days prior to being seen by the cardiothoracic team. She was sent to the emergency room, for further evaluation, and a CT angiogram revealed evidence of bilateral pulmonary emboli. The patient had a recent 3 vessel bypass surgery, done about 3 weeks ago. She denied any chest pain or chest discomfort. There is no fever or chills. The patient denied any abdominal pain, nausea, vomiting, or diarrhea. The patient has a history of CAD, recent bypass grafting, angina, hyperlipidemia, hypertension, and psoriatic arthritis. He was also noted, that the patient's platelet levels were rather low, and the patient was thought to possibly have heparin-induced thrombocytopenia, and for that reason, was started argatroban at 2 mcg/kg/m. Appropriate labs were drawn to determine if the patient was having HIT. White count 11.3, hemoglobin 7.4, hematocrit 24.1, and platelet count 52,000. Fibrinogen was 595. PTT was 28.6. Sodium 134, potassium 4, chlorides 107, CO2 19, anion gap 8, BUN 16, and creatinine 0.66. The patient's troponins were 1.210 and 1.150. N-terminal proBNP was 6680. Venous Doppler of the bilateral lower extremities revealed DVT, and the left leg. CT angiogram done on September 20, revealed bilateral acute pulmonary emboli without evidence of RV strain. Progress note dated 09/22/2021. 65-year-old female, who was admitted with a diagnosis of shortness of breath, secondary to bilateral pulmonary emboli, and left lower extremity DVT. She was recently in the hospital for bypass grafting. Currently, the patient is on argatroban, for possible heparin-induced thrombocytopenia. Clinically, the patient feels better. The patient's on a couple liters of oxygen. White count 11.5, hemoglobin 8, hematocrit 27.7, and platelet count 68,000. Sodium 138, potassium 4.3, chlorides 105, CO2 21, BUN 16, and creatinine 0.75. Chest x-ray shows a diffuse interstitial pattern, which could be consistent with fluid overload and interstitial edema. Objective - Vital Signs Vital signs: Vital Signs Temp 100 F H 09/22/21 04:30 Pulse 91 09/22/21 04:30 Resp 18 09/22/21 04:30 BP 116/69 09/22/21 04:30 Pulse Ox 96 09/22/21 08:18 FiO2 Intake & Output 09/21/21 09/22/21 09/22/21 18:59 06:59 18:59 Intake Total 319.211 96.942 50 Balance 319.211 96.942 50 Intake: Intake, IV Titration 83.211 96.942 50 Amount Argatroban 50 mg In 83.211 96.942 50 Sodium Chloride 0.9% 50 ml @ 2 MCG/KG/MIN 9.58 mls/hr IV .Q5H14M [facility] Rx# :[id number] Oral 236 Other: # Voids 2 2 2 - Exam No acute distress, oriented 3. No audible wheezing or use of accessory muscles. 2 L saturation was 96%. HEENT examination is grossly unremarkable. Neck supple. Full range of motion. No adenopathy thyromegaly or neck vein distention. Cardiovascular examination reveals regular rhythm rate. S1-S2 normal. No S3 or S4. No discernible murmur noted. Heart rate 88 bpm. Lungs reveal mostly clear breath sounds. Breath sounds are equal bilaterally. Mild scattered crackles are noted. No wheezes or rhonchi appreciated. Breath sounds are equal bilaterally. Abdomen soft bowel sounds are heard. No masses or tenderness. Extremities are intact. No cyanosis clubbing or edema. Skin is without rash or lesion. Neurologic examination is brief but nonfocal. - Labs CBC & Chem 7: 09/22/21 07:28 09/22/21 07:28 Labs: Abnormal Lab Results - Last 24 Hours (Table) 09/21/21 09/21/21 09/22/21 Range/Units 08:56 11:12 07:28 WBC 11.5 H (3.8-10.6) k/uL RBC 3.07 L (3.80-5.40) m/uL Hgb 8.0 L (11.4-16.0) gm/dL Hct 27.7 L (34.0-46.0) % MCHC 29.1 L (31.0-37.0) g/dL RDW 16.1 H (11.5-15.5) % Plt Count 68 L (150-450) k/uL Neutrophils # 8.8 H (1.3-7.7) k/uL ESR 113 H (0-20) mm/hr Retic Count 4.2 H (0.5-2.0) % APTT 46.6 H (22.0-30.0) sec Carbon Dioxide (22-30) mmol/L Glucose (74-99) mg/dL Calcium (8.4-10.2) mg/dL AST (14-36) U/L ALT (4-34) U/L Alkaline Phosphatase (38-126) U/L Albumin (3.5-5.0) g/dL 09/22/21 09/22/21 Range/Units 07:28 07:28 WBC (3.8-10.6) k/uL RBC (3.80-5.40) m/uL Hgb (11.4-16.0) gm/dL Hct (34.0-46.0) % MCHC (31.0-37.0) g/dL RDW (11.5-15.5) % Plt Count (150-450) k/uL Neutrophils # (1.3-7.7) k/uL ESR (0-20) mm/hr Retic Count (0.5-2.0) % APTT 58.9 H (22.0-30.0) sec Carbon Dioxide 21 L (22-30) mmol/L Glucose 137 H (74-99) mg/dL Calcium 7.9 L (8.4-10.2) mg/dL AST 46 H (14-36) U/L ALT 35 H (4-34) U/L Alkaline Phosphatase 140 H (38-126) U/L Albumin 3.4 L (3.5-5.0) g/dL Assessment and Plan Assessment: Acute shortness of breath, secondary to bilateral pulmonary emboli, and left lower extremity DVT. Recent three-vessel bypass grafting. Thrombocytopenia, rule out heparin-induced thrombocytopenia (HIT). History of coronary artery disease. History of hyperlipidemia. History of hypertension. History of psoriatic arthritis. Plan: Plan dated 09/21/2021. Clinically, the patient's very stable. The patient is getting a couple liters of oxygen. Saturations are excellent. The patient is not manifesting any signs or symptoms of respiratory distress or difficulty. The patient's on appropriate medications. Heparin was discontinued in favor of Argatroban, because there was some concern that the patient is developing heparin-induced thrombocytopenia. Hematology was consulted. Cardiothoracic was consulted. We'll continue to follow along. Respiratory status currently appears to be very stable. Plan dated 09/22/2021. Currently, the patient appears to be doing relatively well. She remains on 2 L nasal cannula. Saturations are 96%. Labs, x-rays, and medications are reviewed. We will continue to follow make recommendations where appropriate. Hematology is seeing the patient for possible heparin-induced thrombocytopenia. Prognosis is guarded. Time with Patient: Less than 30
[2021-09-22 11:14] LABS: APTT 72 Sec(s) (<43); APTT 1:1 Mix 61 Sec(s) (<43); DRVVT 1:1 Mix 51 Sec(s) (<44); DRVVT Confirmation Positive (Negative); Dilute Russell Viper Venom 66 Sec(s) (<44); Hexagonal Phase Neutralization Positive (Negative)
--- NOTE | 2021-09-22 11:42 | P.PN ---
Subjective Progress Note Date: 09/22/21 Principal diagnosis: Pulmonary embolism Patient is seen and examined as a follow-up. She is up in the bedside chair. States that she is feeling better. She is on 2 L oxygen, nasal cannula with saturation 96%. Patient had a low-grade fever of 100.0. Covid-19 nonreactive. Chest x-ray shows diffuse interstitial pattern with bilateral infiltrate and small effusion. Hematology, cardiology, pulmonology, and cardiothoracic following patient. Call cardiogram showed mild LVH, EF 45-50%, moderate right ventricular dilation, pulmonary hypertension with RVSP 54 mm Hg, mild to moderate mitral regurgitation, moderate to severe tricuspid regurgitation. Venous duplex positive for left lower extremity DVT. Objective - Vital Signs Vital signs: Vital Signs Temp 100 F H 09/22/21 04:30 Pulse 91 09/22/21 04:30 Resp 18 09/22/21 04:30 BP 116/69 09/22/21 04:30 Pulse Ox 96 09/22/21 08:18 FiO2 Intake & Output 09/21/21 09/22/21 09/22/21 18:59 06:59 18:59 Intake Total 319.211 96.942 Balance 319.211 96.942 Intake: Intake, IV Titration 83.211 96.942 Amount Argatroban 50 mg In 83.211 96.942 Sodium Chloride 0.9% 50 ml @ 2 MCG/KG/MIN 9.58 mls/hr IV .Q5H14M [facility] Rx# :[id number] Oral 236 Other: # Voids 2 2 - Exam General appearance: The patient is alert, oriented, appears in no acute distress. HET: Head is normocephalic and atraumatic. Pupils are equal and reactive. Neck: Supple without lymphadenopathy. Trachea midline. No audible carotid bruit. Heart: S1 S2. Regular rate and rhythm. Lungs: Clear to auscultation bilaterally. Abdomen: Soft, nontender, nondistended. Extremities: Normal skin color and turgor. Bilateral lower extremities with GHULAM hose stockings. Neurological: No focal deficits. - Labs CBC & Chem 7: 09/22/21 07:28 09/22/21 07:28 Labs: Abnormal Lab Results - Last 24 Hours (Table) 09/21/21 09/21/21 09/21/21 Range/Units 03:41 08:56 08:56 ESR 113 H (0-20) mm/hr Retic Count 4.2 H (0.5-2.0) % APTT (22.0-30.0) sec Fibrinogen (200-500) mg/dL Iron 10 L (50-170) ug/dL TIBC 216 L (228-460) ug/dL % Saturation 4.51 L (12.00-45.00) Transferrin 154.0 L (204.0-354.0) mg/dL Ferritin 576.0 H (10.0-291.0) ng/mL Lactate Dehydrogenase (313-618) U/L Troponin I 1.150 H* (0.000-0.034) ng/mL 09/21/21 09/21/21 09/21/21 Range/Units 08:56 09:09 11:12 ESR (0-20) mm/hr Retic Count (0.5-2.0) % APTT 46.6 H (22.0-30.0) sec Fibrinogen 595 H (200-500) mg/dL Iron (50-170) ug/dL TIBC (228-460) ug/dL % Saturation (12.00-45.00) Transferrin (204.0-354.0) mg/dL Ferritin (10.0-291.0) ng/mL Lactate Dehydrogenase 908 H (313-618) U/L Troponin I (0.000-0.034) ng/mL Assessment and Plan Assessment: 1. Bilateral pulmonary emboli with evidence of right heart strain per echocardiogram 2. Left lower extremity deep vein thrombosis 3. Elevated troponin 4. Thrombocytopenia, possible heparin-induced thrombocytopenia 5. Recent three-vessel coronary artery bypass graft, 08/30/2021 6. History hypertension 7. History hyperlipidemia 8. Psoriatic arthritis Plan: 1. Echocardiogram reviewed 2. Venous duplex reviewed 3. Continue Argatroban per recommendations from primary medicine team and hematology 4. Continue with recommendations from hematology, pulmonology, and cardiothoracic surgery 5. Continue with conservative management at this time. No plans on vascular surgical intervention at this time. Patient is not a good candidate for thromb olytics, may consider thrombectomy, however there is no urgency at this time. Thank you for this consultation, we will continue to follow closely. The impression and plan of care has been dictated as directed. Dr. Fonseca I performed a history and examination of this patient, discussed the same with the dictator. I agree with the dictator's note ,documented as a scribe. Any additional findings or plans will be noted.
--- NOTE | 2021-09-22 12:07 | P.PN ---
Subjective this is a 65-year-old female with a past medical history of coronary artery diseaes s/p recent 3 vessel CABG with PEACE to LAD, reverse saphenous vein grafts to the obtuse marginal and posterior descending coronary arteries on 08/30/21, hypertension, dyslipidemia, psoriatic arthritis on DMARD. She follows with Dr. Salcedo outpatient. We have been asked to see in consultation for arrhythmia. Patient presents emergency department with worsening shortness of breath and left lower extremity swelling. She was seen for her follow-up with cardiothoracic surgery for complaints of shortness of breath, she underwent a CT angiogram of the chest that showed bilateral pulmonary emboli present. Patient was sent to the emergency department. Venous Doppler ultrasound was also completed which revealed left lower extremity DVT. IV heparin was initiated and within 48 hours, dropped to 52K. heparin was discontinued and argantroban was started, labs pending DIAGNOSTICS -Telemetry tracings in the ER revealed episode of NSVT, PVCs Bigeminy -CT chest revealed bilateral acute pulmonary emboli. No CT evidence for RV strain. Small to tiny right greater than left pleural effusions. -Echocardiogram revealed an EF of 4550%anterolateral hypokinesis, moderate to severe pulmonary hypertension with an RVSP of 54 mmHg, mild to moderate mitral regurgitation, moderate to severe tricuspid regurgitation. 09/22/2021 Patient seen and examined at bedside, no acute distress. She is breathing comfortably on 2L nasal cannula. Telemetry reviewed, patient maintaining sinus rhythm, occasional PVC, no further bigeminy or NSVT noted. Beta mil was restarted. She is maintained on argantroban. Vascular is following, not a candidate for EKOS at this time. WBC 11.5, hemoglobin 8.0, platelets 68, sodium 138, potassium 4.3, BUN 16, serum creatinine 0.7, HIT labs pending PHYSICAL EXAMINATION Blood pressure 124/62, heart rate 88, afebrile, oxygen saturations 95% on 2 L nasal cannula CONSTITUTIONAL: No apparent distress. HEENT: Head is normocephalic. Neck Supple. No JVD. CHEST EXAMINATION: Lungs are clear to auscultation. No chest wall tenderness is noted on palpation or with deep breathing. Heart Hugger in place. Chest incision well approximated, dressing intact HEART EXAMINATION: Regular rate and rhythm. S1, S2 heard. No murmurs, gallops or rub. ABDOMEN: Soft, nontender. Positive bowel sounds. EXTREMITIES: 2+ peripheral pulses, no lower extremity edema and no calf tenderness. NEUROLOGIC EXAMINATION: Patient is awake, alert and oriented x3. ASSESSMENT Bilateral pulmonary emboli Left lower extremity DVT Elevated troponin Thrombocytopenia Bigeminy, resolved Premature ventricular complexes, occasional Nonsustained ventricular tachycardia, resolved Coronary artery disease status post three-vessel CABG on 08/30/2021 History of hypertension Hyperlipidemia History of Psoriatic arthritis PLAN Continue metoprolol tartrate 25mg BID Monitor on telemetry Continue aspirin, statin, Plavix, lisinopril Vascular following, not a good candidate for thrombolytics at this time, currently on argantroban will need oral anticoagulation CT surgery following Hematology following Increase activity as able No further changes at this time from a cardiology perspective, ectopy on telemetry improved with beta block and we will continue the same. We will see the patient as needed. Please reach out with questions or concerns. Follow up outpatient with Dr. Salcedo Nurse Practitioner note has been reviewed, I agree with a documented findings and plan of care. Patient was seen and examined. Objective - Vital Signs Vital signs: Vital Signs Temp 100 F H 09/22/21 04:30 Pulse 91 09/22/21 04:30 Resp 18 09/22/21 04:30 BP 116/69 09/22/21 04:30 Pulse Ox 96 09/22/21 08:18 FiO2 Intake & Output 09/21/21 09/22/21 09/22/21 18:59 06:59 18:59 Intake Total 319.211 96.942 Balance 319.211 96.942 Intake: Intake, IV Titration 83.211 96.942 Amount Argatroban 50 mg In 83.211 96.942 Sodium Chloride 0.9% 50 ml @ 2 MCG/KG/MIN 9.58 mls/hr IV .Q5H14M [facility] Rx# :[id number] Oral 236 Other: # Voids 2 2 - Labs CBC & Chem 7: 09/22/21 07:28 09/22/21 07:28 Labs: Abnormal Lab Results - Last 24 Hours (Table) 09/21/21 09/21/21 09/21/21 Range/Units 03:41 08:56 08:56 ESR 113 H (0-20) mm/hr Retic Count 4.2 H (0.5-2.0) % APTT (22.0-30.0) sec Fibrinogen (200-500) mg/dL Iron 10 L (50-170) ug/dL TIBC 216 L (228-460) ug/dL % Saturation 4.51 L (12.00-45.00) Transferrin 154.0 L (204.0-354.0) mg/dL Ferritin 576.0 H (10.0-291.0) ng/mL Lactate Dehydrogenase (313-618) U/L Troponin I 1.150 H* (0.000-0.034) ng/mL 09/21/21 09/21/21 09/21/21 Range/Units 08:56 09:09 11:12 ESR (0-20) mm/hr Retic Count (0.5-2.0) % APTT 46.6 H (22.0-30.0) sec Fibrinogen 595 H (200-500) mg/dL Iron (50-170) ug/dL TIBC (228-460) ug/dL % Saturation (12.00-45.00) Transferrin (204.0-354.0) mg/dL Ferritin (10.0-291.0) ng/mL Lactate Dehydrogenase 908 H (313-618) U/L Troponin I (0.000-0.034) ng/mL
--- NOTE | 2021-09-22 15:55 | P.PN ---
Subjective Progress Note Date: 09/22/21 (delayed charting seen at 1015) Principal diagnosis: shortness of breath Patient is a 65-year-old female with coronary artery disease who underwent off- pump three-vessel coronary artery bypass grafting on 08/30/21, hypertension, dyslipidemia, psoriatic arthritis who was sent for a urgent CT PE protocol by the cardiothoracic nurse practitioner after being evaluated in office today. This outpatient CT demonstrated bilateral pulmonary embolism without signs of right heart strain. She therefore was directed to the ER. On arrival to the ER her vital signs were within normal limits. Laboratory analysis was consistent with her known acute blood loss anemia, thrombocytopenia, and troponin of 1.21. BNP was elevated at 6680. She was started on heparin drip. Arrangements are made for admission. On the morning following admission her platelet count had fallen by over half. Her heparin drip was discontinued. She was started on TROVAN and hematology was consulted. She underwent bilateral lower extremity venous Dopplers which showed an acute left lower extremity DVT. She was seen by vascular surgery. Echocardiogram was ordered which showed paradoxical septal motion consistent with prior cardiac surgery, moderate right ventricular dilation with RVSP 54, moderate to severe tricuspid regurgitation. cardio and pulm were also consulted. Patient seen and examined at bedside. Feeling well, eating and drink well, no chest pain, still with some shortness of breath. No unusual bruising or bleeding. General: non toxic, no distress, appears at stated age Derm: warm, dry Head: atraumatic, normocephalic, symmetric Eyes: EOMI, no lid lag, anicteric sclera Mouth: no lip lesion, mucus membranes moist Cardiovascular: S1S2 reg, with mild grade 2 murmur, positive posterior tibial pulse bilateral, Lungs: CTA bilateral, no rhonchi, no rales , no accessory muscle use Abdominal: soft, nontender to palpation, no guarding, no appreciable organomegaly Ext: no gross muscle atrophy, trace edema left calf, no contractures Neuro: CN II-XI grossly intact, no focal neuro deficits Psych: Alert, oriented, appropriate affect Assessment/plan: Bilateral pulmonary embolism, provoked with Left LE DVT Elevated troponin Acute hypoxic respiratory failure Thrombocytopenia- +PF4 by OD and likely HIT given clinical features. Pulm HTN - Would continue argatroban--- Will need transition to oral anticopagulation but also appears that patient is + for Lupus anticoagulant so may need warfrin>DOAC, also is at risk currently due to continued thrombocytopenia in the setting of ASA and plavix use. Await further heme/onc recs. -Vascular surgery rec- poor candidated for thrombocysis, may need thrombectomy but not at this time. -Telemetry - Pulm recs Acute blood loss anemia, with Fe deficiency and thrombocytopenia -No indication for transfusion -consider iv Fe if heme/onc in agreement, suspect ferritin elevated as acute phase reactant and sat 4.51. -Follow CBC Coronary artery disease with recent three-vessel bypass Hypertension Dyslipidemia cardioyopathy EF 45-50% NSVT- resolved with BB - cardio recs -Consult CT surgery recs - ASA on hold due to thrombocytopenia -Statin, Lasix, Plavix - Metoptolol and lisinopril - tele Discussed with: patient, nursing, Anticipated discharge date: in 2-[address]: home A total of 37 minutes was spent on the care of this complex patient more than 50% of the time was spent in counseling and care coordination. Objective - Vital Signs Vital signs: Vital Signs Temp 98.5 F 09/22/21 08:00 Pulse 84 09/22/21 13:43 Resp 18 09/22/21 13:43 BP 117/60 09/22/21 12:00 Pulse Ox 96 09/22/21 12:00 FiO2 Intake & Output 09/21/21 09/22/21 09/22/21 18:59 06:59 18:59 Intake Total 319.211 96.942 50 Balance 319.211 96.942 50 Intake: Intake, IV Titration 83.211 96.942 50 Amount Argatroban 50 mg In 83.211 96.942 50 Sodium Chloride 0.9% 50 ml @ 2 MCG/KG/MIN 9.58 mls/hr IV .Q5H14M [facility] Rx# :[id number] Oral 236 Other: # Voids 2 2 2 - Labs CBC & Chem 7: 09/22/21 07:28 09/22/21 07:28 Labs: Abnormal Lab Results - Last 24 Hours (Table) 09/21/21 09/21/21 09/22/21 Range/Units 08:56 08:56 07:28 WBC 11.5 H (3.8-10.6) k/uL RBC 3.07 L (3.80-5.40) m/uL Hgb 8.0 L (11.4-16.0) gm/dL Hct 27.7 L (34.0-46.0) % MCHC 29.1 L (31.0-37.0) g/dL RDW 16.1 H (11.5-15.5) % Plt Count 68 L (150-450) k/uL Neutrophils # 8.8 H (1.3-7.7) k/uL APTT (22.0-30.0) sec Lupus Anticoag aPTT 72 H (<43) Sec(s) Lupus Anticoag PTT Mix 61 H (<43) Sec(s) Dil Vinicio Viper Venom 66 H (<44) Sec(s) LA dRVVT Confirm Positive A (Negative) dRVVT 50:50 51 H (<44) Sec(s) Lupus Hexagonal Phase Positive A (Negative) Carbon Dioxide (22-30) mmol/L Glucose (74-99) mg/dL Calcium (8.4-10.2) mg/dL AST (14-36) U/L ALT (4-34) U/L Alkaline Phosphatase (38-126) U/L Albumin (3.5-5.0) g/dL Heparin-Ind Plt Ab Scrn 1.266 H (<0.4) OD 09/22/21 09/22/21 Range/Units 07:28 07:28 WBC (3.8-10.6) k/uL RBC (3.80-5.40) m/uL Hgb (11.4-16.0) gm/dL Hct (34.0-46.0) % MCHC (31.0-37.0) g/dL RDW (11.5-15.5) % Plt Count (150-450) k/uL Neutrophils # (1.3-7.7) k/uL APTT 58.9 H (22.0-30.0) sec Lupus Anticoag aPTT (<43) Sec(s) Lupus Anticoag PTT Mix (<43) Sec(s) Dil Vinicio Viper Venom (<44) Sec(s) LA dRVVT Confirm (Negative) dRVVT 50:50 (<44) Sec(s) Lupus Hexagonal Phase (Negative) Carbon Dioxide 21 L (22-30) mmol/L Glucose 137 H (74-99) mg/dL Calcium 7.9 L (8.4-10.2) mg/dL AST 46 H (14-36) U/L ALT 35 H (4-34) U/L Alkaline Phosphatase 140 H (38-126) U/L Albumin 3.4 L (3.5-5.0) g/dL Heparin-Ind Plt Ab Scrn (<0.4) OD
[2021-09-22] MEDS: SODIUM CHLORIDE 0.9% 1,000 ML IV SCH (17:21)
[2021-09-22] MEDS: ATORVASTATIN 20 MG TAB PO SCH (21:10)
[2021-09-23] MEDS: ARGATROBAN 50 MG in SODIUM CHLORIDE 0.9% 50 ML IV SCH ×4 (03:20→20:38)
[2021-09-23] MEDS: PANTOPRAZOLE 40 MG TABLET PO SCH (06:14)
[2021-09-23 07:27] LABS: Anisocytosis Slight; HCT 25.6 % (34.0-46.0); HGB 7.8 gm/dL (11.4-16.0); Hypochromasia Marked; MCH 26.4 pg (25.0-35.0); MCHC 30.3 g/dL (31.0-37.0); MCV 87.1 fL (80.0-100.0); Mean Platelet Volume 9.5; Poikilocytosis Slight; RBC 2.94 m/uL (3.80-5.40); RDW 16.3 % (11.5-15.5); WBC 10.7 k/uL (3.8-10.6)
[2021-09-23 07:29] LABS: Platelet Count 81 k/uL (150-450)
[2021-09-23 08:11] LABS: African American GFR (CKD) >90 (>60 ml/min/1.73 sqM); Anion Gap 6 mmol/L; Blood Urea Nitrogen 12 mg/dL (7-17); Calcium 7.7 mg/dL (8.4-10.2); Carbon Dioxide 26 mmol/L (22-30); Chloride 105 mmol/L (98-107); Glucose 104 mg/dL (74-99); Magnesium 2.1 mg/dL (1.6-2.3); Non-African American GFR(CKD) >90 (>60 ml/min/1.73 sqM); Potassium 4.1 mmol/L (3.5-5.1); Sodium 137 mmol/L (137-145)
[2021-09-23 09:00] LABS: Methylmalonic Acid 0.22 umol/L (<0.40)
[2021-09-23] MEDS ORDERED: ERGOCALCIFEROL 1,250 MCG (50,000 IU) CAPSULE PO SCH (09:00)
[2021-09-23] MEDS: FUROSEMIDE 40 MG TAB PO SCH (09:58)
[2021-09-23] MEDS: CLOPIDOGREL 75 MG TAB PO SCH (09:59)
[2021-09-23] MEDS: METOPROLOL TARTRATE 25 MG TAB PO SCH ×2 (09:59→20:38)
[2021-09-23] MEDS: VITAMIN E (DL,TOCOPHERYL ACET) 400 UNIT (180 MG) CAP PO SCH (09:59)
[2021-09-23] MEDS: ASPIRIN 81 MG PO SCH (09:59)
--- NOTE | 2021-09-23 11:05 | P.PN ---
Subjective Progress Note Date: 09/23/21 Principal diagnosis: Pulmonary embolism Patient is seen and examined as a follow-up. She is up in the bedside chair. States that she is feeling better, still has some shortness of breath on exertion walking back from the bathroom and after using incentive spirometer. Denies any pain in the left lower extremity. Denies any chest pain. She was afebrile today. She is on 2 L oxygen, nasal cannula with saturation 96%. Covid-19 nonreactive. Chest x-ray shows diffuse interstitial pattern with bilateral infiltrate and small effusion. Hematology, cardiology, pulmonology, and cardiothoracic following patient. Echocardiogram showed mild LVH, EF 45- 50%, moderate right ventricular dilation, pulmonary hypertension with RVSP 54 mm Hg, mild to moderate mitral regurgitation, moderate to severe tricuspid regurgitation. Venous duplex positive for left lower extremity DVT. Objective - Vital Signs Vital signs: Vital Signs Temp 98.7 F 09/23/21 04:00 Pulse 86 09/23/21 04:00 Resp 16 09/23/21 04:00 BP 126/62 09/23/21 04:00 Pulse Ox 95 09/23/21 04:00 FiO2 Intake & Output 09/22/21 09/23/21 09/23/21 18:59 06:59 18:59 Intake Total 218 688.799 290 Balance 218 688.799 290 Weight 78.1 kg Intake: Intake, IV Titration 100 88.799 50 Amount Argatroban 50 mg In 100 88.799 50 Sodium Chloride 0.9% 50 ml @ 2 MCG/KG/MIN 9.58 mls/hr IV .Q5H14M [facility] Rx# :[id number] Oral 118 600 240 Other: # Voids 1 2 - Exam General appearance: The patient is alert, oriented, appears in no acute distress. HET: Head is normocephalic and atraumatic. Pupils are equal and reactive. Neck: Supple without lymphadenopathy. Trachea midline. Heart: S1 S2. Regular rate and rhythm. Lungs: Clear to auscultation bilaterally. Abdomen: Soft, nontender, nondistended. Extremities: Normal skin color and turgor. No lower extremity edema bilaterally. Neurological: No focal deficits. - Labs CBC & Chem 7: 09/23/21 07:11 09/23/21 07:11 Labs: Abnormal Lab Results - Last 24 Hours (Table) 09/21/21 09/21/21 09/23/21 Range/Units 08:56 08:56 07:11 WBC 10.7 H (3.8-10.6) k/uL RBC 2.94 L (3.80-5.40) m/uL Hgb 7.8 L (11.4-16.0) gm/dL Hct 25.6 L (34.0-46.0) % MCHC 30.3 L (31.0-37.0) g/dL RDW 16.3 H (11.5-15.5) % Plt Count 81 L (150-450) k/uL APTT (22.0-30.0) sec Lupus Anticoag aPTT 72 H (<43) Sec(s) Lupus Anticoag PTT Mix 61 H (<43) Sec(s) Dil Vinicio Viper Venom 66 H (<44) Sec(s) LA dRVVT Confirm Positive A (Negative) dRVVT 50:50 51 H (<44) Sec(s) Lupus Hexagonal Phase Positive A (Negative) Glucose (74-99) mg/dL Calcium (8.4-10.2) mg/dL Heparin-Ind Plt Ab Scrn 1.266 H (<0.4) OD 09/23/21 09/23/21 Range/Units 07:11 07:11 WBC (3.8-10.6) k/uL RBC (3.80-5.40) m/uL Hgb (11.4-16.0) gm/dL Hct (34.0-46.0) % MCHC (31.0-37.0) g/dL RDW (11.5-15.5) % Plt Count (150-450) k/uL APTT 54.8 H (22.0-30.0) sec Lupus Anticoag aPTT (<43) Sec(s) Lupus Anticoag PTT Mix (<43) Sec(s) Dil Vinicio Viper Venom (<44) Sec(s) LA dRVVT Confirm (Negative) dRVVT 50:50 (<44) Sec(s) Lupus Hexagonal Phase (Negative) Glucose 104 H (74-99) mg/dL Calcium 7.7 L (8.4-10.2) mg/dL Heparin-Ind Plt Ab Scrn (<0.4) OD Assessment and Plan Assessment: 1. Bilateral pulmonary emboli with evidence of right heart strain per echocardiogram 2. Left lower extremity deep vein thrombosis 3. Elevated troponin 4. Thrombocytopenia, possible heparin-induced thrombocytopenia 5. Recent three-vessel coronary artery bypass graft, 08/30/2021 6. History hypertension 7. History hyperlipidemia 8. Psoriatic arthritis 9. Anemia Plan: 1. Echocardiogram reviewed 2. Venous duplex reviewed 3. Anticoagulation per recommendations from hematology 4. Continue with recommendations from hematology, pulmonology, and cardiothoracic surgery 5. Continue with conservative management at this time. No plans on vascular surgical intervention at this time. Thank you for this consultation, we will sign off at this time. If vascular surgery can be of any further needs please do not hesitate to contact us. The impression and plan of care has been dictated as directed. Dr. Swan I performed a history and examination of this patient, discussed the same with the dictator. I agree with the dictator's note ,documented as a scribe. Any additional findings or plans will be noted.
--- NOTE | 2021-09-23 12:51 | P.PN ---
Subjective Progress Note Date: 09/23/21 Principal diagnosis: Bilateral pulmonary emboli, thrombocytopenia, iron deficiency anemia, left lower extremity acute DVT. History significant for coronary artery disease status p ost three-vessel off-pump CABG on 08/30/2021, hypertension, hyperlipidemia, psoriatic arthritis, was on DMARD outpatient which was stopped prior to surgery, lifetime nonsmoker, family history of premature coronary artery disease. The patient was seen and examined in follow-up today 09/23/2021 at her bedside on the cardiac stepdown unit. Currently she is laying in bed, is awake, alert, oriented 3 and is in no acute apparent distress. She denies any complaints of chest pain at this time although continues to complain of episodes of shortness of breath with activity. Oxygen saturation are 95% on 2 L nasal cannula and she is achieving 1000 mL on her incentive spirometry. Her hit panel came back positive and her heparin drip was discontinued and she is on argatroban drip for anticoagulation. This morning she is complaining of some visual disturbances and explained it as if she was text thing she knows what she wants to, but cannot move her hands to the appropriate bladder. She also reports that she was trying to fill out some paperwork which needed a check shane in the box and could not get her hands to check the box. Laboratory results reviewed. Platelets are trending up and are 81 today. Objective - Vital Signs Vital signs: Vital Signs Temp 98.7 F 09/23/21 04:00 Pulse 86 09/23/21 04:00 Resp 16 09/23/21 04:00 BP 126/62 09/23/21 04:00 Pulse Ox 95 09/23/21 04:00 FiO2 Intake & Output 09/22/21 09/23/21 09/23/21 18:59 06:59 18:59 Intake Total 218 688.799 290 Balance 218 688.799 290 Weight 78.1 kg Intake: Intake, IV Titration 100 88.799 50 Amount Argatroban 50 mg In 100 88.799 50 Sodium Chloride 0.9% 50 ml @ 2 MCG/KG/MIN 9.58 mls/hr IV .Q5H14M [facility] Rx# :[id number] Oral 118 600 240 Other: # Voids 1 2 - Exam CONSTITUTIONAL: Lying in bed on the cardiac stepdown unit. Appears comfortable, cooperative, no acute distress RESPIRATORY: Lungs sounds diminished bilaterally. Respirations even, nonlabored. Currently on 2 L nasal cannula with oxygen saturation 95%. Able to achieve 1000 mL on her incentive spirometry. Strong nonproductive cough. CARDIOVASCULAR: S1, S2 present. Regular rate and rhythm, sinus rhythm on telemetry. Sternum stable. Palpable peripheral pulses bilaterally. No edema present. No calf pain or tenderness noted. Heart hugger in place with patient demonstrating appropriate use. Antiembolism stockings present. GASTROINTESTINAL: Abdomen soft, nontender, nondistended. Active bowel sounds present 4 quadrants. Tolerating diet. GENITOURINARY: Continues to void. INTEGUMENTARY: Skin is warm and dry with evidence of good perfusion. A midline sternal incision well approximated and covered with dry intact dressing. NEUROLOGIC: Visual disturbance, pupils equal and reactive. MUSKULOSKELETAL: Able to move all extremities, strength equal bilaterally, gait normal. PSYCHIATRIC: Alert and oriented to person place and time, appropriate affect, intact judgment and insight. - Labs CBC & Chem 7: 09/23/21 07:11 09/23/21 07:11 Labs: Abnormal Lab Results - Last 24 Hours (Table) 09/21/21 09/23/21 09/23/21 Range/Units 08:56 07:11 07:11 WBC 10.7 H (3.8-10.6) k/uL RBC 2.94 L (3.80-5.40) m/uL Hgb 7.8 L (11.4-16.0) gm/dL Hct 25.6 L (34.0-46.0) % MCHC 30.3 L (31.0-37.0) g/dL RDW 16.3 H (11.5-15.5) % Plt Count 81 L (150-450) k/uL APTT (22.0-30.0) sec Glucose 104 H (74-99) mg/dL Calcium 7.7 L (8.4-10.2) mg/dL Heparin-Ind Plt Ab Scrn 1.266 H (<0.4) OD 09/23/21 Range/Units 07:11 WBC (3.8-10.6) k/uL RBC (3.80-5.40) m/uL Hgb (11.4-16.0) gm/dL Hct (34.0-46.0) % MCHC (31.0-37.0) g/dL RDW (11.5-15.5) % Plt Count (150-450) k/uL APTT 54.8 H (22.0-30.0) sec Glucose (74-99) mg/dL Calcium (8.4-10.2) mg/dL Heparin-Ind Plt Ab Scrn (<0.4) OD Assessment and Plan Assessment: 1. Bilateral pulmonary emboli with evidence of right heart strain on echo 2. Shortness of breath, hypoxia secondary to above 3. 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 Left lower extremity acute DVT 5. Iron deficiency anemia 6. History of coronary artery disease status post three-vessel off-pump CABG on 08/30/2021 7. History of hypertension 8. History of hyperlipidemia 9. Psoriatic arthritis, was on DMARD outpatient which was stopped prior to surgery 10. Never smoker 11. Family history of premature coronary artery disease Plan: 1. Continue aspirin, statin, Plavix, beta mil. 2. Continue argatroban. Will need to transition to oral anticoagulation. 3. Wean O2 as tolerated. Encourage incentive spirometry 10 times every hour while awake. 4. Increase activity as able. 5. Consult neurology for visual disturbance. 6. MRI of the brain without contrast, rule out HIT syndrome. 7. Medical management and other comorbidities per primary care service. 8. More recommendations follow based on patient clinical course. Time with Patient: Greater than 30
--- NOTE | 2021-09-23 13:52 | P.PN ---
Subjective Progress Note Date: 09/23/21 Principal diagnosis: Bilateral pulmonary embolism. Pulmonary consultation dated 09/21/2021. 65-year-old female who was being seen by cardiothoracic surgery, and noticed, that the patient was short of breath. She apparently been short of breath for about 2 or 3 days prior to being seen by the cardiothoracic team. She was sent to the emergency room, for further evaluation, and a CT angiogram revealed evidence of bilateral pulmonary emboli. The patient had a recent 3 vessel bypass surgery, done about 3 weeks ago. She denied any chest pain or chest discomfort. There is no fever or chills. The patient denied any abdominal pain, nausea, vomiting, or diarrhea. The patient has a history of CAD, recent bypass grafting, angina, hyperlipidemia, hypertension, and psoriatic arthritis. He was also noted, that the patient's platelet levels were rather low, and the patient was thought to possibly have heparin-induced thrombocytopenia, and for that reason, was started argatroban at 2 mcg/kg/m. Appropriate labs were drawn to determine if the patient was having HIT. White count 11.3, hemoglobin 7.4, hematocrit 24.1, and platelet count 52,000. Fibrinogen was 595. PTT was 28.6. Sodium 134, potassium 4, chlorides 107, CO2 19, anion gap 8, BUN 16, and creatinine 0.66. The patient's troponins were 1.210 and 1.150. N-terminal proBNP was 6680. Venous Doppler of the bilateral lower extremities revealed DVT, and the left leg. CT angiogram done on September 20, revealed bilateral acute pulmonary emboli without evidence of RV strain. Progress note dated 09/22/2021. 65-year-old female, who was admitted with a diagnosis of shortness of breath, secondary to bilateral pulmonary emboli, and left lower extremity DVT. She was recently in the hospital for bypass grafting. Currently, the patient is on argatroban, for possible heparin-induced thrombocytopenia. Clinically, the patient feels better. The patient's on a couple liters of oxygen. White count 11.5, hemoglobin 8, hematocrit 27.7, and platelet count 68,000. Sodium 138, potassium 4.3, chlorides 105, CO2 21, BUN 16, and creatinine 0.75. Chest x-ray shows a diffuse interstitial pattern, which could be consistent with fluid overload and interstitial edema. Progress note dated 09/23/2021. 65-year-old female admitted with a diagnosis of shortness of breath. CT angiogram revealed bilateral pulmonary emboli. She also had a left lower extremity DVT. Her platelet count was low, and she was evaluated for heparin- induced thrombocytopenia and she did test positive. The patient was placed on argatroban. Currently, the patient's on 2 L nasal cannula. She remains argatroban at 2 mcg/kg/m. Clinically, the patient seemed be doing better. The patient states that she still feels a bit short of breath, but is less significant than it was when she first came in. She denies any chest pain or chest discomfort. Labs today include a white count of 10.7, hemoglobin 7.8, hematocrit 25.6, and platelet count of 81,000. Sodium 137, potassium 4.1, chlorides 105, CO2 26, BUN 12, with a creatinine 0.71. Chest x-ray from yesterday shows a diffuse interstitial pattern. Objective - Vital Signs Vital signs: Vital Signs Temp 98.7 F 09/23/21 04:00 Pulse 86 09/23/21 04:00 Resp 16 09/23/21 04:00 BP 126/62 09/23/21 04:00 Pulse Ox 95 09/23/21 04:00 FiO2 Intake & Output 09/22/21 09/23/21 09/23/21 18:59 06:59 18:59 Intake Total 218 688.799 290 Balance 218 688.799 290 Weight 78.1 kg Intake: Intake, IV Titration 100 88.799 50 Amount Argatroban 50 mg In 100 88.799 50 Sodium Chloride 0.9% 50 ml @ 2 MCG/KG/MIN 9.58 mls/hr IV .Q5H14M [facility] Rx# :[id number] Oral 118 600 240 Other: # Voids 1 2 - Exam No acute distress, oriented 3. No audible wheezing or use of accessory muscles . 2 L saturation was 97%. HEENT examination is grossly unremarkable. Neck supple. Full range of motion. No adenopathy thyromegaly or neck vein distention. Cardiovascular examination reveals regular rhythm rate. S1-S2 normal. No S3 or S4. No discernible murmur noted. Heart rate 86 bpm. Lungs reveal mostly clear breath sounds. Breath sounds are equal bilaterally. Mild scattered crackles are noted. No wheezes or rhonchi appreciated. Breath sounds are equal bilaterally. Abdomen soft bowel sounds are heard. No masses or tenderness. Extremities are intact. No cyanosis clubbing or edema. Skin is without rash or lesion. Neurologic examination is brief but nonfocal. - Labs CBC & Chem 7: 09/23/21 07:11 09/23/21 07:11 Labs: Abnormal Lab Results - Last 24 Hours (Table) 09/23/21 09/23/21 09/23/21 Range/Units 07:11 07:11 07:11 WBC 10.7 H (3.8-10.6) k/uL RBC 2.94 L (3.80-5.40) m/uL Hgb 7.8 L (11.4-16.0) gm/dL Hct 25.6 L (34.0-46.0) % MCHC 30.3 L (31.0-37.0) g/dL RDW 16.3 H (11.5-15.5) % Plt Count 81 L (150-450) k/uL APTT 54.8 H (22.0-30.0) sec Glucose 104 H (74-99) mg/dL Calcium 7.7 L (8.4-10.2) mg/dL Assessment and Plan Assessment: Acute shortness of breath, secondary to bilateral pulmonary emboli, and left lower extremity DVT. Recent three-vessel bypass grafting. 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 History of coronary artery disease. History of hyperlipidemia. History of hypertension. History of psoriatic arthritis. Plan: Plan dated 09/21/2021. Clinically, the patient's very stable. The patient is getting a couple liters of oxygen. Saturations are excellent. The patient is not manifesting any signs or symptoms of respiratory distress or difficulty. The patient's on appropriate medications. Heparin was discontinued in favor of Argatroban, because there was some concern that the patient is developing heparin-induced thrombocytopenia. Hematology was consulted. Cardiothoracic was consulted. We'll continue to follow along. Respiratory status currently appears to be very stable. Plan dated 09/22/2021. Currently, the patient appears to be doing relatively well. She remains on 2 L nasal cannula. Saturations are 96%. Labs, x-rays, and medications are reviewed. We will continue to follow make recommendations where appropriate. Hematology is seeing the patient for possible heparin-induced thrombocytopenia. Prognosis is guarded. Plan dated 09/23/2021. The patient seems be doing relatively well. She remains on 2 L nasal cannula. Saturations are excellent. She feels better today than she did yesterday. She remains on argatroban at 2 mcg/kg/m. Chest x-rays reviewed. Labs reviewed. We will continue to follow the patient make recommendations where appropriate. Prognosis is guarded. Time with Patient: Less than 30
--- NOTE | 2021-09-23 14:31 | CT ---
EXAMINATION TYPE: CT brain wo con DATE OF EXAM: 09/23/2021 COMPARISON: None HISTORY: Visual disturbance, ?? CVA CT DLP: 1141.4 mGycm Automated exposure control for dose reduction was used. Helical imaging through the brain. FINDINGS: Wedge-shaped area no lateral left occipital lobe shows low attenuation, there is loss of mcdowell-white j unction, effacement of sulci. There is no evident hemorrhage or hydrocephalus. Calvarium is intact. P aranasal sinuses and mastoid air cells as visualized are normal. IMPRESSION: SUBACUTE INFARCT LEFT OCCIPITAL LOBE. RESULTS RELAYED TO DR. FRAIRE BY PERFECT SERVE AT THE TIME OF DI CTATION A Red level critical message alert has been initiated for Patsy Mendez DO via the [employer] Critical Results System on 09/23/2021 2:26 PM. This message alert has been sent to Patsy Mendez DO via the preferences provided by the clinician for the receipt of Radiology Critical Findings. [facility] [place] [id number].
[2021-09-23 14:37] VITALS: RESP 18
--- NOTE | 2021-09-23 14:38 | P.CNNES ---
History of Present Illness Consult date: 09/23/21 Requesting physician: Apolinar Israel Reason for Consult: Visual disturbance History of Present Illness: Patient is a 65-year-old right-handed female came to the hospital 09/20/2021 for shortness of breath, and was diagnosed with DVT and bilateral PE. Patient states that she woke up on Sunday morning, on the day of admission with blurred vision. She could not check box on the form. She was also having problem with the texting on the phone, and could not differentiate the letters. She denies any double vision or obvious loss of vision. She believes it was with both eyes. She has been squinting a lot. Patient states that the last time she saw an eye doctor was 4 years ago. Patient denies any headache, any slurred speech, facial droop, numbness tingling or focal weakness. Patient had undergone triple bypass surgery on 08/30/2021. Chest x-ray showed diffuse interstitial pattern with bilateral infiltrate and small effusion. Ultrasound and lower limbs positive for DVT left leg. Patient's home medications include Plavix 75 mg, aspirin 81 mg, Crestor 10 mg vitamin E, vitamin D and some blood pressure medications. Patient has history of hypertension for long time, denies diabetes. She has hyperlipidemia, never smoked, drinks alcohol very very occasionally. She used to be on aspirin, but after her bypass surgery, Plavix was added. Review of Systems All 14 point of review of systems reviewed, unremarkable except as mentioned above. Past Medical History Past Medical History: Coronary Artery Disease (CAD), Chest Pain / Angina, Hyperlipidemia, Hypertension Additional Past Medical History / Comment(s): SOB w/exertion for about 6 months or longer, psoriatic arthritis. History of Any Multi-Drug Resistant Organisms: None Reported Past Surgical History: Hysterectomy, Orthopedic Surgery Additional Past Surgical History / Comment(s): Arthroscopic knee surgery(unknown laterality), D&C.Bypass, off-pump CABG X 3 08/30/21 Past Anesthesia/Blood Transfusion Reactions: Previous Problems w/ Anesthesia Additional Past Anesthesia/Blood Transfusion Reaction / Comment(s): Severe headache after D&C years ago, no problems since. Past Psychological History: No Psychological Hx Reported Smoking Status: Never smoker Past Alcohol Use History: Rare Past Drug Use History: None Reported - Past Family History Mother Family Medical History: Myocardial Infarction ([place]) Additional Family Medical History / Comment(s): Myocardial infarction at 63 years old. Father Family Medical History: CVA/TIA Additional Family Medical History / Comment(s): CVA at 72 years old. Brother(s) Family Medical History: Myocardial Infarction ([place]) Additional Family Medical History / Comment(s): Myocardial infarction at 40 years old, at 72 years old. Medications and Allergies Home Medications Medication Instructions Recorded Confirmed Type Aspirin 81 mg PO DAILY 08/22/21 09/20/21 History Ergocalciferol [Vitamin D2 (1250 1,250 mcg PO FR 08/22/21 09/20/21 History Mcg = 60893 Iu)] Rosuvastatin [Crestor] 10 mg PO HS 08/22/21 09/20/21 History Vitamin E 400 unit PO DAILY 08/22/21 09/20/21 History Acetaminophen Tab [Tylenol] 650 mg PO Q4HR PRN tab 09/03/21 09/20/21 Rx Clopidogrel [Plavix] 75 mg PO DAILY #30 tab 09/03/21 09/20/21 Rx Metoprolol Tartrate [Lopressor] 25 mg PO BID #60 tab 09/03/21 09/20/21 Rx Pantoprazole [Protonix] 40 mg PO AC-BRKFST #30 tab 09/03/21 09/20/21 Rx Furosemide [Lasix] 40 mg PO DAILY #7 tablet 09/18/21 09/20/21 Rx Nitroglycerin Sl Tabs [Nitrostat] 0.4 mg SUBLINGUAL Q5M PRN 09/20/21 09/20/21 History lisinopriL [Zestril] 2.5 mg PO DAILY 09/20/21 09/20/21 History Apixaban [Eliquis Starter Pack 5 - 10 mg PO DIRECTED 30 Days 09/23/21 Rx (for VTE)] #1 each Allergies Allergy/AdvReac Type Severity Reaction Status Date / Time heparin Allergy Severe Unknown Verified 09/23/21 09:43 Physical Examination - Vital Signs Vital Signs: Vital Signs Temp Pulse Resp BP Pulse Ox 09/23/21 04:00 98.7 F 86 16 126/62 95 09/23/21 01:37 75 17 09/23/21 00:00 98.9 F 75 17 119/65 97 09/22/21 20:00 99.3 F 86 18 143/68 95 09/22/21 16:00 98.1 F 82 18 119/58 96 09/22/21 13:43 84 18 09/22/21 12:00 84 18 117/60 96 Intake and Output 09/22/21 09/23/21 09/23/21 22:59 06:59 14:59 Intake Total 206.799 650 290 Balance 206.799 650 290 Intake: Intake, IV Titration 88.799 50 50 Amount Argatroban 50 mg In 88.799 50 50 Sodium Chloride 0.9% 50 ml @ 2 MCG/KG/MIN 9.58 mls/hr IV .Q5H14M [facility] Rx# :[id number] Oral 118 600 240 Other: # Voids 1 2 Weight 78.1 kg Patient is an elderly female, very pleasant, in no acute distress. Patient is alert awake oriented to time place and person. Speech and language functions are normal. Attention, concentration and fund of knowledge is adequate. Patient and name and repeat very well. No aphasia or dysarthria. Patient can read and write without any issues. She can follow directions. No visual neglect. On cranial examination, pupils are equal, round and reacting to light, visual joel revealed homonymous hemianopia, but appears monocular only with the right eye. The left eye appears fairly normal in all 4 quadrants. Her extraocular muscles are intact with no nystagmus. Face is symmetric, tongue protrudes to the midline. Palatal elevation and sensation normal, hearing and shoulder shrug normal, facial sensation normal. Shoulder shrug normal. On muscle strength testing, there is no pronator drift and the strength is normal in arms and legs distally and proximally. Deep tendon reflexes are 1+ all over and plantars downgoing. Sensory to touch is equal with no neglect on double simultaneous stimulation. Cerebellar function showed no ataxia for [id number] testing. No dysdiadochokinesia. Tone and bulk of muscles normal. Gait deferred. On general examination, there is no carotid bruit or murmur, S1-S2 audible. Abdomen is soft nontender. No organomegaly, bowel sounds present. Chest is clear. Peripheral pulses are present. No edema. Results - Laboratory Findings CBC and BMP: 09/23/21 07:11 09/23/21 07:11 Abnormal Lab Findings: Abnormal Labs 05/31/22 05/31/22 05/31/22 14:42 14:42 14:42 WBC 12.9 H RBC 3.05 L Hgb 8.0 L D Hct 26.5 L MCHC 30.3 L RDW 16.1 H Plt Count 122 L D Neutrophils # 10.3 H ESR Retic Count PT APTT Fibrinogen Lupus Anticoag aPTT Lupus Anticoag PTT Mix Dil Vinicio Viper Venom LA dRVVT Confirm dRVVT 50:50 Lupus Hexagonal Phase Sodium 136 L Carbon Dioxide 19 L BUN 20 H Glucose 100 H Calcium 8.0 L Iron TIBC % Saturation Transferrin Ferritin AST 48 H ALT Alkaline Phosphatase Lactate Dehydrogenase Troponin I 1.210 H* Albumin 3.4 L Heparin-Ind Plt Ab Scrn 09/20/21 09/21/21 09/21/21 21:05 03:41 03:41 WBC 11.3 H RBC 2.72 L Hgb 7.4 L Hct 24.1 L MCHC 30.6 L RDW 16.1 H Plt Count 52 L D Neutrophils # ESR Retic Count PT 12.1 H APTT 39.7 H 45.7 H Fibrinogen Lupus Anticoag aPTT Lupus Anticoag PTT Mix Dil Vinicio Viper Venom LA dRVVT Confirm dRVVT 50:50 Lupus Hexagonal Phase Sodium Carbon Dioxide BUN Glucose Calcium Iron TIBC % Saturation Transferrin Ferritin AST ALT Alkaline Phosphatase Lactate Dehydrogenase Troponin I Albumin Heparin-Ind Plt Ab Scrn 09/21/21 09/21/21 09/21/21 03:41 08:56 08:56 WBC RBC Hgb Hct MCHC RDW Plt Count Neutrophils # ESR Retic Count PT APTT Fibrinogen Lupus Anticoag aPTT Lupus Anticoag PTT Mix Dil Vinicio Viper Venom LA dRVVT Confirm dRVVT 50:50 Lupus Hexagonal Phase Sodium 134 L Carbon Dioxide 19 L BUN Glucose 114 H Calcium 7.7 L Iron 10 L TIBC 216 L % Saturation 4.51 L Transferrin 154.0 L Ferritin 576.0 H AST ALT Alkaline Phosphatase Lactate Dehydrogenase Troponin I 1.150 H* Albumin Heparin-Ind Plt Ab Scrn 1.266 H 09/21/21 09/21/21 09/21/21 08:56 08:56 08:56 WBC RBC Hgb Hct MCHC RDW Plt Count Neutrophils # ESR 113 H Retic Count 4.2 H PT APTT Fibrinogen Lupus Anticoag aPTT 72 H Lupus Anticoag PTT Mix 61 H Dil Vinicio Viper Venom 66 H LA dRVVT Confirm Positive A dRVVT 50:50 51 H Lupus Hexagonal Phase Positive A Sodium Carbon Dioxide BUN Glucose Calcium Iron TIBC % Saturation Transferrin Ferritin AST ALT Alkaline Phosphatase Lactate Dehydrogenase 908 H Troponin I Albumin Heparin-Ind Plt Ab Scrn 09/21/21 09/21/21 09/22/21 09:09 11:12 07:28 WBC 11.5 H RBC 3.07 L Hgb 8.0 L Hct 27.7 L MCHC 29.1 L RDW 16.1 H Plt Count 68 L Neutrophils # 8.8 H ESR Retic Count PT APTT 46.6 H Fibrinogen 595 H Lupus Anticoag aPTT Lupus Anticoag PTT Mix Dil Vinicio Viper Venom LA dRVVT Confirm dRVVT 50:50 Lupus Hexagonal Phase Sodium Carbon Dioxide BUN Glucose Calcium Iron TIBC % Saturation Transferrin Ferritin AST ALT Alkaline Phosphatase Lactate Dehydrogenase Troponin I Albumin Heparin-Ind Plt Ab Scrn 09/22/21 09/22/21 09/23/21 07:28 07:28 07:11 WBC 10.7 H RBC 2.94 L Hgb 7.8 L Hct 25.6 L MCHC 30.3 L RDW 16.3 H Plt Count 81 L Neutrophils # ESR Retic Count PT APTT 58.9 H Fibrinogen Lupus Anticoag aPTT Lupus Anticoag PTT Mix Dil Vinicio Viper Venom LA dRVVT Confirm dRVVT 50:50 Lupus Hexagonal Phase Sodium Carbon Dioxide 21 L BUN Glucose 137 H Calcium 7.9 L Iron TIBC % Saturation Transferrin Ferritin AST 46 H ALT 35 H Alkaline Phosphatase 140 H Lactate Dehydrogenase Troponin I Albumin 3.4 L Heparin-Ind Plt Ab Scrn 09/23/21 09/23/21 07:11 07:11 WBC RBC Hgb Hct MCHC RDW Plt Count Neutrophils # ESR Retic Count PT APTT 54.8 H Fibrinogen Lupus Anticoag aPTT Lupus Anticoag PTT Mix Dil Vinicio Viper Venom LA dRVVT Confirm dRVVT 50:50 Lupus Hexagonal Phase Sodium Carbon Dioxide BUN Glucose 104 H Calcium 7.7 L Iron TIBC % Saturation Transferrin Ferritin AST ALT Alkaline Phosphatase Lactate Dehydrogenase Troponin I Albumin Heparin-Ind Plt Ab Scrn Assessment and Plan Assessment: * Subacute ischemic stroke left occipital lobe * Status post coronary artery bypass surgery * Left lower extremity DVT, and bilateral PE * Hypertension * Hyperlipidemia * Thrombocytopenia, 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 I personally reviewed CT head and agree with the findings. * Carotid Doppler from 08/26/2021 revealed no hemodynamic significant stenosis of the proximal ICAs. Elevated velocity thought to be technical within the proximal ICA on the left. Antegrade flow in both vertebral artery. * 2-D echo from 09/21/2021 revealed mild LVH, paradoxical septal motion consistent with prior cardiac surgery. Left ventricular ejection fraction 45- 50% with anterolateral hypokinesis. Moderate right ventricular dilation. Pulmonary hypertension, mild to moderate mitral regurgitation. Moderate to severe TR. * Patient currently on Argatroban along with dual antiplatelet medication. Possible switch to oral anticoagulant soon. * Consider [place] to evaluate for embolic source. * Neurology will follow. Thank you for the consult.
--- NOTE | 2021-09-23 17:23 | P.PN ---
Subjective Progress Note Date: 09/23/21 Dr. topete has spoken with primary team. HIT Positive and platelets are recovering. Lupus anticoagulant will be repeated as outpatient in the interim pk to plan for DOAC at discharge Objective - Vital Signs Vital signs: Vital Signs Temp 98.3 F 09/23/21 08:00 Pulse 88 09/23/21 14:00 Resp 18 09/23/21 14:00 BP 124/63 09/23/21 08:00 Pulse Ox 96 09/23/21 08:00 FiO2 Intake & Output 09/22/21 09/23/21 09/23/21 18:59 06:59 18:59 Intake Total 218 688.799 573.9 Balance 218 688.799 573.9 Weight 78.1 kg Intake: Intake, IV Titration 100 88.799 97.9 Amount Argatroban 50 mg In 100 88.799 97.9 Sodium Chloride 0.9% 50 ml @ 2 MCG/KG/MIN 9.58 mls/hr IV .Q5H14M [facility] Rx# :[id number] Oral 118 600 476 Other: # Voids 1 2 - Exam - Constitutional General appearance: cooperative, no acute distress - EENT Eyes: EOMI ENT: NA/AT - Neck Neck: normal ROM - Respiratory Respiratory: bilateral: CTA - Cardiovascular Rhythm: regularly irregular - Gastrointestinal General gastrointestinal: soft - Integumentary Integumentary: pale - Neurologic Neurologic: CNII-XII intact - Musculoskeletal Musculoskeletal: strength equal bilaterally - Psychiatric Psychiatric: A&O x's 3 - Labs CBC & Chem 7: 09/23/21 07:11 09/23/21 07:11 Labs: Abnormal Lab Results - Last 24 Hours (Table) 09/23/21 09/23/21 09/23/21 Range/Units 07:11 07:11 07:11 WBC 10.7 H (3.8-10.6) k/uL RBC 2.94 L (3.80-5.40) m/uL Hgb 7.8 L (11.4-16.0) gm/dL Hct 25.6 L (34.0-46.0) % MCHC 30.3 L (31.0-37.0) g/dL RDW 16.3 H (11.5-15.5) % Plt Count 81 L (150-450) k/uL APTT 54.8 H (22.0-30.0) sec Glucose 104 H (74-99) mg/dL Calcium 7.7 L (8.4-10.2) mg/dL Assessment and Plan (1) Status post coronary artery bypass graft Narrative/Plan: 08/30/2021 Current Visit: Yes Status: Acute Code(s): Z95.1 - PRESENCE OF AORTOCORONARY BYPASS GRAFT SNOMED Code(s): 373832773 (2) Psoriatic arthritis Narrative/Plan: Current Visit: Yes Status: Acute Code(s): L40.50 - ARTHROPATHIC PSORIASIS, UNSPECIFIED SNOMED Code(s): 122385814 (3) Pulmonary emboli Narrative/Plan: Was treated with argantroban and can now be converted to eliquis after platelet count reaches 100K Current Visit: Yes Status: Acute Code(s): I26.99 - OTHER PULMONARY EMBOLISM WITHOUT ACUTE COR PULMONALE SNOMED Code(s): 49691685 (4) Normocytic anemia Narrative/Plan: Further anemia work-up given full pic Current Visit: Yes Status: Acute Code(s): D64.9 - ANEMIA, UNSPECIFIED SNOMED Code(s): 946975370 (5) Thrombocytopenia Narrative/Plan: Heparin Antibodies confirmed Current Visit: Yes Status: Acute Code(s): D69.6 - THROMBOCYTOPENIA, UNSPECIFIED SNOMED Code(s): 348395580 Plan: Dr. Zuniga: I have completed the full history and physical and developed the above impression and plan, agree with dictation, dictated as a scribe.
--- NOTE | 2021-09-23 17:29 | P.PN ---
Subjective Progress Note Date: 09/23/21 (delayed charting seen at 0930) Principal diagnosis: shortness of breath Patient is a 65-year-old female with coronary artery disease who underwent off- pump three-vessel coronary artery bypass grafting on 08/30/21, hypertension, dyslipidemia, psoriatic arthritis who was sent for a urgent CT PE protocol by the cardiothoracic nurse practitioner after being evaluated in office today. This outpatient CT demonstrated bilateral pulmonary embolism without signs of right heart strain. She therefore was directed to the ER. On arrival to the ER her vital signs were within normal limits. Laboratory analysis was consistent with her known acute blood loss anemia, thrombocytopenia, and troponin of 1.21. BNP was elevated at 6680. She was started on heparin drip. Arrangements are made for admission. On the morning following admission her platelet count had fallen by over half. Her heparin drip was discontinued. She was started on argatroban and hematology was consulted. She underwent bilateral lower extremity venous Dopplers which showed an acute left lower extremity DVT. She was seen by vascular surgery. Echocardiogram was ordered which showed par adoxical septal motion consistent with prior cardiac surgery, moderate right ventricular dilation with RVSP 54, moderate to severe tricuspid regurgitation. cardio and pulm were also consulted. Her HIT AB came back positive. She continued to do well. She did complain of some blurry vision and neurology was consulted, CT brain showed a subacute left occipital lobe infarct. Patient seen and examined at bedside. No chest pain, breathing is unchanged from yesterday. Results of blood work discussed General: non toxic, no distress, appears at stated age Derm: warm, dry Head: atraumatic, normocephalic, symmetric Eyes: EOMI, no lid lag, anicteric sclera Mouth: no lip lesion, mucus membranes moist Cardiovascular: S1S2 reg, with mild grade 2 murmur, positive posterior tibial pulse bilateral, Lungs: CTA bilateral, no rhonchi, no rales , no accessory muscle use Abdominal: soft, nontender to palpation, no guarding, no appreciable organomegaly Ext: no gross muscle atrophy, trace edema left calf, no contractures Neuro: CN II-XI grossly intact, no focal neuro deficits Psych: Alert, oriented, appropriate affect Assessment/plan: Bilateral pulmonary embolism, provoked with Left LE DVT Elevated troponin Acute hypoxic respiratory failure Thrombocytopenia due to HIT Pulm HTN - Would continue argatroban---D/W heme/onc transition to DOAC in AM -Vascular surgery rec- poor candidate for thrombolytics, may need thrombectomy but not at this time. -Telemetry - Pulm recs Subacute left occipital CVA - ASA, Plavix, statin - neuro recs Acute blood loss anemia -No indication for transfusion -Follow CBC Coronary artery disease with recent three-vessel bypass Hypertension Dyslipidemia cardioyopathy EF 45-50% NSVT- resolved with BB - cardio recs - CT surgery recs - ASA on hold due to thrombocytopenia -Statin, Lasix, Plavix - Metoprolol and lisinopril - tele Discussed with: patient, nursing, Anticipated discharge date: in 2-[address]: home A total of 37 minutes was spent on the care of this complex patient more than 50% of the time was spent in counseling and care coordination. Objective - Vital Signs Vital signs: Vital Signs Temp 98.3 F 09/23/21 08:00 Pulse 88 09/23/21 14:00 Resp 18 09/23/21 14:00 BP 124/63 09/23/21 08:00 Pulse Ox 96 09/23/21 08:00 FiO2 Intake & Output 09/22/21 09/23/21 09/23/21 18:59 06:59 18:59 Intake Total 218 688.799 573.9 Balance 218 688.799 573.9 Weight 78.1 kg Intake: Intake, IV Titration 100 88.799 97.9 Amount Argatroban 50 mg In 100 88.799 97.9 Sodium Chloride 0.9% 50 ml @ 2 MCG/KG/MIN 9.58 mls/hr IV .Q5H14M [facility] Rx# :[id number] Oral 118 600 476 Other: # Voids 1 2 - Labs CBC & Chem 7: 09/23/21 07:11 09/23/21 07:11 Labs: Abnormal Lab Results - Last 24 Hours (Table) 09/23/21 09/23/21 09/23/21 Range/Units 07:11 07:11 07:11 WBC 10.7 H (3.8-10.6) k/uL RBC 2.94 L (3.80-5.40) m/uL Hgb 7.8 L (11.4-16.0) gm/dL Hct 25.6 L (34.0-46.0) % MCHC 30.3 L (31.0-37.0) g/dL RDW 16.3 H (11.5-15.5) % Plt Count 81 L (150-450) k/uL APTT 54.8 H (22.0-30.0) sec Glucose 104 H (74-99) mg/dL Calcium 7.7 L (8.4-10.2) mg/dL
[2021-09-23] MEDS: ATORVASTATIN 20 MG TAB PO SCH (20:38)
[2021-09-24] MEDS: ARGATROBAN 50 MG in SODIUM CHLORIDE 0.9% 50 ML IV SCH ×2 (02:15→06:24)
[2021-09-24] MEDS: PANTOPRAZOLE 40 MG TABLET PO SCH (06:24)
[2021-09-24] MEDS: ASPIRIN 81 MG PO SCH (08:31)
[2021-09-24] MEDS: VITAMIN E (DL,TOCOPHERYL ACET) 400 UNIT (180 MG) CAP PO SCH (08:31)
[2021-09-24] MEDS: METOPROLOL TARTRATE 25 MG TAB PO SCH (08:31)
[2021-09-24] MEDS: FUROSEMIDE 40 MG TAB PO SCH (08:31)
[2021-09-24] MEDS: CLOPIDOGREL 75 MG TAB PO SCH (08:31)
[2021-09-24 09:31] LABS: Anisocytosis Slight; HCT 27.4 % (34.0-46.0); HGB 8.2 gm/dL (11.4-16.0); Hypochromasia Marked; MCH 26.1 pg (25.0-35.0); MCHC 29.9 g/dL (31.0-37.0); MCV 87.5 fL (80.0-100.0); Mean Platelet Volume 8.9; Platelet Count 115 k/uL (150-450); Poikilocytosis Slight; RBC 3.14 m/uL (3.80-5.40); RDW 16.3 % (11.5-15.5); WBC 10.8 k/uL (3.8-10.6)
[2021-09-24 09:37] VITALS: TEMP 98.9
--- NOTE | 2021-09-24 09:38 | P.PN ---
Subjective Progress Note Date: 09/24/21 Principal diagnosis: Bilateral pulmonary emboli, thrombocytopenia, iron deficiency anemia, left lower extremity acute DVT. History significant for coronary artery disease status p ost three-vessel off-pump CABG on 08/30/2021, hypertension, hyperlipidemia, psoriatic arthritis, was on DMARD outpatient which was stopped prior to surgery, lifetime nonsmoker, family history of premature coronary artery disease. The patient was seen and examined in follow-up today 09/24/2021 at her bedside on the cardiac stepdown unit. Currently she is sitting up to the bedside chair, is awake, alert, oriented 3 and is in no acute apparent distress. She denies any complaints of pain at this time, although reports she does get short of breath with activity. Oxygen saturation are 94% on 2 L nasal cannula and she is achieving 5686-9023 mL on her incentive spirometry with much encouragement. She continues to complain of some visual disturbances mostly with reading. She reports that the letters on her cell phone are hard to read and she cannot connect to type what she is trying to type. Neurology was consulted yesterday due to her complaints of visual disturbances, subsequently a CT of her brain was completed which showed a subacute infarct left occipital lobe. She remains on a n argatroban drip for anticoagulation. She remains hemodynamically stable and currently on no inotropic pressor support. Remote telemetry is showing normal sinus rhythm heart rate 88 BPM. Laboratory results continued to show her platelet count trending up and are 115 today. She had been afebrile the last 24 hours. Objective - Vital Signs Vital signs: Vital Signs Temp 97.9 F 09/24/21 03:48 Pulse 82 09/24/21 03:48 Resp 18 09/24/21 03:48 BP 101/57 09/24/21 03:48 Pulse Ox 94 L 09/24/21 03:48 FiO2 Intake & Output 09/23/21 09/24/21 09/24/21 18:59 06:59 18:59 Intake Total 691.9 139.757 236 Balance 691.9 139.757 236 Intake: Intake, IV Titration 97.9 139.757 Amount Argatroban 50 mg In 97.9 139.757 Sodium Chloride 0.9% 50 ml @ 2 MCG/KG/MIN 9.58 mls/hr IV .Q5H14M [facility] Rx# :[id number] Oral 594 236 Other: # Voids 1 - Exam CONSTITUTIONAL: Sitting up to the bedside chair on the cardiac stepdown unit. Appears comfortable, cooperative, no acute distress RESPIRATORY: Lungs sounds diminished bilaterally. Respirations even, nonlabored. Currently on 2 L nasal cannula with oxygen saturation 94%. Able to achieve 3066-4512 mL on her incentive spirometry. Strong nonproductive cough. CARDIOVASCULAR: S1, S2 present. Regular rate and rhythm, sinus rhythm on telemetry. Sternum stable. Palpable peripheral pulses bilaterally. No edema present. No calf pain or tenderness noted. Heart hugger in place with patient demonstrating appropriate use. Antiembolism stockings present. GASTROINTESTINAL: Abdomen soft, nontender, nondistended. Active bowel sounds present 4 quadrants. Tolerating diet. GENITOURINARY: Continues to void. INTEGUMENTARY: Skin is warm and dry with evidence of good perfusion. A midline sternal incision well approximated and covered with dry intact dressing. NEUROLOGIC: Visual disturbance, pupils equal and reactive. MUSKULOSKELETAL: Able to move all extremities, strength equal bilaterally, gait normal. PSYCHIATRIC: Alert and oriented to person place and time, appropriate affect, intact judgment and insight. - Allied health notes Allied health notes reviewed: nursing - Labs CBC & Chem 7: 09/23/21 07:11 09/23/21 07:11 Assessment and Plan Assessment: 1. Bilateral pulmonary emboli with evidence of right heart strain on echo 2. Shortness of breath, hypoxia secondary to above 3. 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 Left lower extremity acute DVT 5. Iron deficiency anemia 6. History of coronary artery disease status post three-vessel off-pump CABG on 08/30/2021 7. History of hypertension 8. History of hyperlipidemia 9. Psoriatic arthritis, was on DMARD outpatient which was stopped prior to surgery 10. Never smoker 11. Family history of premature coronary artery disease 12. Visual disturbances, with CT of the brain showing subacute infarct left occipital lobe Plan: 1. Continue aspirin, statin, Plavix, beta mil. 2. Continue argatroban. Will need to transition to oral anticoagulation. 3. Wean O2 as tolerated. Encourage incentive spirometry 10 times every hour while awake. 4. Increase activity as able. 5. Neurology consult noted and appreciated. 6. Computed tomography scan of the brain reviewed. 7. Medical management and other comorbidities per primary care service. 8. More recommendations follow based on patient clinical course. Time with Patient: Greater than 30
[2021-09-24 09:57] LABS: African American GFR (CKD) >90 (>60 ml/min/1.73 sqM); Anion Gap 7 mmol/L; Blood Urea Nitrogen 12 mg/dL (7-17); Calcium 8.3 mg/dL (8.4-10.2); Carbon Dioxide 27 mmol/L (22-30); Chloride 103 mmol/L (98-107); Glucose 137 mg/dL (74-99); Magnesium 2.1 mg/dL (1.6-2.3); Non-African American GFR(CKD) >90 (>60 ml/min/1.73 sqM); Phosphorus 3.3 mg/dL (2.5-4.5); Potassium 4.8 mmol/L (3.5-5.1); Sodium 137 mmol/L (137-145)
[2021-09-24] MEDS ORDERED: APIXABAN 5 MG TAB PO SCH (10:30)
--- NOTE | 2021-09-24 11:48 | P.PN ---
Subjective Progress Note Date: 09/24/21 Principal diagnosis: Bilateral pulmonary embolism. Pulmonary consultation dated 09/21/2021. 65-year-old female who was being seen by cardiothoracic surgery, and noticed, that the patient was short of breath. She apparently been short of breath for about 2 or 3 days prior to being seen by the cardiothoracic team. She was sent to the emergency room, for further evaluation, and a CT angiogram revealed evidence of bilateral pulmonary emboli. The patient had a recent 3 vessel bypass surgery, done about 3 weeks ago. She denied any chest pain or chest discomfort. There is no fever or chills. The patient denied any abdominal pain, nausea, vomiting, or diarrhea. The patient has a history of CAD, recent bypass grafting, angina, hyperlipidemia, hypertension, and psoriatic arthritis. He was also noted, that the patient's platelet levels were rather low, and the patient was thought to possibly have heparin-induced thrombocytopenia, and for that reason, was started argatroban at 2 mcg/kg/m. Appropriate labs were drawn to determine if the patient was having HIT. White count 11.3, hemoglobin 7.4, hematocrit 24.1, and platelet count 52,000. Fibrinogen was 595. PTT was 28.6. Sodium 134, potassium 4, chlorides 107, CO2 19, anion gap 8, BUN 16, and creatinine 0.66. The patient's troponins were 1.210 and 1.150. N-terminal proBNP was 6680. Venous Doppler of the bilateral lower extremities revealed DVT, and the left leg. CT angiogram done on September 20, revealed bilateral acute pulmonary emboli without evidence of RV strain. Progress note dated 09/22/2021. 65-year-old female, who was admitted with a diagnosis of shortness of breath, secondary to bilateral pulmonary emboli, and left lower extremity DVT. She was recently in the hospital for bypass grafting. Currently, the patient is on argatroban, for possible heparin-induced thrombocytopenia. Clinically, the patient feels better. The patient's on a couple liters of oxygen. White count 11.5, hemoglobin 8, hematocrit 27.7, and platelet count 68,000. Sodium 138, potassium 4.3, chlorides 105, CO2 21, BUN 16, and creatinine 0.75. Chest x-ray shows a diffuse interstitial pattern, which could be consistent with fluid overload and interstitial edema. Progress note dated 09/23/2021. 65-year-old female admitted with a diagnosis of shortness of breath. CT angiogram revealed bilateral pulmonary emboli. She also had a left lower extremity DVT. Her platelet count was low, and she was evaluated for heparin- induced thrombocytopenia and she did test positive. The patient was placed on argatroban. Currently, the patient's on 2 L nasal cannula. She remains argatroban at 2 mcg/kg/m. Clinically, the patient seemed be doing better. The patient states that she still feels a bit short of breath, but is less significant than it was when she first came in. She denies any chest pain or chest discomfort. Labs today include a white count of 10.7, hemoglobin 7.8, hematocrit 25.6, and platelet count of 81,000. Sodium 137, potassium 4.1, chlorides 105, CO2 26, BUN 12, with a creatinine 0.71. Chest x-ray from yesterday shows a diffuse interstitial pattern. Progress note dated 09/24/2021. The patient is again seen and examined. She is in room 361. The patient had a CT angiogram on admission which revealed bilateral pulmonary emboli. The patient also was found to have a left lower extremity DVT. The patient's blood thinner has been switched to a factor X a inhibitor. The patient could be considered for possible discharge in the near future. Labs, x-rays, and medications are all reviewed. White count 10.8, hemoglobin 8.2, hematocrit 27.4, and platelet count 215,000. PTT is 56.9. Sodium 137, potassium 4.8, chlorides 103, CO2 27, BUN 12, creatinine 0.71. Objective - Vital Signs Vital signs: Vital Signs Temp 98.9 F 09/24/21 08:00 Pulse 82 09/24/21 08:00 Resp 18 09/24/21 08:00 BP 123/64 09/24/21 08:00 Pulse Ox 95 09/24/21 08:00 FiO2 Intake & Output 09/23/21 09/24/21 09/24/21 18:59 06:59 18:59 Intake Total 691.9 139.757 236 Balance 691.9 139.757 236 Intake: Intake, IV Titration 97.9 139.757 Amount Argatroban 50 mg In 97.9 139.757 Sodium Chloride 0.9% 50 ml @ 2 MCG/KG/MIN 9.58 mls/hr IV .Q5H14M [facility] Rx# :[id number] Oral 594 236 Other: # Voids 1 - Exam No acute distress, oriented 3. No audible wheezing or use of accessory muscles. 2 L saturation was 95%. HEENT examination is grossly unremarkable. Neck supple. Full range of motion. No adenopathy thyromegaly or neck vein distention. Cardiovascular examination reveals regular rhythm rate. S1-S2 normal. No S3 or S4. No discernible murmur noted. Heart rate 82 bpm. Lungs reveal mostly clear breath sounds. Breath sounds are equal bilaterally. Mild scattered crackles are noted. No wheezes or rhonchi appreciated. Breath sounds are equal bilaterally. Abdomen soft bowel sounds are heard. No masses or tenderness. Extremities are intact. No cyanosis clubbing or edema. Skin is without rash or lesion. Neurologic examination is brief but nonfocal. - Labs CBC & Chem 7: 09/24/21 08:50 09/24/21 08:50 Labs: Abnormal Lab Results - Last 24 Hours (Table) 09/24/21 09/24/21 09/24/21 Range/Units 08:50 08:50 08:50 WBC 10.8 H (3.8-10.6) k/uL RBC 3.14 L (3.80-5.40) m/uL Hgb 8.2 L (11.4-16.0) gm/dL Hct 27.4 L (34.0-46.0) % MCHC 29.9 L (31.0-37.0) g/dL RDW 16.3 H (11.5-15.5) % Plt Count 115 L (150-450) k/uL APTT 56.9 H (22.0-30.0) sec Glucose 137 H (74-99) mg/dL Calcium 8.3 L (8.4-10.2) mg/dL Assessment and Plan Assessment: Acute shortness of breath, secondary to bilateral pulmonary emboli, and left lower extremity DVT. Recent three-vessel bypass grafting. 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 History of coronary artery disease. History of hyperlipidemia. History of hypertension. History of psoriatic arthritis. Plan: Plan dated 09/21/2021. Clinically, the patient's very stable. The patient is getting a couple liters of oxygen. Saturations are excellent. The patient is not manifesting any signs or symptoms of respiratory distress or difficulty. The patient's on appropriate medications. Heparin was discontinued in favor of Argatroban, because there was some concern that the patient is developing heparin-induced thrombocytopenia. Hematology was consulted. Cardiothoracic was consulted. We'll continue to follow along. Respiratory status currently appears to be very stable. Plan dated 09/22/2021. Currently, the patient appears to be doing relatively well. She remains on 2 L nasal cannula. Saturations are 96%. Labs, x-rays, and medications are reviewed. We will continue to follow make recommendations where appropriate. Hematology is seeing the patient for possible heparin-induced thrombocytopenia. Prognosis is guarded. Plan dated 09/23/2021. The patient seems be doing relatively well. She remains on 2 L nasal cannula. Saturations are excellent. She feels better today than she did yesterday. She remains on argatroban at 2 mcg/kg/m. Chest x-rays reviewed. Labs reviewed. We will continue to follow the patient make recommendations where appropriate. Prognosis is guarded. Plan dated 09/24/2021. The patient's labs, x-rays, medications are reviewed. The patient is examined. The patient could be considered for possible discharge. The patient remains on 2 L nasal cannula. The patient will likely be discharged on Eliquis. We will continue to follow the patient and make recommendations were appropriate. Prognosis is guarded. The patient will see us back in the office in follow-up. Time with Patient: Less than 30
[2021-09-24 14:03] VITALS: BP 108/63; PULSE 86
--- NOTE | 2021-09-24 15:16 | P.DS ---
Providers Date of admission: 09/20/21 15:54 Expected date of discharge: 09/24/21 Attending physician: Patsy Mendez, Consults: 09/20/21 15:55 Consult Physician Routine Consulting Provider: Romeo Hutson Consult Reason/Comments: PE Do you want consulting provider notified?: Already Contacted 09/20/21 16:00 Consult Physician Routine Consulting Provider: Wale Vela Consult Reason/Comments: open heart less than 30 days Do you want consulting provider notified?: Already Contacted 09/20/21 16:35 Consult Physician Routine Consulting Provider: Wale Fonseca Consult Reason/Comments: evaluate for EKOS Do you want consulting provider notified?: Already Contacted 09/21/21 07:47 Consult Physician Routine Consulting Provider: Benedict Richard Consult Reason/Comments: PULMONARY EMBOLISM, CONCERN FOR HIT Do you want consulting provider notified?: Yes 09/21/21 12:18 Consult Physician Routine Consulting Provider: Jalen Salcedo Consult Reason/Comments: arrythmias post bypass Do you want consulting provider notified?: Yes 09/23/21 09:51 Consult Physician Routine Consulting Provider: Ashok Fisher Consult Reason/Comments: Visual disturbances Do you want consulting provider notified?: Yes Primary care physician: Seven Macias Hospital Course: Discharge Diagnosis: Bilateral pulmonary embolism wiht right heart strain on echo, Left lower extremity DVT Type II NM, due to strain from pulmonary embolism Acute hypoxic respiratory failure Thrombocytopenia due to HIT Pulm HTN Subacute left occipital CVA Acute blood loss anemia Coronary artery disease with recent three-vessel bypass Hypertension Dyslipidemia cardioyopathy EF 45-50% NSVT- resolved with BB Hospital Course: Patient is a 65-year-old female with coronary artery disease who underwent off- pump three-vessel coronary artery bypass grafting on 08/30/21, hypertension, dyslipidemia, psoriatic arthritis who was sent for a urgent CT PE protocol by the cardiothoracic nurse practitioner after being evaluated in office today. This outpatient CT demonstrated bilateral pulmonary embolism without signs of right heart strain. She therefore was directed to the ER. On arrival to the ER her vital signs were within normal limits. Laboratory analysis was consistent with her known acute blood loss anemia, thrombocytopenia, and troponin of 1.21. BNP was elevated at 6680. She was started on heparin drip. Arrangements were made for admission. On the morning following admission her platelet count had fallen by over half. Her heparin drip was discontinued. She was started on argatroban and hematology was consulted. She underwent bilateral lower extremity venous Dopplers which showed an acute left lower extremity DVT. She was seen by vascular surgery. Echocardiogram was ordered which showed paradoxical septal motion consistent with prior cardiac surgery, moderate right ventricular dilation with RVSP 54, moderate to severe tricuspid regurgitation. cardio and pulm were also consulted. She was not a candidate for thrombolytics due being to high risk. Her HIT AB came back positive. She continued to do wel l. She did complain of some blurry vision and neurology was consulted, CT brain showed a subacute left occipital lobe infarct. Her platelet count improved to greater than 100. Case was discussed with hematology and they recommended direct oral anticoagulant. Patient continued to do well without any signs of bruising or bleeding. Initially neurology had been considering [place] however as patient requires anticoagulant on discharge risk greater than benefit at this time as it will not change clinical management. She did require home O2 as her oxygen dropped to 80% on room air with ambulation. Multiple discussions were had with the patient for the indications of each of her aspirin, Plavix, and direct oral anticoagulant. She is aware that she is at very high bleeding risk with an EDC of these medications. She is also aware of when to seek care. Patient was subsequently discharged home. Follow-up: New medications Eliquis, will follow up with Dr. Coyle, Dr. Richard, Dr. Cheung, Dr. Salcedo, Dr. Vela, Dr. Hutson, and Dr. Macias. She will have home O2 at home. This is a very complex patient who will need close outpatient follow-up. Dany risk for readmission. Patient seen and examined at bedside. doing well, breathing at basline, pain controlled. We had a ervin discussion about the risks/bebfits and indications of being on ASA, plavx, and eliquis. She is aware on when to call PCP and when to come the ED. All questions answered Vital signs reviewed and stable. General: non toxic, no distress, appears at stated age Derm: warm, dry Head: atraumatic, normocephalic, symmetric Eyes: EOMI, no lid lag, anicteric sclera Mouth: no lip lesion, mucus membranes moist Cardiovascular: S1S2 reg, no murmur, positive posterior tibial pulse bilateral, Lungs: Decreas bs bilateral, no rhonchi, no rales , no accessory muscle use Abdominal: soft, nontender to palpation, no guarding, no appreciable organomegaly Ext: no gross muscle atrophy, no edema, no contractures Neuro: CN II-XI grossly intact, no focal neuro deficits Psych: Alert, oriented, appropriate affect A total of 47 minutes of time were spent preparing this complex discharge summary . Discharged on 09/24/21 Patient Condition at Discharge: Stable Plan - Discharge Summary Discharge Rx Participant: No New Discharge Prescriptions: New Apixaban [Eliquis Starter Pack (for VTE)] 5 - 10 mg PO DIRECTED 30 Days #1 each Continue Ergocalciferol [Vitamin D2 (1250 Mcg = 06476 Iu)] 1,250 mcg PO FR Vitamin E 400 unit PO DAILY Rosuvastatin [Crestor] 10 mg PO HS Metoprolol Tartrate [Lopressor] 25 mg PO BID #60 tab Pantoprazole [Protonix] 40 mg PO AC-BRKFST #30 tab Acetaminophen Tab [Tylenol] 650 mg PO Q4HR PRN tab PRN Reason: Fever And/ Or Pain Nitroglycerin Sl Tabs [Nitrostat] 0.4 mg SUBLINGUAL Q5M PRN PRN Reason: Chest Pain Aspirin 81 mg PO DAILY Clopidogrel [Plavix] 75 mg PO DAILY #30 tab Furosemide [Lasix] 40 mg PO DAILY #7 tablet lisinopriL [Zestril] 2.5 mg PO DAILY Discharge Medication List Aspirin 81 mg PO DAILY 08/22/21 [History] Ergocalciferol [Vitamin D2 (1250 Mcg = 56176 Iu)] 1,250 mcg PO FR 08/22/21 [History] Rosuvastatin [Crestor] 10 mg PO HS 08/22/21 [History] Vitamin E 400 unit PO DAILY 08/22/21 [History] Acetaminophen Tab [Tylenol] 650 mg PO Q4HR PRN tab 09/03/21 [Rx] Clopidogrel [Plavix] 75 mg PO DAILY #30 tab 09/03/21 [Rx] Metoprolol Tartrate [Lopressor] 25 mg PO BID #60 tab 09/03/21 [Rx] Pantoprazole [Protonix] 40 mg PO AC-BRKFST #30 tab 09/03/21 [Rx] Furosemide [Lasix] 40 mg PO DAILY #7 tablet 09/18/21 [Rx] Nitroglycerin Sl Tabs [Nitrostat] 0.4 mg SUBLINGUAL Q5M PRN 09/20/21 [History] lisinopriL [Zestril] 2.5 mg PO DAILY 09/20/21 [History] Apixaban [Eliquis Starter Pack (for VTE)] 5 - 10 mg PO DIRECTED 30 Days #1 each 09/23/21 [Rx] Follow up Appointment(s)/Referral(s): Benedict Richard MD [STAFF PHYSICIAN] - 4 Weeks (Office closed; please call to make a follow-up appointment) William Coyle MD [STAFF PHYSICIAN] - 2 Weeks (Office closed; please call to make a follow-up appointment. ) Emmie Broderick MD [REFERRING] - 1 Week (Office closed; please call to make a follow-up appointment.) [facility],Home Care [NON-STAFF] - (Home care will be in contact with you.) Jalen Salcedo MD [STAFF PHYSICIAN] - 1 Week (Office closed; Please call to make a follow-up appointment.) [facility] [NON-STAFF] - As Needed (Supplier of home oxygen) Wale Vela MD [STAFF PHYSICIAN] - 09/29/21 1:00 pm Romeo Hutson DO [Doctor of Osteopathic Medicine] - 09/28/21 8:45 am Seven Macias DO [Primary Care Provider] - 1-2 days (Office closed; Please call to make a follow-up appointment. ) Patient Instructions/Handouts: Pulmonary Embolism (DC), Heparin-Induced Thrombocytopenia (DC) Activity/Diet/Wound Care/Special Instructions: Activity: as tolerated Diet: heart healthy Special Instructions: Allergy to HEPARIN Return to ER with chest pain, worsening shortness of breath, significant bleeding Wear Oxygen 13/11 do not be near open flames Discharge Disposition: HOME WITH HOME HEALTH SERVICES
== END 2021-09-24 14:33 | disposition home health service (06) | DRG 175 ==
LOC: EC 13:13 → 3SCARD 15:54
PROVIDERS: ADMIT Internal Medicine; ATTEND Internal Medicine
DX: I26.99 Other pulmonary embolism without acute cor pulmonale (principal); I21.A1 Myocardial infarction type 2; J96.01 Acute respiratory failure with hypoxia; I63.50 Cerebral infarction due to unspecified occlusion or stenosis of unspecified cerebral artery; D62 Acute posthemorrhagic anemia; I47.2 Ventricular tachycardia; J81.1 Chronic pulmonary edema; I82.412 Acute embolism and thrombosis of left femoral vein; I82.492 Acute embolism and thrombosis of other specified deep vein of left lower extremity; D75.82 Heparin induced thrombocytopenia (HIT); Z20.822 Contact with and (suspected) exposure to COVID-19; E78.5 Hyperlipidemia, unspecified; H53.2 Diplopia; E87.70 Fluid overload, unspecified; I37.1 Nonrheumatic pulmonary valve insufficiency; I08.1 Rheumatic disorders of both mitral and tricuspid valves; I10 Essential (primary) hypertension; I25.10 Atherosclerotic heart disease of native coronary artery without angina pectoris; I27.20 Pulmonary hypertension, unspecified; I49.3 Ventricular premature depolarization; L40.50 Arthropathic psoriasis, unspecified; Z79.02 Long term (current) use of antithrombotics/antiplatelets; Z79.82 Long term (current) use of aspirin; Z79.899 Other long term (current) drug therapy; Z82.3 Family history of stroke; Z82.49 Family history of ischemic heart disease and other diseases of the circulatory system; Z86.711 Personal history of pulmonary embolism; Z90.710 Acquired absence of both cervix and uterus; Z95.1 Presence of aortocoronary bypass graft; Z88.8 Allergy status to other drugs, medicaments and biological substances
CPT/HCPCS: 36415; 70450; 71045; 71275; 80048; 80053; 82565; 82607; 82728; 82746; 83540; 83550; 83605; 83615; 83735; 83880; 83921; 84100; 84484; 84520; 85025; 85027; 85045; 85384; 85610; 85613; 85652; 85730; 86022; 86038; 86146; 86147; 86431; 87635; 93005; 93306; 93970; 94760; 96365; 96366; 99291

== ENCOUNTER → 2021-09-20 | Outpatient (CLI) | payer MEDICARE ==
[2021-09-20 12:37] LABS: African American GFR (CKD) >90 (>60 ml/min/1.73 sqM); Blood Urea Nitrogen 20 mg/dL (7-17); Non-African American GFR(CKD) 83 (>60 ml/min/1.73 sqM)
--- NOTE | 2021-09-20 13:11 | CT ---
EXAMINATION TYPE: CT angio chest DATE OF EXAM: 09/20/2021 COMPARISON: NONE HISTORY: Recent triple bypass, Shortness of breath CT DLP: 332.9 mGycm. Automated Exposure Control for Dose Reduction was Utilized. CONTRAST: CTA scan of the thorax is performed with IV Contrast, patient injected with 61mL of Isovue 370, pulmo nary embolism protocol. MIP Images are created on CT scanner and reviewed. FINDINGS: LUNGS: Small to tiny right greater than left pleural effusions. There is are groundglass opacities an d organizing consolidations in the posterior bilateral lower lobes. Additional peripheral reticulatio n in the periphery of the mid lungs favors mild interstitial edema. No pneumothorax seen bilaterally. MEDIASTINUM: There is satisfactory enhancement of the pulmonary artery and its branches, there is pu lmonary emboli in the distal right pulmonary artery with extension into the middle and to a greater d egree right lower lobe branches with segmental extension. There is embolism on the left beginning in the lingular and left lower lobe branches with segmental extension. Most prominent thrombus in the le ft lower lobe. Small amount thrombus in the left upper lobe posteriorly coronal image 74. There is ca rdiomegaly. Right ventricle is not greater dilated than left ventricle however. Overlying sternal wir es and mediastinal clips along with left atrial appendage clip are all identified. There are no grea ter than 1 cm hilar or mediastinal lymph nodes. Tiny pericardial effusion is seen. OTHER: Incidental prominent splenule in the splenic hilum axial image 134. IMPRESSION: 1. Bilateral acute pulmonary emboli are present. No CT evidence for RV strain. 2. Small to tiny right greater than left pleural effusions with associated compressive atelectasis. D eveloping infiltrates cannot be excluded. Correlate clinically.
== END | disposition home or self-care (01) ==
LOC: RADCTMAIN 11:43
PROVIDERS: ATTEND Thoracic Surgery (Cardiothoracic Vascular Surgery)
DX: I26.99 Other pulmonary embolism without acute cor pulmonale (principal); J90 Pleural effusion, not elsewhere classified
CPT/HCPCS: 82565; 84520; 71275; 36415; Q9967

== ENCOUNTER → 2021-11-18 | Outpatient (CLI) | payer MEDICARE ==
[2021-11-18 13:46] LABS: African American GFR (CKD) >90 (>60 ml/min/1.73 sqM); Blood Urea Nitrogen 15 mg/dL (7-17); Non-African American GFR(CKD) >90 (>60 ml/min/1.73 sqM)
--- NOTE | 2021-11-20 09:32 | CT ---
CT CHEST FOR PULMONARY EMBOLISM. EXAMINATION TYPE: CT angio chest DATE OF EXAM: 11/18/2021 INDICATION: f/u PE from August post cardiac sx CT DLP: 328.50 mGycm, Automated exposure control for dose reduction was used. CONTRAST: Patient injected with 61 mL of Isovue 370. COMPARISON: 09/20/2021 TECHNIQUE: CT of the chest is performed on a spiral scan at 2 mm thick sections. Study is performed with intravenous contrast timed for evaluation for pulmonary embolism. This will limit additional po rtions of the evaluation. 3-D MIP images reconstructed by the technologist are reviewed on the compu ter in the coronal and sagittal planes. FINDINGS: No persistent filling defects are evident to suggest an acute pulmonary embolism. No mediastinal or hilar adenopathy enlarged by CT criteria is evident. The ascending aorta diameter at the level of the main pulmonary artery is 3.0 cm. The main pulmonary artery diameter at the bifur cation is 2.6 cm. There is a small left pleural effusion. Some increased infiltrates in the periphery of the left poste rior lateral lung. This is nonspecific. Correlate for atelectasis. There is a small consolidation in the posterior right lung base atelectasis and pneumonia within the differential. This measures approx imately 2.8 cm. Underlying mass is not excluded. Follow-up can be performed. Limited CT section through the upper abdomen are unremarkable. IMPRESSIONS: 1. No acute pulmonary embolism. 2. Atelectasis or pneumonia versus mass in the posterior lateral right lung base. Follow-up is recomm ended.
== END | disposition home or self-care (01) ==
LOC: RADCTMAIN 12:27
PROVIDERS: ATTEND Internal Medicine Critical Care Medicine
DX: I26.99 Other pulmonary embolism without acute cor pulmonale (principal)
CPT/HCPCS: 82565; 84520; 71275; 36415; Q9967

== ENCOUNTER → 2022-02-16 | Outpatient (CLI) | payer MEDICARE ==
[~2022-02-16] MED LIST changes: -ALBUMIN HUMAN 25% 50 ML IV ONE; -ALBUMIN HUMAN 5% 500 ML IVPB ONE; -ASPIRIN 325 MG TAB PO ONE; -ATORVASTATIN 10 MG TAB PO ONE; -CALCIUM CHLORIDE 100 MG/ML 10 ML SYRINGE IV ONE; -CARDIOPLEGIC SOLN (K+ 16 MEQ/L 1,000 ML with SODIUM BICARB (1 MEQ/ML) 20 ML, LIDOCAINE ... PERFUSION ONE; -CHLORHEXIDINE GLUCONATE 15 ML CUP MUCOUS MEM ONE; -CLEVIDIPINE BUTYRATE 25 MG in EMPTY BAG 1 BAG IV ONE; -HEPARIN SODIUM 1,000 UN/ML (10ML VL) IV ONE; -HEPARIN SODIUM,PORCINE 5,000 UNIT in SODIUM CHLORIDE 0.9% 500 ML 500 ML IV ONE; -INSULIN REGULAR 100 UNIT in SODIUM CHLORIDE 0.9% 100 ML IV ONE; +IRON SUCROSE 500 MG in SODIUM CHLORIDE 0.9% 250 ML IVPB NR; -LACTATED RINGERS 1,000 ML IV ONE; -MAGNESIUM SULFATE 16.24 MEQ in EMPTY SYRINGE 1 SYR IV ONE; -MANNITOL 25% 12.5 GM/50 ML VIAL IV ONE; -METOPROLOL TARTRATE 12.5 MG TAB PO ONE; -NITROGLYCERIN SL TABS 0.4 MG TAB SUBLINGUAL ONE; -NITROGLYCERIN-D5W PMX 25 MG/250 ML BTL IV ONE; -NITROGLYCERIN-D5W PMX 50 MG in DEXTROSE/WATER 1 250ML.BAG IV ONE; -NOREPINEPHRINE 4 MG in SODIUM CHLORIDE 0.9% 250 ML IV ONE; -PAPAVERINE 360 MG in SODIUM CHLORIDE 0.9% 90 ML IV ONE; -PHENYLEPHRINE 10 MG/ML VIAL IV ONE; -PHENYLEPHRINE 40 MG in SODIUM CHLORIDE 0.9% 250 ML IV ONE; -PROTAMINE SULFATE 10 MG/ML 25 ML VIAL IV ONE; -PROTAMINE SULFATE 250 MG in EMPTY BAG 1 BAG IV ONE; -SODIUM BICARB 8.4% 50 ML SYR (1 MEQ/ML) IV ONE; -SODIUM CHLORIDE 0.9% 1,000 ML IV ONE; +SODIUM CHLORIDE 0.9% 500 ML 500 ML in EMPTY BAG 1 BAG IV PRN; -TRANEXAMIC ACID 2,000 MG in SODIUM CHLORIDE 0.9% 80 ML IV ONE; -ceFAZolin 1,000 MG in SODIUM CHLORIDE 0.9% IRRIGATIO 1,000 ML IRRIGATION ONE; +methylPREDNISolone SOD SUCCI 125 MG/2 ML VIAL IV STA; -propofoL 1,000 MG/100 ML VIAL IV ONE
[2022-02-16 08:06] VITALS: BP 148/80; PULSE 97; RESP 16; TEMP 98
== END | disposition home or self-care (01) ==
LOC: PROCWHC3 07:54
PROVIDERS: ATTEND Physician Assistant
DX: E61.1 Iron deficiency (principal)
CPT/HCPCS: 96365; 96366; 96375; J2930; J1756

== ENCOUNTER → 2023-06-21 | Outpatient (CLI) | payer MEDICARE ==
[2023-06-21 14:18] LABS: African American GFR (CKD) >90 (>60 ml/min/1.73 sqM); Blood Urea Nitrogen 14 mg/dL (7-17); Non-African American GFR(CKD) >90 (>60 ml/min/1.73 sqM)
--- NOTE | 2023-06-21 15:13 | CT ---
EXAMINATION TYPE: CT brain wo/w con DATE OF EXAM: 06/21/2023 COMPARISON: 09/23/2021 HISTORY: vision issues CT DLP: 6.40 mGycm Automated exposure control for dose reduction was used. CONTRAST: CT scan of the head is performed with IV Contrast, patient injected with 100 mL of Isovue 300. FINDINGS: The ventricles, basal cisterns and sulci are within normal limits for the patient's age and there is no mass effect or shift of midline structures. There is mild decreased density in the periventricular white matter consistent with mild chronic isch emic white matter demyelination. There is an area of encephalomalacia involving the cortex and subcortical white matter of the left oc cipital lobe consistent with remote infarct. There is no acute intra or extra-axial hemorrhage. Following contrast administration, there is no pathological enhancement. Intraorbital contents appear normal and symmetric. Visualized paranasal sinuses and mastoid air cells are well aerated. IMPRESSION: 1. No acute bleed or mass effect. 2. Remote left occipital lobe infarct 3. Mild chronic ischemic white matter demyelination. 4. No pathological enhancement following contrast administration.
== END | disposition home or self-care (01) ==
LOC: RADCTMAIN 13:04
PROVIDERS: ATTEND Ophthalmology
DX: I67.82 Cerebral ischemia (principal); H53.461 Homonymous bilateral field defects, right side
CPT/HCPCS: 82565; 84520; 70470; 36415; Q9967

== ENCOUNTER → 2024-11-11 | Outpatient (CLI) | payer MEDICARE ==
--- NOTE | 2024-11-11 16:13 | XR ---
EXAMINATION TYPE: XR abdomen 1V DATE OF EXAM: 11/11/2024 2:19 PM COMPARISON: None CLINICAL INDICATION: Female, 69 years old with history of R319 HEMATURIA; YCH, pain TECHNIQUE: One radiographic view of the abdomen was obtained. FINDINGS: Degenerated levoconvex scoliosis lumbar spine. No dilated small bowel. 6 mm calcification l eft mid abdomen and 7 mm calcification right mid abdomen. Prominent vascular calcifications in the pe lvis. No significant stool burden. IMPRESSION: 1. A 6 mm calcification left mid abdomen and 7 mm calcification right mid abdomen. Possible renal sto andrew. 2. Nonobstructive bowel gas pattern. 3. Degenerative levoconvex scoliosis of the lumbar spine. [facility], , 11/11/2024 4:11 PM
== END | disposition home or self-care (01) ==
LOC: RADXRYALE 14:03
PROVIDERS: ATTEND Physician Assistant Medical
DX: R31.9 Hematuria, unspecified (principal); M51.369 Other intervertebral disc degeneration, lumbar region without mention of lumbar back pain or lower extremity pain; M41.86 Other forms of scoliosis, lumbar region
CPT/HCPCS: 74018